=== PATIENT | male | born 1945 | race Hispanic/Latino ===

== ENCOUNTER 2017-01-28 14:54 | Outpatient (CLI) | payer OTHER ==
--- NOTE | 2017-01-28 15:35 | Cat Scan Report ---
CT HEAD WITHOUT CONTRAST: HISTORY: Dizziness. Serial contiguous axial images were obtained through the cranium. Intravenous contrast material was not administered. The ventricles are normal in size and appearance. There is no mass effect or midline shift. No areas of abnormally increased or decreased attenuation are seen. No mass lesion is seen. Chronic 1.4 cm infarct in the posterior, superior left cerebellum is noted. The mastoid air cells and visualized portions of the sinuses are normal. IMPRESSION: No acute intracranial process. Chronic left cerebellar infarct.
== END 2017-01-28 14:55 | disposition home or self-care (01) ==
LOC: VAS 14:54
PROVIDERS: ATTEND Internal Medicine
DX: I63.9 Cerebral infarction, unspecified (principal); I65.23 Occlusion and stenosis of bilateral carotid arteries
CPT/HCPCS: 70450; 93880

== ENCOUNTER 2017-04-10 05:09 | Emergency (ER) | payer OTHER ==
--- NOTE | 2017-04-10 05:55 | XRay Report ---
FINAL REPORT EXAM: XR CHEST ROUTINE 2V HISTORY: Shortness of breath TECHNIQUE: PA and lateral views of the chest were submitted. FINDINGS: The heart size and mediastinum appear normal. The lungs are clear. Pleural fluid is not seen. The bones and soft tissues do not show any acute changes. IMPRESSION: No active chest disease.
[2017-04-10 06:42] LABS: Basophils % (Auto) 0.3 % (0.0-1.8); Eosinophils # (Auto) 0.1 K/mm3 (0.0-0.4); Eosinophils % (Auto) 1.6 % (0.0-4.3); Hematocrit 44.3 % (35.5-45.6); Hemoglobin 14.6 gm/dl (11.8-15.2); Lymphocytes % (Auto) 13.1 % (13.4-35.0); Mean Corpuscular HGB Conc 33 % (32-34); Mean Corpuscular Hemoglobin 29 pg (28-32); Mean Corpuscular Volume 87 fl (84-94); Monocytes % (Auto) 13.1 % (0.0-7.3); Platelet Count 165 K/mm3 (140-440); Red Blood Count 5.12 M/mm3 (3.65-5.03); Red Cell Distribution Width 14.8 % (13.2-15.2)
[2017-04-10 07:00] LABS: Calcium 9.4 mg/dL (8.4-10.2)
[2017-04-10 07:48] LABS: Bacteria,Urine 1+ /HPF (Negative); Bilirubin,Urine NEG (Negative); Blood,Urine NEG (Negative); Color,Urine Yellow (Yellow); Mucus,Urine FEW /HPF; Nitrite,Urine NEG (Negative); Urobilinogen,Urine < 2.0 mg/dL (<2.0)
[2017-04-10 08:45] VITALS: BP 115/77
--- NOTE | 2017-04-10 11:05 | Emergency Department Report ---
ED Shortness of Breath HPI - General Chief Complaint: Dyspnea/Respdistress Stated Complaint: SOB Source: patient, family Mode of arrival: Ambulatory Limitations: No Limitations - History of Present Illness Initial Comments: Mr. martinez is a 72-year-old male with history of coronary artery disease and CVA who presents with shortness of breath. Approximately 2 AM this morning, patient awakened with shortness of breath. He had mild shortness of breath when him detained to the bathroom. He also had shortness of breath on laying flat. Shortness of breath now resolved. He denies chest pain. He denies leg swelling. Denies cough. Today he had scheduled a neurology appointment. Out of work for the last 2 1/2 months for CVA symptoms, dizziness and inability to ambulate. Symptoms are have improved. However, his Coreg dose has been reduced in order to determine if medication contributed to the symptoms. Diuretic has been discontinued. 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 No history of CHF. No history of lung disease. No history of tobacco abuse. His is at the bedside. MD Complaint: shortness of breath -: Gradual Severity: mild Worsens With: lying flat, exertion - Related Data Home Medications Medication Instructions Recorded Confirmed Last Taken Carvedilol Cr [Coreg CR] 1 tab PO DAILY 07/05/13 07/05/13 07/06/13 21:00 Clopidogrel Bisulfate [Clopidogrel] 1 tab PO DAILY 07/05/13 07/05/13 06/30/13 Diltiazem HCl [Diltiazem 24Hr ER] 300 mg PO DAILY 07/05/13 07/05/13 07/06/13 21: 00 Esomeprazole Magnesium [Nexium] 1 tab PO DAILY 07/05/13 07/05/13 07/06/13 21:00 Fenofibrate [Fenofibrate] 160 mg PO DAILY 07/05/13 07/05/13 07/06/13 21:00 Glimepiride [Glimepiride] 4 mg PO BID 07/05/13 07/05/13 07/06/13 21:00 Lisinopril/Hydrochlorothiazide 1 tab PO DAILY 07/05/13 07/05/13 07/06/13 21:00 [Lisinopril-Hctz 20-12.5 mg Tab] Metformin HCl [Metformin] 07/05/13 07/05/13 Unknown Metformin HCl [Metformin] 1,000 mg PO BID 07/05/13 07/05/13 07/06/13 21:00 Rosuvastatin Calcium [Crestor] 1 tab PO DAILY 07/05/13 07/05/13 07/06/13 21:00 Zolpidem [Ambien] 10 mg PO QHS 07/05/13 07/05/13 07/06/13 21:00 Allergies Allergy/AdvReac Type Severity Reaction Status Date / Time No Known Allergies Allergy Unverified 07/05/13 15:22 ED Review of Systems ROS: Stated complaint: SOB Other details as noted in HPI Comment: All other systems reviewed and negative Constitutional: denies: chills, malaise Respiratory: denies: cough Cardiovascular: denies: palpitations ED Past Medical Hx - Past Medical History Previous Medical History?: Yes Hx Hypertension: Yes (took carvidolol last night) Hx Diabetes: Yes (TYPE II) Hx GERD: Yes (GERD) - Surgical History Past Surgical History?: Yes Additional Surgical History: neck sx - Social History Smoking Status: Never Smoker Substance Use Type: Alcohol - Medications Home Medications: Home Medications Medication Instructions Recorded Confirmed Last Taken Type Carvedilol Cr [Coreg CR] 1 tab PO DAILY 07/05/13 07/05/13 07/06/13 21:00 History Clopidogrel Bisulfate [Clopidogrel] 1 tab PO DAILY 07/05/13 07/05/13 06/30/13 History Diltiazem HCl [Diltiazem 24Hr ER] 300 mg PO DAILY 07/05/13 07/05/13 07/06/13 21: 00 History Esomeprazole Magnesium [Nexium] 1 tab PO DAILY 07/05/13 07/05/13 07/06/13 21:00 History Fenofibrate [Fenofibrate] 160 mg PO DAILY 07/05/13 07/05/13 07/06/13 21:00 History Glimepiride [Glimepiride] 4 mg PO BID 07/05/13 07/05/13 07/06/13 21:00 History Lisinopril/Hydrochlorothiazide 1 tab PO DAILY 07/05/13 07/05/13 07/06/13 21:00 History [Lisinopril-Hctz 20-12.5 mg Tab] Metformin HCl [Metformin] 07/05/13 07/05/13 Unknown History Metformin HCl [Metformin] 1,000 mg PO BID 07/05/13 07/05/13 07/06/13 21:00 History Rosuvastatin Calcium [Crestor] 1 tab PO DAILY 07/05/13 07/05/13 07/06/13 21:00 History Zolpidem [Ambien] 10 mg PO QHS 07/05/13 07/05/13 07/06/13 21:00 History ED Physical Exam - General Limitations: No Limitations General appearance: alert, in no apparent distress - Head Head exam: Present: atraumatic, normocephalic - Eye Eye exam: Present: normal appearance - ENT ENT exam: Present: normal orophraynx, mucous membranes moist - Neck Neck exam: Present: normal inspection. Absent: meningismus - Respiratory Respiratory exam: Present: normal lung sounds bilaterally. Absent: respiratory distress, wheezes, rales, rhonchi - Cardiovascular Cardiovascular Exam: Present: regular rate, normal rhythm. Absent: systolic murmur, diastolic murmur, rubs, gallop - GI/Abdominal GI/Abdominal exam: Present: soft, normal bowel sounds. Absent: distended, tenderness, guarding, rebound - Rectal Rectal exam: Present: deferred - Extremities Exam Extremities exam: Present: normal inspection. Absent: pedal edema - Back Exam Back exam: Present: normal inspection - Neurological Exam Neurological exam: Present: alert, oriented X3 - Psychiatric Psychiatric exam: Present: normal affect, normal mood - Skin Skin exam: Present: warm, dry, intact, normal color. Absent: rash ED Course Vital Signs 04/10/17 04/10/17 05:24 08:44 Temperature 97.8 F 98.4 F Pulse Rate 78 81 Respiratory 18 18 Rate Blood Pressure 115/79 Blood Pressure 115/77 [Left] O2 Sat by Pulse 96 96 Oximetry ED Medical Decision Making - Lab Data Result diagrams: 04/10/17 06:06 04/10/17 06:06 Vital Signs - 24 hr 04/10/17 04/10/17 05:24 08:44 Temperature 97.8 F 98.4 F Pulse Rate 78 81 Respiratory 18 18 Rate Blood Pressure 115/79 Blood Pressure 115/77 [Left] O2 Sat by Pulse 96 96 Oximetry Laboratory Results - last 24 hr 04/10/17 04/10/17 04/10/17 06:06 06:06 11:25 WBC 8.0 RBC 5.12 H Hgb 14.6 Hct 44.3 MCV 87 MCH 29 MCHC 33 RDW 14.8 Plt Count 165 Lymph % (Auto) 13.1 L Rock % (Auto) 13.1 H Eos % (Auto) 1.6 Baso % (Auto) 0.3 Lymph # 1.0 L Rock # 1.0 H Eos # 0.1 Baso # 0.0 Seg Neutrophils % 71.9 H Seg Neutrophils # 5.8 D-Dimer 180.07 Sodium 140 Potassium 4.6 Chloride 98.1 Carbon Dioxide 30 Anion Gap 17 BUN 19 Creatinine 1.3 Estimated GFR 54 BUN/Creatinine Ratio 15 Glucose 213 H Calcium 9.4 Troponin T NT-Pro-B Natriuret Pep Urine Color Urine Turbidity Urine pH Ur Specific [place] Urine Protein Urine Glucose (UA) Urine Ketones Urine Blood Urine Nitrite Urine Bilirubin Urine Urobilinogen Ur Leukocyte Esterase Urine WBC (Auto) Urine RBC (Auto) U Epithel Cells (Auto) Urine Bacteria (Auto) Urine Mucus 04/10/17 04/10/17 04/10/17 11:25 11:25 Unknown WBC RBC Hgb Hct MCV MCH MCHC RDW Plt Count Lymph % (Auto) Rock % (Auto) Eos % (Auto) Baso % (Auto) Lymph # Rock # Eos # Baso # Seg Neutrophils % Seg Neutrophils # D-Dimer Sodium Potassium Chloride Carbon Dioxide Anion Gap BUN Creatinine Estimated GFR BUN/Creatinine Ratio Glucose Calcium Troponin T < 0.010 NT-Pro-B Natriuret Pep 274.7 Urine Color Yellow Urine Turbidity Clear Urine pH 6.0 Ur Specific [place] 1.012 Urine Protein 100 mg/dl Urine Glucose (UA) 50 Urine Ketones Neg Urine Blood Neg Urine Nitrite Neg Urine Bilirubin Neg Urine Urobilinogen < 2.0 Ur Leukocyte Esterase Neg Urine WBC (Auto) 1.0 Urine RBC (Auto) 3.0 U Epithel Cells (Auto) < 1.0 Urine Bacteria (Auto) 1+ Urine Mucus Few - EKG Data 04/10/17 11:07 EKG obtained at 535 Normal sinus rhythm left axis deviation normal intervals no ST elevation normal T wave pattern - Medical Decision Making I spoke with Dr. Mercy Florez PCP, According to his records, echo 2013 EF 60% Mr. Martinez presents with shortness of breath with orthopnea and dyspnea on exertion. He appears well this time. Currently symptom-free. Ambulatory without difficulty. No evidence of PE, pneumonia, ACS or CHF. I have spoike with Dr. Florez. He agrees with discharge as appropriate. Patient given reassurance and return precautions. Next appointment with Dr. Florez's in 4 days on April 14. Critical care attestation.: If time is entered above; I have spent that time in minutes in the direct care of this critically ill patient, excluding procedure time. ED Disposition Clinical Impression: Dyspnea Disposition: DC-01 TO HOME OR SELFCARE Is pt being admited?: No Does the pt Need Aspirin: No Condition: Stable Instructions: Dyspnea (ED) Referrals: MERCY FLOREZ MD [Primary Care Provider] - 3-5 Days Time of Disposition: 12:47
== END 2017-04-10 12:52 | disposition home or self-care (01) ==
LOC: ED 05:09
DX: R06.02 Shortness of breath (principal); I10 Essential (primary) hypertension; K21.9 Gastro-esophageal reflux disease without esophagitis
CPT/HCPCS: 36415; 71046; 80048; 81001; 83880; 84484; 85025; 85379; 93005; 93010

== ENCOUNTER 2017-04-29 16:30 | Emergency (ER) | payer OTHER ==
[2017-04-29 16:57] VITALS: BP 147/93
--- NOTE | 2017-04-29 18:37 | Emergency Department Report ---
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 This is not affecting his ability to urinate. The patient was sent in by Dr. Marie with urology to have clearance for this this surgery. Patient states that the started to erode in January and was just underneath the surface however it is now completely open - Related Data Home Medications Medication Instructions Recorded Confirmed Last Taken Carvedilol Cr [Coreg CR] 1 tab PO DAILY 07/05/13 07/05/13 07/06/13 21:00 Clopidogrel Bisulfate [Clopidogrel] 1 tab PO DAILY 07/05/13 07/05/13 06/30/13 Diltiazem HCl [Diltiazem 24Hr ER] 300 mg PO DAILY 07/05/13 07/05/13 07/06/13 21: 00 Esomeprazole Magnesium [Nexium] 1 tab PO DAILY 07/05/13 07/05/13 07/06/13 21:00 Fenofibrate [Fenofibrate] 160 mg PO DAILY 07/05/13 07/05/13 07/06/13 21:00 Glimepiride [Glimepiride] 4 mg PO BID 07/05/13 07/05/13 07/06/13 21:00 Lisinopril/Hydrochlorothiazide 1 tab PO DAILY 07/05/13 07/05/13 07/06/13 21:00 [Lisinopril-Hctz 20-12.5 mg Tab] Metformin HCl [Metformin] 07/05/13 07/05/13 Unknown Metformin HCl [Metformin] 1,000 mg PO BID 07/05/13 07/05/13 07/06/13 21:00 Rosuvastatin Calcium [Crestor] 1 tab PO DAILY 07/05/13 07/05/13 07/06/13 21:00 Zolpidem [Ambien] 10 mg PO QHS 07/05/13 07/05/13 07/06/13 21:00 Previous Rx's Medication Instructions Recorded Last Taken Type Clindamycin [Clindamycin CAP] 300 mg PO Q8H 10 Days cap 04/29/17 Unknown Rx Allergies Allergy/AdvReac Type Severity Reaction Status Date / Time No Known Allergies Allergy Unverified 07/05/13 15:22 ED Review of Systems ROS: Stated complaint: PENILE PAIN Other details as noted in HPI Comment: All other systems reviewed and negative ED Past Medical Hx - Past Medical History Hx Hypertension: Yes (took carvidolol last night) Hx Diabetes: Yes (TYPE II) Hx GERD: Yes (GERD) - Surgical History Additional Surgical History: neck sx - Social History Smoking Status: Never Smoker Substance Use Type: None - Medications Home Medications: Home Medications Medication Instructions Recorded Confirmed Last Taken Type Carvedilol Cr [Coreg CR] 1 tab PO DAILY 07/05/13 07/05/13 07/06/13 21:00 History Clopidogrel Bisulfate [Clopidogrel] 1 tab PO DAILY 07/05/13 07/05/13 06/30/13 History Diltiazem HCl [Diltiazem 24Hr ER] 300 mg PO DAILY 07/05/13 07/05/13 07/06/13 21: 00 History Esomeprazole Magnesium [Nexium] 1 tab PO DAILY 07/05/13 07/05/13 07/06/13 21:00 History Fenofibrate [Fenofibrate] 160 mg PO DAILY 07/05/13 07/05/13 07/06/13 21:00 History Glimepiride [Glimepiride] 4 mg PO BID 07/05/13 07/05/13 07/06/13 21:00 History Lisinopril/Hydrochlorothiazide 1 tab PO DAILY 07/05/13 07/05/13 07/06/13 21:00 History [Lisinopril-Hctz 20-12.5 mg Tab] Metformin HCl [Metformin] 07/05/13 07/05/13 Unknown History Metformin HCl [Metformin] 1,000 mg PO BID 07/05/13 07/05/13 07/06/13 21:00 History Rosuvastatin Calcium [Crestor] 1 tab PO DAILY 07/05/13 07/05/13 07/06/13 21:00 History Zolpidem [Ambien] 10 mg PO QHS 07/05/13 07/05/13 07/06/13 21:00 History Clindamycin [Clindamycin CAP] 300 mg PO Q8H 10 Days cap 04/29/17 Unknown Rx ED Physical Exam - General Limitations: No Limitations General appearance: alert, in no apparent distress - Head Head exam: Present: atraumatic, normocephalic - Eye Eye exam: Present: normal appearance - ENT ENT exam: Present: mucous membranes moist - Neck Neck exam: Present: normal inspection - Respiratory Respiratory exam: Present: normal lung sounds bilaterally. Absent: respiratory distress - Cardiovascular Cardiovascular Exam: Present: regular rate, normal rhythm. Absent: systolic murmur, diastolic murmur, rubs, gallop - GI/Abdominal GI/Abdominal exam: Present: soft, normal bowel sounds - Rectal Rectal exam: Present: deferred - exam: Present: other (just to the left of the ureter urethral meatus there is a plastic foreign body that is eroded through the head of the glans of the penis and is sticking out approximately 1-1/2 cm) - Extremities Exam Extremities exam: Present: normal inspection - Back Exam Back exam: Present: normal inspection - Neurological Exam Neurological exam: Present: alert, oriented X3 - Psychiatric Psychiatric exam: Present: normal affect, normal mood - Skin Skin exam: Present: warm, dry, intact, normal color. Absent: rash ED Course Vital Signs 04/29/17 16:52 Temperature 98.1 F Pulse Rate 100 H Respiratory 20 Rate Blood Pressure 147/93 O2 Sat by Pulse 98 Oximetry ED Medical Decision Making - Lab Data Result diagrams: 04/29/17 18:44 04/29/17 18:44 - Medical Decision Making I did discuss this case with Dr. Marie who states that because the patient is on Plavix and had a recent stroke he needs to be medically cleared patient also will need infectious disease on board as well. Discussed the patient with Dr. Thompson who with internal medicine hospitalist service who states that the patient should be discharged on to get his clearance and the hospital would not be able to keep the patient for the 5 days it may take clear the patient. I had a long conversation with the patient regarding need to get cleared and he does understand and verbalizes back the plan. Patient be discharged home at this time Critical care attestation.: If time is entered above; I have spent that time in minutes in the direct care of this critically ill patient, excluding procedure time. ED Disposition Clinical Impression: Erosion of penile prosthesis Disposition: DC- TO HOME OR SELFCARE Is pt being admited?: No Does the pt Need Aspirin: No Condition: Stable Additional Instructions: Please use the list to Dr. Marie gave you regarding who you need to see for medical clearance Prescriptions: Clindamycin [Clindamycin CAP] 300 mg PO Q8H 10 Days cap Referrals: PRIMARY CARE, [Primary Care Provider] - 3-5 Days
[2017-04-29 19:04] LABS: Basophils % (Auto) 0.4 % (0.0-1.8); Eosinophils # (Auto) 0.1 K/mm3 (0.0-0.4); Eosinophils % (Auto) 1.5 % (0.0-4.3); Hematocrit 43.4 % (35.5-45.6); Hemoglobin 14.4 gm/dl (11.8-15.2); Mean Corpuscular HGB Conc 33 % (32-34); Mean Corpuscular Hemoglobin 28 pg (28-32); Mean Corpuscular Volume 86 fl (84-94); Monocytes # (Auto) 1.3 K/mm3 (0.0-0.8); Monocytes % (Auto) 12.4 % (0.0-7.3); Platelet Count 188 K/mm3 (140-440); Red Blood Count 5.05 M/mm3 (3.65-5.03); Red Cell Distribution Width 13.6 % (13.2-15.2)
[2017-04-29 19:17] LABS: Bacteria,Urine 1+ /HPF (Negative); Bilirubin,Urine NEG (Negative); Blood,Urine NEG (Negative); Color,Urine Yellow (Yellow); Hyaline Casts,Urine 4 /LPF; Mucus,Urine FEW /HPF; Nitrite,Urine NEG (Negative)
[2017-04-29 19:24] LABS: BUN/Creatinine Ratio 23; Blood Urea Nitrogen 21 mg/dL (9-20); Calcium 9.4 mg/dL (8.4-10.2); Hemolysis Index 3
[2017-04-29 19:36] LABS: INR 0.87 (0.87-1.13); Partial Thromboplastin Time 27.7 Sec. (24.2-36.6)
== END 2017-04-29 20:39 | disposition home or self-care (01) ==
LOC: ED 16:30
DX: T83.84XA Pain due to genitourinary prosthetic devices, implants and grafts, initial encounter (principal); I10 Essential (primary) hypertension; E11.9 Type 2 diabetes mellitus without complications; K21.9 Gastro-esophageal reflux disease without esophagitis
CPT/HCPCS: 36415; 80048; 81001; 85025; 85610; 85730; 99283

== ENCOUNTER 2017-05-05 06:24 | Inpatient (IN) | payer OTHER ==
[2017-05-05] MEDS ORDERED: GARAMYCIN/NS 80 MG/100 ML 100 ML IV SCH (07:00)
[2017-05-05] MEDS ORDERED: ANCEF/STERILE WATER 2 GM/20 ML IV NR (07:00)
[2017-05-05] MEDS ORDERED: XYLOCAINE MPF 2% ONE (07:33)
[2017-05-05] MEDS ORDERED: DIPRIVAN 10 MG/ML IV ONE (07:33)
[2017-05-05] MEDS ORDERED: DILAUDID ONE (07:34)
--- NOTE | 2017-05-05 07:46 | Anesthesia Consultation ---
Anesthesia Consult and Med Hx Date of service: 05/05/17 - Airway Anesthetic Teeth Evaluation: Poor, Dentures ROM Head & Neck: Adequate Mental/Hyoid Distance: Adequate Mallampati Class: Class II Intubation Access Assessment: Probably Good - Pulmonary Exam CTA: Yes - Cardiac Exam Cardiac Exam: RRR - Pre-Operative Health Status ASA Pre-Surgery Classification: ASA4 Proposed Anesthetic Plan: General - Pulmonary Hx Smoking: No Hx Sleep Apnea: No (IMELDA PRE SCREEN HIGH RISK) - Cardiovascular System Hx Hypertension: Yes (X 30 YRS) Hx Coronary Artery Disease: Yes (s/p angioplasty. stoopped plavix 1 week ago) Hx Percutaneous Transluminal Coronary Angioplasty (PTCA): Yes Hx Peripheral Vascular Disease: Yes (carotid stenosis s/p left CEA) - Central Nervous System Hx Neuromuscular Disorder: Yes (Peripheral neuropathy) CVA: Yes (? TIA , CVA 01/2017- ON PLAVIX- DEFICT= DIZZINESS) Hx Psychiatric Problems: Yes (anxiety/depression) - Endocrine Hx Non-Insulin Dependent Diabetes: Yes (is on metformin) - Other Systems Hx Alcohol Use: Yes Hx Substance Use: No Hx Cancer: No - Additional Comments Anesthesia Medical History Comments: hearing impairement'. emergent case per Dr. Marie. Risk of periop TIA/stroke with stopping plavix per neurology notes. EF 60%. High risk. patient aware
[2017-05-05] MEDS ORDERED: DILAUDID IV PRN (07:47)
--- NOTE | 2017-05-05 07:59 | Anesthesia Day of Surgery ---
Anesthesia Day of Surgery - Day of Surgery Patient Examined: Yes Patient H&P Reviewed: Yes Patient is NPO: Yes Beta Blockers: Yes (given in preop) Cardiac Clearance: Yes (neuro aand cardiac eval in chart.carlos risk for stopping plavix)
[2017-05-05] MEDS ORDERED: NACL 0.9% 1000 ML 1,000 ML IV SCH (08:00)
[2017-05-05] MEDS ORDERED: PEPCID IV NR (08:00)
[2017-05-05] MEDS ORDERED: GARAMYCIN ONE (08:28)
[2017-05-05] MEDS ORDERED: NEOSPORIN GU IR ONE ×2 (08:28→09:12)
[2017-05-05] MEDS ORDERED: VANCOMYCIN VIAL ONE (08:28)
[2017-05-05] MEDS ORDERED: HYDROGEN PEROXIDE ONE (08:28)
[2017-05-05] MEDS ORDERED: NACL 0.9% 50 ML ONE (08:29)
[2017-05-05] MEDS ORDERED: COREG PO SCH (09:00)
[2017-05-05] MEDS ORDERED: VANCOMYCIN VIAL IRRIGATION ONE (09:12)
[2017-05-05] MEDS ORDERED: GARAMYCIN IV ONE (09:12)
[2017-05-05] MEDS ORDERED: HYDROGEN PEROXIDE IRRIGATION ONE (09:13)
[2017-05-05] MEDS ORDERED: NACL 0.9% IR ONE (09:14)
[2017-05-05] MEDS ORDERED: WATER FOR IRRIG STERILE IR ONE (09:14)
[2017-05-05] MEDS ORDERED: ZOFRAN ONE (09:16)
[2017-05-05] MEDS ORDERED: ePHEDrine SULFATE ONE (09:25)
--- NOTE | 2017-05-05 09:56 | Short Stay Summary ---
Short Stay Documentation Date of service: 05/05/17 - History H&P: obtained from office - Allergies and Medications Current Medications: Allergies No Known Allergies Allergy (Verified 05/01/17 11:07) Home Medications Medication Instructions Recorded Confirmed Last Taken Type Carvedilol Cr [Coreg CR] 12.5 mg PO DAILY 07/05/13 05/05/17 05/05/17 08:15 History Clopidogrel Bisulfate [Clopidogrel] 75 mg PO DAILY 07/05/13 05/01/17 1 Week Ago History ~04/28/17 Esomeprazole Magnesium [Nexium] 40 mg PO DAILY 07/05/13 05/01/17 05/04/17 History Glimepiride [Glimepiride] 4 mg PO DAILY 07/05/13 05/01/17 05/04/17 History Lisinopril/Hydrochlorothiazide 1 tab PO DAILY 07/05/13 05/01/17 05/04/17 History [Lisinopril-Hctz 20-12.5 mg Tab] Metformin HCl [Metformin] 1,000 mg PO DAILY 07/05/13 05/01/17 2 Days Ago History ~05/03/17 Rosuvastatin Calcium [Crestor] 20 mg PO DAILY 07/05/13 05/01/17 05/04/17 History Clindamycin [Clindamycin CAP] 300 mg PO Q8H 10 Days cap 04/29/17 05/01/1705/04 Rx Isosorbide Mononitrate 10 mg PO BID 05/01/17 05/01/17 05/04/17 History Naproxen [Naprosyn] 500 mg PO PRN PRN 05/01/17 05/01/17 1 Week Ago History ~04/28/17 Venlafaxine [Effexor] 75 mg PO TID 05/01/17 05/01/17 05/04/17 History Active Medications Carvedilol (Coreg) 12.5 mg PO ONCE ODELL Stop: 05/05/17 23:59 Last Admin: 05/05/17 08:15 Dose: 12.5 mg Cefazolin Sodium (Ancef/Sterile Water 2 Gm/20 Ml) 2 gm IV PREOP NR Stop: 05/05/17 23:59 Famotidine (Pepcid) 20 mg IV PREOP NR Stop: 05/05/17 12:00 Last Admin: 05/05/17 08:08 Dose: 20 mg Hydromorphone HCl (Dilaudid) 0.5 mg IV Q10MIN PRN PRN Reason: Pain , Severe (7-10) Stop: 05/05/17 13:00 Gentamicin Sulfate/Sodium Chloride (Garamycin/Ns 80 Mg/100 Ml) 100 mls @ 200 mls/hr IV PREOP ODELL Stop: 05/05/17 23:59 Sodium Chloride (Nacl 0.9% 1000 Ml) 1,000 mls @ 100 mls/hr IV DIRECT ODELL Last Admin: 05/05/17 08:05 Dose: 100 mls/hr - Brief post op/procedure progress note Date of procedure: 05/05/17 Pre-op diagnosis: infected ipp (erosion) Post-op diagnosis: same Procedure: removal ipp with devin drain Anesthesia: LUIS Surgeon: WILLIAM ESPINOSA Estimated blood loss: minimal Pathology: list (ipp) Specimen disposition: to lab Condition: stable - Hospital course Hospital course: juan huffman hammonds removed incision looks good - Disposition Condition at discharge: Stable Short Stay Discharge Plan Follow up with: MERCY FLOREZ MD [Primary Care Provider] - 7 Days
[2017-05-05] MEDS ORDERED: NARCAN 0.4 MG/1 ML IV PRN (10:03)
[2017-05-05] MEDS ORDERED: ZOFRAN IV PRN (10:03)
[2017-05-05] MEDS ORDERED: MORPHINE IV PRN ×2 (10:03→23:00)
--- NOTE | 2017-05-05 10:12 | Post Anesthesia Evaluation ---
- Post Anesthesia Evaluation Patient Participated: Yes Airway Patent: Yes Stable Respiratory Function: Yes Nausea/Vomiting: No Temp > 96.8F: Yes Pain Manageable: Yes Adequeate Hydration: Yes Anesthesia Complications: Yes
[2017-05-05] MEDS ORDERED: D50W (25GM) Syringe IV PRN (10:13)
--- NOTE | 2017-05-05 10:38 | Operative Report ---
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 PROCEDURE: Removal of inflatable penile prosthesis with placement of [place] drain. SURGEON: Jose Roberto Marie MD ANESTHESIA: General. ESTIMATED BLOOD LOSS: Minimal. FLUIDS: Crystalloid. COMPLICATIONS: No complications. INDICATIONS: This 72-year-old gentleman known to our service with a history of erectile dysfunction. He underwent insertion of inflatable penile prosthesis (AMS type) on 07/03/2013. He has done well. Represented to the office 03/2017 with penile pain. He has also had a recent cerebrovascular accident, is on Plavix and has been managed by Dr. Mayito Chirinos as well as heart disease, which has been managed by Annita Nathan. Initially, he had an impending erosion. We tried to get clearances, however, over the next several days the device eroded through the distal glans penis. He was seen in the office. We went to the Emergency Room to try to make sure the infection was under control. He was stable. Medical doctor felt that he could be managed as an outpatient. He received clearance from his summer law clerk and his neurologist to proceed with removal, we stopped the blood thinners. DESCRIPTION OF PROCEDURE: The patient was taken to the operative suite, placed in a supine position. After adequate general anesthesia placed in a supine position, prepped and draped in a sterile fashion. Renner catheter was placed on the operative field. The distal tip of the left cylinder was protruding out of the glans penis. Renner catheter was placed with talha colored urine. Vertical scrotal incision was made. Sharp dissection was taken down with the Bovie to the pump compartment shandra pus could be appreciated. Anaerobic and aerobic cultures were obtained and then evacuation of the pus was performed with irrigation. The pump was identified. The device could still be inflated and deflated. The tubing was tracked to both the left and right corporal bodies, corporotomies were made. The cylinders were removed. No shandra pus could be appreciated. The tubing was then tracked to the reservoir, which was still intact. The fluid was drained. The reservoir was removed from the right retropubic space. Anaerobic and aerobic cultures were taken from the reservoir, right cylinder and scrotum. The left cylinder was not cultured. There was no real sign of infection at that point. Modified Shakira irrigation throughout the wound was performed. Adequate hemostasis achieved, the distal tip of the glans was closed with 2-0 Vicryl in interrupted fashion. Agusto drain was placed in the left and right corporal bodies and brought out through the scrotal incision. Copious irrigation again was performed. Adequate hemostasis achieved. [place] layer was closed with 2-0 Vicryl in a running fashion. Skin was closed with 2-0 Vicryl in interrupted fashion. A [place] drain was secured with 2-0 Vicryl as well. Mummy wrap was placed. The patient tolerated the procedure well, was extubated and taken to recovery room. He will be observed overnight as well as placed on IV antibiotics. [facility]# [id number] ADDIS/KEVIN
[2017-05-05] MEDS ORDERED: ANCEF/NS 1 GM/50 ML 1 GM/50 ML BAG IV SCH (11:00)
--- NOTE | 2017-05-05 11:00 | Post Anesthesia Evaluation ---
- Post Anesthesia Evaluation Patient Participated: Yes Airway Patent: Yes Stable Respiratory Function: Yes Nausea/Vomiting: No Temp > 96.8F: Yes Pain Manageable: Yes Adequeate Hydration: Yes Anesthesia Complications: No
[2017-05-05] MEDS: NORCO 5/325 PO PRN (14:00)
[2017-05-05] MEDS: LACTATED RINGERS 1,000 ML IV SCH (14:08)
[2017-05-05] MEDS: ceFAZolin 1 GM in NACL 0.9% 20 ML IV SCH ×2 (17:17→23:29)
[2017-05-05] MEDS: EFFEXOR PO SCH ×2 (17:17→22:13)
[2017-05-05] MEDS: GARAMYCIN/NS 80 MG/100 ML 100 ML IV SCH (18:12)
--- NOTE | 2017-05-05 20:29 | History and Physical Report ---
History of Present Illness Date of admission: 05/05/17 10:05 Chief complaint: I had an infection History of present illness: 72 YO Male with HTN, CVA,CAD, Anxiety, Depression, GERD, HLD, DM, Carotid Stenosis, PVD admitted for Infected penile implant. Consult placed by Dr. Marie for medical management. Pt seen and evaluated. Pt denies fever, chills, CP, Palpitations, NVD, syncope, leg swelling or recent ill contacts. No reported nursing events. Medications and Allergies Allergies Allergy/AdvReac Type Severity Reaction Status Date / Time No Known Allergies Allergy Verified 05/01/17 11:07 Home Medications Medication Instructions Recorded Confirmed Last Taken Type Carvedilol Cr [Coreg CR] 12.5 mg PO DAILY 07/05/13 05/05/17 05/05/17 08:15 History Clopidogrel Bisulfate [Clopidogrel] 75 mg PO DAILY 07/05/13 05/01/17 1 Week Ago History ~04/28/17 Esomeprazole Magnesium [Nexium] 40 mg PO DAILY 07/05/13 05/01/17 05/04/17 History Glimepiride [Glimepiride] 4 mg PO DAILY 07/05/13 05/01/17 05/04/17 History Lisinopril/Hydrochlorothiazide 1 tab PO DAILY 07/05/13 05/01/17 05/04/17 History [Lisinopril-Hctz 20-12.5 mg Tab] Metformin HCl [Metformin] 1,000 mg PO DAILY 07/05/13 05/01/17 2 Days Ago History ~05/03/17 Rosuvastatin Calcium [Crestor] 20 mg PO DAILY 07/05/13 05/01/17 05/04/17 History Clindamycin [Clindamycin CAP] 300 mg PO Q8H 10 Days cap 04/29/17 05/01/1705/04 Rx Isosorbide Mononitrate 10 mg PO BID 05/01/17 05/01/17 05/04/17 History Naproxen [Naprosyn] 500 mg PO PRN PRN 05/01/17 05/01/17 1 Week Ago History ~04/28/17 Venlafaxine [Effexor] 75 mg PO TID 05/01/17 05/01/17 05/04/17 History Active Meds: Active Medications Acetaminophen/Hydrocodone Bitart ([place] 5/325) 2 each PO Q6H PRN PRN Reason: Pain, Moderate (4-6) Last Admin: 05/05/17 14:00 Dose: 2 each Atorvastatin Calcium (Lipitor) 20 mg PO QHS [facility] Carvedilol (Coreg) 12.5 mg PO ONCE [facility] Stop: 05/05/17 23:59 Last Admin: 05/05/17 08:15 Dose: 12.5 mg Cefazolin Sodium (Ancef/Sterile Water 2 Gm/20 Ml) 2 gm IV PREOP NR Stop: 05/05/17 23:59 Dextrose (D50w (25gm) Syringe) 50 ml IV PRN PRN PRN Reason: Hypoglycemia Glimepiride (Amaryl) 4 mg PO QAMDIAB [facility] Hydrochlorothiazide (Hctz) 12.5 mg PO QDAY [facility] Gentamicin Sulfate/Sodium Chloride (Garamycin/Ns 80 Mg/100 Ml) 100 mls @ 200 mls/hr IV PREOP [facility] Stop: 05/05/17 23:59 Sodium Chloride (Nacl 0.9% 1000 Ml) 1,000 mls @ 100 mls/hr IV DIRECT [facility] Last Admin: 05/05/17 08:05 Dose: 100 mls/hr Gentamicin Sulfate/Sodium Chloride (Garamycin/Ns 80 Mg/100 Ml) 100 mls @ 200 mls/hr IV Q8H [facility] PRN Reason: Protocol Stop: 05/06/17 01:29 Last Admin: 05/05/17 18:12 Dose: 200 mls/hr Lactated Ringer's (Lactated Ringers) 1,000 mls @ 100 mls/hr IV DIRECT [facility] Last Admin: 05/05/17 14:08 Dose: 100 mls/hr Cefazolin Sodium 1 gm/ Sodium (Chloride) 20 mls @ 20 mls/10 min IV Q8H [facility] Stop: 05/06/17 00:09 Last Admin: 05/05/17 17:17 Dose: 20 mls/10 min Insulin Human Regular (Novolin R) 0 units SUB-Q ACHS [facility] PRN Reason: Protocol Last Admin: 05/05/17 17:36 Dose: Not Given Isosorbide Dinitrate (Isordil Titradose) 10 mg PO BID [facility] Lisinopril (Zestril) 20 mg PO QDAY [facility] Metformin HCl (Glucophage) 1,000 mg PO QAMDIAB [facility] Miscellaneous Medication (Carvedilol Cr [Coreg Cr]) 12.5 mg PO DAILY [facility] Morphine Sulfate (Morphine) 2 mg IV Q4H PRN PRN Reason: Pain, Moderate (4-6) Naloxone HCl (Narcan 0.4 Mg/1 Ml) 0.1 mg IV Q2MIN PRN PRN Reason: Res Rate </= 8 or 02 SAT < 92% Ondansetron HCl (Zofran) 4 mg IV Q8H PRN PRN Reason: N/V unrelieved by Regevy Pantoprazole Sodium (Protonix) 40 mg PO DAILY [facility] Venlafaxine HCl (Effexor) 75 mg PO TID [facility] Last Admin: 05/05/17 17:17 Dose: 75 mg Exam - Constitutional Vitals: Temp Pulse Resp BP Pulse Ox 98.7 F 89 17 136/83 93 05/05/17 19:53 05/05/17 19:53 05/05/17 19:53 05/05/17 19:53 05/05/17 19:53 Results - Labs CBC & Chem 7: 05/05/17 07:00 Labs: Abnormal lab results 05/05/17 05/05/17 Range/Units 11:55 16:34 POC Glucose 125 H 209 H (70-105)
--- NOTE | 2017-05-05 20:32 | Consultation ---
History of Present Illness - Reason for Consult Consult date: 05/05/17 Requesting physician: WILLIAM MARIE - History of Present Illness 72 YO Male with HTN, CVA,CAD, Anxiety, Depression, GERD, HLD, DM, Carotid Stenosis, PVD admitted for Infected penile implant. Consult placed by Dr. Marie for medical management. Pt seen and evaluated. Pt denies fever, chills, CP, Palpitations, NVD, syncope, leg swelling or recent ill contacts. No reported nursing events. Past History Past Medical History: diabetes, GERD, hypertension, hyperlipidemia, PVD, stroke Past Surgical History: Other (carotid endarterectomy, angioplasty) Social history: , lives with family. denies: smoking, alcohol abuse, prescription drug abuse Family history: hypertension Medications and Allergies Allergies Allergy/AdvReac Type Severity Reaction Status Date / Time No Known Allergies Allergy Verified 05/01/17 11:07 Home Medications Medication Instructions Recorded Confirmed Last Taken Type Carvedilol Cr [Coreg CR] 12.5 mg PO DAILY 07/05/13 05/05/17 05/05/17 08:15 History Clopidogrel Bisulfate [Clopidogrel] 75 mg PO DAILY 07/05/13 05/01/17 1 Week Ago History ~04/28/17 Esomeprazole Magnesium [Nexium] 40 mg PO DAILY 07/05/13 05/01/17 05/04/17 History Glimepiride [Glimepiride] 4 mg PO DAILY 07/05/13 05/01/17 05/04/17 History Lisinopril/Hydrochlorothiazide 1 tab PO DAILY 07/05/13 05/01/17 05/04/17 History [Lisinopril-Hctz 20-12.5 mg Tab] Metformin HCl [Metformin] 1,000 mg PO DAILY 07/05/13 05/01/17 2 Days Ago History ~05/03/17 Rosuvastatin Calcium [Crestor] 20 mg PO DAILY 07/05/13 05/01/17 05/04/17 History Clindamycin [Clindamycin CAP] 300 mg PO Q8H 10 Days cap 04/29/17 05/01/1705/04 Rx Isosorbide Mononitrate 10 mg PO BID 05/01/17 05/01/17 05/04/17 History Naproxen [Naprosyn] 500 mg PO PRN PRN 05/01/17 05/01/17 1 Week Ago History ~04/28/17 Venlafaxine [Effexor] 75 mg PO TID 05/01/17 05/01/17 05/04/17 History Active Meds: Active Medications Acetaminophen/Hydrocodone Bitart ([place] 5/325) 2 each PO Q6H PRN PRN Reason: Pain, Moderate (4-6) Last Admin: 05/05/17 14:00 Dose: 2 each Atorvastatin Calcium (Lipitor) 20 mg PO QHS [facility] Carvedilol (Coreg) 12.5 mg PO ONCE [facility] Stop: 05/05/17 23:59 Last Admin: 05/05/17 08:15 Dose: 12.5 mg Cefazolin Sodium (Ancef/Sterile Water 2 Gm/20 Ml) 2 gm IV PREOP NR Stop: 05/05/17 23:59 Dextrose (D50w (25gm) Syringe) 50 ml IV PRN PRN PRN Reason: Hypoglycemia Glimepiride (Amaryl) 4 mg PO QAMDIAB [facility] Hydrochlorothiazide (Hctz) 12.5 mg PO QDAY [facility] Gentamicin Sulfate/Sodium Chloride (Garamycin/Ns 80 Mg/100 Ml) 100 mls @ 200 mls/hr IV PREOP [facility] Stop: 05/05/17 23:59 Sodium Chloride (Nacl 0.9% 1000 Ml) 1,000 mls @ 100 mls/hr IV DIRECT [facility] Last Admin: 05/05/17 08:05 Dose: 100 mls/hr Gentamicin Sulfate/Sodium Chloride (Garamycin/Ns 80 Mg/100 Ml) 100 mls @ 200 mls/hr IV Q8H [facility] PRN Reason: Protocol Stop: 05/06/17 01:29 Last Admin: 05/05/17 18:12 Dose: 200 mls/hr Lactated Ringer's (Lactated Ringers) 1,000 mls @ 100 mls/hr IV DIRECT [facility] Last Admin: 05/05/17 14:08 Dose: 100 mls/hr Cefazolin Sodium 1 gm/ Sodium (Chloride) 20 mls @ 20 mls/10 min IV Q8H [facility] Stop: 05/06/17 00:09 Last Admin: 05/05/17 17:17 Dose: 20 mls/10 min Insulin Human Regular (Novolin R) 0 units SUB-Q ACHS [facility] PRN Reason: Protocol Last Admin: 05/05/17 17:36 Dose: Not Given Isosorbide Dinitrate (Isordil Titradose) 10 mg PO BID [facility] Lisinopril (Zestril) 20 mg PO QDAY [facility] Metformin HCl (Glucophage) 1,000 mg PO QAMDIAB [facility] Miscellaneous Medication (Carvedilol Cr [Coreg Cr]) 12.5 mg PO DAILY [facility] Morphine Sulfate (Morphine) 2 mg IV Q4H PRN PRN Reason: Pain, Moderate (4-6) Naloxone HCl (Narcan 0.4 Mg/1 Ml) 0.1 mg IV Q2MIN PRN PRN Reason: Res Rate </= 8 or 02 SAT < 92% Ondansetron HCl (Zofran) 4 mg IV Q8H PRN PRN Reason: N/V unrelieved by Reglan Pantoprazole Sodium (Protonix) 40 mg PO DAILY [facility] Venlafaxine HCl (Effexor) 75 mg PO TID [facility] Last Admin: 05/05/17 17:17 Dose: 75 mg Review of Systems Constitutional: no weight loss, no weight gain, no fever, no chills Ears, nose, mouth and throat: no ear pain, no ear discharge, no tinnitis, no decreased hearing, no nasal congestion Cardiovascular: no chest pain, no orthopnea, no palpitations, no rapid/ irregular heart beat, no edema, no syncope Respiratory: no cough, no cough with sputum, no excessive sputum, no hemoptysis , no shortness of breath Gastrointestinal: no nausea, no vomiting, no diarrhea, no constipation Genitourinary Male: genital pain, no hematuria, no flank pain, no discharge, no urinary frequency, no urinary hesitancy Rectal: no pain, no incontinence, no bleeding Musculoskeletal: no neck stiffness, no neck pain, no shooting arm pain Integumentary: no rash, no pruritis, no redness, no sores, no wounds, no boils Neurological: no head injury, no transient paralysis, no paralysis, no weakness , no parathesias, no numbness, no tingling Psychiatric: no anxiety, no memory loss, no change in sleep habits, no sleep disturbances, no insomnia, no hypersomnia Endocrine: no cold intolerance, no heat intolerance, no polyphagia, no excessive thirst, no polydipsia, no polyuria Hematologic/Lymphatic: no easy bruising, no easy bleeding, no lymphadenopathy, no lymphedema Allergic/Immunologic: no urticaria, no allergic rhinitis, no wheezing Exam - Constitutional Vitals: Temp Pulse Resp BP Pulse Ox 98.7 F 89 17 136/83 93 05/05/17 19:53 05/05/17 19:53 05/05/17 19:53 05/05/17 19:53 05/05/17 19:53 General appearance: Present: mild distress - EENT Eyes: Present: PERRL ENT: hearing intact, clear oral mucosa - Neck Neck: Present: supple, normal ROM - Respiratory Respiratory effort: normal Respiratory: bilateral: CTA - Cardiovascular Heart Sounds: Present: S1 & S2. Absent: rub, click - Extremities Extremities: pulses symmetrical, No edema Peripheral Pulses: within normal limits - Abdominal General gastrointestinal: Present: soft, non-tender, non-distended, normal bowel sounds Male genitourinary: Present: normal - Integumentary Integumentary: Present: clear, warm, dry - Musculoskeletal Musculoskeletal: gait normal, strength equal bilaterally - Psychiatric Psychiatric: appropriate mood/affect, intact judgment & insight - Neurologic Neurologic: CNII-XII intact, moves all extremities Results - Labs CBC & Chem 7: 05/05/17 07:00 Labs: Abnormal lab results 05/05/17 05/05/17 Range/Units 11:55 16:34 POC Glucose 125 H 209 H (70-105) Assessment and Plan - Patient Problems (1) GERD (gastroesophageal reflux disease) Current Visit: Yes Status: Acute Qualifiers: Esophagitis presence: without esophagitis Qualified Code(s): K21.9 - Gastro -esophageal reflux disease without esophagitis Plan to address problem: continue PPi therapy, supportive care, diet as tolerated. (2) Coronary atherosclerosis of [place] coronary artery Current Visit: No Status: Chronic Qualifiers: Associated angina: without angina Plan to address problem: resume antiplatelet therapy as soon as possible, low cholesterol diet, statin therapy, risk reduction. (3) Hypertension, benign Current Visit: No Status: Chronic Plan to address problem: monitor bp q shift, IV hydralazine prn, continue medical management. (4) Type II diabetes mellitus Current Visit: No Status: Chronic Plan to address problem: ADA diet, insulin, accu check (5) DVT prophylaxis Current Visit: Yes Status: Acute
[2017-05-05] MEDS ORDERED: ISOSORBIDE MONONITRATE 10 MG PO SCH (22:00)
[2017-05-05] MEDS: ISORDIL TITRADOSE PO SCH (22:14)
[2017-05-06] MEDS: GARAMYCIN/NS 80 MG/100 ML 100 ML IV SCH (00:47)
[2017-05-06] MEDS: LACTATED RINGERS 1,000 ML IV SCH (01:53)
[2017-05-06 03:29] LABS: Basophils % (Auto) 0.5 % (0.0-1.8); Eosinophils # (Auto) 0.1 K/mm3 (0.0-0.4); Hematocrit 33.9 % (35.5-45.6); Hemoglobin 11.2 gm/dl (11.8-15.2); Lymphocytes % (Auto) 11.1 % (13.4-35.0); Mean Corpuscular HGB Conc 33 % (32-34); Mean Corpuscular Hemoglobin 28 pg (28-32); Mean Corpuscular Volume 85 fl (84-94); Monocytes # (Auto) 1.3 K/mm3 (0.0-0.8); Monocytes % (Auto) 14.3 % (0.0-7.3); Platelet Count 155 K/mm3 (140-440); Red Blood Count 4.02 M/mm3 (3.65-5.03); Red Cell Distribution Width 13.1 % (13.2-15.2)
[2017-05-06 03:49] LABS: BUN/Creatinine Ratio 14; Blood Urea Nitrogen 13 mg/dL (9-20); Calcium 8.6 mg/dL (8.4-10.2); Hemolysis Index 2
[2017-05-06] MEDS ORDERED: GLUCOPHAGE PO SCH (08:00)
[2017-05-06] MEDS ORDERED: AMARYL PO SCH (08:00)
[2017-05-06 08:46] VITALS: BP 132/67
[2017-05-06] MEDS: NORCO 5/325 PO PRN (09:21)
[2017-05-06] MEDS: ISORDIL TITRADOSE PO SCH (09:22)
[2017-05-06] MEDS: EFFEXOR PO SCH (09:24)
[2017-05-06] MEDS ORDERED: HCTZ PO SCH (10:00)
[2017-05-06] MEDS ORDERED: NON-FORMULARY (Lisinopril/Hydrochlorothiazide [Lisinopril-Hctz 20-12.5 Mg Tab] 1 TAB) PO SCH (10:00)
[2017-05-06] MEDS ORDERED: ZESTRIL PO SCH (10:00)
[2017-05-06] MEDS ORDERED: NON-FORMULARY (Metformin Hcl [Metformin] 1,000 MG) PO SCH (10:00)
[2017-05-06] MEDS ORDERED: NON-FORMULARY (Rosuvastatin Calcium [Crestor] 20 MG) PO SCH (10:00)
[2017-05-06] MEDS ORDERED: NON-FORMULARY (Esomeprazole Magnesium [Nexium] 40 MG) PO SCH (10:00)
[2017-05-06] MEDS ORDERED: PROTONIX PO SCH (10:00)
[2017-05-06] MEDS ORDERED: CARVEDILOL 12.5 MG PO SCH (10:00)
--- NOTE | 2017-05-06 18:17 | Event Note ---
Date: 05/06/17 Patient was discharged before my rounds I did not have a chance to see the patient
== END 2017-05-06 13:30 | disposition home or self-care (01) | DRG 675 ==
LOC: OR 06:24 → 3B-SURG 10:05
PROVIDERS: ADMIT Urology; ATTEND Urology
PROC: 0VPS0JZ Removal of Synthetic Substitute from Penis, Open Approach (ICD-10-PCS; principal; 2017-05-05)
DX: T83.718A Erosion of other implanted mesh to organ or tissue, initial encounter (principal); I10 Essential (primary) hypertension; I25.10 Atherosclerotic heart disease of native coronary artery without angina pectoris; F32.9 Major depressive disorder, single episode, unspecified; Z79.899 Other long term (current) drug therapy; Z86.73 Personal history of transient ischemic attack (TIA), and cerebral infarction without residual deficits; K21.9 Gastro-esophageal reflux disease without esophagitis; E78.5 Hyperlipidemia, unspecified; I65.29 Occlusion and stenosis of unspecified carotid artery; Z82.49 Family history of ischemic heart disease and other diseases of the circulatory system; E11.51 Type 2 diabetes mellitus with diabetic peripheral angiopathy without gangrene; Y73.2 Prosthetic and other implants, materials and accessory gastroenterology and urology devices associated with adverse incidents; Y92.9 Unspecified place or not applicable
CPT/HCPCS: 36415; 80048; 82962; 84132; 85025; 86403; 87075; 87116; 87186; 88300; 88302; A9270-GY; J0690; J1170; J1580; J1815; J2270; J2405; J2704; J3370; J7030; J7120

== ENCOUNTER 2020-07-07 16:02 | Inpatient (IN) | payer MEDICARE, OTHER ==
--- NOTE | 2020-07-07 16:08 | Emergency Department Report ---
HPI - General Time Seen by Provider: 07/07/20 16:06 - HPI HPI: Charge nurse triage/room 22 The patient is a 75-year-old male present with a chief complaint of right-sided weakness. Patient last known well time was approximately noon. The patient awakened this afternoon with right-sided weakness. Patient initially denies complaints but when probed further he states he came to the emergency department because he could not move his right upper extremity. ED Past Medical Hx - Past Medical History Hx Hypertension: Yes Hx CVA: Yes (No residual deficits) Hx Diabetes: Yes Hx GERD: Yes - Surgical History Hx Coronary Stent: Yes Additional Surgical History: neck sx - Family History Family history: no significant - Social History Smoking Status: Never Smoker - Medications Home Medications: Home Medications Medication Instructions Recorded Confirmed Last Taken Type Carvedilol Cr [Coreg CR] 12.5 mg PO DAILY 07/05/13 05/05/17 05/05/17 08:15 History Clopidogrel Bisulfate [Clopidogrel] 75 mg PO DAILY 07/05/13 05/01/17 1 Week Ago History ~04/28/17 Esomeprazole Magnesium [Nexium] 40 mg PO DAILY 07/05/13 05/01/17 05/04/17 History Glimepiride 4 mg PO DAILY 07/05/13 05/01/17 05/04/17 History Lisinopril/Hydrochlorothiazide 1 tab PO DAILY 07/05/13 05/01/17 05/04/17 History [Lisinopril-Hctz 20-12.5 mg Tab] Metformin HCl [Metformin] 1,000 mg PO DAILY 07/05/13 05/01/17 2 Days Ago History ~05/03/17 Rosuvastatin Calcium [Crestor] 20 mg PO DAILY 07/05/13 05/01/17 05/04/17 History Clindamycin [Clindamycin CAP] 300 mg PO Q8H 10 Days cap 04/29/17 05/01/17 05/04/17 Rx Isosorbide Mononitrate 10 mg PO BID 05/01/17 05/01/17 05/04/17 History Naproxen [Naprosyn] 500 mg PO PRN PRN 05/01/17 05/01/17 1 Week Ago History ~04/28/17 Venlafaxine [Effexor] 75 mg PO TID 05/01/17 05/01/17 05/04/17 History ED Review of Systems ROS: Stated complaint: CODE STROKE Other details as noted in HPI Constitutional: no symptoms reported Eyes: denies: eye pain ENT: denies: throat pain Respiratory: no symptoms reported Cardiovascular: denies: chest pain Endocrine: no symptoms reported Gastrointestinal: denies: abdominal pain Genitourinary: denies: dysuria Musculoskeletal: denies: back pain Neurological: weakness Physical Exam - Physical Exam Physical Exam: GENERAL: The patient is well-developed well-nourished male lying on stretcher not appearing to be in acute distress. [] HEENT: Normocephalic. Atraumatic. Extraocular motions are intact. Patient has moist mucous membranes. NECK: Supple. Trachea midline CHEST/LUNGS: Clear to auscultation. There is no respiratory distress noted. HEART/CARDIOVASCULAR: Regular. There is no tachycardia. There is no gallop rub or murmur. ABDOMEN: Abdomen is soft, nontender. Patient has normal bowel sounds. There is no abdominal distention. SKIN: There is no rash. There is no edema. There is no diaphoresis. NEURO: The patient is awake, alert, and oriented. The patient is cooperative. Dense right hemiparesis. The patient has normal speech. GCS 15, NIHSS=10 MUSCULOSKELETAL: There is no evidence of acute injury. ED Course - Consultations Consultation #1: 07/07/20 16:42 Case discussed with tele-neurology- recommends TPA ED Medical Decision Making - Lab Data Result diagrams: 07/07/20 16:23 07/07/20 16:23 - EKG Data -: EKG Interpreted by Me EKG shows normal: sinus rhythm Rate: normal - EKG Data When compared to previous EKG there are: previous EKG unavailable Interpretation: nonspecific ST-T wave raysa (T wave inversions in leads I and aVL) - Radiology Data Radiology results: report reviewed (CT head, CTA brain, CTA neck), image reviewed (CT head, CTA brain, CTA neck) [facility] [address] [place] [address] Cat Scan Report Signed Patient: АНДРЕЙ MACK MR#: [id number] : 1945 Acct:[id number] Age/Sex: 75 / M ADM Date: 07/07/20 Loc: ED Attending Dr: Ordering Physician: SELENA JACKMAN MD Date of Service: 07/07/20 Procedure(s): CT head/brain wo con Accession Number(s): [id number] cc: SELENA JACKMAN MD CT head/brain wo con INDICATION: Stroke. TECHNIQUE: Routine CT head. All CT scans at this location are performed using CT dose reduction for ALARA by means of automated exposure control. COMPARISON: 01/28/2017. FINDINGS: Intracranial: Morrison-white matter differentiation is maintained. No intracranial hemorrhage. No extra axial collection. No hydrocephalus. Encephalomalacia in the left cerebellar hemisphere. Remote small lacunar infarction seen within the right centrum semiovale. No herniation. Sinuses: Paranasal sinuses and mastoid air cells are essentially clear. Orbits: Globes are intact. Calvarium: No acute fracture. IMPRESSION: 1. No evidence for acute infarction. I informed Dr jackman who is taking care of this patient via telephone at 3:30. Signer Name: Yahir Kay MD Signed: 07/07/2020 4:30 PM Workstation Name: [id number] Transcribed By: CS Dictated By: Yahir Kay MD Electronically Authenticated By: Yahir Kay MD Signed Date/Time: 07/07/20 1630 DD/ 1628 TD/TT: Print Cancel Verbal report from radiologist reports no acute LVO on CTA brain/CTA neck [place] [id number] Cat Scan Report Signed Patient: АНДРЕЙ MACK MR#: [id number] : 1945 Acct:[id number] Age/Sex: 75 / M ADM Date: 07/07/20 Loc: ED Attending Dr: Ordering Physician: SELENA JACKMAN MD Date of Service: 07/07/20 Procedure(s): CT angio neck Accession Number(s): [id number] cc: SELENA JACKMAN MD CT angio head, CT angio neck HISTORY: Stroke COMPARISON: 01/28/[address] head dated same day. TECHNIQUE: CTA of the neck and head is performed after IV contrast. 3- D/MIP reformats were postprocessed. Percentage stenosis is determined by direct quantitative measurements of diseased internal carotid artery diameter compared with normal distal internal carotid artery reference segments or by criteria similar to NASCET where applicable. All CT scans at this location are performed using CT dose reduction for ALARA by means of automated exposure control. FINDINGS: CTA NECK: Aortic arch: Moderate atherosclerosis involving the aortic arch. Cervical vertebral arteries: No occlusion or hemodynamically significant stenosis. Common Carotid arteries: No occlusion or hemodynamically significant stenosis. Internal carotid arteries: Atherosclerosis with mild stenosis seen within the right proximal internal carotid artery. Postoperative changes from left carotid endarterectomy. No significant stenosis or occlusion. CTA HEAD: Multifocal intracranial atherosclerotic disease is present. Intracranial internal carotid arteries: Atherosclerosis the carotid siphons. No occlusion or significant stenosis. Anterior cerebral arteries: The left A1 segment is not visualized. However, the more A2 and more distal internal cerebral arteries are visualized. The one segment is thought to be occluded given that there is a total of contrast extending towards the left ICA which is thought to be retro grade filling on image 97 of series 3. Middle cerebral arteries: Multifocal atherosclerotic narrowing is present. There is severe right M1 segment narrowing. Mild narrowing the left M1 segment. Additionally there is multifocal distal middle cerebral artery narrowing bilaterally. Intracranial vertebral arteries: Occluded left V4 segment vertebral artery as the bulky atherosclerotic consultations were present on CT from 2017. Right vertebral artery is patent. Basilar artery: Mild atherosclerosis the proximal basilar segment. Posterior cerebral arteries: Multifocal atherosclerotic narrowing which is severe in the proximal P1 segment. No aneurysm. Additional findings: None. IMPRESSION: 1. CTA NECK: No occlusion or significant stenosis of the carotid or vertebral arteries. 2. 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 Suspected occlusion of the left A1 segment anterior cerebral artery which is possibly chronic but is age indeterminate. Otherwise, there is multifocal atherosclerotic narrowing seen throughout the intracranial vasculature which is severe involving the left posterior cerebral artery and proximal right middle cerebral artery. I informed Dr jackman who is taking care of this patient via telephone at [facility]. Signer Name: Yahir Kay MD Signed: 07/07/2020 4:59 PM Workstation Name: [id number] Transcribed By: YANA Dictated By: Yahir Kay MD Electronically Authenticated By: Yahir Kay MD Signed Date/Time: 07/07/201658 DD/ 46 TD/TT: Print Cancel [facility] [address] [place] [address] Cat Scan Report Signed Patient: АНДРЕЙ MACK MR#: [id number] : 1945 Acct:[id number] Age/Sex: 75 / M ADM Date: 07/07/20 Loc: ED Attending Dr: Ordering Physician: SELENA JACKMAN MD Date of Service: 07/07/20 Procedure(s): CT angio head Accession Number(s): [id number] cc: SELENA JACKMAN MD CT angio head, CT angio neck HISTORY: Stroke COMPARISON: 01/28/[address] head dated same day. TECHNIQUE: CTA of the neck and head is performed after IV contrast. 3- D/MIP reformats were postprocessed. Percentage stenosis is determined by direct quantitative measurements of diseased internal carotid artery diameter compared with normal distal internal carotid artery reference segments or by criteria similar to NASCET where applicable. All CT scans at this location are performed using CT dose reduction for ALARA by means of automated exposure control. FINDINGS: CTA NECK: Aortic arch: Moderate atherosclerosis involving the aortic arch. Cervical vertebral arteries: No occlusion or hemodynamically significant stenosis. Common Carotid arteries: No occlusion or hemodynamically significant stenosis. Internal carotid arteries: Atherosclerosis with mild stenosis seen within the right proximal internal carotid artery. Postoperative changes from left carotid endarterectomy. No significant stenosis or occlusion. CTA HEAD: Multifocal intracranial atherosclerotic disease is present. Intracranial internal carotid arteries: Atherosclerosis the carotid siphons. No occlusion or significant stenosis. Anterior cerebral arteries: The left A1 segment is not visualized. However, the more A2 and more distal internal cerebral arteries are visualized. The one segment is thought to be occluded given that there is a total of contrast extending towards the left ICA which is thought to be retrograde filling on image 97 of series 3. Middle cerebral arteries: Multifocal atherosclerotic narrowing is present. There is severe right M1 segment aaliyah rowing. Mild narrowing the left M1 segment. Additionally there is multifocal distal middle cerebral artery narrowing bilaterally. Intracranial vertebral arteries: Occluded left V4 segment vertebral artery as the bulky atherosclerotic consultations were present on CT from 2017. Right vertebral artery is patent. Basilar artery: Mild atherosclerosis the proximal basilar segment. Posterior cerebral arteries: Multifocal atherosclerotic narrowing which is severe in the proximal P1 segment. No aneurysm. Additional findings: None. IMPRESSION: 1. CTA NECK: No occlusion or significant stenosis of the carotid or vertebral arteries. 2. 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 Suspected occlusion of the left A1 segment anterior cerebral artery which is possibly chronic but is age indeterminate. Otherwise, there is multifocal atherosclerotic narrowing seen throughout the intracranial vasculature which is severe involving the left posterior cerebral artery and proximal right middle cerebral artery. I informed Dr jackman who is taking care of this patient via telephone at [phone]. Signer Name: Yahir Kay MD Signed: 07/07/2020 4:59 PM Workstation Name: [id number] Transcribed By: YANA Dictated By: Yahir Kay MD Electronically Authenticated By: Yahir Kay MD Signed Date/Time: 07/07/201658 DD/ 46 TD/TT: Print Cancel - Differential Diagnosis CVA Critical care attestation.: If time is entered above; I have spent that time in minutes in the direct care of this critically ill patient, excluding procedure time. ED Disposition Clinical Impression: CVA (cerebral vascular accident), Right sided weakness Disposition: OP ADMIT IP TO THIS HOSP Is pt being admited?: Yes Does the pt Need Aspirin: No Condition: Serious Time of Disposition: 17:26 (Hospitalist paged (Dr. Smyth))
[2020-07-07 16:33] LABS: Hematocrit 37.2 % (35.5-45.6); Mean Corpuscular HGB Conc 32 % (32-34); Mean Corpuscular Volume 82 fl (84-94); Red Blood Count 4.55 M/mm3 (3.65-5.03); Red Cell Distribution Width 15.1 % (13.2-15.2)
[2020-07-07] MEDS ORDERED: ALTEPLASE 100 MG INJ KIT ONE (16:33)
--- NOTE | 2020-07-07 16:35 | Cat Scan Report ---
CT head/brain wo con INDICATION: Stroke. TECHNIQUE: Routine CT head. All CT scans at this location are performed using CT dose reduction for A RIA by means of automated exposure control. COMPARISON: 01/28/2017. FINDINGS: Intracranial: Morrison-white matter differentiation is maintained. No intracranial hemorrhage. No extra a xial collection. No hydrocephalus. Encephalomalacia in the left cerebellar hemisphere. Remote small l acunar infarction seen within the right centrum semiovale. No herniation. Sinuses: Paranasal sinuses and mastoid air cells are essentially clear. Orbits: Globes are intact. Calvarium: No acute fracture. IMPRESSION: 1. No evidence for acute infarction. I informed Dr fenton who is taking care of this patient via telephone at 3:30. Signer Name: Yahir Kay MD Signed: 07/07/2020 4:30 PM Workstation Name: [email or web address]
[2020-07-07] MEDS ORDERED: SODIUM CHLORIDE 0.9% 50 ML IVPB IV ONE (16:37)
[2020-07-07] MEDS ORDERED: ALTEPLASE 100 MG INJ KIT IV ONE ×2 (16:37)
[2020-07-07] MEDS ORDERED: SODIUM CHLORIDE 0.9% 250ML 250 ML IV ONE (16:42)
[2020-07-07 16:44] LABS: INR 1.01 (0.87-1.13)
[2020-07-07 16:46] LABS: BUN/Creatinine Ratio 20; Blood Urea Nitrogen 20 mg/dL (9-20); Calcium 8.8 mg/dL (8.4-10.2); Hemolysis Index 10
--- NOTE | 2020-07-07 16:57 | History and Physical Report ---
Medications and Allergies Allergies Allergy/AdvReac Type Severity Reaction Status Date / Time No Known Allergies Allergy Verified 05/01/17 11:07 Home Medications Medication Instructions Recorded Confirmed Last Taken Type Carvedilol Cr [Coreg CR] 12.5 mg PO DAILY 07/05/13 05/05/17 05/05/17 08:15 His tory Clopidogrel Bisulfate [Clopidogrel] 75 mg PO DAILY 07/05/13 05/01/17 1 Week Ago History ~04/28/17 Esomeprazole Magnesium [Nexium] 40 mg PO DAILY 07/05/13 05/01/17 05/04/17 History Glimepiride 4 mg PO DAILY 07/05/13 05/01/17 05/04/17 History Lisinopril/Hydrochlorothiazide 1 tab PO DAILY 07/05/13 05/01/17 05/04/17 History [Lisinopril-Hctz 20-12.5 mg Tab] Metformin HCl [Metformin] 1,000 mg PO DAILY 07/05/13 05/01/17 2 Days Ago History ~05/03/17 Rosuvastatin Calcium [Crestor] 20 mg PO DAILY 07/05/13 05/01/17 05/04/17 History Clindamycin [Clindamycin CAP] 300 mg PO Q8H 10 Days cap 04/29/17 05/01/17 05/04/17 Rx Isosorbide Mononitrate 10 mg PO BID 05/01/17 05/01/17 05/04/17 History Naproxen [Naprosyn] 500 mg PO PRN PRN 05/01/17 05/01/17 1 Week Ago History ~04/28/17 Venlafaxine [Effexor] 75 mg PO TID 05/01/17 05/01/17 05/04/17 History Active Meds: Active Medications Sodium Chloride (Nacl 0.9% 250ml) 250 mls @ 999 mls/hr IV ONCE ONE Stop: 07/07/20 16:57 Physical Examination - Vital Signs Vital Signs: Vital Signs Pulse Resp Pulse Ox 109 H 13 99 07/07/20 16:26 07/07/20 16:26 07/07/20 16:26 Results - Laboratory Findings CBC and BMP: 07/07/20 16:23 07/07/20 16:23 Abnormal Lab Findings: Abnormal Labs 07/07/20 16:23 MCV 82 L MCH 26 L Assessment and Plan [facility] Consult Note # Demographics Consult Type: Acute Stroke Level 1 (0-4.5 hrs) Patient Location: Emergency Room First Name: Javon Last Name: Michelle Date of : 1945 Age: 75 Gender: Male Time of Initial Page ( Time): 07/07/2020, 16:05 Time of Return Call ( Time): 07/07/2020, 16:06 # HPI Chief Complaint: weakness (focal) Handedness: Left History: 75 yo man with history of stroke, no prior deficits presents with slurred speech and right-sided weakness. Was last seen normal at 12:00 noon by daughter. According to patient symptoms started right before she returned. Last Known Normal: I have collected independent history specific to time last normal or last known well. We have collaborated with the provider and at this time, we have the most current timeline with the information that is available., 2:45-3:00 Possible Thrombolytic candidate: no intracranial hemorrhage history, no recent major surgery, no known active major internal bleeding, no known blood disorders # Scores Time of exam and NIHSS (): 07/07/2020, 16:25 Level of Consciousness 1a: [0] = Alert; keenly responsive LOC Questions 1b: [2] = Answers neither correctly LOC Commands 1c: [0] = Performs both tasks correctly Best Gaze 2: [0] = Normal Visual 3: [0] = No visual loss Facial Palsy 4: [1] = Minor paralysis Motor Arm Left 5a: [0] = No drift Motor Arm Right 5b: [4] = No movement Motor Leg Left 6a: [0] = No drift Motor Leg Right 6b: [3] = No effort against gravity Limb Ataxia 7: [0] = Absent Sensory 8: [0] = Normal Best Language 9: [0] = No aphasia Dysarthria 10: [2] = Severe dysarthria Extinction and Inattention 11: [0] = No abnormality NIHSS Total: 12 # Exam SBP: 180 DBP: 100 # H-FH-SH Past Medical History: Diabetes, hypertension Medications: Effexor, Lisinopril, Metformin # Data Time Head CT personally read by me (): 07/07/2020, 16:[address]: no bleed, per radiologist read CTA Head: no large vessel occlusion, preliminarily reviewed by me, please refer to radiology read for official reading CTA Neck: patent vessels, preliminarily reviewed by me, please refer to rad iology read for official reading # Assessment Impression: Right-sided weakness and slurred speech. Last seen normal by dov at noon when she left to the store, however when patient questioned he states his symptoms started right before she returned at 3:00. Discussion regarding TPA risks and benefits had with patient and son, and ED attending. Decision made to proceed with IV tpa. # Plan Thrombolytic/Intervention: IV thrombolytic, IV alteplase 0.9 mg/kg, max dose 90 mg; 10% of dose given over 1 minute IVP, remaining 90% given as infusion over 1 hour Intraarterial Exclusion: no large vessel occlusion (LVO) Time IV Thrombolytic Recommended (Eastern Time): 07/07/2020, 16:35 Target Blood Pressure: SBP < 180, DBP < 105 Labs: hemoglobin A1c, lipid panel Imaging: (urgency: routine admission): MRI Brain without contrast Diagnostic Test: echo with bubble study Therapy/Evaluation: NPO until swallow evaluation, PT/OT evaluation, speech/swallow consultation DVT Prophylaxis: SCD, contraindication Thrombolytic Administration Recommendations: I reviewed the risks/benefits/alternatives of Thrombolytic with patient. They understand there is potential of life threatening hemorrhage from Thrombolytic. I stated that I believe benefit outweighs risk. They wish to proceed with Thrombolytic, I have collected independent history specific to time last normal or last known well. We have collaborated with the ED provider and at this time, we have the most current timeline with the information that is available., BP goal< 180/105 for 24hrs post Thrombolytic administration, Use Labetolol 10-20mg IV prn or Nicardipine gtt to maintain BP parameters, No antiplatelets or anticoagulants for next 24 hrs unless indicated for emergent IA procedure or other life threatening situation, ICU admission Other: LDL < 70, telemetry monitoring, I have discussed my recommendations with the referring provider Disposition: admit
--- NOTE | 2020-07-07 17:03 | Cat Scan Report ---
CT angio head, CT angio neck HISTORY: Stroke COMPARISON: 01/28/[address] head dated same day. TECHNIQUE: CTA of the neck and head is performed after IV contrast. 3-D/MIP reformats were postproces sed. Percentage stenosis is determined by direct quantitative measurements of diseased internal grant tid artery diameter compared with normal distal internal carotid artery reference segments or by crit eria similar to NASCET where applicable. All CT scans at this location are performed using CT dose re duction for ALARA by means of automated exposure control. FINDINGS: CTA NECK: Aortic arch: Moderate atherosclerosis involving the aortic arch. Cervical vertebral arteries: No occlusion or hemodynamically significant stenosis. Common Carotid arteries: No occlusion or hemodynamically significant stenosis. Internal carotid arteries: Atherosclerosis with mild stenosis seen within the right proximal internal carotid artery. Postoperative changes from left carotid endarterectomy. No significant stenosis or o cclusion. CTA HEAD: Multifocal intracranial atherosclerotic disease is present. Intracranial internal carotid arteries: Atherosclerosis the carotid siphons. No occlusion or signific ant stenosis. Anterior cerebral arteries: The left A1 segment is not visualized. However, the more A2 and more dist al internal cerebral arteries are visualized. The one segment is thought to be occluded given that th ere is a total of contrast extending towards the left ICA which is thought to be retrograde filling o n image 97 of series 3. Middle cerebral arteries: Multifocal atherosclerotic narrowing is present. There is severe right M1 s egment narrowing. Mild narrowing the left M1 segment. Additionally there is multifocal distal middle cerebral artery narrowing bilaterally. Intracranial vertebral arteries: Occluded left V4 segment vertebral artery as the bulky atherosclerot ic consultations were present on CT from 2017. Right vertebral artery is patent. Basilar artery: Mild atherosclerosis the proximal basilar segment. Posterior cerebral arteries: Multifocal atherosclerotic narrowing which is severe in the proximal P1 segment. No aneurysm. Additional findings: None. IMPRESSION: 1. CTA NECK: No occlusion or significant stenosis of the carotid or vertebral arteries. 2. 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 Suspected occlusion of the left A1 segment anterior cerebral artery which is possibly chronic but is age indeterminate. Otherwise, there is multifocal atherosclerotic narrowing seen throughout the intr acranial vasculature which is severe involving the left posterior cerebral artery and proximal right middle cerebral artery. I informed Dr fenton who is taking care of this patient via telephone at [facility]. Signer Name: Yahir Kay MD Signed: 07/07/2020 4:59 PM Workstation Name: [email or web address]
[2020-07-07] MEDS ORDERED: hydrALAZINE 20 MG/1 ML INJ IV PRN (17:28)
[2020-07-07] MEDS ORDERED: PROMETHAZINE 25 MG RECT SUPP PR PRN (17:28)
[2020-07-07] MEDS ORDERED: ACETAMINOPHEN 325 MG TAB PO PRN (17:28)
[2020-07-07] MEDS ORDERED: METOCLOPRAMIDE 10 MG TAB PO PRN (17:28)
[2020-07-07] MEDS ORDERED: MAGNESIUM HYDROXIDE (MOM) ORAL LIQD UDC PO PRN (17:28)
[2020-07-07] MEDS ORDERED: ONDANSETRON 4 MG/2 ML INJ IV PRN (17:28)
--- NOTE | 2020-07-07 17:28 | History and Physical Report ---
History of Present Illness Chief complaint: Im weak on my right side History of present illness: 75 YO Male with HTN, CAD S/P Stent Placement, CVA on DAPT, DM, GERD presents to ED for evaluation. Pt reports" I feel weak on my right side". Patient states that he was in his usual state of health and experienced a sudden onset of right-sided arm and leg weakness at approximately 1300 hrs. EMS was notified and upon arrival the patient was found to have a neurologic deficit. A code stroke was called and the patient was transported to [facility] for further care and evaluation of the aforementioned symptoms. The patient was seen and evaluated in the emergency department. All lab and imaging studies reviewed. Patient f ound to have clinical symptoms consistent with CVA. Patient was treated with TPA administration with improvement in symptoms. Patient admitted to ICU and initiated on CVA protocol. Pulmonology consulted in ED. Patient denies fever, chills, chest pain, palpitation, productive cough, skin rash, recent ill contact, or known exposure to COVID-19. No prior admission for review. No medication listed at time of admission reconciliation. Advanced care planning conducted in ED. Past History Past Medical History: diabetes, GERD, hypertension, stroke Past Surgical History: Other (neck surgery) Social history: . denies: smoking, alcohol abuse Family history: diabetes, hypertension Medications and Allergies Allergies Allergy/AdvReac Type Severity Reaction Status Date / Time No Known Allergies Allergy Verified 05/01/17 11:07 Home Medications Medication Instructions Recorded Confirmed Last Taken Type Carvedilol Cr [Coreg CR] 12.5 mg PO DAILY 07/05/13 05/05/17 05/05/17 08:15 History Clopidogrel Bisulfate [Clopidogrel] 75 mg PO DAILY 07/05/13 05/01/17 1 Week Ago History ~04/28/17 Esomeprazole Magnesium [Nexium] 40 mg PO DAILY 07/05/13 05/01/17 05/04/17 History Glimepiride 4 mg PO DAILY 07/05/13 05/01/17 05/04/17 History Lisinopril/Hydrochlorothiazide 1 tab PO DAILY 07/05/13 05/01/17 05/04/17 History [Lisinopril-Hctz 20-12.5 mg Tab] Metformin HCl [Metformin] 1,000 mg PO DAILY 07/05/13 05/01/17 2 Days Ago History ~05/03/17 Rosuvastatin Calcium [Crestor] 20 mg PO DAILY 07/05/13 05/01/17 05/04/17 History Clindamycin [Clindamycin CAP] 300 mg PO Q8H 10 Days cap 04/29/17 05/01/17 05/04/17 Rx Isosorbide Mononitrate 10 mg PO BID 05/01/17 05/01/17 05/04/17 History Naproxen [Naprosyn] 500 mg PO PRN PRN 05/01/17 05/01/17 1 Week Ago History ~04/28/17 Venlafaxine [Effexor] 75 mg PO TID 05/01/17 05/01/17 05/04/17 History Review of Systems Constitutional: no weight loss, no weight gain, no fever, no chills Ears, nose, mouth and throat: no tinnitis, no nasal congestion Cardiovascular: no chest pain, no palpitations, no rapid/irregular heart beat, no syncope, no lightheadedness, no shortness of breath Respiratory: no cough, no cough with sputum, no hemoptysis, no dyspnea on exertion Gastrointestinal: no nausea, no vomiting, no constipation, no change in bowel habits Genitourinary Male: no hematuria, no flank pain, no discharge, no urinary hesitancy Rectal: no pain, no incontinence, no bleeding Musculoskeletal: no neck stiffness, no shooting arm pain, no arm numbness/tingling, no low back pain, no redness of joints Integumentary: no rash, no pruritis, no redness, no sores, no wounds, no jaundice Neurological: weakness, numbness, ataxia, change in speech, gait dysfunction, motor disturbance, no tingling, no seizures Psychiatric: no anxiety, no memory loss, no change in sleep habits, no sleep disturbances, no insomnia, no hypersomnia, no change in appetite Endocrine: no cold intolerance, no polydipsia, no polyuria, no nocturia, no excessive sweating Hematologic/Lymphatic: no easy bruising, no easy bleeding, no lymphadenopathy, no lymphedema Allergic/Immunologic: no urticaria, no persistent infections, no anaphylaxis, no angioedema Exam - Constitutional Vitals: Temp Pulse Resp BP Pulse Ox 91 H 22 156/78 97 07/07/20 17:00 07/07/20 17:16 04/30/21 17:03 07/07/20 17:16 General appearance: Present: mild distress - EENT Eyes: Present: PERRL ENT: hearing intact, clear oral mucosa - Neck Neck: Present: supple, normal ROM - Respiratory Respiratory effort: normal Respiratory: bilateral: CTA - Cardiovascular Heart Sounds: Present: S1 & S2. Absent: rub, click - Extremities Extremities: pulses symmetrical, No edema Peripheral Pulses: within normal limits - Abdominal General gastrointestinal: Present: soft, non-tender, non-distended, normal bowel sounds Male genitourinary: Present: normal - Integumentary Integumentary: Present: clear, warm, dry - Musculoskeletal Musculoskeletal: right sided weakness - Psychiatric Psychiatric: appropriate mood/affect, intact judgment & insight - Neurologic Neurologic: CNII-XII intact, moves all extremities, no gait normal HEART Score - HEART Score Troponin: Troponin T < 0.010 ng/mL (0.00-0.029) 07/07/20 16:23 Results - Labs CBC & Chem 7: 07/07/20 16:23 07/07/20 16:23 Labs: Abnormal lab results 07/07/20 07/07/20 Range/Units 16:23 16:23 MCV 82 L (84-94) fl MCH 26 L (28-32) pg Sodium 133 L (137-145) mmol/L Glucose 189 H (75-100) mg/dL Assessment and Plan - Patient Problems (1) CVA (cerebral vascular accident) Current Visit: Yes Status: Acute Plan to address problem: CVA protocol: Patient admitted to ICU status post TPA administration. Telemetry neurology consulted in ED. CT scan head, echocardiogram, neuro check, seizure precautions, carotid Doppler, physical therapy consulted, Occupational Therapy consulted, speech therapy consulted, resume antiplatelet therapy within 24 hours. The high probability of a clinically significant, sudden or life threatening deterioration of the [neuro] system(s) required my full and direct attention, intervention and personal management. The aggregate critical care time was [65] minutes. This time is in addition to time spent performing reported procedures but includes the following: [x] Data Review and interpretation [x] Patient assessment and monitoring of vital signs [x] Documentation [x] Medication orders and management (2) Right hemiparesis Current Visit: Yes Status: Acute Plan to address problem: Physical therapy consulted, supportive care. (3) HTN (hypertension) Current Visit: Yes Status: Acute Qualifiers: Hypertension type: essential hypertension Qualified Code(s): I10 - Essential (primary) hypertension Plan to address problem: Monitor blood pressure every shift, continue medical management, from permissive hypertension overnight. (4) GERD (gastroesophageal reflux disease) Current Visit: No Status: Acute Qualifiers: Esophagitis presence: without esophagitis Qualified Code(s): K21.9 - Gastro -esophageal reflux disease without esophagitis Plan to address problem: PPI therapy, supportive care (5) DVT prophylaxis Current Visit: No Status: Acute Plan to address problem: SCD to bilateral lower extremities while in bed, (6) Advance care planning Current Visit: Yes Status: Acute Plan to address problem: Disease education conducted, care plan discussed, diagnosis discussed, prognosis discussed, patient is full code, patient knowledges understanding agree with care plan, +30 minutes.
[2020-07-07] MEDS ORDERED: SODIUM CHLORIDE 0.9% 1000 ML 1,000 ML ONE (19:33)
[2020-07-07 21:32] LABS: Ovalocytes Rare; Total Cells Counted 100
[2020-07-07 21:33] LABS: Platelet Estimate Consistent w Auto
[2020-07-07 21:34] LABS: Platelet Count 142 K/mm3 (140-440)
[2020-07-07] MEDS: VENLAFAXINE 75 MG TAB PO SCH (21:50)
[2020-07-08] MEDS: PANTOPRAZOLE 40 MG TAB PO SCH (07:43)
[2020-07-08] MEDS: VENLAFAXINE 75 MG TAB PO SCH ×3 (07:43→22:50)
[2020-07-08] MEDS ORDERED: ASPIRIN 325 MG TAB PO SCH (10:00)
[2020-07-08] MEDS ORDERED: NON-FORMULARY EACH (Esomeprazole Magnesium [Nexium] 40 MG Capsule.Dr) PO SCH (10:00)
--- NOTE | 2020-07-08 11:44 | Consultation ---
History of Present Illness Consult date: 07/08/20 Requesting physician: CAROLE ROCHA Reason for consult: other (Acute CVA s/p tpA) History of present illness: PULMONARY/CCM CONSULT NOTE (Full dictation # [id number]) Please see dictated notes for full details Past History Past Medical History: diabetes, GERD, hypertension, stroke Past Surgical History: Other (neck surgery) Social history: . denies: smoking, alcohol abuse Family history: diabetes, hypertension Medications and Allergies Allergies Allergy/AdvReac Type Severity Reaction Status Date / Time No Known Allergies Allergy Verified 05/01/17 11:07 Home Medications Medication Instructions Recorded Confirmed Last Taken Type Carvedilol Cr [Coreg CR] 12.5 mg PO DAILY 07/05/13 07/08/20 05/05/17 08:15 History Clopidogrel Bisulfate [Clopidogrel] 75 mg PO DAILY 07/05/13 07/08/20 1 Week Ago History ~04/28/17 Esomeprazole Magnesium [Nexium] 40 mg PO DAILY 07/05/13 07/08/20 05/04/17 History Glimepiride 4 mg PO DAILY 07/05/13 07/08/20 05/04/17 History Lisinopril/Hydrochlorothiazide 1 tab PO DAILY 07/05/13 07/08/20 05/04/17 History [Lisinopril-Hctz 20-12.5 mg Tab] Metformin HCl [Metformin] 1,000 mg PO DAILY 07/05/13 07/08/20 2 Days Ago History ~05/03/17 Rosuvastatin Calcium [Crestor] 20 mg PO DAILY 07/05/13 07/08/20 05/04/17 History Clindamycin [Clindamycin CAP] 300 mg PO Q8H 10 Days cap 04/29/17 07/08/20 05/04/17 Rx Isosorbide Mononitrate 10 mg PO BID 05/01/17 07/08/20 05/04/17 History Naproxen [Naprosyn] 500 mg PO PRN PRN 05/01/17 07/08/20 1 Week Ago History ~04/28/17 Venlafaxine [Effexor] 75 mg PO TID 05/01/17 07/08/20 05/04/17 History Active Meds: Active Medications Acetaminophen (Acetaminophen 325 Mg Tab) 650 mg PO Q4H PRN PRN Reason: Pain, Mild (1-3) Aspirin (Aspirin 325 Mg Tab) 325 mg PO QDAY [facility] Last Admin: 07/08/20 10:24 Dose: Not Given Documented by: Atorvastatin Calcium (Atorvastatin 40 Mg Tab) 40 mg PO QHS [facility] Last Admin: 07/08/20 07:42 Dose: Not Given Documented by: Bisacodyl (Bisacodyl 10 Mg Rect Supp) 10 mg VA QDAY PRN PRN Reason: Constipation Hydralazine HCl (Hydralazine 20 Mg/1 Ml Inj) 10 mg IV TID PRN PRN Reason: Hypertension Magnesium Hydroxide (Magnesium Hydroxide (Mom) Oral Liqd Udc) 30 ml PO Q4H PRN PRN Reason: Constipation Metoclopramide HCl (Metoclopramide 10 Mg Tab) 10 mg PO Q6H PRN PRN Reason: Nausea And Vomiting Ondansetron HCl (Ondansetron 4 Mg/2 Ml Inj) 4 mg IV Q8H PRN PRN Reason: Nausea And Vomiting Pantoprazole Sodium (Pantoprazole 40 Mg Tab) 40 mg PO QDAC [facility] Last Admin: 07/08/20 07:43 Dose: Not Given Documented by: Promethazine HCl (Promethazine 25 Mg Rect Supp) 25 mg VA Q6H PRN PRN Reason: Nausea And Vomiting Sodium Chloride (Sodium Chloride 0.9% 10 Ml Flush Syringe) 10 ml IV PRN PRN PRN Reason: LINE FLUSH Venlafaxine HCl (Venlafaxine 75 Mg Tab) 75 mg PO TID [facility] Last Admin: 07/08/20 07:43 Dose: Not Given Documented by: Physical Examination Vital signs: Vital Signs Pulse Resp Pulse Ox 109 H 13 99 07/07/20 16:26 07/07/20 16:26 07/07/20 16:26 Results - Laboratory Findings CBC and BMP: 07/07/20 16:23 07/07/20 16:23 PT/INR, D-dimer PT 13.2 Sec. (12.2-14.9) 07/07/20 16:23 INR 1.01 (0.87-1.13) 07/07/20 16:23 Abnormal lab findings: Abnormal Labs 07/07/20 07/07/20 07/07/20 16:23 16:23 23:28 MCV 82 L MCH 26 L Monocytes % (Manual) 15.0 H Seg Neutrophils # Man 0.0 L Lymphocytes # (Manual) 0.0 L Sodium 133 L Glucose 189 H POC Glucose 112 H 07/08/20 07/08/20 07/08/20 05:21 08:44 11:36 MCV MCH Monocytes % (Manual) Seg Neutrophils # Man Lymphocytes # (Manual) Sodium Glucose POC Glucose 111 H 121 H 111 H
[2020-07-08 11:57] LABS: HDL Cholesterol 27 mg/dL (40-59); LDL Cholesterol,Direct TNR mg/dL (50-130)
--- NOTE | 2020-07-08 11:57 | Progress Note ---
Assessment and Plan Assessment and plan: Patient Problems (1) CVA (cerebral vascular accident) Current Visit: Yes Status: Acute Plan to address problem: Patient is status post TPA administration on 07/07. MRI without contrast ordered Echocardiogram pending PT/OT Speech therapy No antiplatelet therapy until 24 hours post TPA Resume antiplatelet therapy after 24 hours post TPA The high probability of a clinically significant, sudden or life threatening deterioration of the [neuro] system(s) required my full and direct attention, intervention and personal management. The aggregate critical care time was [65] minutes. This time is in addition to time spent performing reported procedures but includes the following: [x] Data Review and interpretation [x] Patient assessment and monitoring of vital signs [x] Documentation [x] Medication orders and management (2) Right hemiparesis Current Visit: Yes Status: Acute Plan to address problem: Secondary to CVA PT/OT ordered (3) HTN (hypertension) Current Visit: Yes Status: Acute Qualifiers: Hypertension type: essential hypertension Qualified Code(s): I10 - Essential (primary) hypertension Plan to address problem: Allow permissive hypertension for now hold blood pressure medications at this time (4) GERD (gastroesophageal reflux disease) Current Visit: No Status: Acute Qualifiers: Esophagitis presence: without esophagitis Qualified Code(s): K21.9 - Gastro-esophageal reflux disease without esophagitis Plan to address problem: PPI therapy, supportive care (5) DVT prophylaxis Current Visit: No Status: Acute Plan to address problem: SCD to bilateral lower extremities while in bed. Start on heparin this p.m. (6) Advance care planning Current Visit: Yes Status: Acute Plan to address problem: Disease education conducted, care plan discussed, diagnosis discussed, prognosis discussed, patient is full code, patient knowledges understanding agree with care plan, +30 minutes. History Interval history: 75 YO Male with HTN, CAD S/P Stent Placement, CVA on DAPT, DM, GERD presents to ED for evaluation. Pt reports" I feel weak on my right side". Patient states that he was in his usual state of health and experienced a sudden onset of right-sided arm and leg weakness at approximately 1300 hrs. EMS was notified and upon arrival the patient was found to have a neurologic deficit. A code stroke was called and the patient was transported to [facility] for further care and evaluation of the aforementioned symptoms. The patient was seen and evaluated in the emergency department. All lab and imaging studies reviewed. Patient found to have clinical symptoms consistent with CVA. Patient was treated with TPA administration with improvement in symptoms. Patient admitted to ICU and initiated on CVA protocol. Pulmonology consulted in ED. Patient denies fever, chills, chest pain, palpitation, productive cough, skin rash, recent ill contact, or known exposure to COVID-19. No prior admission for review. No medication listed at time of admission reconciliation. Advanced care planning conducted in ED. 07/08. Patient is status post TPA. Has some speech difficulty and mild right-sided weakness. Echocardiogram pending. MRI brain without contrast ordered. Neurology consulted. Continue to hold aspirin products 24 hours after TPA. Hospitalist Physical - Physical exam Narrative exam: VITAL SIGNS: Reviewed. GENERAL: Awake HEAD: No signs of head trauma. EYES: Pupils are equal. Extraocular motions intact. MOUTH: Oropharynx is normal. NECK: No adenopathy, no JVD. CHEST: Chest with diminished breath sounds bilaterally. No wheezes, rales, or rhonchi. CARDIAC: normal S1 and S2, without murmurs, gallops, or rubs. ABDOMEN: Soft, non tender and non distended. No rebound or guarding, and no masses palpated. Bowel Sounds normal. MUSCULOSKELETAL: No edema NEUROLOGIC EXAM: Alert and oriented x3. Dysarthria. Right-sided weakness-right upper extremity 4/5, right lower extremity 4/5 SKIN: No obvious lesions - Constitutional Vitals: Temp Pulse Resp BP Pulse Ox 98.3 F 78 17 163/93 100 07/08/20 08:00 07/08/20 10:00 07/08/20 10:00 07/08/20 10:00 07/08/20 10:00 HEART Score - HEART Score Troponin: Troponin T < 0.010 ng/mL (0.00-0.029) 07/07/20 16:23 Results - Labs CBC & Chem 7: 07/07/20 16:23 07/07/20 16:23 Labs: Laboratory Last Values WBC 6.4 K/mm3 (4.5-11.0) 07/07/20 16:23 RBC 4.55 M/mm3 (3.65-5.03) 07/07/20 16:23 Hgb 12.0 gm/dl (11.8-15.2) 07/07/20 16:23 Hct 37.2 % (35.5-45.6) 07/07/20 16:23 MCV 82 fl (84-94) L 07/07/20 16:23 MCH 26 pg (28-32) L 07/07/20 16:23 MCHC 32 % (32-34) 07/07/20 16:23 RDW 15.1 % (13.2-15.2) 07/07/20 16:23 Plt Count 142 K/mm3 (140-440) 07/07/20 16:23 Add Manual Diff Complete 07/07/20 16:23 Total Counted 100 07/07/20 16:23 Seg Neuts % (Manual) 63.0 % (40.0-70.0) 07/07/20 16:23 Lymphocytes % (Manual) 20.0 % (13.4-35.0) 07/07/20 16:23 Monocytes % (Manual) 15.0 % (0.0-7.3) H 07/07/20 16:23 Eosinophils % (Manual) 2.0 % (0.0-4.3) 07/07/20 16:23 Nucleated RBC % Not Reportable 07/07/20 16:23 Seg Neutrophils # Man 0.0 K/mm3 (1.8-7.7) L 07/07/20 16:23 Band Neutrophils # 0.0 K/mm3 07/07/20 16:23 Lymphocytes # (Manual) 0.0 K/mm3 (1.2-5.4) L 07/07/20 16:23 Abs React Lymphs (Man) 0.0 K/mm3 07/07/20 16:23 Monocytes # (Manual) 0.0 K/mm3 (0.0-0.8) 07/07/20 16:23 Eosinophils # (Manual) 0.0 K/mm3 (0.0-0.4) 07/07/20 16:23 Basophils # (Manual) 0.0 K/mm3 (0.0-0.1) 07/07/20 16:23 Metamyelocytes # 0.0 K/mm3 07/07/20 16:23 Myelocytes # 0.0 K/mm3 07/07/20 16:23 Promyelocytes # 0.0 K/mm3 07/07/20 16:23 Blast Cells # 0.0 K/mm3 07/07/20 16:23 WBC Morphology Not Reportable 07/07/20 16:23 Hypersegmented Neuts Not Reportable 07/07/20 16:23 Hyposegmented Neuts Not Reportable 07/07/20 16:23 Hypogranular Neuts Not Reportable 07/07/20 16:23 Smudge Cells Not Reportable 07/07/20 16:23 Toxic Granulation Not Reportable 07/07/20 16:23 Toxic Vacuolation Not Reportable 07/07/20 16:23 Dohle Bodies Not Reportable 07/07/20 16:23 Pelger-Huet Anomaly Not Reportable 07/07/20 16:23 Berlin Rods Not Reportable 07/07/20 16:23 Platelet Estimate Consistent w auto 07/07/20 16:23 Clumped Platelets Not Reportable 07/07/20 16:23 Plt Clumps, EDTA Not Reportable 07/07/20 16:23 Large Platelets Not Reportable 07/07/20 16:23 Giant Platelets Not Reportable 07/07/20 16:23 Platelet Satelliting Not Reportable 07/07/20 16:23 Plt Morphology Comment Not Reportable 07/07/20 16:23 RBC Morphology Not Reportable 07/07/20 16:23 Dimorphic RBCs Not Reportable 07/07/20 16:23 Polychromasia Not Reportable 07/07/20 16:23 Hypochromasia Not Reportable 07/07/20 16:23 Poikilocytosis Not Reportable 07/07/20 16:23 Anisocytosis Not Reportable 07/07/20 16:23 Microcytosis Not Reportable 07/07/20 16:23 Macrocytosis Not Reportable 07/07/20 16:23 Spherocytes Not Reportable 07/07/20 16:23 Pappenheimer Bodies Not Reportable 07/07/20 16:23 Sickle Cells Not Reportable 07/07/20 16:23 Target Cells Not Reportable 07/07/20 16:23 Tear Drop Cells Not Reportable 07/07/20 16:23 Ovalocytes Rare 07/07/20 16:23 Helmet Cells Not Reportable 07/07/20 16:23 Gallagher-Frazer Bodies Not Reportable 07/07/20 16:23 Guymon Rings Not Reportable 07/07/20 16:23 Saba Cells Not Reportable 07/07/20 16:23 Bite Cells Not Reportable 07/07/20 16:23 Crenated Cell Not Reportable 07/07/20 16:23 Elliptocytes Not Reportable 07/07/20 16:23 Acanthocytes (Spur) Not Reportable 07/07/20 16:23 Rouleaux Not Reportable 07/07/20 16:23 Hemoglobin C Crystals Not Reportable 07/07/20 16:23 Schistocytes Not Reportable 07/07/20 16:23 Malaria parasites Not Reportable 07/07/20 16:23 Jona Bodies Not Reportable 07/07/20 16:23 Hem Pathologist Commnt No 07/07/20 16:23 PT 13.2 Sec. (12.2-14.9) 07/07/20 16:23 INR 1.01 (0.87-1.13) 07/07/20 16:23 APTT 26.0 Sec. (24.2-36.6) 07/07/20 16:23 Thrombin Time 18.2 Sec. (15.1-19.6) 07/07/20 16:23 Sodium 133 mmol/L (137-145) L 07/07/20 16:23 Potassium 4.5 mmol/L (3.6-5.0) 07/07/20 16:23 Chloride 100.0 mmol/L (98-107) 07/07/20 16:23 Carbon Dioxide 22 mmol/L (22-30) 07/07/20 16:23 Anion Gap 16 mmol/L 07/07/20 16:23 BUN 20 mg/dL (9-20) 07/07/20 16:23 Creatinine 1.0 mg/dL (0.8-1.3) 07/07/20 16:23 Estimated GFR > 60 ml/min 07/07/20 16:23 BUN/Creatinine Ratio 20 % 07/07/20 16:23 Glucose 189 mg/dL (75-100) H 07/07/20 16:23 POC Glucose 111 mg/dL (70-105) H 07/08/20 11:36 Calcium 8.8 mg/dL (8.4-10.2) 07/07/20 16:23 Troponin T < 0.010 ng/mL (0.00-0.029) 07/07/20 16:23 Renner/IV: Voiding Method Condom Catheter Active Medications - Current Medications Current Medications: Generic Name Dose Route Start Last Admin Trade Name Freq PRN Reason Stop Dose Admin Acetaminophen 650 mg 07/07/20 17:28 Acetaminophen 325 Mg Tab PO Q4H PRN Pain, Mild (1-3) Atorvastatin Calcium 40 mg 07/07/20 22:00 07/08/20 07:42 Atorvastatin 40 Mg Tab PO Not Given QHS ODELL Bisacodyl 10 mg 07/07/20 17:28 Bisacodyl 10 Mg Rect Supp MT QDAY PRN Constipation Clopidogrel Bisulfate 75 mg 07/09/20 10:00 Clopidogrel 75 Mg Tab PO DAILY [facility] Hydralazine HCl 10 mg 07/07/20 17:28 Hydralazine 20 Mg/1 Ml Inj IV TID PRN Hypertension Magnesium Hydroxide 30 ml 07/07/20 17:28 Magnesium Hydroxide (Mom) Oral Liqd Udc PO Q4H PRN Constipation Metoclopramide HCl 10 mg 07/07/20 17:28 Metoclopramide 10 Mg Tab PO Q6H PRN Nausea And Vomiting Ondansetron HCl 4 mg 07/07/20 17:28 Ondansetron 4 Mg/2 Ml Inj IV Q8H PRN Nausea And Vomiting Pantoprazole Sodium 40 mg 07/08/20 07:30 07/08/20 07:43 Pantoprazole 40 Mg Tab PO Not Given QDAC [facility] Promethazine HCl 25 mg 07/07/20 17:28 Promethazine 25 Mg Rect Supp MT Q6H PRN Nausea And Vomiting Sodium Chloride 10 ml 07/07/20 17:28 Sodium Chloride 0.9% 10 Ml Flush Syringe IV PRN PRN LINE FLUSH Venlafaxine HCl 75 mg 07/07/20 20:00 07/08/20 07:43 Venlafaxine 75 Mg Tab PO Not Given TID [facility]
--- NOTE | 2020-07-08 12:18 | Consultation ---
History of Present Illness Consult date: 07/08/20 Reason for Consult: new onst right side weakness History of present illness: Im weak on my right side History of present illness: 75 YO Male with HTN, CAD S/P Stent Placement, CVA on DAPT, DM, GERD presents to ED for evaluation. Pt reports" I feel weak on my right side". Patient states that he was in his usual state of health and experienced a sudden onset of right-sided arm and leg weakness at approximately 1300 hrs. EMS was notified and upon arrival the patient was found to have a neurologic deficit. A code stroke was called and the patient was transported to [facility] for further care and evaluation of the aforementioned symptoms. The patient was seen and evaluated in the emergency department. All lab and imaging studies reviewed. Patient found to have clinical symptoms consistent with CVA. Patient was treated with TPA administration with improvement in symptoms. Patient admitted to ICU and initiated on CVA protocol. Pulmonology consulted in ED. Patient denies fever, chills, chest pain, palpitation, productive cough, skin rash, recent ill contact, or known exposure to COVID-19. No prior admission for review. No medication listed at time of admission reconciliation. Advanced care planning conducted in ED. According to pt. he had TIA few years ago he is taking plavix In ER CT brain is unremarkable CTA is remarkable for multiple intracranial chronic stentic changes L-A1 and Bilateal M1and occluded V4 he is S/P surgery left ICA [facility] was #12 pt. is felt to be a good candidate for TPA Past History Past Medical History: diabetes, GERD, hypertension, stroke Past Surgical History: Other (neck surgery) Social history: . denies: smoking, alcohol abuse Family history: diabetes, hypertension Medications and Allergies Allergies Allergy/AdvReac Type Severity Reaction Status Date / Time No Known Allergies Allergy Verified 05/01/17 11:07 Home Medications Medication Instructions Recorded Confirmed Last Taken Type Carvedilol Cr [Coreg CR] 12.5 mg PO DAILY 07/05/13 05/05/17 05/05/17 08:15 History Clopidogrel Bisulfate [Clopidogrel] 75 mg PO DAILY 07/05/13 05/01/17 1 Week Ago History ~04/28/17 Esomeprazole Magnesium [Nexium] 40 mg PO DAILY 07/05/13 05/01/17 05/04/17 Hist ory Glimepiride 4 mg PO DAILY 07/05/13 05/01/17 05/04/17 History Lisinopril/Hydrochlorothiazide 1 tab PO DAILY 07/05/13 05/01/17 05/04/17 History [Lisinopril-Hctz 20-12.5 mg Tab] Metformin HCl [Metformin] 1,000 mg PO DAILY 07/05/13 05/01/17 2 Days Ago History ~05/03/17 Rosuvastatin Calcium [Crestor] 20 mg PO DAILY 07/05/13 05/01/17 05/04/17 History Clindamycin [Clindamycin CAP] 300 mg PO Q8H 10 Days cap 04/29/17 05/01/17 05/04/17 Rx Isosorbide Mononitrate 10 mg PO BID 05/01/17 05/01/17 05/04/17 History Naproxen [Naprosyn] 500 mg PO PRN PRN 05/01/17 05/01/17 1 Week Ago History ~04/28/17 Venlafaxine [Effexor] 75 mg PO TID 05/01/17 05/01/17 05/04/17 History Review of Systems Constitutional: no weight loss, no weight gain, no fever, no chills Ears, nose, mouth and throat: no tinnitis, no nasal congestion Cardiovascular: no chest pain, no palpitations, no rapid/irregular heart beat, no syncope, no lightheadedness, no shortness of breath Respiratory: no cough, no cough with sputum, no hemoptysis, no dyspnea on exertion Gastrointestinal: no nausea, no vomiting, no constipation, no change in bowel habits Genitourinary Male: no hematuria, no flank pain, no discharge, no urinary hesitancy Rectal: no pain, no incontinence, no bleeding Musculoskeletal: no neck stiffness, no shooting arm pain, no arm numbness/tingling, no low back pain, no redness of joints Integumentary: no rash, no pruritis, no redness, no sores, no wounds, no jaundice Neurological: weakness, numbness, ataxia, change in speech, gait dysfunction, motor disturbance, no tingling, no seizures Psychiatric: no anxiety, no memory loss, no change in sleep habits, no sleep disturbances, no insomnia, no hypersomnia, no change in appetite Endocrine: no cold intolerance, no polydipsia, no polyuria, no nocturia, no excessive sweating Hematologic/Lymphatic: no easy bruising, no easy bleeding, no lymphadenopathy, no lymphedema Allergic/Immunologic: no urticaria, no persistent infections, no anaphylaxis, no angioedema Past History Past Medical History: diabetes, GERD, hypertension, stroke Past Surgical History: Other (neck surgery) Social history: . denies: smoking, alcohol abuse Family history: diabetes, hypertension Medications and Allergies Allergies Allergy/AdvReac Type Severity Reaction Status Date / Time No Known Allergies Allergy Verified 05/01/17 11:07 Home Medications Medication Instructions Recorded Confirmed Last Taken Type Carvedilol Cr [Coreg CR] 12.5 mg PO DAILY 07/05/13 07/08/20 05/05/17 08:15 History Clopidogrel Bisulfate [Clopidogrel] 75 mg PO DAILY 07/05/13 07/08/20 1 Week Ago History ~04/28/17 Esomeprazole Magnesium [Nexium] 40 mg PO DAILY 07/05/13 07/08/20 05/04/17 History Glimepiride 4 mg PO DAILY 07/05/13 07/08/20 05/04/17 History Lisinopril/Hydrochlorothiazide 1 tab PO DAILY 07/05/13 07/08/20 05/04/17 History [Lisinopril-Hctz 20-12.5 mg Tab] Metformin HCl [Metformin] 1,000 mg PO DAILY 07/05/13 07/08/20 2 Days Ago History ~05/03/17 Rosuvastatin Calcium [Crestor] 20 mg PO DAILY 07/05/13 07/08/20 05/04/17 History Clindamycin [Clindamycin CAP] 300 mg PO Q8H 10 Days cap 04/29/17 07/08/20 05/04/17 Rx Isosorbide Mononitrate 10 mg PO BID 05/01/17 07/08/20 05/04/17 History Naproxen [Naprosyn] 500 mg PO PRN PRN 05/01/17 07/08/20 1 Week Ago History ~04/28/17 Venlafaxine [Effexor] 75 mg PO TID 05/01/17 07/08/20 05/04/17 History Active Meds: Active Medications Acetaminophen (Acetaminophen 325 Mg Tab) 650 mg PO Q4H PRN PRN Reason: Pain, Mild (1-3) Atorvastatin Calcium (Atorvastatin 40 Mg Tab) 80 mg PO QHS [facility] Bisacodyl (Bisacodyl 10 Mg Rect Supp) 10 mg [place] QDAY PRN PRN Reason: Constipation Clopidogrel Bisulfate (Clopidogrel 75 Mg Tab) 75 mg PO DAILY [facility] Heparin Sodium (Porcine) (Heparin 5,000 Unit/1 Ml Vial) 5,000 unit SUB-Q Q8HR [facility] Hydralazine HCl (Hydralazine 20 Mg/1 Ml Inj) 10 mg IV TID PRN PRN Reason: Hypertension Magnesium Hydroxide (Magnesium Hydroxide (Mom) Oral Liqd Udc) 30 ml PO Q4H PRN PRN Reason: Constipation Metoclopramide HCl (Metoclopramide 10 Mg Tab) 10 mg PO Q6H PRN PRN Reason: Nausea And Vomiting Ondansetron HCl (Ondansetron 4 Mg/2 Ml Inj) 4 mg IV Q8H PRN PRN Reason: Nausea And Vomiting Pantoprazole Sodium (Pantoprazole 40 Mg Tab) 40 mg PO QDAC [facility] Last Admin: 07/08/20 07:43 Dose: Not Given Documented by: Promethazine HCl (Promethazine 25 Mg Rect Supp) 25 mg NH Q6H PRN PRN Reason: Nausea And Vomiting Sodium Chloride (Sodium Chloride 0.9% 10 Ml Flush Syringe) 10 ml IV PRN PRN PRN Reason: LINE FLUSH Venlafaxine HCl (Venlafaxine 75 Mg Tab) 75 mg PO TID [facility] Last Admin: 07/08/20 07:43 Dose: Not Given Documented by: Review of Systems All systems: negative Physical Examination - Vital Signs Vital Signs: Vital Signs Pulse Resp Pulse Ox 109 H 13 99 07/07/20 16:26 07/07/20 16:26 07/07/20 16:26 - Constitutional General appearance: comfortable - EENT EENT: Present: PERRL - Respiratory Respiratory: Present: chest non-tender, lungs clear, crackles - Cardiovascular Cardiovascular: Present: regular rate, normal S1, normal S2 Extremities: Present: no peripheral edema bilatateraly - Gastrointestinal Gastrointestinal: Present: normoactive bowel sounds - Neurologic Cranial nerve examination: PERRL, EOMI, V1/V2/V3 grossly intact, intact Speech examination: intact Sensorimotor examination: intact Detailed motor examination: other (slight right upper drift with difficulty finger to nose no sensory deficit ,gait not done) - Level of Consciousness 1a. Level of Consciousness: alert/keenly responsive - LOC Questions 1b. LOC Questions: answers both correctly - LOC Command 1c. LOC Commands: performs tasks correctly - Best Gaze 2. Best Gaze: normal - Visual 3. Visual: no visual loss - Facial Palsy 4. Facial Palsy: normal symmetrical movement - Motor Arm 5a. Motor Arm Left: no drift 5b. Motor Arm Right: drift - Motor Leg 6a. Motor Leg Left: no drift 6b. Motor Leg Right: no drift - Limb Ataxia 7. Limb Ataxia: present 1 limb - Sensory 8. Sensory: normal - Best Language 9. Best Language: no aphasia - Dysarthria 10. Dysarthria: normal - Extinction and Inattention 11. Extinction/Inattention: no abnormality - Scoring Total Score: 2 Stroke Severity: Minor Stroke Results - Laboratory Findings CBC and BMP: 07/07/20 16:23 07/07/20 16:23 Abnormal Lab Findings: Abnormal Labs 07/07/20 07/07/20 07/07/20 16:23 16:23 23:28 MCV 82 L MCH 26 L Monocytes % (Manual) 15.0 H Seg Neutrophils # Man 0.0 L Lymphocytes # (Manual) 0.0 L Sodium 133 L Glucose 189 H POC Glucose 112 H Triglycerides Cholesterol HDL Cholesterol 07/08/20 07/08/20 07/08/20 05:21 08:44 09:54 MCV MCH Monocytes % (Manual) Seg Neutrophils # Man Lymphocytes # (Manual) Sodium Glucose POC Glucose 111 H 121 H Triglycerides 412 H Cholesterol 243 H HDL Cholesterol 27 L 07/08/20 11:36 MCV MCH Monocytes % (Manual) Seg Neutrophils # Man Lymphocytes # (Manual) Sodium Glucose POC Glucose 111 H Triglycerides Cholesterol HDL Cholesterol Assessment and Plan Assessment and Plan # CVA (cerebral vascular accident) -New onset yesterday presented with right side weakness and speech difficulty -NIH#12 -- currently#2 -Ct brain is unremarkable -CTA braina nd neck -- multiple chronic intracraniacl large vessels disease involve both M1 and Left A1 -S/P left ICA EAE -CVA protocol: Patient admitted to ICU status post TPA administration. -Telemetry neurology consulted in ED. - echocardiogram is pending -, neuro check, - seizure precautions, -carotid Doppler, -physical therapy consulted, Occupational Therapy consulted, speech therapy consulted, -resume antiplatelet therapy within 24 hours- after repeat Ct brain R/O hemorrhage-ASA 81 mg Plus Plavix 75 mg X 3 months then Plavix -MRI brain. # Right hemiparesis after TPA Physical therapy consulted, supportive care. # HTN (hypertension) -Allow for permissive HTN<220/120 24 hours -then Monitor blood pressure every shift,then continue BP control <150/80 #HLP -Lipitor 80 mg -LDL pending due to elevated triglyceride >400 # GERD (gastroesophageal reflux disease) -PPI therapy, supportive care (5) DVT prophylaxis -SCD to bilateral lower extremities while in bed, (6) Advance care planning -Disease education conducted, care plan discussed, diagnosis discussed, prognosis discussed, patient is full code, patient knowledges understanding agree with care plan, will follow
--- NOTE | 2020-07-08 18:29 | Cat Scan Report ---
CT HEAD WITHOUT CONTRAST INDICATION / CLINICAL INFORMATION: 24 hours follow up TPA. Cerebrovascular accident. TECHNIQUE: All CT scans at this location are performed using CT dose reduction for ALARA by means of automated e xposure control. COMPARISON: CT 07/07/2020 FINDINGS: HEMORRHAGE: No evidence of intracranial hemorrhage or extra-axial fluid collection. EXTRA-AXIAL SPACES: Cortical sulci and sylvian fissures are enlarged reflecting a degree of parenchym al volume loss which is within normal limits for the patient's age of 75 years. Basilar cisterns have an unremarkable appearance. VENTRICULAR SYSTEM: The third and lateral ventricles are enlarged reflecting presence of age related parenchymal volume loss. CEREBRAL PARENCHYMA: Periventricular and deep white matter lucency is observed. This is probably seco ndary to microvascular ischemic change. There is no indication of recent infarction. A remote small d eep infarction is demonstrated centrum semiovale of the right frontal lobe. There are also small deep infarction right putamen. These findings are stable. MIDLINE SHIFT OR HERNIATION: There is no mass e ffect. CEREBELLUM / BRAINSTEM: Stem has an appearance. There is left cerebellar infarction. MIDLINE STRUCTURES:Pituitary gland has an unremarkable appearance. No abnormalities are seen in the p ineal region. INTRACRANIAL VESSELS: Extensively calcified atherosclerotic plaque is seen along the course internal carotid arteries from the vertical petrous portions up through the supraclinoid regions bilaterally. Extensively calcified atherosclerotic plaque is seen along the course of the basilar artery. ORBITS: There is post bilateral cataract surgery. No additional abnormality. SOFT TISSUES of HEAD: No significant abnormality. CALVARIUM: Evaluation of bone windows reveals no abnormalities. PARANASAL SINUSES / MASTOID AIR CELLS: Paranasal sinuses are free from inflammatory mucosal disease. Mastoid air cells are normally pneumatized. ADDITIONAL FINDINGS: None. IMPRESSION: 1. No evidence of intracranial hemorrhage following TPA administration. 2. No interval change in the CT appearance of the brain since 07/07/2020. Signer Name: Fredy Weeks MD Signed: 07/08/2020 6:24 PM Workstation Name: [id number]
[2020-07-08] MEDS: HEPARIN 5,000 UNIT/1 ML VIAL SUB-Q SCH (22:49)
--- NOTE | 2020-07-09 01:18 | Consultation ---
DATE OF CONSULTATION: 07/08/2020 PULMONARY CRITICAL CARE CONSULT NOTE CONSULTING PHYSICIAN: Dr. Shane Smyth. REASON FOR CONSULTATION: Acute CVA, status post TPA administration thrombolytic therapy. CHIEF COMPLAINT AND HISTORY OF PRESENT ILLNESS: As follows. The patient is a 75-year-old obese male with a past medical history significant amongst other things for a diagnosis of coronary artery disease, prior cerebrovascular accident, who states that he was sitting down at home watching TV when all of a sudden and could not move his right hand. He then noticed he could also move his right leg. He had called EMS. He was brought to the emergency room. A code stroke was done. He was evaluated by the neurologist and was treated with TPA with improvement in his symptoms. Post-TPA, he was admitted on the CVA protocol and admitted to the intensive care unit for 24-hour observation. We are asked to assist with management. When I stopped by to see him, he was resting in bed. He had recovered some movements pretty significant to the right side. He was able to move his right upper extremity and right lower extremity. He denied any chest pains along with the onset of his symptoms. He denies any palpitations. He denies any symptoms whatsoever. When asked if he is a smoker, he describes himself as a never smoker, but admits to a history of hyperlipidemia. The above is as much of the history of presentation as I have. PAST MEDICAL HISTORY: Coronary artery disease, hypertension, prior cerebrovascular accident, history of diabetes, history of gastroesophageal reflux disease and a history of hyperlipidemia. PAST SURGICAL HISTORY: He has had neck surgery. MEDICATIONS: He was on at the time I stopped by to see him, according to the medication administration record included the following: He was on Tylenol 650 mg p.o. q.4 hours p.r.n. mild pain or fevers. Lipitor 80 mg p.o. at bedtime p.r.n., Dulcolax 10 mg per rectum every day, Plavix 75 mg p.o. daily, heparin 5000 units subcutaneously q.8 hours p.r.n., hydralazine 10 mg IV t.i.d. p.r.n. elevated blood pressures, Zofran 4 mg IV q.8 hours p.r.n. nausea and vomiting, Protonix 40 mg p.o. daily and Effexor 75 mg p.o. t.i.d. ALLERGIES: No known drug allergies. DIET: Obese gentleman. Denies acute weight loss or gain in the preceding few weeks to months. SOCIAL HISTORY: Lives in the community. Denies alcohol, tobacco or illicit drug use or abuse. He is . FAMILY HISTORY: There is a family history of diabetes and hypertension. REVIEW OF SYSTEMS: He denies loss of consciousness. He had the new onset right-sided weakness. Denies gross hematochezia or melena. Denies gross hematuria or dysuria. Denies hematemesis, denies hemoptysis, denies palpitations, denies heat or cold intolerance. Denies polydipsia or polyuria. Complete 13 system review of system was obtained. Pertinent positives and/or negatives are as in the body of the history above, otherwise they are noncontributory. PHYSICAL EXAMINATION: VITAL SIGNS: At presentation in the emergency room, initial temperature, he was afebrile, temperature 98.2 degrees Fahrenheit with a pulse of 109, respiratory rate of 13, blood pressure 180/100, O2 sats were 99%, inspired oxygen concentration at that time was not recorded. When I stopped by to see him O2 sats were 98% on room air. GENERAL: He is an elderly looking obese male. Normocephalic, atraumatic. Talking to me in full sentences, but with a little bit of aphasia. HEAD, EYES, EARS, NOSE AND THROAT: Anicteric. No conjunctival erythema. Oropharynx was moist. Mallampati #4 oropharynx. NECK: No jugular venous distention. No thyromegaly. He does have a large neck circumference. Grossly, there were no palpable lymph nodes in the supraclavicular or submandibular lymph node chains. LUNGS: Auscultation of both lung wyatt unremarkable. Lungs are clear bilaterally with good bilateral air movement. HEART: Sounds 1 and 2 are heard, regular rate and rhythm at the time of my evaluation without rubs or murmurs. ABDOMEN: Soft, full, protuberant. Bowel sounds are positive, nontender. No palpable hepatosplenomegaly. EXTREMITIES: Without overt digital clubbing, no cyanosis, no pedal edema. Pedal pulses are 2+ bilaterally. NEUROLOGIC: Pupils are equal, round, about 4 mm, reactive to light. Extraocular muscle movements are intact. His power on the left side was , the power on the right side was about 3-4/5 in the upper and lower extremities. SKIN: Normal turgor in the areas examined without overt cellulitis or rash. Please see the wound care nurses' notes for full description of his skin. PSYCHIATRIC: Mood was normal. Affect was appropriate. He had intact judgment and insight. Again, from a neurological standpoint, he was having some trouble finding words, had a little bit of aphasia. It is unclear if that is new. LABORATORY DATA: For my review are as follows: White count 6400, hemoglobin 12.0, hematocrit 37.2, platelet count 142. No band forms on the manual differential. INR 1.01. Serum sodium 133, potassium 4.5, chloride 100, bicarbonate 22, BUN 20, creatinine 1.0, glucose 189. Troponin within normal limits. LDL cholesterol, too numerous to count. His total cholesterol was 243, his triglycerides 412. No blood cultures. He had a CT scan of the head. I have reviewed the radiologist's interpretation of the CT scan. The CT scan of the head reports no evidence for an acute infarction. CT angio of the head and neck was done. CTA neck, no occlusion or significant stenosis of the carotid or vertebral arteries. 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 ASSESSMENT: 1. Acute cerebrovascular accident, status post tissue plasminogen activator/thrombolytic therapy. 2. Right hemiparesis. 3. History of hypertension. 4. Obesity. 5. Gastroesophageal reflux disease. 6. History of diabetes. 7. Possible obstructive sleep apnea based on history. PLAN: We will observe him in the Intensive Care Unit ___ he has seen by the roller coaster engineer. Again, MRI is pending. Secondary prevention modalities will be deferred to the attending physician, but he has been started on antilipid therapy with Lipitor. Blood pressure control is ongoing. He will be continued on his Plavix and other chronic medications. Oxygen will be offered as necessary to keep sats greater than or equal to above 90%. He remains at present on the investigation for COVID-19 infection. Will remain in contact in airborne precautions until that is ruled out. Weight loss has been counseled. Sleep clinic/pulmonary clinic evaluation has been counseled. He is appropriately on DVT prophylaxis and GI prophylaxis. Glycemic control will be for a target blood glucose of 140-180 mg/dL while he is critically ill. Physical therapy and occupational therapy will be started once he has been cleared from a neurologic standpoint. Flu and pneumonia vaccination will be addressed per protocol. Continued tobacco abstinence has been counseled. Thank you very much for the consult, Dr. Smyth. We will follow along and make further recommendations as the picture progresses/becomes clearer. TID: [id number] RECEIPT: [id number] [facility]
[2020-07-09] MEDS: HEPARIN 5,000 UNIT/1 ML VIAL SUB-Q SCH ×3 (06:16→21:24)
[2020-07-09] MEDS: PANTOPRAZOLE 40 MG TAB PO SCH (10:51)
[2020-07-09] MEDS: VENLAFAXINE 75 MG TAB PO SCH ×3 (10:51→20:25)
[2020-07-09] MEDS: CLOPIDOGREL 75 MG TAB PO SCH (10:51)
--- NOTE | 2020-07-09 10:56 | Progress Note ---
Assessment and Plan Assessment and Plan # CVA (cerebral vascular accident) -New onset yesterday presented with right side weakness and speech difficulty -NIH#12 -- currently#2 -Ct brain is unremarkable -CTA braina nd neck -- multiple chronic intracraniacl large vessels disease involve both M1 and Left A1 -S/P left ICA EAE -CVA protocol: Patient admitted to ICU status post TPA administration. -Telemetry neurology consulted in ED. - echocardiogram is pending -, neuro check, - seizure precautions, -carotid Doppler, pending -physical therapy consulted, Occupational Therapy consulted, speech therapy consulted, -resume antiplatelet therapy within 24 hours- after repeat Ct brain R/O hemorrhage-ASA 81 mg Plus Plavix 75 mg X 3 months then Plavix -MRI brain. pending -A1C is pending # Right hemiparesis after TPA Physical therapy consulted, supportive care. # HTN (hypertension) -Allow for permissive HTN<220/120 24 hours -- Today 170/89 -then Monitor blood pressure every shift,then continue BP control <150/80 #HLP -Lipitor 80 mg -LDL pending due to elevated triglyceride >400 # GERD (gastroesophageal reflux disease) -PPI therapy, supportive care (5) DVT prophylaxis -SCD to bilateral lower extremities while in bed, (6) Advance care planning -Disease education conducted, care plan discussed, diagnosis discussed, prognosis discussed, patient is full code, patient knowledges understanding agree with care plan, will follow as needed Subjective Date of service: 07/09/20 Principal diagnosis: right sise weakness S/P TPA Interval history: status is unchanged he is with residual right side weakness failed swalllow evaluation will be reevaluated am MRI still pending as well as COVI-19 result Echo ? Repeat CT yesterday showed no bleed restarted on plavix 75 mg and Lipitor 80 mg BP 170/89 Objective - Vital Sign Vital Signs - 12hr 07/08/20 07/08/20 07/09/20 23:00 23:32 00:00 Temperature 98.4 F Pulse Rate 82 84 81 Pulse Rate [ 82 From Monitor] Respiratory 23 17 18 Rate Blood Pressure 174/101 174/101 183/93 O2 Sat by Pulse 97 98 99 Oximetry 07/09/20 07/09/20 07/09/20 00:01 01:00 02:00 Temperature Pulse Rate 81 82 86 Pulse Rate [ From Monitor] Respiratory 22 14 22 Rate Blood Pressure 183/93 170/92 175/100 O2 Sat by Pulse 98 99 99 Oximetry 07/09/20 07/09/20 07/09/20 03:00 04:00 05:00 Temperature 98.2 F Pulse Rate 83 89 90 Pulse Rate [ 82 From Monitor] Respiratory 19 17 20 Rate Blood Pressure 170/92 171/99 178/89 O2 Sat by Pulse 100 99 100 Oximetry 07/09/20 07/09/20 07/09/20 06:00 07:00 08:00 Temperature Pulse Rate 106 H 92 H 93 H Pulse Rate [ 82 From Monitor] Respiratory 17 22 14 Rate Blood Pressure 167/85 170/89 O2 Sat by Pulse 86 99 99 Oximetry 07/09/20 07/09/20 09:00 10:00 Temperature Pulse Rate 96 H 98 H Pulse Rate [ From Monitor] Respiratory 17 14 Rate Blood Pressure 178/82 156/74 O2 Sat by Pulse 97 97 Oximetry - General Apperance Constitutional: comfortable - EENT EENT: PERRL, mucous membranes moist - Respiratory Respiratory: chest non-tender, lungs clear, rhonchi - Cardiovascular Cardiovascular: normal S1, normal S2 Extremities: no peripheral edema bilat, no clubbing, cyanosis - Gastrointestinal Gastrointestinal: normoactive bowel sounds - Integumentary Integumentary: normal - Neurologic Cranial nerve examination: PERRL, EOMI, intact Speech examination: intact Detailed motor examination: other - Laboratory Findings CBC and BMP: 07/07/20 16:23 07/07/20 16:23 Abnormal Lab Findings: Abnormal Labs 07/07/20 07/07/20 07/07/20 16:23 16:23 23:28 MCV 82 L MCH 26 L Monocytes % (Manual) 15.0 H Seg Neutrophils # Man 0.0 L Lymphocytes # (Manual) 0.0 L Sodium 133 L Glucose 189 H POC Glucose 112 H Triglycerides Cholesterol HDL Cholesterol 07/08/20 07/08/20 07/08/20 05:21 08:44 09:54 MCV MCH Monocytes % (Manual) Seg Neutrophils # Man Lymphocytes # (Manual) Sodium Glucose POC Glucose 111 H 121 H Triglycerides 412 H Cholesterol 243 H HDL Cholesterol 27 L 07/08/20 07/09/20 11:36 06:45 MCV MCH Monocytes % (Manual) Seg Neutrophils # Man Lymphocytes # (Manual) Sodium Glucose POC Glucose 111 H 139 H Triglycerides Cholesterol HDL Cholesterol
--- NOTE | 2020-07-09 11:59 | Progress Note ---
Assessment and Plan Assessment and plan: Patient Problems (1) CVA (cerebral vascular accident) Current Visit: Yes Status: Acute Plan to address problem: Patient is status post TPA administration on 07/07. MRI without contrast ordered Echocardiogram pending PT/OT pending Speech therapy pending Antiplatelet agents Neurology recommendation appreciated The high probability of a clinically significant, sudden or life threatening deterioration of the [neuro] system(s) required my full and direct attention, intervention and personal management. The aggregate critical care time was [65] minutes. This time is in addition to time spent performing reported procedures but includes the following: [x] Data Review and interpretation [x] Patient assessment and monitoring of vital signs [x] Documentation [x] Medication orders and management (2) Right hemiparesis Current Visit: Yes Status: Acute Plan to address problem: Secondary to CVA PT/OT ordered (3) HTN (hypertension) Current Visit: Yes Status: Acute Qualifiers: Hypertension type: essential hypertension Qualified Code(s): I10 - Essential (primary) hypertension Plan to address problem: Allow permissive hypertension for now hold blood pressure medications at this time (4) GERD (gastroesophageal reflux disease) Current Visit: No Status: Acute Qualifiers: Esophagitis presence: without esophagitis Qualified Code(s): K21.9 - Gastro-esophageal reflux disease without esophagitis Plan to address problem: PPI therapy, supportive care (5) DVT prophylaxis Current Visit: No Status: Acute Plan to address problem: SCD to bilateral lower extremities while in bed. Start on heparin this p.m. (6) Advance care planning Current Visit: Yes Status: Acute Plan to address problem: Disease education conducted, care plan discussed, diagnosis discussed, prognosis discussed, patient is full code, patient knowledges understanding agree with care plan, +30 minutes. History Interval history: 75 YO Male with HTN, CAD S/P Stent Placement, CVA on DAPT, DM, GERD presents to ED for evaluation. Pt reports" I feel weak on my right side". Patient states that he was in his usual state of health and experienced a sudden onset of right-sided arm and leg weakness at approximately 1300 hrs. EMS was notified and upon arrival the patient was found to have a neurologic deficit. A code stroke was called and the patient was transported to [facility] for further care and evaluation of the aforementioned symptoms. The patient was seen and evaluated in the emergency department. All lab and imaging studies reviewed. Patient found to have clinical symptoms consistent with CVA. Patient was treated with TPA administration with improvement in symptoms. Patient admitted to ICU and initiated on CVA protocol. Pulmonology consulted in ED. Patient denies fever, chills, chest pain, palpitation, productive cough, skin rash, recent ill contact, or known exposure to COVID-19. No prior admission for review. No medication listed at time of admission reconciliation. Advanced care planning conducted in ED. 07/08. Patient is status post TPA. Has some speech difficulty and mild right-sided weakness. Echocardiogram pending. MRI brain without contrast ordered. Neurology consulted. Continue to hold aspirin products 24 hours after TPA. 07/09. Right-sided weakness slightly better today. Echocardiogram and MRI of the brain stable pending. Aspirin has been resumed. Neurology evaluation appreciated. Okay to transfer to telemetry. Resume Coreg. Continue to monitor blood pressure closely Hospitalist Physical - Physical exam Narrative exam: VITAL SIGNS: Reviewed. GENERAL: Awake HEAD: No signs of head trauma. EYES: Pupils are equal. Extraocular motions intact. MOUTH: Oropharynx is normal. NECK: No adenopathy, no JVD. CHEST: Chest with diminished breath sounds bilaterally. No wheezes, rales, or rhonchi. CARDIAC: normal S1 and S2, without murmurs, gallops, or rubs. ABDOMEN: Soft, non tender and non distended. No rebound or guarding, and no masses palpated. Bowel Sounds normal. MUSCULOSKELETAL: No edema NEUROLOGIC EXAM: Alert and oriented x3. Dysarthria. Right-sided weakness-right upper extremity 4/5, right lower extremity 4/5 SKIN: No obvious lesions - Constitutional Vitals: Temp Pulse Resp BP Pulse Ox 98.2 F 98 H 14 156/74 97 07/09/20 04:00 07/09/20 10:00 07/09/20 10:00 07/09/20 10:00 07/09/20 10:00 HEART Score - HEART Score Troponin: Troponin T < 0.010 ng/mL (0.00-0.029) 07/07/20 16:23 Results - Labs CBC & Chem 7: 07/07/20 16:23 07/07/20 16:23 Labs: Laboratory Last Values WBC 6.4 K/mm3 (4.5-11.0) 07/07/20 16:23 RBC 4.55 M/mm3 (3.65-5.03) 07/07/20 16:23 Hgb 12.0 gm/dl (11.8-15.2) 07/07/20 16:23 Hct 37.2 % (35.5-45.6) 07/07/20 16:23 MCV 82 fl (84-94) L 07/07/20 16:23 MCH 26 pg (28-32) L 07/07/20 16:23 MCHC 32 % (32-34) 07/07/20 16:23 RDW 15.1 % (13.2-15.2) 07/07/20 16:23 Plt Count 142 K/mm3 (140-440) 07/07/20 16:23 Add Manual Diff Complete 07/07/20 16:23 Total Counted 100 07/07/20 16:23 Seg Neuts % (Manual) 63.0 % (40.0-70.0) 07/07/20 16:23 Lymphocytes % (Manual) 20.0 % (13.4-35.0) 07/07/20 16:23 Monocytes % (Manual) 15.0 % (0.0-7.3) H 07/07/20 16:23 Eosinophils % (Manual) 2.0 % (0.0-4.3) 07/07/20 16:23 Nucleated RBC % Not Reportable 07/07/20 16:23 Seg Neutrophils # Man 0.0 K/mm3 (1.8-7.7) L 07/07/20 16:23 Band Neutrophils # 0.0 K/mm3 07/07/20 16:23 Lymphocytes # (Manual) 0.0 K/mm3 (1.2-5.4) L 07/07/20 16:23 Abs React Lymphs (Man) 0.0 K/mm3 07/07/20 16:23 Monocytes # (Manual) 0.0 K/mm3 (0.0-0.8) 07/07/20 16:23 Eosinophils # (Manual) 0.0 K/mm3 (0.0-0.4) 07/07/20 16:23 Basophils # (Manual) 0.0 K/mm3 (0.0-0.1) 07/07/20 16:23 Metamyelocytes # 0.0 K/mm3 07/07/20 16:23 Myelocytes # 0.0 K/mm3 07/07/20 16:23 Promyelocytes # 0.0 K/mm3 07/07/20 16:23 Blast Cells # 0.0 K/mm3 07/07/20 16:23 WBC Morphology Not Reportable 07/07/20 16:23 Hypersegmented Neuts Not Reportable 07/07/20 16:23 Hyposegmented Neuts Not Reportable 07/07/20 16:23 Hypogranular Neuts Not Reportable 07/07/20 16:23 Smudge Cells Not Reportable 07/07/20 16:23 Toxic Granulation Not Reportable 07/07/20 16:23 Toxic Vacuolation Not Reportable 07/07/20 16:23 Dohle Bodies Not Reportable 07/07/20 16:23 Pelger-Huet Anomaly Not Reportable 07/07/20 16:23 [place] Rods Not Reportable 07/07/20 16:23 Platelet Estimate Consistent w auto 07/07/20 16:23 Clumped Platelets Not Reportable 07/07/20 16:23 Plt Clumps, EDTA Not Reportable 07/07/20 16:23 Large Platelets Not Reportable 07/07/20 16:23 Giant Platelets Not Reportable 07/07/20 16:23 Platelet Satelliting Not Reportable 07/07/20 16:23 Plt Morphology Comment Not Reportable 07/07/20 16:23 RBC Morphology Not Reportable 07/07/20 16:23 Dimorphic RBCs Not Reportable 07/07/20 16:23 Polychromasia Not Reportable 07/07/20 16:23 Hypochromasia Not Reportable 07/07/20 16:23 Poikilocytosis Not Reportable 07/07/20 16:23 Anisocytosis Not Reportable 07/07/20 16:23 Microcytosis Not Reportable 07/07/20 16:23 Macrocytosis Not Reportable 07/07/20 16:23 Spherocytes Not Reportable 07/07/20 16:23 Pappenheimer Bodies Not Reportable 07/07/20 16:23 Sickle Cells Not Reportable 07/07/20 16:23 Target Cells Not Reportable 07/07/20 16:23 Tear Drop Cells Not Reportable 07/07/20 16:23 Ovalocytes Rare 07/07/20 16:23 Helmet Cells Not Reportable 07/07/20 16:23 Gallagher-Kettering Bodies Not Reportable 07/07/20 16:23 [place] Rings Not Reportable 07/07/20 16:23 Saba Cells Not Reportable 07/07/20 16:23 Bite Cells Not Reportable 07/07/20 16:23 Crenated Cell Not Reportable 07/07/20 16:23 Elliptocytes Not Reportable 07/07/20 16:23 Acanthocytes (Spur) Not Reportable 07/07/20 16:23 Rouleaux Not Reportable 07/07/20 16:23 Hemoglobin C Crystals Not Reportable 07/07/20 16:23 Schistocytes Not Reportable 07/07/20 16:23 Malaria parasites Not Reportable 07/07/20 16:23 Jona Bodies Not Reportable 07/07/20 16:23 Hem Pathologist Commnt No 07/07/20 16:23 PT 13.2 Sec. (12.2-14.9) 07/07/20 16:23 INR 1.01 (0.87-1.13) 07/07/20 16:23 APTT 26.0 Sec. (24.2-36.6) 07/07/20 16:23 Thrombin Time 18.2 Sec. (15.1-19.6) 07/07/20 16:23 Sodium 133 mmol/L (137-145) L 07/07/20 16:23 Potassium 4.5 mmol/L (3.6-5.0) 07/07/20 16:23 Chloride 100.0 mmol/L (98-107) 07/07/20 16:23 Carbon Dioxide 22 mmol/L (22-30) 07/07/20 16:23 Anion Gap 16 mmol/L 07/07/20 16:23 BUN 20 mg/dL (9-20) 07/07/20 16:23 Creatinine 1.0 mg/dL (0.8-1.3) 07/07/20 16:23 Estimated GFR > 60 ml/min 07/07/20 16:23 BUN/Creatinine Ratio 20 % 07/07/20 16:23 Glucose 189 mg/dL (75-100) H 07/07/20 16:23 POC Glucose 139 mg/dL (70-105) H 07/09/20 06:45 Calcium 8.8 mg/dL (8.4-10.2) 07/07/20 16:23 Troponin T < 0.010 ng/mL (0.00-0.029) 07/07/20 16:23 Triglycerides 412 mg/dL (2-149) H 07/08/20 09:54 Cholesterol 243 mg/dL (50-199) H 07/08/20 09:54 LDL Cholesterol Direct TNR 07/08/20 09:54 HDL Cholesterol 27 mg/dL (40-59) L 07/08/20 09:54 Cholesterol/HDL Ratio 9.00 % 07/08/20 09:54 Renner/IV: Voiding Method Condom Catheter Active Medications - Current Medications Current Medications: Generic Name Dose Route Start Last Admin Trade Name Freq PRN Reason Stop Dose Admin Acetaminophen 650 mg 07/07/20 17:28 Acetaminophen 325 Mg Tab PO Q4H PRN Pain, Mild (1-3) Aspirin 81 mg 07/09/20 11:00 Aspirin 81 Mg Tab Chew PO QDAY [facility] Atorvastatin Calcium 80 mg 07/08/20 22:00 07/08/20 22:50 Atorvastatin 40 Mg Tab PO Not Given QHS [facility] Bisacodyl 10 mg 07/07/20 17:28 Bisacodyl 10 Mg Rect Supp RI QDAY PRN Constipation Carvedilol 12.5 mg 07/09/20 12:00 Carvedilol 12.5 Mg Tab PO BID [facility] Clopidogrel Bisulfate 75 mg 07/09/20 10:00 07/09/20 10:51 Clopidogrel 75 Mg Tab PO Not Given DAILY [facility] Heparin Sodium (Porcine) 5,000 unit 07/08/20 22:00 07/09/20 06:16 Heparin 5,000 Unit/1 Ml Vial SUB-Q 5,000 unit Q8HR [facility] Administration Hydralazine HCl 10 mg 07/07/20 17:28 Hydralazine 20 Mg/1 Ml Inj IV TID PRN Hypertension Magnesium Hydroxide 30 ml 07/07/20 17:28 Magnesium Hydroxide (Mom) Oral Liqd Udc PO Q4H PRN Constipation Metoclopramide HCl 10 mg 07/07/20 17:28 Metoclopramide 10 Mg Tab PO Q6H PRN Nausea And Vomiting Ondansetron HCl 4 mg 07/07/20 17:28 Ondansetron 4 Mg/2 Ml Inj IV Q8H PRN Nausea And Vomiting Pantoprazole Sodium 40 mg 07/08/20 07:30 07/09/20 10:51 Pantoprazole 40 Mg Tab PO Not Given QDAC ODE[facility] Promethazine HCl 25 mg 07/07/20 17:28 Promethazine 25 Mg Rect Supp RI Q6H PRN Nausea And Vomiting Sodium Chloride 10 ml 07/07/20 17:28 Sodium Chloride 0.9% 10 Ml Flush Syringe IV PRN PRN LINE FLUSH Venlafaxine HCl 75 mg 07/07/20 20:00 07/09/20 10:51 Venlafaxine 75 Mg Tab PO Not Given TID [facility]
[2020-07-09] MEDS: ASPIRIN 81 MG TAB CHEW PO SCH (12:00)
[2020-07-09] MEDS: carvediloL 12.5 MG TAB PO SCH ×2 (12:00→21:23)
--- NOTE | 2020-07-09 18:30 | Progress Note ---
Assessment and Plan Acute cerebrovascular accident s/p thrombolytic therapy. Right hemiparesis. History of hypertension. Obesity. Gastroesophageal reflux disease. History of diabetes. Possible obstructive sleep apnea - follow COVID-19 test result - isolation per facility COVID-19 protocol meantime - supplemental oxygen to keep O2 sats > 90% - Bronchodilators (MARILOU) with pulm hygiene per RT - secondary prevbention per neurology - avoid nephrotoxins, renally dose all medications - mobility protocols to prevent pressure ulcers - PT/OT as tolerated - Wound care per RN/WCT - accuchecks with glycemic control per SSI for target blood glucose < 180 mg/dL - continued tobacco abstinence strongly counseled at the bedside - home oxygen evaluation at discharge - GI & VTE prophylaxis - Flu & pneumovax per protocol - prn analgesia per pain score - Pulmonary out patient follow up for PFTs and optimization of respiratory status - continue other care per attending / other consultants ... transfer to telemetry OK ... re-evaluate in am & prn Subjective Date of service: 07/09/20 Principal diagnosis: Acute CVA; R. hemiparesis; HTN; Obesity; GERD; DM II; Possible IMELDA Interval history: Patient is seen today for: Acute CVA s/p thrombolytic therapy; Right hemiparesis; HTN; Obesity; GERD; DM II; Possible IMELDA Seen and examined at bedside; 24hour events reviewed; nursing and respiratory care staff consulted; no adverse overnight events reported to me; resting peacefully in bed; MRI brain and ECHO pending; improving right side function / strength; denies chest pains or palpitations Objective Vital Signs - 12hr 07/09/20 07/09/20 07/09/20 07:00 08:00 09:00 Pulse Rate 92 H 93 H 96 H Pulse Rate [ 82 From Monitor] Respiratory 22 14 17 Rate Blood Pressure 170/89 178/82 O2 Sat by Pulse 99 99 97 Oximetry 07/09/20 07/09/20 10:00 11:00 Pulse Rate 98 H 98 H Pulse Rate [ From Monitor] Respiratory 14 21 Rate Blood Pressure 156/74 160/82 O2 Sat by Pulse 97 98 Oximetry Constitutional: no acute distress Eyes: non-icteric ENT: oropharynx moist Neck: supple, no lymphadenopathy, other (large neck circumference) Effort: normal Ascultation: Bilateral: clear Percussion: Bilateral: not dull Cardiovascular: regular rate and rhythm Gastrointestinal: normoactive bowel sounds, soft, non-tender, non-distended (protuberant) Integumentary: normal Extremities: no cyanosis, no edema, pink and warm, pulses normal Neurologic: normal mental status, pupils equal and round, other (right hemiparesis) Psychiatric: mood appropriate, affect normal CBC and BMP: 07/10/20 15:27 07/10/20 15:27 ABG, PT/INR, D-dimer: PT/INR, D-dimer PT 13.2 Sec. (12.2-14.9) 07/07/20 16:23 INR 1.01 (0.87-1.13) 07/07/20 16:23 Abnormal lab findings: Abnormal Labs 07/07/20 07/07/20 07/07/20 16:23 16:23 23:28 MCV 82 L MCH 26 L Monocytes % (Manual) 15.0 H Seg Neutrophils # Man 0.0 L Lymphocytes # (Manual) 0.0 L Sodium 133 L Glucose 189 H POC Glucose 112 H Triglycerides Cholesterol HDL Cholesterol 07/08/20 07/08/20 07/08/20 05:21 08:44 09:54 MCV MCH Monocytes % (Manual) Seg Neutrophils # Man Lymphocytes # (Manual) Sodium Glucose POC Glucose 111 H 121 H Triglycerides 412 H Cholesterol 243 H HDL Cholesterol 27 L 07/08/20 07/09/20 11:36 06:45 MCV MCH Monocytes % (Manual) Seg Neutrophils # Man Lymphocytes # (Manual) Sodium Glucose POC Glucose 111 H 139 H Triglycerides Cholesterol HDL Cholesterol Allied health notes reviewed: nursing
[2020-07-10] MEDS: HEPARIN 5,000 UNIT/1 ML VIAL SUB-Q SCH ×3 (05:36→21:57)
[2020-07-10] MEDS: PANTOPRAZOLE 40 MG TAB PO SCH (08:24)
[2020-07-10] MEDS: VENLAFAXINE 75 MG TAB PO SCH ×3 (08:24→20:54)
[2020-07-10] MEDS: ASPIRIN 81 MG TAB CHEW PO SCH (09:23)
[2020-07-10] MEDS: CLOPIDOGREL 75 MG TAB PO SCH (09:23)
[2020-07-10] MEDS: carvediloL 12.5 MG TAB PO SCH ×2 (09:24→21:56)
--- NOTE | 2020-07-10 10:45 | Event Note ---
Date: 07/10/20 The patient was evaluated in the emergency department for symptoms described in the history of present illness. He/she was evaluated in the context of the global COVID-19 pandemic, which necessitated consideration that the patient might be at risk for infection with the virus that causes COVID-19. Institutional protocols and algorithms that pertain to the evaluation of patients at risk for COVID-19 are in a state of rapid change based on information released by regulatory bodies including the CDC and federal and state organizations. These policies and algorithms were followed during the patient's care in the emergency department. Please note that these policies, procedures and recommendations changed on a rapid basis. I responded to a code met called overhead. Myself in charge emergency room nurse, Virgie Batista, encountered the patient in MRI suite, he is accompanied by 2 floor nurses, who have called a code met overhead for sudden onset unresponsiveness. I have not evaluated this patient in the past, and his care nurses from the floor informing that his last known well time is 9:30 in the morning. They inform me that the patient is typically able to move 4 extremities, awake, alert, and able to make his needs known. On my initial assessment, the patient is cool, clammy, diaphoretic, awake, not moving extremities, and sweating. He does not really respond to noxious stimuli. Accu-Chek in the emergency room is 209. The patient is awake and protecting his airway. A code stroke is called overhead. At that point in time, hospital physician, Dr. Cullen Leo, has presented to the emergency room, and he will assume care of the patient. We will follow up on laboratory studies. In addition, his case was discussed with our stroke neurologist, Dr. Brar. This patient is not a TPA candidate as he has recently received TPA. However, CT head, CT angiogram head and neck will be obtained. I will defer to the inazt ient team to further follow-up on these results, as this patient is currently an admitted patient. Currently, the patient is hemodynamically stable, with a blood pressure of 112/76. He is saturating 99% on room air, and protecting his airway. Therefore, at this point time, he does not require definitive airway management or intubation, he does not require placement of central line or vasopressor support.
--- NOTE | 2020-07-10 10:56 | Cat Scan Report ---
CT head/brain wo con INDICATION: Strike. TECHNIQUE: Routine CT head. All CT scans at this location are performed using CT dose reduction for A RIA by means of automated exposure control. COMPARISON: 07/08/2020 FINDINGS: Intracranial: Encephalomalacia in the left cerebellum. Tiny area of hypoattenuation is seen in the le ft sushila is unchanged and could represent an infarction which is age indeterminate (image 9 of series 2) but this was seen on prior exam. Overall, brain parenchyma is not significantly changed. No hemorr vito. Remote right centrum semiovale infarction. No extra axial collection. No hydrocephalus. No ruth iation. Sinuses: Paranasal sinuses and mastoid air cells are essentially clear. Orbits: Globes are intact. Calvarium: No acute fracture. IMPRESSION: 1. No significant change. I informed Dr. Brunson at 9:52 Signer Name: Yahir Kay MD Signed: 07/10/2020 10:52 AM Workstation Name: [id number]
--- NOTE | 2020-07-10 11:19 | Cat Scan Report ---
CT angio neck INDICATION / CLINICAL INFORMATION: 75 years Male; MAIN. TECHNIQUE: Thin cut axial images obtained through the head during IV bolus contrast administration. S agittal, coronal, and 3 plane MIP reconstructions performed by the technologist. NASCET type criteria used evaluate stenoses. All CT scans at this location are performed using CT dose reduction for ALAR A by means of automated exposure control. COMPARISON: None available. FINDINGS: CAROTID ARTERIES: There is atherosclerotic calcification involving proximal internal carotid arteries , most notable posteriorly on the right. However, there is no significant stenosis by NASCET type cri teria. VERTEBRAL ARTERIES: There is notable atherosclerotic calcification at the origin of the left vertebra l artery with marked stenosis at. There is also segmental irregularity and calcification involving th e more distal left vertebral artery with mild narrowing, particularly within the cervical transverse foramen. There appears be mild narrowing of the origin of the right vertebral artery at. Additionally, there i s also segmental narrowing of the right vertebral artery within the cervical transverse foramen resul ting from the multilevel degenerative changes. ARCH: There is notable atherosclerotic plaque involving aortic arch with scattered calcification. How ever, there is no significant stenosis of the origins of the arch vessels. ADDITIONAL FINDINGS: This mild reversal of the cervical lordosis with multilevel advanced or disc raysa nges. IMPRESSION: There is atherosclerotic calcification involving proximal internal carotid arteries without significa nt stenosis by NASCET criteria. There is marked stenosis involving origin of the left vertebral artery. There is otherwise mild segme ntal narrowing involving remaining cervical segments of bilaterally. Signer Name: Neal Jenkins MD Signed: 07/10/2020 11:15 AM Workstation Name: [id number]
--- NOTE | 2020-07-10 11:31 | Cat Scan Report ---
CT angio head INDICATION / CLINICAL INFORMATION: 75 years Male; MAIN. TECHNIQUE: Thin cut axial images obtained through the head during IV bolus contrast administration. S agittal, coronal, and 3 plane MIP reconstructions performed by the technologist. NASCET type criteria used evaluate stenoses. Automated exposure control utilized for radiation reduction purposes. COMPARISON: None available. FINDINGS: INTERNAL CAROTID ARTERIES: There is atherosclerotic calcification involving distal internal carotid a rteries bilaterally. 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 There is corresponding relative small caliber of the left ICA. However, the a therosclerotic calcification also appear to contribute to moderate narrowing of the communicating seg ment at. Mild narrowing is seen on the right. VERTEBROBASILAR SYSTEM: There is notable irregular prominent atherosclerotic calcification involving distal left vertebral artery with pronounced stenosis at. However, there is flow proximal and distal to this region. Furthermore, there is contrast opacification of the proximal left PICA which arises w ithin this calcified segment. There is mild irregularity and segmental narrowing of the basilar arter y. The distal right vertebral artery is dominant. There is mild poststenotic dilatation of the distal most left vertebral artery. CEREBRAL ARTERIES: There is diffuse irregularity of the cerebral arteries with notable segmental narr owing which may reflect atherosclerotic disease and correlation would be needed regarding vasculitis given the distribution. There is moderate narrowing involving the M1 segment of the right MCA with mo derate to marked narrowing of the more distal portion. There are also notable scattered areas of sten osis involving more distal MCA branches bilaterally as well as along the anterior cerebral arteries a t. 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 ANEURYSM: None identified. ADDITIONAL FINDINGS: Remainder of the surrounding soft tissues are grossly normal. IMPRESSION: There is notable irregularity of the cerebral arteries diffusely with focal areas of significant sten osis as detailed above. There is extensive atherosclerotic calcification involving intracranial left vertebral artery with pr onounced stenosis as described. There is atherosclerotic calcification involving distal ICAs with moderate narrowing of the beginning segment on the left. Signer Name: Neal Jenkins MD Signed: 07/10/2020 11:26 AM Workstation Name: [id number]
--- NOTE | 2020-07-10 11:44 | XRay Report ---
CHEST 1 VIEW INDICATION: Short of breath COMPARISON: April 10, 2017 FINDINGS: Support devices: None Heart: Within normal limits and unchanged Lungs/Pleura: No acute pulmonary or pleural findings. IMPRESSION: 1. No acute disease and no interval change. Signer Name: Gino Xiao MD Signed: 07/10/2020 11:40 AM Workstation Name: [id number]
--- NOTE | 2020-07-10 12:24 | Progress Note ---
Assessment and Plan [facility] Consult Note # Demographics Consult Type: Acute Stroke Level 2 (4.5-24 hrs) Patient Location: Inpatient First Name: Javon Read Last Name: Michelle Date of : 1945 Age: 75 Gender: Male Time of Initial Page (): 07/10/2020, 10:36 Time of Return Call (): 07/10/2020, 10:36 # HPI History: 75yo M is admitted, was in the MRI scanner for stroke. He was given tPA on 07/07. was noted to be unresponsive in the MRI scanner. had NIH 12 initially on presentation. 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 was felt to be normal at 0930. # Scores Level of Consciousness 1a: [0] = Alert; keenly responsive LOC Questions 1b: [0] = Answers both questions correctly LOC Commands 1c: [0] = Performs both tasks correctly Best Gaze 2: [0] = Normal Visual 3: [0] = No visual loss Facial Palsy 4: [2] = Partial paralysis Motor Arm Left 5a: [0] = No drift Motor Arm Right 5b: [1] = Drift Motor Leg Left 6a: [0] = No drift Motor Leg Right 6b: [1] = Drift Limb Ataxia 7: [0] = Absent Sensory 8: [0] = Normal Best Language 9: [0] = No aphasia Dysarthria 10: [1] = [id number] dysarthria Extinction and Inattention 11: [0] = No abnormality NIHSS Total: 5 # Data Glucose: [address] personally read by me (): 07/10/2020, 10:[address]: no bleed # Assessment Impression: Altered Mental Status, Ischemic Stroke (Subacute) # Plan Thrombolytic/Intervention: NOT IV Thrombolytic or IA Intervention Thrombolytic Exclusion (< 3 hour window): stroke within 3 months, other (see below) Thrombolytic Exclusion: tPA and stroke within the last few days, improved Thrombolytic/Intraarterial Exclusion: IV thrombolytic and IA intervention considered but not recommended as this patient's symptoms are not clinically consistent with an assumed diagnosis of stroke Imaging: (urgency: STAT in ED): CT Angiogram Head and CT Angiogram Neck AND call back with results if abnormal Imaging: (urgency: routine admission): MRI Brain without contrast Other: I have discussed my recommendations with the referring provider Disposition: continue admission # Logistics Telemedicine: Interactive 2 way audio and visual telecommunication technology was utilized during this visit Subjective Date of service: 07/10/20 Principal diagnosis: Acute CVA; R. hemiparesis; HTN; Obesity; GERD; DM II; Possible IMELDA Objective - Vital Sign Vital Signs - 12hr 07/10/20 07/10/20 07/10/20 05:00 08:04 08:32 Temperature 98.5 F 98.3 F Pulse Rate 91 H 81 Pulse Rate [ 92 H From Monitor] Pulse Rate [ 90 Left Dorsalis Pedis] Pulse Rate [ 89 Left Radial] Pulse Rate [ 90 Right Dorsalis Pedis] Respiratory 20 20 Rate Blood Pressure 141/81 127/67 O2 Sat by Pulse 95 97 Oximetry 07/10/20 07/10/20 07/10/20 08:58 09:24 10:00 Temperature Pulse Rate 83 80 83 Pulse Rate [ From Monitor] Pulse Rate [ Left Dorsalis Pedis] Pulse Rate [ Left Radial] Pulse Rate [ Right Dorsalis Pedis] Respiratory Rate Blood Pressure 141/79 O2 Sat by Pulse Oximetry - Laboratory Findings CBC and BMP: 07/07/20 16:23 07/07/20 16:23 Abnormal Lab Findings: Abnormal Labs 07/07/20 07/07/20 07/07/20 16:23 16:23 23:28 MCV 82 L MCH 26 L Monocytes % (Manual) 15.0 H Seg Neutrophils # Man 0.0 L Lymphocytes # (Manual) 0.0 L Sodium 133 L Glucose 189 H POC Glucose 112 H Triglycerides Cholesterol HDL Cholesterol 07/08/20 07/08/20 07/08/20 05:21 08:44 09:54 MCV MCH Monocytes % (Manual) Seg Neutrophils # Man Lymphocytes # (Manual) Sodium Glucose POC Glucose 111 H 121 H Triglycerides 412 H Cholesterol 243 H HDL Cholesterol 27 L 07/08/20 07/09/20 11:36 06:45 MCV MCH Monocytes % (Manual) Seg Neutrophils # Man Lymphocytes # (Manual) Sodium Glucose POC Glucose 111 H 139 H Triglycerides Cholesterol HDL Cholesterol
--- NOTE | 2020-07-10 13:34 | Progress Note ---
Assessment and Plan Assessment and plan: 75 YO Male with HTN, CAD S/P Stent Placement, CVA on DAPT, DM, GERD presents to ED for evaluation. Pt reports" I feel weak on my right side". Patient states that he was in his usual state of health and experienced a sudden onset of right-sided arm and leg weakness at approximately 1300 hrs. EMS was notified and upon arrival the patient was found to have a neurologic deficit. A code stroke was called and the patient was transported to [facility] for further care and evaluation of the aforementioned symptoms. The patient was seen and evaluated in the emergency department. All lab and imaging studies reviewed. Patient found to have clinical symptoms consistent with CVA. Patient was treated with TPA administration with improvement in symptoms. Patient admitted to ICU and initiated on CVA protocol. Pulmonology consulted in ED. Patient denies fever, chills, chest pain, palpitation, productive cough, skin rash, recent ill contact, or known exposure to COVID-19. No prior admission for review. No medication listed at time of admission reconciliation. Advanced care planning conducted in ED. 07/08. Patient is status post TPA. Has some speech difficulty and mild right-sided weakness. Echocardiogram pending. MRI brain without contrast ordered. Neurology consulted. Continue to hold aspirin products 24 hours after TPA. 07/09. Right-sided weakness slightly better today. Echocardiogram and MRI of the brain stable pending. Aspirin has been resumed. Neurology evaluation appreciated. Okay to transfer to telemetry. Resume Coreg. Continue to monitor blood pressure closely 07/10: Code Met called today and changed to Code Stroke due to change in mental status although transient. Will ask for Cardiology input considering the circumstance, awaiting re-evaluation by stroke team. Repeat CT Head was negative. MRI not completed due to the code MET Patient Problems (1) CVA (cerebral vascular accident) Current Visit: Yes Status: Acute Plan to address problem: Patient is status post TPA administration on 07/07. MRI without contrast ordered Echocardiogram pending PT/OT pending Speech therapy pending Antiplatelet agents Neurology recommendation appreciated (2) Right hemiparesis Current Visit: Yes Status: Acute Plan to address problem: Secondary to CVA PT/OT ordered (3) HTN (hypertension) Current Visit: Yes Status: Acute Qualifiers: Hypertension type: essential hypertension Qualified Code(s): I10 - Essential (primary) hypertension Plan to address problem: Allow permissive hypertension for now hold blood pressure medications at this time (4) GERD (gastroesophageal reflux disease) Current Visit: No Status: Acute Qualifiers: Esophagitis presence: without esophagitis Qualified Code(s): K21.9 - Gastro-esophageal reflux disease without esophagitis Plan to address problem: PPI therapy, supportive care (5) DVT prophylaxis Current Visit: No Status: Acute Plan to address problem: SCD to bilateral lower extremities while in bed. Start on heparin this p.m. (6) Advance care planning Current Visit: Yes Status: Acute Plan to address problem: Disease education conducted, care plan discussed, diagnosis discussed, prognosis discussed, patient is full code, patient knowledges understanding agree with care plan, +30 minutes. The high probability of a clinically significant, sudden or life threatening deterioration of the [neuro] system(s) required my full and direct attention, intervention and personal management. The aggregate critical care time was [65] minutes. This time is in addition to time spent performing reported procedures but includes the following: [x] Data Review and interpretation [x] Patient assessment and monitoring of vital signs [x] Documentation [x] Medication orders and management History Interval history: Patient seen and examined today during a code stroke. He initially was aphasic. He was reported to be unresponsive in the MRI area and a code met was called. Subsequently changed to code stroke. Hospitalist Physical - Physical exam Narrative exam: VITAL SIGNS: Reviewed. GENERAL: Awake HEAD: No signs of head trauma. EYES: Pupils are equal. Extraocular motions intact. MOUTH: Oropharynx is normal. NECK: No adenopathy, no JVD. CHEST: Chest with diminished breath sounds bilaterally. No wheezes, rales, or rhonchi. CARDIAC: normal S1 and S2, without murmurs, gallops, or rubs. ABDOMEN: Soft, non tender and non distended. No rebound or guarding, and no masses palpated. Bowel Sounds normal. MUSCULOSKELETAL: No edema NEUROLOGIC EXAM: Initially was unresponsive but now awake although very lethargic. Initially thought to be aphasic but appears this is the continued dysarthria. Right-sided weakness-right upper extremity 4/5, right lower extremity 4/5 SKIN: No obvious lesions - Constitutional Vitals: Temp Pulse Resp BP Pulse Ox 97.7 F 69 20 107/59 94 07/10/20 11:33 07/10/20 11:33 07/10/20 11:33 07/10/20 11:33 07/10/20 11:33 General appearance: Present: mild distress HEART Score - HEART Score Troponin: Troponin T < 0.010 ng/mL (0.00-0.029) 07/07/20 16:23 Results - Labs CBC & Chem 7: 07/07/20 16:23 07/07/20 16:23 Labs: Laboratory Last Values WBC 6.4 K/mm3 (4.5-11.0) 07/07/20 16:23 RBC 4.55 M/mm3 (3.65-5.03) 07/07/20 16:23 Hgb 12.0 gm/dl (11.8-15.2) 07/07/20 16:23 Hct 37.2 % (35.5-45.6) 07/07/20 16:23 MCV 82 fl (84-94) L 07/07/20 16:23 MCH 26 pg (28-32) L 07/07/20 16:23 MCHC 32 % (32-34) 07/07/20 16:23 RDW 15.1 % (13.2-15.2) 07/07/20 16:23 Plt Count 142 K/mm3 (140-440) 07/07/20 16:23 Add Manual Diff Complete 07/07/20 16:23 Total Counted 100 07/07/20 16:23 Seg Neuts % (Manual) 63.0 % (40.0-70.0) 07/07/20 16:23 Lymphocytes % (Manual) 20.0 % (13.4-35.0) 07/07/20 16:23 Monocytes % (Manual) 15.0 % (0.0-7.3) H 07/07/20 16:23 Eosinophils % (Manual) 2.0 % (0.0-4.3) 07/07/20 16:23 Nucleated RBC % Not Reportable 07/07/20 16:23 Seg Neutrophils # Man 0.0 K/mm3 (1.8-7.7) L 07/07/20 16:23 Band Neutrophils # 0.0 K/mm3 07/07/20 16:23 Lymphocytes # (Manual) 0.0 K/mm3 (1.2-5.4) L 07/07/20 16:23 Abs React Lymphs (Man) 0.0 K/mm3 07/07/20 16:23 Monocytes # (Manual) 0.0 K/mm3 (0.0-0.8) 07/07/20 16:23 Eosinophils # (Manual) 0.0 K/mm3 (0.0-0.4) 07/07/20 16:23 Basophils # (Manual) 0.0 K/mm3 (0.0-0.1) 07/07/20 16:23 Metamyelocytes # 0.0 K/mm3 07/07/20 16:23 Myelocytes # 0.0 K/mm3 07/07/20 16:23 Promyelocytes # 0.0 K/mm3 07/07/20 16:23 Blast Cells # 0.0 K/mm3 07/07/20 16:23 WBC Morphology Not Reportable 07/07/20 16:23 Hypersegmented Neuts Not Reportable 07/07/20 16:23 Hyposegmented Neuts Not Reportable 07/07/20 16:23 Hypogranular Neuts Not Reportable 07/07/20 16:23 Smudge Cells Not Reportable 07/07/20 16:23 Toxic Granulation Not Reportable 07/07/20 16:23 Toxic Vacuolation Not Reportable 07/07/20 16:23 Dohle Bodies Not Reportable 07/07/20 16:23 Pelger-Huet Anomaly Not Reportable 07/07/20 16:23 [place] Rods Not Reportable 07/07/20 16:23 Platelet Estimate Consistent w auto 07/07/20 16:23 Clumped Platelets Not Reportable 07/07/20 16:23 Plt Clumps, EDTA Not Reportable 07/07/20 16:23 Large Platelets Not Reportable 07/07/20 16:23 Giant Platelets Not Reportable 07/07/20 16:23 Platelet Satelliting Not Reportable 07/07/20 16:23 Plt Morphology Comment Not Reportable 07/07/20 16:23 RBC Morphology Not Reportable 07/07/20 16:23 Dimorphic RBCs Not Reportable 07/07/20 16:23 Polychromasia Not Reportable 07/07/20 16:23 Hypochromasia Not Reportable 07/07/20 16:23 Poikilocytosis Not Reportable 07/07/20 16:23 Anisocytosis Not Reportable 07/07/20 16:23 Microcytosis Not Reportable 07/07/20 16:23 Macrocytosis Not Reportable 07/07/20 16:23 Spherocytes Not Reportable 07/07/20 16:23 Pappenheimer Bodies Not Reportable 07/07/20 16:23 Sickle Cells Not Reportable 07/07/20 16:23 Target Cells Not Reportable 07/07/20 16:23 Tear Drop Cells Not Reportable 07/07/20 16:23 Ovalocytes Rare 07/07/20 16:23 Helmet Cells Not Reportable 07/07/20 16:23 [place] Bodies Not Reportable 07/07/20 16:23 [place] Rings Not Reportable 07/07/20 16:23 [place] Cells Not Reportable 07/07/20 16:23 Bite Cells Not Reportable 07/07/20 16:23 Crenated Cell Not Reportable 07/07/20 16:23 Elliptocytes Not Reportable 07/07/20 16:23 Acanthocytes (Spur) Not Reportable 07/07/20 16:23 Rouleaux Not Reportable 07/07/20 16:23 Hemoglobin C Crystals Not Reportable 07/07/20 16:23 Schistocytes Not Reportable 07/07/20 16:23 Malaria parasites Not Reportable 07/07/20 16:23 Jona Bodies Not Reportable 07/07/20 16:23 Hem Pathologist Commnt No 07/07/20 16:23 PT 13.2 Sec. (12.2-14.9) 07/07/20 16:23 INR 1.01 (0.87-1.13) 07/07/20 16:23 APTT 26.0 Sec. (24.2-36.6) 07/07/20 16:23 Thrombin Time 18.2 Sec. (15.1-19.6) 07/07/20 16:23 Sodium 133 mmol/L (137-145) L 07/07/20 16:23 Potassium 4.5 mmol/L (3.6-5.0) 07/07/20 16:23 Chloride 100.0 mmol/L (98-107) 07/07/20 16:23 Carbon Dioxide 22 mmol/L (22-30) 07/07/20 16:23 Anion Gap 16 mmol/L 07/07/20 16:23 BUN 20 mg/dL (9-20) 07/07/20 16:23 Creatinine 1.0 mg/dL (0.8-1.3) 07/07/20 16:23 Estimated GFR > 60 ml/min 07/07/20 16:23 BUN/Creatinine Ratio 20 % 07/07/20 16:23 Glucose 189 mg/dL (75-100) H 07/07/20 16:23 POC Glucose 209 mg/dL (70-105) H 07/10/20 10:32 Calcium 8.8 mg/dL (8.4-10.2) 07/07/20 16:23 Troponin T < 0.010 ng/mL (0.00-0.029) 07/07/20 16:23 Triglycerides 412 mg/dL (2-149) H 07/08/20 09:54 Cholesterol 243 mg/dL (50-199) H 07/08/20 09:54 LDL Cholesterol Direct TNR 07/08/20 09:54 HDL Cholesterol 27 mg/dL (40-59) L 07/08/20 09:54 Cholesterol/HDL Ratio 9.00 % 07/08/20 09:54 Coronavirus (PCR) Negative (Negative) 07/08/20 09:39 Renner/IV: Voiding Method Urinal Active Medications - Current Medications Current Medications: Generic Name Dose Route Start Last Admin Trade Name Freq PRN Reason Stop Dose Admin Acetaminophen 650 mg 07/07/20 17:28 Acetaminophen 325 Mg Tab PO Q4H PRN Pain, Mild (1-3) Aspirin 81 mg 07/09/20 11:00 07/10/20 09:23 Aspirin 81 Mg Tab Chew PO 81 mg QDAY ODELL Administration Atorvastatin Calcium 80 mg 07/08/20 22:00 07/09/20 21:20 Atorvastatin 40 Mg Tab PO 80 mg QHS ODELL Administration Bisacodyl 10 mg 07/07/20 17:28 Bisacodyl 10 Mg Rect Supp IA QDAY PRN Constipation Carvedilol 12.5 mg 07/09/20 12:00 07/10/20 09:24 Carvedilol 12.5 Mg Tab PO 12.5 mg BID ODELL Administration Clopidogrel Bisulfate 75 mg 07/09/20 10:00 07/10/20 09:23 Clopidogrel 75 Mg Tab PO 75 mg DAILY ODELL Administration Heparin Sodium (Porcine) 5,000 unit 07/08/20 22:00 07/10/20 05:36 Heparin 5,000 Unit/1 Ml Vial SUB-Q 5,000 unit Q8HR ODELL Administration Hydralazine HCl 10 mg 07/07/20 17:28 Hydralazine 20 Mg/1 Ml Inj IV TID PRN Hypertension Magnesium Hydroxide 30 ml 07/07/20 17:28 Magnesium Hydroxide (Mom) Oral Liqd Udc PO Q4H PRN Constipation Metoclopramide HCl 10 mg 07/07/20 17:28 Metoclopramide 10 Mg Tab PO Q6H PRN Nausea And Vomiting Ondansetron HCl 4 mg 07/07/20 17:28 Ondansetron 4 Mg/2 Ml Inj IV Q8H PRN Nausea And Vomiting Pantoprazole Sodium 40 mg 07/08/20 07:30 07/10/20 08:24 Pantoprazole 40 Mg Tab PO 40 mg QDAC ODELL Administration Promethazine HCl 25 mg 07/07/20 17:28 Promethazine 25 Mg Rect Supp IA Q6H PRN Nausea And Vomiting Sodium Chloride 10 ml 07/07/20 17:28 Sodium Chloride 0.9% 10 Ml Flush Syringe IV PRN PRN LINE FLUSH Venlafaxine HCl 75 mg 07/07/20 20:00 07/10/20 08:24 Venlafaxine 75 Mg Tab PO 75 mg TID ODELL Administration
--- NOTE | 2020-07-10 13:41 | Progress Note ---
Assessment and Plan 75 YO Male with HTN, CAD S/P Stent Placement, CVA on DAPT, DM, GERD presents to ED for evaluation. Patient states that he was in his usual state of health and experienced a sudden onset of right-sided arm and leg weakness. Patient was sulma jamison with TPA administration with improvement in symptoms. Patient alert and awake. Patient resting on room air. 94% O2 saturation. No complaints of chest pain, shortness of breath. Endorses some coughing. Patient afebrile, no leukocytosis. Chest X-ray done on 07/10/20. Reported no acute disease and no interval change. Patient presently on s/c heparin, protonix, and promethazine. - Patient Problems (1) CVA (cerebral vascular accident) Current Visit: Yes Status: Acute Plan to address problem: Management per Neurology. Recommend aspiration precautions. (2) HTN (hypertension) Current Visit: Yes Status: Acute Qualifiers: Hypertension type: essential hypertension Qualified Code(s): I10 - Essential (primary) hypertension Plan to address problem: Management per primary care. (3) Right sided weakness Current Visit: Yes Status: Acute Plan to address problem: Management per Neurology. (4) GERD (gastroesophageal reflux disease) Current Visit: No Status: Acute Qualifiers: Esophagitis presence: without esophagitis Qualified Code(s): K21.9 - Gastro-esophageal reflux disease without esophagitis Plan to address problem: Continue Protonix. (5) Type II diabetes mellitus Current Visit: No Status: Chronic Plan to address problem: Management per primary care. Subjective Date of service: 07/10/20 Principal diagnosis: Acute CVA; R. hemiparesis; HTN; Obesity; GERD; DM II; Possible IMELDA Interval history: 75 YO Male with HTN, CAD S/P Stent Placement, CVA on DAPT, DM, GERD presents to ED for evaluation. Patient states that he was in his usual state of health and experienced a sudden onset of right-sided arm and leg weakness. Patient was treated with TPA administration with improvement in symptoms. Patient alert and awake. Patient resting on room air. 94% O2 saturation. No complaints of chest pain, shortness of breath. Endorses some coughing. Patient afebrile, no leukocytosis. Chest X-ray done on 07/10/20. Reported no acute disease and no interval change. Patient presently on s/c heparin, protonix, and promethazine. Objective Vital Signs - 12hr 07/10/20 07/10/20 07/10/20 05:00 08:04 08:32 Temperature 98.5 F 98.3 F Pulse Rate 91 H 81 Pulse Rate [ 92 H From Monitor] Pulse Rate [ 90 Left Dorsalis Pedis] Pulse Rate [ 89 Left Radial] Pulse Rate [ 90 Right Dorsalis Pedis] Respiratory 20 20 Rate Blood Pressure 141/81 127/67 O2 Sat by Pulse 95 97 Oximetry 07/10/20 07/10/20 07/10/20 08:58 09:24 10:00 Temperature Pulse Rate 83 80 83 Pulse Rate [ From Monitor] Pulse Rate [ Left Dorsalis Pedis] Pulse Rate [ Left Radial] Pulse Rate [ Right Dorsalis Pedis] Respiratory Rate Blood Pressure 141/79 O2 Sat by Pulse Oximetry 07/10/20 07/10/20 10:34 11:33 Temperature 97.7 F Pulse Rate 68 69 Pulse Rate [ From Monitor] Pulse Rate [ Left Dorsalis Pedis] Pulse Rate [ Left Radial] Pulse Rate [ Right Dorsalis Pedis] Respiratory 23 20 Rate Blood Pressure 107/59 O2 Sat by Pulse 97 94 Oximetry Constitutional: no acute distress, alert Eyes: non-icteric ENT: oropharynx moist Neck: supple, no lymphadenopathy, other (large neck circumference) Effort: normal Ascultation: Bilateral: diminished breath sounds Percussion: Bilateral: not dull Cardiovascular: regular rate and rhythm Gastrointestinal: normoactive bowel sounds, soft, non-tender, non-distended (protuberant) Integumentary: normal Extremities: no cyanosis, no edema, pink and warm, pulses normal Neurologic: normal mental status, pupils equal and round, other (right hemipares is) Psychiatric: mood appropriate, affect normal CBC and BMP: 07/07/20 16:23 07/07/20 16:23 ABG, PT/INR, D-dimer: PT/INR, D-dimer PT 13.2 Sec. (12.2-14.9) 07/07/20 16:23 INR 1.01 (0.87-1.13) 07/07/20 16:23 Abnormal lab findings: Abnormal Labs 07/07/20 07/07/20 07/07/20 16:23 16:23 23:28 MCV 82 L MCH 26 L Monocytes % (Manual) 15.0 H Seg Neutrophils # Man 0.0 L Lymphocytes # (Manual) 0.0 L Sodium 133 L Glucose 189 H POC Glucose 112 H Triglycerides Cholesterol HDL Cholesterol 07/08/20 07/08/20 07/08/20 05:21 08:44 09:54 MCV MCH Monocytes % (Manual) Seg Neutrophils # Man Lymphocytes # (Manual) Sodium Glucose POC Glucose 111 H 121 H Triglycerides 412 H Cholesterol 243 H HDL Cholesterol 27 L 07/08/20 07/09/20 07/10/20 11:36 06:45 10:32 MCV MCH Monocytes % (Manual) Seg Neutrophils # Man Lymphocytes # (Manual) Sodium Glucose POC Glucose 111 H 139 H 209 H Triglycerides Cholesterol HDL Cholesterol Chest x-ray: report reviewed, image reviewed Additional Studies: 07/10/20 CHEST 1 VIEW INDICATION: Short of breath COMPARISON: April 10, 2017 FINDINGS: Support devices: None Heart: Within normal limits and unchanged Lungs/Pleura: No acute pulmonary or pleural findings. IMPRESSION: 1. No acute disease and no interval change. Allied health notes reviewed: nursing
--- NOTE | 2020-07-10 16:15 | Consultation ---
History of Present Illness Consult date: 07/10/20 Requesting physician: GINNY HOGAN Consult reason: syncope History of present illness: Per Hospitalist: 75 YO Male with HTN, CAD S/P Stent Placement, CVA on DAPT, DM, GERD presents to ED for evaluation. Pt reports" I feel weak on my right side". Patient states that he was in his usual state of health and experienced a sudden onset of right-sided arm and leg weakness at approximately 1300 hrs. EMS was notified and upon arrival the patient was found to have a neurologic deficit. A code stroke was called and the patient was transported to [facility] for further care and evaluation of the aforementioned symptoms. The patient was seen and evaluated in the emergency department. All lab and imaging studies reviewed. Patient found to have clinical symptoms consistent with CVA. Patient was treated with TPA administration with improvement in symptoms. Patient admitted to ICU and initiated on CVA protocol. Pulmonology consulted in ED. Patient denies fever, chills, chest pain, palpitation, productive cough, skin rash, recent ill contact, or known exposure to COVID-19. No prior admission for review. No medication listed at time of admission reconciliation. 07/10: Code Met called today and changed to Code Stroke due to change in mental status although transient. Will ask for Cardiology input considering the circumstance, awaiting re-evaluation by stroke team. Repeat CT Head was negative. MRI not completed due to the code MET Cardiology is consulted for clarification of 07/10/2020 code med/code stroke ev ent: CVA/TIA versus syncopal episode. Also for cardiac cardiology perspective of possible CVA causes. Echo with agitated saline study reviewed no evidence of PFO. Telemetry reviewed patient is currently sinus rhythm with no evidence of A. fib on telemetry history. Unable to view telemetry from ICU stay. Will investigate common causes for syncope. CTA head is significant for multiple calcified and significantly stenotic vessels which may be culprit of possible syncope. Past History Past Medical History: diabetes, GERD, hypertension, stroke, other (See HPI) Past Surgical History: Other (neck surgery) Social history: . denies: smoking, alcohol abuse Family history: diabetes, hypertension Medications and Allergies Allergies Allergy/AdvReac Type Severity Reaction Status Date / Time No Known Allergies Allergy Verified 05/01/17 11:07 Home Medications Medication Instructions Recorded Confirmed Last Taken Type Carvedilol Cr [Coreg CR] 12.5 mg PO DAILY 07/05/13 07/08/20 05/05/17 08:15 History Clopidogrel Bisulfate [Clopidogrel] 75 mg PO DAILY 07/05/13 07/08/20 1 Week Ago History ~04/28/17 Esomeprazole Magnesium [Nexium] 40 mg PO DAILY 07/05/13 07/08/20 05/04/17 Hi story Glimepiride 4 mg PO DAILY 07/05/13 07/08/20 05/04/17 History Lisinopril/Hydrochlorothiazide 1 tab PO DAILY 07/05/13 07/08/20 05/04/17 History [Lisinopril-Hctz 20-12.5 mg Tab] Metformin HCl [Metformin] 1,000 mg PO DAILY 07/05/13 07/08/20 2 Days Ago History ~05/03/17 Rosuvastatin Calcium [Crestor] 20 mg PO DAILY 07/05/13 07/08/20 05/04/17 History Clindamycin [Clindamycin CAP] 300 mg PO Q8H 10 Days cap 04/29/17 07/08/20 05/04/17 Rx Isosorbide Mononitrate 10 mg PO BID 05/01/17 07/08/20 05/04/17 History Naproxen [Naprosyn] 500 mg PO PRN PRN 05/01/17 07/08/20 1 Week Ago History ~04/28/17 Venlafaxine [Effexor] 75 mg PO TID 05/01/17 07/08/20 05/04/17 History Active Meds: Active Medications Acetaminophen (Acetaminophen 325 Mg Tab) 650 mg PO Q4H PRN PRN Reason: Pain, Mild (1-3) Aspirin (Aspirin 81 Mg Tab Chew) 81 mg PO QDAY FOR[facility]LY [facility], [facility]1983 Last Admin: 07/10/20 09:23 Dose: 81 mg Documented by: Atorvastatin Calcium (Atorvastatin 40 Mg Tab) 80 mg PO QHS FOR[facility]LY [facility], [facility]1983 Last Admin: 07/09/20 21:20 Dose: 80 mg Documented by: Bisacodyl (Bisacodyl 10 Mg Rect Supp) 10 mg TX QDAY PRN PRN Reason: Constipation Carvedilol (Carvedilol 12.5 Mg Tab) 12.5 mg PO BID FOR[facility]LY [facility], [facility]1983 Last Admin: 07/10/20 09:24 Dose: 12.5 mg Documented by: Clopidogrel Bisulfate (Clopidogrel 75 Mg Tab) 75 mg PO DAILY [facility], [facility]1983 Last Admin: 07/10/20 09:23 Dose: 75 mg Documented by: Heparin Sodium (Porcine) (Heparin 5,000 Unit/1 Ml Vial) 5,000 unit SUB-Q Q8HR [facility], [facility]1983 Last Admin: 07/10/20 15:32 Dose: 5,000 unit Documented by: Hydralazine HCl (Hydralazine 20 Mg/1 Ml Inj) 10 mg IV TID PRN PRN Reason: Hypertension Magnesium Hydroxide (Magnesium Hydroxide (Mom) Oral Liqd Udc) 30 ml PO Q4H PRN PRN Reason: Constipation Metoclopramide HCl (Metoclopramide 10 Mg Tab) 10 mg PO Q6H PRN PRN Reason: Nausea And Vomiting Ondansetron HCl (Ondansetron 4 Mg/2 Ml Inj) 4 mg IV Q8H PRN PRN Reason: Nausea And Vomiting Pantoprazole Sodium (Pantoprazole 40 Mg Tab) 40 mg PO QDAC [facility] Last Admin: 07/10/20 08:24 Dose: 40 mg Documented by: Promethazine HCl (Promethazine 25 Mg Rect Supp) 25 mg TX Q6H PRN PRN Reason: Nausea And Vomiting Sodium Chloride (Sodium Chloride 0.9% 10 Ml Flush Syringe) 10 ml IV PRN PRN PRN Reason: LINE FLUSH Venlafaxine HCl (Venlafaxine 75 Mg Tab) 75 mg PO TID [facility], [facility] Last Admin: 07/10/20 15:42 Dose: 75 mg Documented by: Review of Systems Constitutional: other (History obtained per chart) Physical Examination Vital Signs Pulse Resp Pulse Ox 109 H 13 99 07/07/20 16:26 07/07/20 16:26 07/07/20 16:26 Results 07/07/20 16:23 07/07/20 16:23 - Imaging and Cardiology Echo: report reviewed (Echocardiogram reviewed (07/07/2020): LVEF is 40 to 45%. LV SF is mildly decreased. Mild to moderate concentric LVH. RV SF is normal. No valvular abnormalities. Agitated saline bubble contrast study does not demonstrate PFO.) EKG interpretations - Telemetry EKG Rhythm: Sinus Rhythm - EKG Sinus rhythms and dysrhythmias: sinus rhythm Assessment and Plan Telemetry reviewed: Sinus rhythm 74 with occasional PVCs. No episodes of atrial fibrillation noted. Cardiology is consulted for syncopal episode/TIA/CVA CTA head reviewed (07/10/2020): Notable irregularity of the cerebral arteries diffusely with focal areas of significant stenosis. Extensive atherosclerotic calcification involving intracranial left vertebral artery with pronounced stenosis. Atherosclerotic calcification involving distal ICAs with moderate narrowing of the beginning segment on the left. Echocardiogram reviewed (07/07/2020): LVEF is 40 to 45%. LV SF is mildly decreased. Mild to moderate concentric LVH. RV SF is normal. No valvular ab normalities. Agitated saline bubble contrast study does not demonstrate PFO. Telemetry reviewed, no evidence of atrial fibrillation. 12-lead reviewed no ST segment elevation. Troponin is negative x1. Continue to trend CE's. Labs reviewed: No evidence of anemia or hyperglycemia. TSH is pending. Acute CVA Patient is status post thrombolytic therapy for acute ischemic CVA. Neurology is following. Hypertension Allow permissive hypertension per neurology recommendations DVT prophylaxis Patient is on dual antiplatelet therapy and SCDs. Recommend anticoagulation for DVT prophylaxis and in setting of acute ischemic CVA. Defer to neurology. We will follow This patient was seen in conjunction with Dr Ford who agrees with this assessment and plan of care. Patient Problems (1) CVA (cerebral vascular accident) Current Visit: Yes Status: Acute Plan to address problem: (2) Right hemiparesis Current Visit: Yes Status: Acute Plan to address problem: (3) HTN (hypertension) Current Visit: Yes Status: Acute Qualifiers: Hypertension type: essential hypertension Qualified Code(s): I10 - Essential (primary) hypertension Plan to address problem: Allow permissive hypertension for now hold blood pressure medications at this time (4) GERD (gastroesophageal reflux disease) Current Visit: No Status: Acute Qualifiers: Esophagitis presence: without esophagitis Qualified Code(s): K21.9 - Gastro-esophageal reflux disease without esophagitis Plan to address problem: PPI therapy, supportive care (5) DVT prophylaxis Current Visit: No Status: Acute Plan to address problem: SCD to bilateral lower extremities while in bed. Start on heparin this p.m. (6) Syncope Current Visit: No Status: Acute Plan to address problem:
[2020-07-10 16:21] LABS: Basophils % (Auto) 0.2 % (0.0-1.8); Eosinophils # (Auto) 0.1 K/mm3 (0.0-0.4); Eosinophils % (Auto) 1.2 % (0.0-4.3); Hematocrit 39.3 % (35.5-45.6); Hemoglobin 12.7 gm/dl (11.8-15.2); Lymphocytes # (Auto) 0.9 K/mm3 (1.2-5.4); Lymphocytes % (Auto) 12.3 % (13.4-35.0); Mean Corpuscular HGB Conc 32 % (32-34); Mean Corpuscular Volume 82 fl (84-94); Monocytes # (Auto) 0.8 K/mm3 (0.0-0.8); Monocytes % (Auto) 11.4 % (0.0-7.3); Platelet Count 173 K/mm3 (140-440); Red Blood Count 4.82 M/mm3 (3.65-5.03); Red Cell Distribution Width 15.3 % (13.2-15.2)
[2020-07-10 16:22] LABS: Calcium 8.9 mg/dL (8.4-10.2)
[2020-07-10 16:33] LABS: Creatine Kinase MB 2.9 ng/mL (0.0-4.0)
[2020-07-10 16:34] LABS: Partial Thromboplastin Time 23.2 Sec. (24.2-36.6); Thrombin Time 16.5 Sec. (15.1-19.6)
[2020-07-11] MEDS: HEPARIN 5,000 UNIT/1 ML VIAL SUB-Q SCH ×3 (06:39→21:20)
[2020-07-11] MEDS: PANTOPRAZOLE 40 MG TAB PO SCH (07:36)
--- NOTE | 2020-07-11 09:35 | Magnetic Resonance Report ---
MRI BRAIN WITHOUT CONTRAST INDICATION / CLINICAL INFORMATION: Cerebrovascular accident.. TECHNIQUE: Multiplanar, multisequence MR images of the brain were obtained. COMPARISON: Head CT 07/07/2020 and 07/08/2020 FINDINGS: BRAIN / INTRACRANIAL CONTENTS: A region of restricted diffusion is observed in the anterior left paramedian aspect of the sushila where an acute pontine infarction is identified. There is no associated hemorrhage. Additionally noted is advanced microvascular ischemic change throughout the sushila. Evaluation of the cerebellum is remarkabl e for a remote small wedge-shaped cerebellar infarction the posterior medial aspect of the left cereb ellar hemisphere. Age-related parenchymal volume loss is demonstrated. Dilatation of the cortical sulci and ventricular system is noted in keeping with the patient's stated age of 75 years. Periventricular and deep white matter hyperintensities are noted consistent with age-related microvascular ischemic changes. Dilate d perivascular spaces are present in a bilateral gangliocapsular distribution. There is evidence of r emote small deep infarction in the right subinsular region and left roldan radiata. There is no mass effect. No evidence of intracranial hemorrhage or extra-axial fluid collection is seen. There is no i ndication of remote cortical infarction. Diffusion weighted scans are negative in the supratentorial regions.. There is no indication of acute supratentorial ischemic injury. CRANIOCERVICAL JUNCTION: No abnormalities are identified at the craniocervical junction. VASCULAR FLOW-VOIDS: Normal flow-voids are present within the major intracranial vessels. ORBITS: Status post bilateral cataract surgery. No additional abnormality. SINUSES / MASTOIDS: There is no indication of inflammatory disease in the paranasal sinuses or mastoi d air cells. IMPRESSION: 1. Evidence of acute left ventral and left paramedian pontine infarction. 2. Age-related involutional changes of microvascular ischemia and parenchymal volume loss. 3. Multiple remote small deep infarctions. 4. Remote left cerebellar infarction. Signer Name: Fredy Weeks MD Signed: 07/11/2020 9:31 AM Workstation Name: [id number]
--- NOTE | 2020-07-11 10:19 | Progress Note ---
Assessment and Plan 75 YO Male with HTN, CAD S/P Stent Placement, CVA on DAPT, DM, GERD presents to ED for evaluation. Patient states that he was in his usual state of health and experienced a sudden onset of right-sided arm and leg weakness. Patient was sulma jamison with TPA administration with improvement in symptoms. Patient alert and awake. Patient resting on room air. O2 saturation 97% No complaints of chest pain, shortness of breath or cough. Patient afebrile, no leukocytosis. Chest X-ray done on 07/10/20. Reported no acute disease and no interval change. Patient presently on s/c heparin, protonix, and promethazine. - Patient Problems (1) CVA (cerebral vascular accident) Current Visit: Yes Status: Acute Plan to address problem: Management per Neurology. Recommend aspiration precautions. (2) HTN (hypertension) Current Visit: Yes Status: Acute Qualifiers: Hypertension type: essential hypertension Qualified Code(s): I10 - Essential (primary) hypertension Plan to address problem: Management per primary care. (3) Right sided weakness Current Visit: Yes Status: Acute Plan to address problem: Management per Neurology. (4) GERD (gastroesophageal reflux disease) Current Visit: No Status: Acute Qualifiers: Esophagitis presence: without esophagitis Qualified Code(s): K21.9 - Gastro-esophageal reflux disease without esophagitis Plan to address problem: Continue Protonix. (5) Type II diabetes mellitus Current Visit: No Status: Chronic Plan to address problem: Management per primary care. Subjective Date of service: 07/11/20 Principal diagnosis: Acute CVA; R. hemiparesis; HTN; Obesity; GERD; DM II; Possible IMELDA Interval history: 75 YO Male with HTN, CAD S/P Stent Placement, CVA on DAPT, DM, GERD presents to ED for evaluation. Patient states that he was in his usual state of health and experienced a sudden onset of right-sided arm and leg weakness. Patient was treated with TPA administration with improvement in symptoms. Patient alert and awake. Patient resting on room air. O2 saturation 97% No complaints of chest pain, shortness of breath or cough. Patient afebrile, no leukocytosis. Chest X-ray done on 07/10/20. Reported no acute disease and no interval change. Patient presently on s/c heparin, protonix, and promethazine. Objective Vital Signs - 12hr 07/10/20 07/11/20 07/11/20 23:36 03:22 07:57 Temperature 97.8 F 97.8 F 98.6 F Pulse Rate 74 72 68 Respiratory 14 16 16 Rate Blood Pressure 121/65 112/56 108/52 O2 Sat by Pulse 95 96 93 Oximetry 07/11/20 08:20 Temperature Pulse Rate 68 Respiratory Rate Blood Pressure O2 Sat by Pulse Oximetry Constitutional: no acute distress, alert Eyes: non-icteric ENT: oropharynx moist Neck: supple, no lymphadenopathy, other (large neck circumference) Effort: normal Ascultation: Bilateral: diminished breath sounds Percussion: Bilateral: not dull Cardiovascular: regular rate and rhythm Gastrointestinal: normoactive bowel sounds, soft, non-tender, non-distended (protuberant) Integumentary: normal Extremities: no cyanosis, no edema, pink and warm, pulses normal Neurologic: normal mental status, pupils equal and round, other (right hemiparesis) Psychiatric: mood appropriate, affect normal CBC and BMP: 07/10/20 15:27 07/10/20 15:27 ABG, PT/INR, D-dimer: PT/INR, D-dimer PT 13.1 Sec. (12.2-14.9) 07/10/20 15:27 INR 1.00 (0.87-1.13) 07/10/20 15:27 Abnormal lab findings: Abnormal Labs 07/07/20 07/07/20 07/07/20 16:23 16:23 23:28 MCV 82 L MCH 26 L RDW Lymph % (Auto) Motley % (Auto) Lymph # (Auto) Seg Neutrophils % Monocytes % (Manual) 15.0 H Seg Neutrophils # Man 0.0 L Lymphocytes # (Manual) 0.0 L APTT Sodium 133 L BUN Glucose 189 H POC Glucose 112 H Triglycerides Cholesterol HDL Cholesterol Salicylates Acetaminophen 07/08/20 07/08/20 07/08/20 05:21 08:44 09:54 MCV MCH RDW Lymph % (Auto) Motley % (Auto) Lymph # (Auto) Seg Neutrophils % Monocytes % (Manual) Seg Neutrophils # Man Lymphocytes # (Manual) APTT Sodium BUN Glucose POC Glucose 111 H 121 H Triglycerides 412 H Cholesterol 243 H HDL Cholesterol 27 L Salicylates Acetaminophen 07/08/20 07/09/20 07/10/20 11:36 06:45 10:32 MCV MCH RDW Lymph % (Auto) Motley % (Auto) Lymph # (Auto) Seg Neutrophils % Monocytes % (Manual) Seg Neutrophils # Man Lymphocytes # (Manual) APTT Sodium BUN Glucose POC Glucose 111 H 139 H 209 H Triglycerides Cholesterol HDL Cholesterol Salicylates Acetaminophen 07/10/20 07/10/20 07/10/20 15:27 15:27 15:27 MCV 82 L MCH 26 L RDW 15.3 H Lymph % (Auto) 12.3 L Motley % (Auto) 11.4 H Lymph # (Auto) 0.9 L Seg Neutrophils % 74.9 H Monocytes % (Manual) Seg Neutrophils # Man Lymphocytes # (Manual) APTT 23.2 L Sodium 136 L BUN 23 H Glucose 155 H POC Glucose Triglycerides Cholesterol HDL Cholesterol Salicylates Acetaminophen 07/10/20 07/10/20 07/11/20 15:27 15:27 07:55 MCV MCH RDW Lymph % (Auto) Motley % (Auto) Lymph # (Auto) Seg Neutrophils % Monocytes % (Manual) Seg Neutrophils # Man Lymphocytes # (Manual) APTT Sodium BUN Glucose POC Glucose 151 H Triglycerides Cholesterol HDL Cholesterol Salicylates < 0.3 L Acetaminophen 5.0 L Allied health notes reviewed: nursing
[2020-07-11] MEDS: CLOPIDOGREL 75 MG TAB PO SCH (10:32)
[2020-07-11] MEDS: carvediloL 12.5 MG TAB PO SCH ×2 (10:32→21:21)
[2020-07-11] MEDS: ASPIRIN 81 MG TAB CHEW PO SCH (10:32)
--- NOTE | 2020-07-11 11:09 | Progress Note ---
Assessment and Plan Assessment and plan: (1) CVA (cerebral vascular accident) Current Visit: Yes Status: Acute Plan to address problem: Patient is status post TPA administration on 07/07. MRI without contrast - acute infarct in the paramedian pontine area. Echocardiogram - No PFO, ASD PT recommends rehab> Advised reevaluation Antiplatelet agents Neurology following (2) Right hemiparesis Current Visit: Yes Status: Acute Plan to address problem: Secondary to CVA PT/OT ordered (3) HTN (hypertension) Current Visit: Yes Status: Acute Qualifiers: Hypertension type: essential hypertension Qualified Code(s): I10 - Essential (primary) hypertension Plan to address problem: Allow permissive hypertension for now hold blood pressure medications at this time (4) GERD (gastroesophageal reflux disease) Current Visit: No Status: Acute Qualifiers: Esophagitis presence: without esophagitis Qualified Code(s): K21.9 - Gastro-esophageal reflux disease without esophagitis Plan to address problem: PPI therapy, supportive care (5) DVT prophylaxis Current Visit: No Status: Acute Plan to address problem: SCD to bilateral lower extremities while in bed. Start on heparin this p.m. (6) Advance care planning Current Visit: Yes Status: Acute Plan to address problem: Disease education conducted, care plan discussed, diagnosis discussed, prognosis discussed, patient is full code, patient knowledges understanding agree with care plan, +30 minutes. History Interval history: 75 YO Male with HTN, CAD S/P Stent Placement, CVA on DAPT, DM, GERD presents to ED for evaluation. Pt reports" I feel weak on my right side". Patient states that he was in his usual state of health and experienced a sudden onset of right-sided arm and leg weakness at approximately 1300 hrs. EMS was notified and upon arrival the patient was found to have a neurologic deficit. A code stroke was called and the patient was transported to [facility] for further care and evaluation of the aforementioned symptoms. The patient was seen and evaluated in the emergency department. All lab and imaging studies reviewed. Patient found to have clinical symptoms consistent with CVA. Patient was treated with TPA administration with improvement in symptoms. Patient admitted to ICU and initiated on CVA protocol. Pulmonology consulted in ED. Patient denies fever, chills, chest pain, palpitation, productive cough, skin rash, recent ill contact, or known exposure to COVID-19. No prior admission for review. No medication listed at time of admission reconciliation. Advanced care planning conducted in ED. 07/08. Patient is status post TPA. Has some speech difficulty and mild right-sided weakness. Echocardiogram pending. MRI brain without contrast ordered. Neurology consulted. Continue to hold aspirin products 24 hours after TPA. 07/09. Right-sided weakness slightly better today. Echocardiogram and MRI of the brain stable pending. Aspirin has been resumed. Neurology evaluation appreciated. Okay to transfer to telemetry. Resume Coreg. Continue to monitor blood pressure closely 07/10: Code Met called today and changed to Code Stroke due to change in mental status although transient. Will ask for Cardiology input considering the circumstance, awaiting re-evaluation by stroke team. Repeat CT Head was negative. MRI not completed due to the code MET 07/11. MRI brain showed acute infarcts. Patient symptoms have improved. Patient has been seen by physical therapy who recommends rehab but will need to be reevaluated as his neurologic deficits have improved. He will need to follow-up with neurology after discharge. Hospitalist Physical - Physical exam Narrative exam: VITAL SIGNS: Reviewed. GENERAL: Awake HEAD: No signs of head trauma. EYES: Pupils are equal. Extraocular motions intact. MOUTH: Oropharynx is normal. NECK: No adenopathy, no JVD. CHEST: Chest with diminished breath sounds bilaterally. No wheezes, rales, or rhonchi. CARDIAC: normal S1 and S2, without murmurs, gallops, or rubs. ABDOMEN: Soft, non tender and non distended. No rebound or guarding, and no masses palpated. Bowel Sounds normal. MUSCULOSKELETAL: No edema NEUROLOGIC EXAM: Alert and oriented x3. Dysarthria. Right-sided weakness-right upper extremity 4/5, right lower extremity 4/5 SKIN: No obvious lesions - Constitutional Vitals: Temp Pulse Resp BP Pulse Ox 98.6 F 68 16 108/52 94 07/11/20 07:57 07/11/20 08:20 07/11/20 07:57 07/11/20 07:57 07/11/20 10:02 HEART Score - HEART Score Troponin: Troponin T < 0.010 ng/mL (0.00-0.029) 07/11/20 05:08 Results - Labs CBC & Chem 7: 07/10/20 15:27 07/10/20 15:27 Labs: Laboratory Last Values WBC 6.9 K/mm3 (4.5-11.0) 07/10/20 15: RBC 4.82 M/mm3 (3.65-5.03) 07/10/20 15: Hgb 12.7 gm/dl (11.8-15.2) 07/10/20 15:27 Hct 39.3 % (35.5-45.6) 07/10/20 15: MCV 82 fl (84-94) L 07/10/20 15: MCH 26 pg (28-32) L 07/10/20 15: MCHC 32 % (32-34) 07/10/20 15: RDW 15.3 % (13.2-15.2) H 07/10/20 15: Plt Count 173 K/mm3 (140-440) 07/10/20 15: Lymph % (Auto) 12.3 % (13.4-35.0) L 07/10/20 15: [place] % (Auto) 11.4 % (0.0-7.3) H 07/10/20 15: Eos % (Auto) 1.2 % (0.0-4.3) 07/10/20 15: Baso % (Auto) 0.2 % (0.0-1.8) 07/10/20 15: Lymph # (Auto) 0.9 K/mm3 (1.2-5.4) L 07/10/20 15: [place] # (Auto) 0.8 K/mm3 (0.0-0.8) 07/10/20 15: Eos # (Auto) 0.1 K/mm3 (0.0-0.4) 07/10/20 15: Baso # (Auto) 0.0 K/mm3 (0.0-0.1) 07/10/20 15: Add Manual Diff Complete 07/07/20 16:23 Total Counted 100 07/07/20 16:23 Seg Neutrophils % 74.9 % (40.0-70.0) H 07/10/20 15:27 Seg Neuts % (Manual) 63.0 % (40.0-70.0) 07/07/20 16:23 Lymphocytes % (Manual) 20.0 % (13.4-35.0) 07/07/20 16:23 Monocytes % (Manual) 15.0 % (0.0-7.3) H 07/07/20 16:23 Eosinophils % (Manual) 2.0 % (0.0-4.3) 07/07/20 16:23 Nucleated RBC % Not Reportable 07/07/20 16:23 Seg Neutrophils # 5.2 K/mm3 (1.8-7.7) 07/10/20 15:27 Seg Neutrophils # Man 0.0 K/mm3 (1.8-7.7) L 07/07/20 16:23 Band Neutrophils # 0.0 K/mm3 07/07/20 16:23 Lymphocytes # (Manual) 0.0 K/mm3 (1.2-5.4) L 07/07/20 16:23 Abs React Lymphs (Man) 0.0 K/mm3 07/07/20 16:23 Monocytes # (Manual) 0.0 K/mm3 (0.0-0.8) 07/07/20 16:23 Eosinophils # (Manual) 0.0 K/mm3 (0.0-0.4) 07/07/20 16:23 Basophils # (Manual) 0.0 K/mm3 (0.0-0.1) 07/07/20 16:23 Metamyelocytes # 0.0 K/mm3 07/07/20 16:23 Myelocytes # 0.0 K/mm3 07/07/20 16:23 Promyelocytes # 0.0 K/mm3 07/07/20 16:23 Blast Cells # 0.0 K/mm3 07/07/20 16:23 WBC Morphology Not Reportable 07/07/20 16:23 Hypersegmented Neuts Not Reportable 07/07/20 16:23 Hyposegmented Neuts Not Reportable 07/07/20 16:23 Hypogranular Neuts Not Reportable 07/07/20 16:23 Smudge Cells Not Reportable 07/07/20 16:23 Toxic Granulation Not Reportable 07/07/20 16:23 Toxic Vacuolation Not Reportable 07/07/20 16:23 Dohle Bodies Not Reportable 07/07/20 16:23 Pelger-Huet Anomaly Not Reportable 07/07/20 16:23 [place] Rods Not Reportable 07/07/20 16:23 Platelet Estimate Consistent w auto 07/07/20 16:23 Clumped Platelets Not Reportable 07/07/20 16:23 Plt Clumps, EDTA Not Reportable 07/07/20 16:23 Large Platelets Not Reportable 07/07/20 16:23 Giant Platelets Not Reportable 07/07/20 16:23 Platelet Satelliting Not Reportable 07/07/20 16:23 Plt Morphology Comment Not Reportable 07/07/20 16:23 RBC Morphology Not Reportable 07/07/20 16:23 Dimorphic RBCs Not Reportable 07/07/20 16:23 Polychromasia Not Reportable 07/07/20 16:23 Hypochromasia Not Reportable 07/07/20 16:23 Poikilocytosis Not Reportable 07/07/20 16:23 Anisocytosis Not Reportable 07/07/20 16:23 Microcytosis Not Reportable 07/07/20 16:23 Macrocytosis Not Reportable 07/07/20 16:23 Spherocytes Not Reportable 07/07/20 16:23 Pappenheimer Bodies Not Reportable 07/07/20 16:23 Sickle Cells Not Reportable 07/07/20 16:23 Target Cells Not Reportable 07/07/20 16:23 Tear Drop Cells Not Reportable 07/07/20 16:23 Ovalocytes Rare 07/07/20 16:23 Helmet Cells Not Reportable 07/07/20 16:23 [place]agher-[place] Bodies Not Reportable 07/07/20 16:23 [place] Rings Not Reportable 07/07/20 16:23 Delta Cells Not Reportable 07/07/20 16:23 Bite Cells Not Reportable 07/07/20 16:23 Crenated Cell Not Reportable 07/07/20 16:23 Elliptocytes Not Reportable 07/07/20 16:23 Acanthocytes (Spur) Not Reportable 07/07/20 16:23 Rouleaux Not Reportable 07/07/20 16:23 Hemoglobin C Crystals Not Reportable 07/07/20 16:23 Schistocytes Not Reportable 07/07/20 16:23 Malaria parasites Not Reportable 07/07/20 16:23 Jona Bodies Not Reportable 07/07/20 16:23 Hem Pathologist Commnt No 07/07/20 16:23 PT 13.1 Sec. (12.2-14.9) 07/10/20 15:27 INR 1.00 (0.87-1.13) 07/10/20 15:27 APTT 23.2 Sec. (24.2-36.6) L 07/10/20 15:27 Thrombin Time 16.5 Sec. (15.1-19.6) 07/10/20 15:27 Sodium 136 mmol/L (137-145) L 07/10/20 15:27 Potassium 4.7 mmol/L (3.6-5.0) 07/10/20 15:27 Chloride 99.7 mmol/L (98-107) 07/10/20 15:27 Carbon Dioxide 24 mmol/L (22-30) 07/10/20 15:27 Anion Gap 17 mmol/L 07/10/20 15:27 BUN 23 mg/dL (9-20) H 07/10/20 15:27 Creatinine 1.3 mg/dL (0.8-1.3) 07/10/20 15:27 Estimated GFR 54 ml/min 07/10/20 15:27 BUN/Creatinine Ratio 18 % 07/10/20 15:27 Glucose 155 mg/dL (75-100) H 07/10/20 15:27 POC Glucose 151 mg/dL (70-105) H 07/11/20 07:55 Lactic Acid 1.30 mmol/L (0.7-2.0) 07/10/20 15:27 Calcium 8.9 mg/dL (8.4-10.2) 07/10/20 15:27 Magnesium 1.90 mg/dL (1.7-2.3) 07/10/20 15:27 Total Bilirubin 0.40 mg/dL (0.1-1.2) 07/10/20 15:27 AST 21 units/L (5-40) 07/10/20 15:27 ALT 16 units/L (7-56) 07/10/20 15:27 Alkaline Phosphatase 101 units/L (35-129) 07/10/20 15:27 Total Creatine Kinase 129 units/L (55-170) 07/10/20 15:27 Total Creatine Kinase 141 units/L (55-170) 07/10/20 15:27 CK-MB (CK-2) 2.9 ng/mL (0.0-4.0) 07/10/20 15:27 CK-MB (CK-2) Rel Index 2.2 (0-4) 07/10/20 15:27 Troponin T < 0.010 ng/mL (0.00-0.029) 07/11/20 05:08 Total Protein 6.6 g/dL (6.3-8.2) 07/10/20 15:27 Albumin 4.0 g/dL (3.9-5) 07/10/20 15:27 Albumin/Globulin Ratio 1.5 % 07/10/20 15:27 Triglycerides 412 mg/dL (2-149) H 07/08/20 09:54 Cholesterol 243 mg/dL (50-199) H 07/08/20 09:54 LDL Cholesterol Direct TNR 07/08/20 09:54 HDL Cholesterol 27 mg/dL (40-59) L 07/08/20 09:54 Cholesterol/HDL Ratio 9.00 % 07/08/20 09:54 TSH 1.650 mlU/mL (0.270-4.200) 07/11/20 05:08 Salicylates < 0.3 mg/dL (2.8-20.0) L 07/10/20 15:27 Acetaminophen 5.0 ug/mL (10.0-30.0) L 07/10/20 15:27 Plasma/Serum Alcohol < 0.01 % (0-0.07) 07/10/20 15:27 Coronavirus (PCR) Negative (Negative) 07/08/20 09:39 Renner/IV: Voiding Method Condom Catheter Active Medications - Current Medications Current Medications: Generic Name Dose Route Start Last Admin Trade Name Freq PRN Reason Stop Dose Admin Acetaminophen 650 mg 07/07/20 17:28 Acetaminophen 325 Mg Tab PO Q4H PRN Pain, Mild (1-3) Aspirin 81 mg 07/09/20 11:00 07/10/20 09:23 Aspirin 81 Mg Tab Chew PO 81 mg QDAY ODELL Administration Atorvastatin Calcium 80 mg 07/08/20 22:00 07/10/20 21:57 Atorvastatin 40 Mg Tab PO 80 mg QHS ODELL Administration Bisacodyl 10 mg 07/07/20 17:28 Bisacodyl 10 Mg Rect Supp NC QDAY PRN Constipation Carvedilol 12.5 mg 07/09/20 12:00 07/11/20 10:32 Carvedilol 12.5 Mg Tab PO 12.5 mg BID ODELL Administration Clopidogrel Bisulfate 75 mg 07/09/20 10:00 07/11/20 10:32 Clopidogrel 75 Mg Tab PO 75 mg DAILY ODELL Administration Heparin Sodium (Porcine) 5,000 unit 07/08/20 22:00 07/11/20 06:39 Heparin 5,000 Unit/1 Ml Vial SUB-Q 5,000 unit Q8HR ODELL Administration Hydralazine HCl 10 mg 07/07/20 17:28 Hydralazine 20 Mg/1 Ml Inj IV TID PRN Hypertension Magnesium Hydroxide 30 ml 07/07/20 17:28 Magnesium Hydroxide (Mom) Oral Liqd Udc PO Q4H PRN Constipation Metoclopramide HCl 10 mg 07/07/20 17:28 Metoclopramide 10 Mg Tab PO Q6H PRN Nausea And Vomiting Ondansetron HCl 4 mg 07/07/20 17:28 Ondansetron 4 Mg/2 Ml Inj IV Q8H PRN Nausea And Vomiting Pantoprazole Sodium 40 mg 07/08/20 07:30 07/10/20 08:24 Pantoprazole 40 Mg Tab PO 40 mg QDAC ODELL Administration Promethazine HCl 25 mg 07/07/20 17:28 Promethazine 25 Mg Rect Supp NC Q6H PRN Nausea And Vomiting Sodium Chloride 10 ml 07/07/20 17:28 07/10/20 21:57 Sodium Chloride 0.9% 10 Ml Flush Syringe IV 10 ml PRN PRN Administration LINE FLUSH Venlafaxine HCl 75 mg 07/07/20 20:00 07/10/20 20:54 Venlafaxine 75 Mg Tab PO 75 mg TID ODELL Administration
--- NOTE | 2020-07-11 12:42 | Electrocardiograph Report ---
[facility] Test Date: 2020-07-07 Test Time: 17:21:38 Pat Name: АНДРЕЙ MACK Department: Room: A472 Gender: M [employer]: CHET : 1945 Requested By: SELENA JACKMAN Order Number: [id number] Reading MD: Annita Nathan Measurements Intervals [place] Rate: 94 P: 66 WA: 133 QRS: -60 QRSD: 108 T: 107 QT: 352 QTc: 441 Interpretive Statements Sinus rhythm LAD, consider left anterior fascicular block LVH with secondary repolarization abnormality No previous ECG available for comparison Electronically Signed On 07-11-2020 12:42:12 EDT by Annita Nathan
--- NOTE | 2020-07-11 13:21 | Progress Note ---
Assessment and Plan Telemetry reviewed: Sinus rhythm 74 with occasional PVCs. No episodes of atrial fibrillation noted. Cardiology is consulted for syncopal episode/TIA/CVA CTA head reviewed (07/10/2020): Notable irregularity of the cerebral arteries diffusely with focal areas of significant stenosis. Extensive atherosclerotic calcification involving intracranial left vertebral artery with pronounced stenosis. Atherosclerotic calcification involving distal ICAs with moderate narrowing of the beginning segment on the left. Echocardiogram reviewed (07/07/2020): LVEF is 40 to 45%. LV SF is mildly decreased. Mild to moderate concentric LVH. RV SF is normal. No valvular abnormalities. Agitated saline bubble contrast study does not demonstrate PFO. Telemetry reviewed, no evidence of atrial fibrillation. 12-lead reviewed no ST segment elevation. Troponin is negative x2. Continue to trend CE's. Labs reviewed: No evidence of anemia or hyperglycemia. TSH is normal Acute CVA Patient is s/p thrombolytic therapy for acute ischemic CVA. Neurology is following. MRI brain reviewed (07/10/2020): Evidence of acute left central and left paramedian pontine infarction. Multiple remote small deep infarctions. Remote left cerebellar infarction. Cardiomyopathy Echocardiogram on 07/07/2020 indicates LVEF is 40 to 45%. Patient is currently on appropriate meds: Aspirin 81 mg, high intensity statin, beta- rosa. ANTOINE inhibitor is not indicated at this point. Continue to monitor on telemetry. At this point will proceed with conservative cardiac management until patient is medically stabilized. Cardiac stress testing may be considered for further classification of cardiomyopathy. This may be pursued in the outpatient setting. Hypertension Allow permissive hypertension per neurology recommendations DVT prophylaxis Patient is on dual antiplatelet therapy and SCDs. Recommend anticoagulation for DVT prophylaxis and in setting of acute ischemic CVA. Defer to neurology. At this point patient appears to be in stable cardiac status. Possible syncopal episode/TIA/CVA does not appear to be of cardiac origin in the setting of MRI positive for acute CVA and CTA with significant findings of calcified stenotic arteries. No evidence of A. fib, PFO, . Will follow. This patient was seen in conjunction with Dr Ford who agrees with this assessment and plan of care. Patient Problems (1) CVA (cerebral vascular accident) Current Visit: Yes Status: Acute Plan to address problem: (2) Right hemiparesis Current Visit: Yes Status: Acute Plan to address problem: (3) HTN (hypertension) Current Visit: Yes Status: Acute Qualifiers: Hypertension type: essential hypertension Qualified Code(s): I10 - Essential (primary) hypertension Plan to address problem: Allow permissive hypertension for now hold blood pressure medications at this time (4) GERD (gastroesophageal reflux disease) Current Visit: No Status: Acute Qualifiers: Esophagitis presence: without esophagitis Qualified Code(s): K21.9 - Gastro-esophageal reflux disease without esophagitis Plan to address problem: PPI therapy, supportive care (5) DVT prophylaxis Current Visit: No Status: Acute Plan to address problem: SCD to bilateral lower extremities while in bed. Start on heparin this p.m. (6) Syncope Current Visit: No Status: Acute Plan to address problem: (7) Cardiomyopathy Current Visit: No Status: Acute Plan to address problem: Subjective Date of service: 07/11/20 Principal diagnosis: Acute CVA; R. hemiparesis; HTN; Obesity; GERD; DM II; Possible IMELDA Interval history: Patient resting comfortably in bed. No shortness of breath or chest pain overnight. Of note patient has significant return of strength to right arm and leg. Telemetry reviewed: Sinus rhythm 74. 4 beat V. tach episode noted overnight. No A. fib on monitor. Objective Last Vital Signs Temp 98.6 F 07/11/20 07:57 Pulse 68 07/11/20 08:20 Resp 16 07/11/20 07:57 BP 148/78 07/11/20 11:46 Pulse Ox 94 07/11/20 10:02 - Physical Examination General: No Apparent Distress HEENT: Positive: PERRL, Normocephaly, Mucus Membranes Moist Neck: Positive: neck supple, trachea midline Cardiac: Positive: Reg Rate and Rhythm, S1/S2 Lungs: Positive: clear to auscultation, Normal Breath Sounds Neuro: Positive: Grossly Intact Abdomen: Positive: Soft, Active Bowel Sounds Skin: Negative: Rash, Wound Extremities: Present: upper extr. pulses, lower extr. pulses. Absent: edema - Labs and Meds Cardiac Enzymes 07/10/20 07/10/20 Range/Units 15:27 15:27 AST 21 (5-40) units/L CK-MB (CK-2) 2.9 (0.0-4.0) ng/mL Coagulation 07/10/20 Range/Units 15:27 PT 13.1 (12.2-14.9) Sec. INR 1.00 (0.87-1.13) APTT 23.2 L (24.2-36.6) Sec. CBC 07/10/20 Range/Units 15:27 WBC 6.9 (4.5-11.0) K/mm3 RBC 4.82 (3.65-5.03) M/mm3 Hgb 12.7 (11.8-15.2) gm/dl Hct 39.3 (35.5-45.6) % Plt Count 173 (140-440) K/mm3 Lymph # (Auto) 0.9 L (1.2-5.4) K/mm3 [place] # (Auto) 0.8 (0.0-0.8) K/mm3 Eos # (Auto) 0.1 (0.0-0.4) K/mm3 Baso # (Auto) 0.0 (0.0-0.1) K/mm3 Comprehensive Metabolic Panel 07/10/20 Range/Units 15:27 Sodium 136 L (137-145) mmol/L Potassium 4.7 (3.6-5.0) mmol/L Chloride 99.7 (98-107) mmol/L Carbon Dioxide 24 (22-30) mmol/L BUN 23 H (9-20) mg/dL Creatinine 1.3 (0.8-1.3) mg/dL Glucose 155 H (75-100) mg/dL Calcium 8.9 (8.4-10.2) mg/dL AST 21 (5-40) units/L ALT 16 (7-56) units/L Alkaline Phosphatase 101 (35-129) units/L Total Protein 6.6 (6.3-8.2) g/dL Albumin 4.0 (3.9-5) g/dL - Imaging and Cardiology Echo: report reviewed (Echocardiogram reviewed (07/07/2020): LVEF is 40 to 45%. LV SF is mildly decreased. Mild to moderate concentric LVH. RV SF is normal. No valvular abnormalities. Agitated saline bubble contrast study does not demonstrate PFO.) - Telemetry EKG Rhythm: Sinus Rhythm - EKG Sinus rhythms and dysrhythmias: sinus rhythm - Allied health notes Allied health notes reviewed: nursing
--- NOTE | 2020-07-11 13:46 | Discharge Summary ---
Providers - Providers Date of Admission: 07/07/20 17:29 Date of discharge: 07/11/20 Attending physician: MERRITT SOSA 07/07/20 17:29 Occupational Therapy Evaluate and Treat [CONS] Routine Comment: Reason For Exam: Neuro deficits Physical Therapy Evaluation and Treat [CONS] Routine Comment: Reason For Exam: Neuro deficits 07/07/20 17:30 Speech Therapy Evaluation and Treat [CONS] Routine Reason For Exam: swallow eval 07/08/20 02:14 Consult to Physician [CONS] Routine Comment: Consulting Provider: KALEB BRUNO Physician Instructions: Reason For Exam: admit to ICU 07/08/20 11:36 Consult to Physician [CONS] Routine Comment: Consulting Provider: MANNIE TENA Physician Instructions: Reason For Exam: CVA 07/10/20 13:38 Consult to Physician [CONS] Routine Comment: Consulting Provider: MARIKA ALVAREZ Physician Instructions: Reason For Exam: syncope Primary care physician: MERCY FLOREZ Hospitalization Condition: Serious Hospital course: 75 YO Male with HTN, CAD S/P Stent Placement, CVA on plavix, DM, GERD presents to ED for evaluation. Pt reports" I feel weak on my right side". Patient states that he was in his usual state of health and experienced a sudden onset of right-sided arm and leg weakness at approximately 1300 hrs. EMS was notified and upon arrival the patient was found to have a neurologic deficit. A code stroke was called and the patient was transported to [facility] for further care and evaluation of the aforementioned symptoms. The patient was seen and evaluated in the emergency department. All lab and imaging studies reviewed. Patient found to have clinical symptoms consistent with CVA. Patient was treated with TPA administration with improvement in symptoms. Patient admitted to ICU and initiated on CVA protocol. Pulmonology consulted in ED. Patient denies fever, chills, chest pain, palpitation, productive cough, skin rash, recent ill contact, or known exposure to COVID-19. No prior admission for review. No medication listed at time of admission reconciliation. Advanced care planning conducted in ED. Hospital 07/08. Patient is status post TPA. Has some speech difficulty and mild right-sided weakness. Echocardiogram pending. MRI brain without contrast ordered. Neurology consulted. Continue to hold aspirin products 24 hours after TPA. 5/2. Right-sided weakness slightly better today. Echocardiogram and MRI of the brain stable pending. Aspirin has been resumed. Neurology evaluation appreciated. Okay to transfer to telemetry. Resume Coreg. Continue to monitor blood pressure closely 07/10: Code Met called today and changed to Code Stroke due to change in mental status although transient. Will ask for Cardiology input considering the circumstance, awaiting re-evaluation by stroke team. Repeat CT Head was negative. MRI not completed due to the code MET 07/11. MRI brain showed acute infarcts. Patient symptoms have improved. Patient has been seen by physical therapy who recommends rehab but will need to be reevaluated as his neurologic deficits have improved. He will need to follow-up with neurology after discharge. Disposition: DC-01 TO HOME OR SELFCARE Final Discharge Diagnosis (Prints w/discharge instructions): Acute CVA Time spent for discharge: 40 minutes Core Measure Documentation - Palliative Care Palliative Care/ Comfort Measures: Not Applicable - Core Measures Any of the following diagnoses?: stroke - Stroke Discharge Requirements Statin for LDL = or >70 mg/dl on DC: Yes Anticoag for atrial fib/atrial flutter: Not Applicable Antithrombotic for ischemic stroke: Yes Exam - Physical Exam Narrative exam: VITAL SIGNS: Reviewed. GENERAL: Awake HEAD: No signs of head trauma. EYES: Pupils are equal. Extraocular motions intact. MOUTH: Oropharynx is normal. NECK: No adenopathy, no JVD. CHEST: Chest with diminished breath sounds bilaterally. No wheezes, rales, or rhonchi. CARDIAC: normal S1 and S2, without murmurs, gallops, or rubs. ABDOMEN: Soft, non tender and non distended. No rebound or guarding, and no masses palpated. Bowel Sounds normal. MUSCULOSKELETAL: No edema NEUROLOGIC EXAM: Alert and oriented x3. Dysarthria improved. Right-sided weakness also improved SKIN: No obvious lesions - Constitutional Vitals: Temp Pulse Resp BP Pulse Ox 98.6 F 68 16 148/78 94 07/11/20 07:57 07/11/20 08:20 07/11/20 07:57 07/11/20 11:46 07/11/20 10:02 Plan Diet: low fat, low cholesterol, low salt Additional Instructions: Continue aspirin and Plavix. Follow-up with neurology in the office in 1 week. Continue current medications Follow up with: MERCY FLOREZ MD [Primary Care Provider] - 7 Days MIKEL DE SOUZA MD [Staff Physician] - 7 Days Prescriptions: AtorvaSTATin [Lipitor] 80 mg PO QHS #60 tablet Aspirin [Aspirin BABY CHEW TAB] 81 mg PO QDAY #30 tab.chew carvediloL [Coreg] 12.5 mg PO BID #60 tablet Clopidogrel [Plavix] 75 mg PO DAILY #30 tablet
[2020-07-11] MEDS: VENLAFAXINE 75 MG TAB PO SCH ×2 (14:42→21:22)
--- NOTE | 2020-07-12 08:56 | Progress Note ---
Assessment and Plan Assessment and plan: (1) CVA (cerebral vascular accident) Current Visit: Yes Status: Acute Plan to address problem: Patient is status post TPA administration on 07/07. MRI without contrast - acute infarct in the paramedian pontine area. Echocardiogram - No PFO, ASD PT recommends rehab> Advised reevaluation Antiplatelet agents Neurology following (2) Right hemiparesis Current Visit: Yes Status: Acute Plan to address problem: Secondary to CVA This is improving PT/OT recommends rehab (3) HTN (hypertension) Current Visit: Yes Status: Acute Qualifiers: Hypertension type: essential hypertension Qualified Code(s): I10 - Essential (primary) hypertension Plan to address problem: Continue blood pressure medications (4) GERD (gastroesophageal reflux disease) Current Visit: No Status: Acute Qualifiers: Esophagitis presence: without esophagitis Qualified Code(s): K21.9 - Gastro-esophageal reflux disease without esophagitis Plan to address problem: PPI therapy, supportive care (5) DVT prophylaxis Current Visit: No Status: Acute Plan to address problem: SCD to bilateral lower extremities while in bed. Start on heparin this p.m. (6) Advance care planning Current Visit: Yes Status: Acute Plan to address problem: Disease education conducted, care plan discussed, diagnosis discussed, prognosis discussed, patient is full code, patient knowledges understanding agree with care plan, +30 minutes. History Interval history: 75 YO Male with HTN, CAD S/P Stent Placement, CVA on DAPT, DM, GERD presents to ED for evaluation. Pt reports" I feel weak on my right side". Patient states that he was in his usual state of health and experienced a sudden onset of right-sided arm and leg weakness at approximately 1300 hrs. EMS was notified and upon arrival the patient was found to have a neurologic deficit. A code stroke was called and the patient was transported to [facility] for further care and evaluation of the aforementioned symptoms. The patient was seen and evaluated in the emergency department. All lab and imaging studies reviewed. Patient found to have clinical symptoms consistent with CVA. Patient was treated with TPA administration with improvement in symptoms. Patient admitted to ICU and initiated on CVA protocol. Pulmonology consulted in ED. Patient denies fever, chills, chest pain, palpitation, productive cough, skin rash, recent ill contact, or known exposure to COVID-19. No prior admission for review. No medication listed at time of admission reconciliation. Advanced care planning conducted in ED. 07/08. Patient is status post TPA. Has some speech difficulty and mild right-sided weakness. Echocardiogram pending. MRI brain without contrast ordered. Neurology consulted. Continue to hold aspirin products 24 hours after TPA. 07/09. Right-sided weakness slightly better today. Echocardiogram and MRI of the brain stable pending. Aspirin has been resumed. Neurology evaluation appreciated. Okay to transfer to telemetry. Resume Coreg. Continue to monitor blood pressure closely 07/10: Code Met called today and changed to Code Stroke due to change in mental status although transient. Will ask for Cardiology input considering the circumstance, awaiting re-evaluation by stroke team. Repeat CT Head was negative. MRI not completed due to the code MET 07/11. MRI brain showed acute infarcts. Patient symptoms have improved. Patient has been seen by physical therapy who recommends rehab but will need to be reevaluated as his neurologic deficits have improved. He will need to follow-up with neurology after discharge. 07/12. He notes improvement in right sided weakness. Needs rehab. Pending insurance authorization. Hospitalist Physical - Physical exam Narrative exam: VITAL SIGNS: Reviewed. GENERAL: Awake HEAD: No signs of head trauma. EYES: Pupils are equal. Extraocular motions intact. MOUTH: Oropharynx is normal. NECK: No adenopathy, no JVD. CHEST: Chest with diminished breath sounds bilaterally. No wheezes, rales, or rhonchi. CARDIAC: normal S1 and S2, without murmurs, gallops, or rubs. ABDOMEN: Soft, non tender and non distended. No rebound or guarding, and no masses palpated. Bowel Sounds normal. MUSCULOSKELETAL: No edema NEUROLOGIC EXAM: Alert and oriented x3. Dysarthria. Right-sided weakness-right upper extremity 4/5, right lower extremity 4/5 SKIN: No obvious lesions - Constitutional Vitals: Temp Pulse Resp BP Pulse Ox 97.4 F L 60 18 130/72 96 07/12/20 07:28 07/12/20 07:28 07/12/20 07:28 07/12/20 07:28 07/12/20 07:28 HEART Score - HEART Score Troponin: Troponin T < 0.010 ng/mL (0.00-0.029) 07/11/20 05:08 Results - Labs CBC & Chem 7: 05/03/21 15:27 07/10/20 15:27 Labs: Laboratory Last Values WBC 6.9 K/mm3 (4.5-11.0) 07/10/20 15: RBC 4.82 M/mm3 (3.65-5.03) 07/10/20 15: Hgb 12.7 gm/dl (11.8-15.2) 07/10/20 15: Hct 39.3 % (35.5-45.6) 07/10/20 15: MCV 82 fl (84-94) L 07/10/20 15: MCH 26 pg (28-32) L 07/10/20 15: MCHC 32 % (32-34) 07/10/20 15: RDW 15.3 % (13.2-15.2) H 07/10/20 15: Plt Count 173 K/mm3 (140-440) 07/10/20 15: Lymph % (Auto) 12.3 % (13.4-35.0) L 07/10/20 15: [place] % (Auto) 11.4 % (0.0-7.3) H 07/10/20 15: Eos % (Auto) 1.2 % (0.0-4.3) 07/10/20 15: Baso % (Auto) 0.2 % (0.0-1.8) 07/10/20 15: Lymph # (Auto) 0.9 K/mm3 (1.2-5.4) L 07/10/20 15: [place] # (Auto) 0.8 K/mm3 (0.0-0.8) 07/10/20 15: Eos # (Auto) 0.1 K/mm3 (0.0-0.4) 07/10/20 15: Baso # (Auto) 0.0 K/mm3 (0.0-0.1) 07/10/20 15: Add Manual Diff Complete 07/07/20 16:23 Total Counted 100 07/07/20 16:23 Seg Neutrophils % 74.9 % (40.0-70.0) H 07/10/20 15:27 Seg Neuts % (Manual) 63.0 % (40.0-70.0) 07/07/20 16:23 Lymphocytes % (Manual) 20.0 % (13.4-35.0) 07/07/20 16:23 Monocytes % (Manual) 15.0 % (0.0-7.3) H 07/07/20 16:23 Eosinophils % (Manual) 2.0 % (0.0-4.3) 07/07/20 16:23 Nucleated RBC % Not Reportable 07/07/20 16:23 Seg Neutrophils # 5.2 K/mm3 (1.8-7.7) 07/10/20 15:27 Seg Neutrophils # Man 0.0 K/mm3 (1.8-7.7) L 07/07/20 16:23 Band Neutrophils # 0.0 K/mm3 07/07/20 16:23 Lymphocytes # (Manual) 0.0 K/mm3 (1.2-5.4) L 07/07/20 16:23 Abs React Lymphs (Man) 0.0 K/mm3 07/07/20 16:23 Monocytes # (Manual) 0.0 K/mm3 (0.0-0.8) 07/07/20 16:23 Eosinophils # (Manual) 0.0 K/mm3 (0.0-0.4) 07/07/20 16:23 Basophils # (Manual) 0.0 K/mm3 (0.0-0.1) 07/07/20 16:23 Metamyelocytes # 0.0 K/mm3 07/07/20 16:23 Myelocytes # 0.0 K/mm3 07/07/20 16:23 Promyelocytes # 0.0 K/mm3 07/07/20 16:23 Blast Cells # 0.0 K/mm3 07/07/20 16:23 WBC Morphology Not Reportable 07/07/20 16:23 Hypersegmented Neuts Not Reportable 07/07/20 16:23 Hyposegmented Neuts Not Reportable 07/07/20 16:23 Hypogranular Neuts Not Reportable 07/07/20 16:23 Smudge Cells Not Reportable 07/07/20 16:23 Toxic Granulation Not Reportable 07/07/20 16:23 Toxic Vacuolation Not Reportable 07/07/20 16:23 Dohle Bodies Not Reportable 07/07/20 16:23 Pelger-Huet Anomaly Not Reportable 07/07/20 16:23 [place] Rods Not Reportable 07/07/20 16:23 Platelet Estimate Consistent w auto 07/07/20 16:23 Clumped Platelets Not Reportable 07/07/20 16:23 Plt Clumps, EDTA Not Reportable 07/07/20 16:23 Large Platelets Not Reportable 07/07/20 16:23 Giant Platelets Not Reportable 07/07/20 16:23 Platelet Satelliting Not Reportable 07/07/20 16:23 Plt Morphology Comment Not Reportable 07/07/20 16:23 RBC Morphology Not Reportable 07/07/20 16:23 Dimorphic RBCs Not Reportable 07/07/20 16:23 Polychromasia Not Reportable 07/07/20 16:23 Hypochromasia Not Reportable 07/07/20 16:23 Poikilocytosis Not Reportable 07/07/20 16:23 Anisocytosis Not Reportable 07/07/20 16:23 Microcytosis Not Reportable 07/07/20 16:23 Macrocytosis Not Reportable 07/07/20 16:23 Spherocytes Not Reportable 07/07/20 16:23 Pappenheimer Bodies Not Reportable 07/07/20 16:23 Sickle Cells Not Reportable 07/07/20 16:23 Target Cells Not Reportable 07/07/20 16:23 Tear Drop Cells Not Reportable 07/07/20 16:23 Ovalocytes Rare 07/07/20 16:23 Helmet Cells Not Reportable 07/07/20 16:23 [place] Bodies Not Reportable 07/07/20 16:23 [place] Rings Not Reportable 07/07/20 16:23 [place] Cells Not Reportable 07/07/20 16:23 Bite Cells Not Reportable 07/07/20 16:23 Crenated Cell Not Reportable 07/07/20 16:23 Elliptocytes Not Reportable 07/07/20 16:23 Acanthocytes (Spur) Not Reportable 07/07/20 16:23 Rouleaux Not Reportable 07/07/20 16:23 Hemoglobin C Crystals Not Reportable 07/07/20 16:23 Schistocytes Not Reportable 07/07/20 16:23 Malaria parasites Not Reportable 07/07/20 16:23 Jona Bodies Not Reportable 07/07/20 16:23 Hem Pathologist Commnt No 07/07/20 16:23 PT 13.1 Sec. (12.2-14.9) 07/10/20 15:27 INR 1.00 (0.87-1.13) 07/10/20 15:27 APTT 23.2 Sec. (24.2-36.6) L 07/10/20 15:27 Thrombin Time 16.5 Sec. (15.1-19.6) 07/10/20 15:27 Sodium 136 mmol/L (137-145) L 07/10/20 15:27 Potassium 4.7 mmol/L (3.6-5.0) 07/10/20 15:27 Chloride 99.7 mmol/L (98-107) 07/10/20 15:27 Carbon Dioxide 24 mmol/L (22-30) 07/10/20 15:27 Anion Gap 17 mmol/L 07/10/20 15:27 BUN 23 mg/dL (9-20) H 07/10/20 15:27 Creatinine 1.3 mg/dL (0.8-1.3) 07/10/20 15:27 Estimated GFR 54 ml/min 07/10/20 15:27 BUN/Creatinine Ratio 18 % 07/10/20 15:27 Glucose 155 mg/dL (75-100) H 07/10/20 15:27 POC Glucose 151 mg/dL (70-105) H 07/11/20 07:55 Lactic Acid 1.30 mmol/L (0.7-2.0) 07/10/20 15:27 Calcium 8.9 mg/dL (8.4-10.2) 07/10/20 15:27 Magnesium 1.90 mg/dL (1.7-2.3) 07/10/20 15:27 Total Bilirubin 0.40 mg/dL (0.1-1.2) 07/10/20 15:27 AST 21 units/L (5-40) 07/10/20 15:27 ALT 16 units/L (7-56) 07/10/20 15:27 Alkaline Phosphatase 101 units/L (35-129) 07/10/20 15:27 Total Creatine Kinase 129 units/L (55-170) 07/10/20 15:27 Total Creatine Kinase 141 units/L (55-170) 07/10/20 15:27 CK-MB (CK-2) 2.9 ng/mL (0.0-4.0) 07/10/20 15:27 CK-MB (CK-2) Rel Index 2.2 (0-4) 07/10/20 15:27 Troponin T < 0.010 ng/mL (0.00-0.029) 07/11/20 05:08 Total Protein 6.6 g/dL (6.3-8.2) 07/10/20 15:27 Albumin 4.0 g/dL (3.9-5) 07/10/20 15:27 Albumin/Globulin Ratio 1.5 % 07/10/20 15:27 Triglycerides 412 mg/dL (2-149) H 07/08/20 09:54 Cholesterol 243 mg/dL (50-199) H 07/08/20 09:54 LDL Cholesterol Direct TNR 07/08/20 09:54 HDL Cholesterol 27 mg/dL (40-59) L 07/08/20 09:54 Cholesterol/HDL Ratio 9.00 % 07/08/20 09:54 TSH 1.650 mlU/mL (0.270-4.200) 07/11/20 05:08 Salicylates < 0.3 mg/dL (2.8-20.0) L 07/10/20 15:27 Acetaminophen 5.0 ug/mL (10.0-30.0) L 07/10/20 15:27 Plasma/Serum Alcohol < 0.01 % (0-0.07) 07/10/20 15:27 Coronavirus (PCR) Negative (Negative) 07/08/20 09:39 Renner/IV: Voiding Method Condom Catheter Active Medications - Current Medications Current Medications: Generic Name Dose Route Start Last Admin Trade Name Freq PRN Reason Stop Dose Admin Acetaminophen 650 mg 07/07/20 17:28 Acetaminophen 325 Mg Tab PO Q4H PRN Pain, Mild (1-3) Aspirin 81 mg 07/09/20 11:00 07/11/20 10:32 Aspirin 81 Mg Tab Chew PO 81 mg QDAY ODELL Administration Atorvastatin Calcium 80 mg 07/08/20 22:00 07/11/20 21:21 Atorvastatin 40 Mg Tab PO 80 mg QHS ODELL Administration Bisacodyl 10 mg 07/07/20 17:28 Bisacodyl 10 Mg Rect Supp SC QDAY PRN Constipation Carvedilol 12.5 mg 07/09/20 12:00 07/11/20 21:21 Carvedilol 12.5 Mg Tab PO 12.5 mg BID ODELL Administration Clopidogrel Bisulfate 75 mg 07/09/20 10:00 07/11/20 10:32 Clopidogrel 75 Mg Tab PO 75 mg DAILY ODELL Administration Heparin Sodium (Porcine) 5,000 unit 07/08/20 22:00 07/11/20 21:20 Heparin 5,000 Unit/1 Ml Vial SUB-Q 5,000 unit Q8HR ODELL Administration Hydralazine HCl 10 mg 07/07/20 17:28 Hydralazine 20 Mg/1 Ml Inj IV TID PRN Hypertension Magnesium Hydroxide 30 ml 07/07/20 17:28 Magnesium Hydroxide (Mom) Oral Liqd Udc PO Q4H PRN Constipation Metoclopramide HCl 10 mg 07/07/20 17:28 Metoclopramide 10 Mg Tab PO Q6H PRN Nausea And Vomiting Ondansetron HCl 4 mg 07/07/20 17:28 Ondansetron 4 Mg/2 Ml Inj IV Q8H PRN Nausea And Vomiting Pantoprazole Sodium 40 mg 07/08/20 07:30 07/11/20 07:36 Pantoprazole 40 Mg Tab PO Not Given QDAC [facility] Promethazine HCl 25 mg 07/07/20 17:28 Promethazine 25 Mg Rect Supp SC Q6H PRN Nausea And Vomiting Sodium Chloride 10 ml 07/07/20 17:28 07/10/20 21:57 Sodium Chloride 0.9% 10 Ml Flush Syringe IV 10 ml PRN PRN Administration LINE FLUSH Venlafaxine HCl 75 mg 07/07/20 20:00 07/11/20 21:22 Venlafaxine 75 Mg Tab PO 75 mg TID ODELL Administration
--- NOTE | 2020-07-12 09:39 | Progress Note ---
Assessment and Plan Telemetry reviewed: Rhythm 75. No events. Cardiology is consulted for syncopal episode/TIA/CVA CTA head reviewed (07/10/2020): Notable irregularity of the cerebral arteries diffusely with focal areas of significant stenosis. Extensive atherosclerotic calcification involving intracranial left vertebral artery with pronounced stenosis. Atherosclerotic calcification involving distal ICAs with moderate narrowing of the beginning segment on the left. Echocardiogram reviewed (07/07/2020): LVEF is 40 to 45%. LV SF is mildly decreased. Mild to moderate concentric LVH. RV SF is normal. No valvular abnormalities. Agitated saline bubble contrast study does not demonstrate PFO. Telemetry reviewed, no evidence of atrial fibrillation. 12-lead reviewed no ST segment elevation. Troponin is negative x3. Labs reviewed: No evidence of anemia or hyperglycemia. TSH is normal Acute CVA Patient is s/p thrombolytic therapy for acute ischemic CVA. Neurology is following. MRI brain reviewed (07/10/2020): Evidence of acute left central and left paramedian pontine infarction. Multiple remote small deep infarctions. Remote left cerebellar infarction. Cardiomyopathy Echocardiogram on 07/07/2020 indicates LVEF is 40 to 45%. Patient is currently on appropriate meds: Aspirin 81 mg, high intensity statin, beta- rosa. ANTOINE inhibitor is not indicated at this point. Continue to monitor on telemetry. We will plan on conservative cardiac management in setting of multiple comorbidities. Hypertension Allow permissive hypertension per neurology recommendations DVT prophylaxis Patient is on dual antiplatelet therapy and SCDs. Recommend anticoagulation for DVT prophylaxis and in setting of acute ischemic CVA. Defer to neurology. At this point patient appears to be in stable cardiac status. Possible syncopal episode/TIA/CVA does not appear to be of cardiac origin in the setting of MRI positive for acute CVA and CTA with significant findings of calcified stenotic arteries. No evidence of A. fib, PFO, . Nothing further to add from cardiac standpoint. Will follow on as-needed basis. Patient should follow-up with Dr Ford in our office within 1 to 2 weeks of discharge. #[phone] This patient was seen in conjunction with Dr Ford who agrees with this assessment and plan of care. Patient Problems (1) CVA (cerebral vascular accident) Current Visit: Yes Status: Acute Plan to address problem: (2) Right hemiparesis Current Visit: Yes Status: Acute Plan to address problem: (3) HTN (hypertension) Current Visit: Yes Status: Acute Qualifiers: Hypertension type: essential hypertension Qualified Code(s): I10 - Essential (primary) hypertension Plan to address problem: (4) GERD (gastroesophageal reflux disease) Current Visit: No Status: Acute Qualifiers: Esophagitis presence: without esophagitis Qualified Code(s): K21.9 - Gastro-esophageal reflux disease without esophagitis Plan to address problem: (5) DVT prophylaxis Current Visit: No Status: Acute Plan to address problem: (6) Syncope Current Visit: No Status: Acute Plan to address problem: (7) Cardiomyopathy Current Visit: No Status: Acute Plan to address problem: Subjective Date of service: 07/12/20 Principal diagnosis: Acute CVA; R. hemiparesis; HTN; Obesity; GERD; DM II; Possible IMELDA Interval history: Patient resting comfortably in bed. No shortness of breath or chest pain overnight. Telemetry reviewed: Rhythm 75. No events. Objective Last Vital Signs Temp 97.4 F L 07/12/20 07:28 Pulse 60 07/12/20 07:28 Resp 18 07/12/20 07:28 BP 130/72 07/12/20 07:28 Pulse Ox 96 07/12/20 07:28 - Physical Examination General: No Apparent Distress HEENT: Positive: PERRL, Normocephaly, Mucus Membranes Moist Neck: Positive: neck supple, trachea midline Cardiac: Positive: Reg Rate and Rhythm, S1/S2 Lungs: Positive: clear to auscultation, Normal Breath Sounds Neuro: Positive: Grossly Intact Abdomen: Positive: Soft, Active Bowel Sounds Skin: Negative: Rash, Wound Extremities: Present: upper extr. pulses, lower extr. pulses. Absent: edema - Imaging and Cardiology EKG: report reviewed, image reviewed Echo: report reviewed (Echocardiogram reviewed (07/07/2020): LVEF is 40 to 45%. LV SF is mildly decreased. Mild to moderate concentric LVH. RV SF is normal. No valvular abnormalities. Agitated saline bubble contrast study does not demonstrate PFO.) - Telemetry EKG Rhythm: Sinus Rhythm - EKG Sinus rhythms and dysrhythmias: sinus rhythm - Allied health notes Allied health notes reviewed: nursing
[2020-07-12] MEDS: VENLAFAXINE 75 MG TAB PO SCH ×3 (10:14→22:26)
[2020-07-12] MEDS: carvediloL 12.5 MG TAB PO SCH ×2 (10:14→22:26)
[2020-07-12] MEDS: PANTOPRAZOLE 40 MG TAB PO SCH (10:14)
[2020-07-12] MEDS: CLOPIDOGREL 75 MG TAB PO SCH (10:14)
[2020-07-12] MEDS: HEPARIN 5,000 UNIT/1 ML VIAL SUB-Q SCH ×2 (16:35→22:26)
[2020-07-12] MEDS: ASPIRIN 81 MG TAB CHEW PO SCH (16:36)
--- NOTE | 2020-07-12 16:40 | Progress Note ---
Assessment and Plan 75 YO Male with HTN, CAD S/P Stent Placement, CVA on DAPT, DM, GERD presents to ED for evaluation. Patient states that he was in his usual state of health and experienced a sudden onset of right-sided arm and leg weakness. Patient was sulma jamison with TPA administration with improvement in symptoms. Patient alert and awake. Patient resting on room air. O2 saturation 92% No complaints of chest pain, shortness of breath or cough. Patient afebrile, no leukocytosis. Chest X-ray done on 07/10/20. Reported no acute disease and no interval change. Patient presently on s/c heparin, protonix, and promethazine. - Patient Problems (1) CVA (cerebral vascular accident) Current Visit: Yes Status: Acute Plan to address problem: Management per Neurology. Recommend aspiration precautions. (2) HTN (hypertension) Current Visit: Yes Status: Acute Qualifiers: Hypertension type: essential hypertension Qualified Code(s): I10 - Essential (primary) hypertension Plan to address problem: Management per primary care. (3) Right sided weakness Current Visit: Yes Status: Acute Plan to address problem: Management per Neurology. (4) GERD (gastroesophageal reflux disease) Current Visit: No Status: Acute Qualifiers: Esophagitis presence: without esophagitis Qualified Code(s): K21.9 - Gastro-esophageal reflux disease without esophagitis Plan to address problem: Continue Protonix. (5) Type II diabetes mellitus Current Visit: No Status: Chronic Plan to address problem: Management per primary care. Subjective Date of service: 07/12/20 Principal diagnosis: Acute CVA; R. hemiparesis; HTN; Obesity; GERD; DM II; Possible IMELDA Interval history: 75 YO Male with HTN, CAD S/P Stent Placement, CVA on DAPT, DM, GERD presents to ED for evaluation. Patient states that he was in his usual state of health and experienced a sudden onset of right-sided arm and leg weakness. Patient was treated with TPA administration with improvement in symptoms. Patient alert and awake. Patient resting on room air. O2 saturation 92% No complaints of chest pain, shortness of breath or cough. Patient afebrile, no leukocytosis. Chest X-ray done on 07/10/20. Reported no acute disease and no interval change. Patient presently on s/c heparin, protonix, and promethazine. Objective Vital Signs - 12hr 07/12/20 07/12/20 07/12/20 07:28 11:03 14:27 Temperature 97.4 F L 98.0 F Pulse Rate 60 77 80 Respiratory 18 18 Rate Blood Pressure 130/72 121/77 O2 Sat by Pulse 96 92 Oximetry Constitutional: no acute distress, alert Eyes: non-icteric ENT: oropharynx moist Neck: supple, no lymphadenopathy, other (large neck circumference) Effort: normal Ascultation: Bilateral: diminished breath sounds Percussion: Bilateral: not dull Cardiovascular: regular rate and rhythm Gastrointestinal: normoactive bowel sounds, soft, non-tender, non-distended (protuberant) Integumentary: normal Extremities: no cyanosis, no edema, pink and warm, pulses normal Neurologic: normal mental status, pupils equal and round, other (right hemiparesis) Psychiatric: mood appropriate, affect normal CBC and BMP: 07/10/20 15:27 07/10/20 15:27 ABG, PT/INR, D-dimer: PT/INR, D-dimer PT 13.1 Sec. (12.2-14.9) 07/10/20 15:27 INR 1.00 (0.87-1.13) 07/10/20 15:27 Abnormal lab findings: Abnormal Labs 07/07/20 07/07/20 07/07/20 16:23 16:23 23:28 MCV 82 L MCH 26 L RDW Lymph % (Auto) [place] % (Auto) Lymph # (Auto) Seg Neutrophils % Monocytes % (Manual) 15.0 H Seg Neutrophils # Man 0.0 L Lymphocytes # (Manual) 0.0 L APTT Sodium 133 L BUN Glucose 189 H POC Glucose 112 H Triglycerides Cholesterol HDL Cholesterol Salicylates Acetaminophen 07/08/20 07/08/20 07/08/20 05:21 08:44 09:54 MCV MCH RDW Lymph % (Auto) [place] % (Auto) Lymph # (Auto) Seg Neutrophils % Monocytes % (Manual) Seg Neutrophils # Man Lymphocytes # (Manual) APTT Sodium BUN Glucose POC Glucose 111 H 121 H Triglycerides 412 H Cholesterol 243 H HDL Cholesterol 27 L Salicylates Acetaminophen 07/08/20 07/09/20 07/10/20 11:36 06:45 10:32 MCV MCH RDW Lymph % (Auto) [place] % (Auto) Lymph # (Auto) Seg Neutrophils % Monocytes % (Manual) Seg Neutrophils # Man Lymphocytes # (Manual) APTT Sodium BUN Glucose POC Glucose 111 H 139 H 209 H Triglycerides Cholesterol HDL Cholesterol Salicylates Acetaminophen 07/10/20 07/10/20 07/10/20 15:27 15:27 15:27 MCV 82 L MCH 26 L RDW 15.3 H Lymph % (Auto) 12.3 L [place] % (Auto) 11.4 H Lymph # (Auto) 0.9 L Seg Neutrophils % 74.9 H Monocytes % (Manual) Seg Neutrophils # Man Lymphocytes # (Manual) APTT 23.2 L Sodium 136 L BUN 23 H Glucose 155 H POC Glucose Triglycerides Cholesterol HDL Cholesterol Salicylates Acetaminophen 07/10/20 07/10/20 07/11/20 15:27 15:27 07:55 MCV MCH RDW Lymph % (Auto) [place] % (Auto) Lymph # (Auto) Seg Neutrophils % Monocytes % (Manual) Seg Neutrophils # Man Lymphocytes # (Manual) APTT Sodium BUN Glucose POC Glucose 151 H Triglycerides Cholesterol HDL Cholesterol Salicylates < 0.3 L Acetaminophen 5.0 L Allied health notes reviewed: nursing
[2020-07-13] MEDS: HEPARIN 5,000 UNIT/1 ML VIAL SUB-Q SCH ×4 (06:41→21:01)
--- NOTE | 2020-07-13 09:29 | Progress Note ---
Assessment and Plan Assessment and plan: (1) CVA (cerebral vascular accident) Current Visit: Yes Status: Acute Plan to address problem: Patient is status post TPA administration on 07/07. MRI without contrast - acute infarct in the paramedian pontine area. Echocardiogram - No PFO, ASD PT recommends rehab> Advised reevaluation Antiplatelet agents Neurology following. Neurology follow-up as outpatient (2) Right hemiparesis Current Visit: Yes Status: Acute Plan to address problem: Secondary to CVA This is improving PT/OT recommends rehab (3) HTN (hypertension) Current Visit: Yes Status: Acute Qualifiers: Hypertension type: essential hypertension Qualified Code(s): I10 - Essential (primary) hypertension Plan to address problem: Continue blood pressure medications (4) GERD (gastroesophageal reflux disease) Current Visit: No Status: Acute Qualifiers: Esophagitis presence: without esophagitis Qualified Code(s): K21.9 - Gastro-esophageal reflux disease without esophagitis Plan to address problem: PPI therapy, supportive care (5) DVT prophylaxis Current Visit: No Status: Acute Plan to address problem: SCD to bilateral lower extremities while in bed. Heparin subcu (6) Advance care planning Current Visit: Yes Status: Acute Plan to address problem: Patient needs placement. Waiting for insurance authorization. Possible discharge on Friday if approved History Interval history: 75 YO Male with HTN, CAD S/P Stent Placement, CVA on DAPT, DM, GERD presents to ED for evaluation. Pt reports" I feel weak on my right side". Patient states that he was in his usual state of health and experienced a sudden onset of right-sided arm and leg weakness at approximately 1300 hrs. EMS was notified and upon arrival the patient was found to have a neurologic deficit. A code stroke was called and the patient was transported to [facility] for further care and evaluation of the aforementioned symptoms. The patient was seen and evaluated in the emergency department. All lab and imaging studies reviewed. Patient found to have clinical symptoms consistent with CVA. Patient was treated with TPA administration with improvement in symptoms. Patient admitted to ICU and initiated on CVA protocol. Pulmonology consulted in ED. Patient denies fever, chills, chest pain, palpitation, productive cough, skin rash, recent ill contact, or known exposure to COVID-19. No prior admission for review. No medication listed at time of admission reconciliation. Advanced care planning conducted in ED. 07/08. Patient is status post TPA. Has some speech difficulty and mild right-sided weakness. Echocardiogram pending. MRI brain without contrast ordered. Neurology consulted. Continue to hold aspirin products 24 hours after TPA. 07/09. Right-sided weakness slightly better today. Echocardiogram and MRI of the brain stable pending. Aspirin has been resumed. Neurology evaluation appreciated. Okay to transfer to telemetry. Resume Coreg. Continue to monitor blood pressure closely 07/10: Code Met called today and changed to Code Stroke due to change in mental status although transient. Will ask for Cardiology input considering the circumstance, awaiting re-evaluation by stroke team. Repeat CT Head was negative. MRI not completed due to the code MET 07/11. MRI brain showed acute infarcts. Patient symptoms have improved. Patient has been seen by physical therapy who recommends rehab but will need to be reevaluated as his neurologic deficits have improved. He will need to follow-up with neurology after discharge. 07/12. He notes improvement in right sided weakness. Needs rehab. Pending insurance authorization. 07/13. Has no complaints today. Needs placement but waiting for insurance authorization. COVID-19 test negative. Hospitalist Physical - Physical exam Narrative exam: VITAL SIGNS: Reviewed. GENERAL: Awake HEAD: No signs of head trauma. EYES: Pupils are equal. Extraocular motions intact. MOUTH: Oropharynx is normal. NECK: No adenopathy, no JVD. CHEST: Chest with diminished breath sounds bilaterally. No wheezes, rales, or rhonchi. CARDIAC: normal S1 and S2, without murmurs, gallops, or rubs. ABDOMEN: Soft, non tender and non distended. No rebound or guarding, and no masses palpated. Bowel Sounds normal. MUSCULOSKELETAL: No edema NEUROLOGIC EXAM: Alert and oriented x3. Improved dysarthria. Right-sided weakness-right upper extremity 4/5, right lower extremity 4/5 SKIN: No obvious lesions - Constitutional Vitals: Temp Pulse Resp BP Pulse Ox 98.2 F 65 20 116/55 92 07/13/20 07:49 07/13/20 07:49 07/13/20 07:49 07/13/20 07:49 07/13/20 07:49 HEART Score - HEART Score Troponin: Troponin T < 0.010 ng/mL (0.00-0.029) 07/11/20 05:08 Results - Labs CBC & Chem 7: 07/10/20 15:27 07/10/20 15:27 Labs: Laboratory Last Values WBC 6.9 K/mm3 (4.5-11.0) 07/10/20 15: RBC 4.82 M/mm3 (3.65-5.03) 07/10/20 15: Hgb 12.7 gm/dl (11.8-15.2) 07/10/20 15: Hct 39.3 % (35.5-45.6) 07/10/20 15: MCV 82 fl (84-94) L 07/10/20 15: MCH 26 pg (28-32) L 07/10/20 15: MCHC 32 % (32-34) 07/10/20 15: RDW 15.3 % (13.2-15.2) H 07/10/20 15: Plt Count 173 K/mm3 (140-440) 07/10/20 15:27 Lymph % (Auto) 12.3 % (13.4-35.0) L 07/10/20 15: [place] % (Auto) 11.4 % (0.0-7.3) H 07/10/20 15: Eos % (Auto) 1.2 % (0.0-4.3) 07/10/20 15: Baso % (Auto) 0.2 % (0.0-1.8) 07/10/20 15: Lymph # (Auto) 0.9 K/mm3 (1.2-5.4) L 07/10/20 15: [place] # (Auto) 0.8 K/mm3 (0.0-0.8) 07/10/20 15: Eos # (Auto) 0.1 K/mm3 (0.0-0.4) 07/10/20 15: Baso # (Auto) 0.0 K/mm3 (0.0-0.1) 07/10/20 15: Add Manual Diff Complete 07/07/20 16:23 Total Counted 100 07/07/20 16:23 Seg Neutrophils % 74.9 % (40.0-70.0) H 07/10/20 15: Seg Neuts % (Manual) 63.0 % (40.0-70.0) 07/07/20 16:23 Lymphocytes % (Manual) 20.0 % (13.4-35.0) 07/07/20 16:23 Monocytes % (Manual) 15.0 % (0.0-7.3) H 07/07/20 16:23 Eosinophils % (Manual) 2.0 % (0.0-4.3) 07/07/20 16:23 Nucleated RBC % Not Reportable 07/07/20 16:23 Seg Neutrophils # 5.2 K/mm3 (1.8-7.7) 07/10/20 15:27 Seg Neutrophils # Man 0.0 K/mm3 (1.8-7.7) L 07/07/20 16:23 Band Neutrophils # 0.0 K/mm3 07/07/20 16:23 Lymphocytes # (Manual) 0.0 K/mm3 (1.2-5.4) L 07/07/20 16:23 Abs React Lymphs (Man) 0.0 K/mm3 07/07/20 16:23 Monocytes # (Manual) 0.0 K/mm3 (0.0-0.8) 07/07/20 16:23 Eosinophils # (Manual) 0.0 K/mm3 (0.0-0.4) 07/07/20 16:23 Basophils # (Manual) 0.0 K/mm3 (0.0-0.1) 07/07/20 16:23 Metamyelocytes # 0.0 K/mm3 07/07/20 16:23 Myelocytes # 0.0 K/mm3 07/07/20 16:23 Promyelocytes # 0.0 K/mm3 07/07/20 16:23 Blast Cells # 0.0 K/mm3 07/07/20 16:23 WBC Morphology Not Reportable 07/07/20 16:23 Hypersegmented Neuts Not Reportable 07/07/20 16:23 Hyposegmented Neuts Not Reportable 07/07/20 16:23 Hypogranular Neuts Not Reportable 07/07/20 16:23 Smudge Cells Not Reportable 07/07/20 16:23 Toxic Granulation Not Reportable 07/07/20 16:23 Toxic Vacuolation Not Reportable 07/07/20 16:23 Dohle Bodies Not Reportable 07/07/20 16:23 Pelger-Huet Anomaly Not Reportable 07/07/20 16:23 [place] Rods Not Reportable 07/07/20 16:23 Platelet Estimate Consistent w auto 07/07/20 16:23 Clumped Platelets Not Reportable 07/07/20 16:23 Plt Clumps, EDTA Not Reportable 07/07/20 16:23 Large Platelets Not Reportable 07/07/20 16:23 Giant Platelets Not Reportable 07/07/20 16:23 Platelet Satelliting Not Reportable 07/07/20 16:23 Plt Morphology Comment Not Reportable 07/07/20 16:23 RBC Morphology Not Reportable 07/07/20 16:23 Dimorphic RBCs Not Reportable 07/07/20 16:23 Polychromasia Not Reportable 07/07/20 16:23 Hypochromasia Not Reportable 07/07/20 16:23 Poikilocytosis Not Reportable 07/07/20 16:23 Anisocytosis Not Reportable 07/07/20 16:23 Microcytosis Not Reportable 07/07/20 16:23 Macrocytosis Not Reportable 07/07/20 16:23 Spherocytes Not Reportable 07/07/20 16:23 Pappenheimer Bodies Not Reportable 07/07/20 16:23 Sickle Cells Not Reportable 07/07/20 16:23 Target Cells Not Reportable 07/07/20 16:23 Tear Drop Cells Not Reportable 07/07/20 16:23 Ovalocytes Rare 07/07/20 16:23 Helmet Cells Not Reportable 07/07/20 16:23 [place] Bodies Not Reportable 07/07/20 16:23 [place] Rings Not Reportable 07/07/20 16:23 Saba Cells Not Reportable 07/07/20 16:23 Bite Cells Not Reportable 07/07/20 16:23 Crenated Cell Not Reportable 07/07/20 16:23 Elliptocytes Not Reportable 07/07/20 16:23 Acanthocytes (Spur) Not Reportable 07/07/20 16:23 Rouleaux Not Reportable 07/07/20 16:23 Hemoglobin C Crystals Not Reportable 07/07/20 16:23 Schistocytes Not Reportable 07/07/20 16:23 Malaria parasites Not Reportable 07/07/20 16:23 Jona Bodies Not Reportable 07/07/20 16:23 Hem Pathologist Commnt No 07/07/20 16:23 PT 13.1 Sec. (12.2-14.9) 07/10/20 15:27 INR 1.00 (0.87-1.13) 07/10/20 15:27 APTT 23.2 Sec. (24.2-36.6) L 07/10/20 15:27 Thrombin Time 16.5 Sec. (15.1-19.6) 07/10/20 15:27 Sodium 136 mmol/L (137-145) L 07/10/20 15:27 Potassium 4.7 mmol/L (3.6-5.0) 07/10/20 15:27 Chloride 99.7 mmol/L (98-107) 07/10/20 15:27 Carbon Dioxide 24 mmol/L (22-30) 07/10/20 15:27 Anion Gap 17 mmol/L 07/10/20 15:27 BUN 23 mg/dL (9-20) H 07/10/20 15:27 Creatinine 1.3 mg/dL (0.8-1.3) 07/10/20 15:27 Estimated GFR 54 ml/min 07/10/20 15:27 BUN/Creatinine Ratio 18 % 07/10/20 15:27 Glucose 155 mg/dL (75-100) H 07/10/20 15:27 POC Glucose 151 mg/dL (70-105) H 07/11/20 07:55 Lactic Acid 1.30 mmol/L (0.7-2.0) 07/10/20 15:27 Calcium 8.9 mg/dL (8.4-10.2) 07/10/20 15:27 Magnesium 1.90 mg/dL (1.7-2.3) 07/10/20 15:27 Total Bilirubin 0.40 mg/dL (0.1-1.2) 07/10/20 15:27 AST 21 units/L (5-40) 07/10/20 15:27 ALT 16 units/L (7-56) 07/10/20 15:27 Alkaline Phosphatase 101 units/L (35-129) 07/10/20 15:27 Total Creatine Kinase 129 units/L (55-170) 07/10/20 15:27 Total Creatine Kinase 141 units/L (55-170) 07/10/20 15:27 CK-MB (CK-2) 2.9 ng/mL (0.0-4.0) 07/10/20 15:27 CK-MB (CK-2) Rel Index 2.2 (0-4) 07/10/20 15:27 Troponin T < 0.010 ng/mL (0.00-0.029) 07/11/20 05:08 Total Protein 6.6 g/dL (6.3-8.2) 07/10/20 15:27 Albumin 4.0 g/dL (3.9-5) 07/10/20 15:27 Albumin/Globulin Ratio 1.5 % 07/10/20 15:27 Triglycerides 412 mg/dL (2-149) H 07/08/20 09:54 Cholesterol 243 mg/dL (50-199) H 07/08/20 09:54 LDL Cholesterol Direct TNR 07/08/20 09:54 HDL Cholesterol 27 mg/dL (40-59) L 07/08/20 09:54 Cholesterol/HDL Ratio 9.00 % 07/08/20 09:54 TSH 1.650 mlU/mL (0.270-4.200) 07/11/20 05:08 Salicylates < 0.3 mg/dL (2.8-20.0) L 07/10/20 15:27 Acetaminophen 5.0 ug/mL (10.0-30.0) L 07/10/20 15:27 Plasma/Serum Alcohol < 0.01 % (0-0.07) 07/10/20 15:27 Coronavirus (PCR) Negative (Negative) 07/08/20 09:39 Renner/IV: Voiding Method Condom Catheter Active Medications - Current Medications Current Medications: Generic Name Dose Route Start Last Admin Trade Name Freq PRN Reason Stop Dose Admin Acetaminophen 650 mg 07/07/20 17:28 Acetaminophen 325 Mg Tab PO Q4H PRN Pain, Mild (1-3) Aspirin 81 mg 07/09/20 11:00 07/12/20 16:36 Aspirin 81 Mg Tab Chew PO Not Given QDAY ODELL Atorvastatin Calcium 80 mg 07/08/20 22:00 07/12/20 22:26 Atorvastatin 40 Mg Tab PO 80 mg QHS ODELL Administration Bisacodyl 10 mg 07/07/20 17:28 Bisacodyl 10 Mg Rect Supp UT QDAY PRN Constipation Carvedilol 12.5 mg 07/09/20 12:00 07/12/20 22:26 Carvedilol 12.5 Mg Tab PO 12.5 mg BID ODELL Administration Clopidogrel Bisulfate 75 mg 07/09/20 10:00 07/12/20 10:14 Clopidogrel 75 Mg Tab PO 75 mg DAILY ODELL Administration Heparin Sodium (Porcine) 5,000 unit 07/08/20 22:00 07/13/20 06:43 Heparin 5,000 Unit/1 Ml Vial SUB-Q 5,000 unit Q8HR ODELL Administration Hydralazine HCl 10 mg 07/07/20 17:28 Hydralazine 20 Mg/1 Ml Inj IV TID PRN Hypertension Magnesium Hydroxide 30 ml 07/07/20 17:28 Magnesium Hydroxide (Mom) Oral Liqd Udc PO Q4H PRN Constipation Metoclopramide HCl 10 mg 07/07/20 17:28 Metoclopramide 10 Mg Tab PO Q6H PRN Nausea And Vomiting Ondansetron HCl 4 mg 07/07/20 17:28 Ondansetron 4 Mg/2 Ml Inj IV Q8H PRN Nausea And Vomiting Pantoprazole Sodium 40 mg 07/08/20 07:30 07/12/20 10:14 Pantoprazole 40 Mg Tab PO 40 mg QDAC ODELL Administration Promethazine HCl 25 mg 07/07/20 17:28 Promethazine 25 Mg Rect Supp UT Q6H PRN Nausea And Vomiting Sodium Chloride 10 ml 07/07/20 17:28 07/10/20 21:57 Sodium Chloride 0.9% 10 Ml Flush Syringe IV 10 ml PRN PRN Administration LINE FLUSH Venlafaxine HCl 75 mg 07/07/20 20:00 07/12/20 22:26 Venlafaxine 75 Mg Tab PO 75 mg TID ODELL Administration
[2020-07-13] MEDS: PANTOPRAZOLE 40 MG TAB PO SCH (10:24)
[2020-07-13] MEDS: CLOPIDOGREL 75 MG TAB PO SCH (10:24)
[2020-07-13] MEDS: VENLAFAXINE 75 MG TAB PO SCH ×3 (10:25→20:01)
[2020-07-13] MEDS: ASPIRIN 81 MG TAB CHEW PO SCH (10:25)
[2020-07-13] MEDS: carvediloL 12.5 MG TAB PO SCH ×2 (10:25→21:00)
--- NOTE | 2020-07-13 12:19 | Progress Note ---
Assessment and Plan Telemetry reviewed: Rhythm 75. No events. * Acute CVA * Patient is s/p thrombolytic therapy for acute ischemic CVA. Neurology is following. * MRI brain reviewed (07/10/2020): Evidence of acute left central and left paramedian pontine infarction. Multiple remote small deep infarctions. Remote left cerebellar infarction * Patient shows significant improvement of neurologic symptoms. * Patient is currently on DAPT ASA 81, Plavix 75 mg * Cardiomyopathy * Echocardiogram on 07/07/2020 indicates LVEF is 40 to 45%. Patient is currently on appropriate meds: Aspirin 81 mg, high intensity statin, beta- rosa. ANTOINE inhibitor is not indicated at this point. Continue to monitor on telemetry. * We will proceed with ischemic work-up: Lexiscan MPI stress test is scheduled in the a.m. (07/14/2020) n.p.o. after midnight * Hypertension * Continue current antihypertensive regimen. Coreg 12.5 twice daily. * DVT prophylaxis * Heparin SQ Patient is awaiting long-term care placement per primary team with an anticipated discharge of Friday (07/17/2020). Will proceed with ischemic work-up in the meantime. Lexiscan MPI in a.m. Patient should follow-up with Dr Ford in our office within 1 to 2 weeks of discharge. #[phone] This patient was seen in conjunction with Dr Ford who agrees with this assessment and plan of care. Patient Problems (1) CVA (cerebral vascular accident) Current Visit: Yes Status: Acute Plan to address problem: (2) Right hemiparesis Current Visit: Yes Status: Acute Plan to address problem: (3) HTN (hypertension) Current Visit: Yes Status: Acute Qualifiers: Hypertension type: essential hypertension Qualified Code(s): I10 - Essential (primary) hypertension Plan to address problem: (4) GERD (gastroesophageal reflux disease) Current Visit: No Status: Acute Qualifiers: Esophagitis presence: without esophagitis Qualified Code(s): K21.9 - Gastro-esophageal reflux disease without esophagitis Plan to address problem: (5) DVT prophylaxis Current Visit: No Status: Acute Plan to address problem: (6) Syncope Current Visit: No Status: Acute Plan to address problem: (7) Cardiomyopathy Current Visit: No Status: Acute Plan to address problem: Subjective Date of service: 07/13/20 Principal diagnosis: Acute CVA; R. hemiparesis; HTN; Obesity; GERD; DM II; Possible IMELDA Interval history: Patient resting comfortably in bed. No shortness of breath or chest pain overnight. Telemetry reviewed: Sinus rhythm 67. No events Objective Last Vital Signs Temp 97.9 F 07/13/20 11:37 Pulse 69 07/13/20 11:37 Resp 18 07/13/20 11:37 BP 134/71 07/13/20 11:37 Pulse Ox 96 07/13/20 11:37 - Physical Examination General: No Apparent Distress HEENT: Positive: PERRL, Normocephaly, Mucus Membranes Moist Neck: Positive: neck supple, trachea midline Cardiac: Positive: Reg Rate and Rhythm Lungs: Positive: clear to auscultation, Normal Breath Sounds Neuro: Positive: Grossly Intact Abdomen: Positive: Soft, Active Bowel Sounds Skin: Negative: Rash, Wound Extremities: Present: upper extr. pulses, lower extr. pulses. Absent: edema - Imaging and Cardiology EKG: report reviewed, image reviewed Nuclear stress test: pending Echo: report reviewed (Echocardiogram reviewed (07/07/2020): LVEF is 40 to 45%. LV SF is mildly decreased. Mild to moderate concentric LVH. RV SF is normal. No valvular abnormalities. Agitated saline bubble contrast study does not demonstrate PFO.) - Telemetry EKG Rhythm: Sinus Rhythm - EKG Sinus rhythms and dysrhythmias: sinus rhythm - Allied health notes Allied health notes reviewed: nursing
--- NOTE | 2020-07-13 13:58 | Progress Note ---
Assessment and Plan Acute cerebrovascular accident s/p thrombolytic therapy. Right hemiparesis. History of hypertension. Obesity. Gastroesophageal reflux disease. History of diabetes. Possible obstructive sleep apnea - COVID-19 test result negative - needs outpatient sleep clinic evaluation - continue care as below otherwise; - supplemental oxygen to keep O2 sats > 90% - Bronchodilators (MARILOU) with pulm hygiene per RT - secondary prevbention per neurology - avoid nephrotoxins, renally dose all medications - mobility protocols to prevent pressure ulcers - PT/OT as tolerated - Wound care per RN/WCT - accuchecks with glycemic control per SSI for target blood glucose < 180 mg/dL - continued tobacco abstinence strongly counseled at the bedside - home oxygen evaluation at discharge - GI & VTE prophylaxis - Flu & pneumovax per protocol - prn analgesia per pain score - Pulmonary out patient follow up for PFTs and optimization of respiratory status - continue other care per attending / other consultants ... re-evaluate in am & prn Subjective Date of service: 07/13/20 Principal diagnosis: Acute CVA; R. hemiparesis; HTN; Obesity; GERD; DM II; Possible IMELDA Interval history: Patient is seen today for: Acute CVA s/p thrombolytic therapy; Right hemiparesis; HTN; Obesity; GERD; DM II; Possible IMELDA Seen and examined at bedside; 24hour events reviewed; nursing and respiratory care staff consulted; no adverse overnight events reported to me; resting peacefully in bed; asleep at my arrival; denies chest pains or palpitations; right hemiparesis essentially resolved Objective Vital Signs - 12hr 07/13/20 07/13/20 07/13/20 04:42 07:49 09:48 Temperature 97.9 F 98.2 F Pulse Rate 71 65 64 Respiratory 17 20 Rate Blood Pressure 114/67 116/55 O2 Sat by Pulse 96 92 Oximetry 07/13/20 11:37 Temperature 97.9 F Pulse Rate 69 Respiratory 18 Rate Blood Pressure 134/71 O2 Sat by Pulse 96 Oximetry Constitutional: no acute distress Eyes: non-icteric ENT: oropharynx moist Neck: supple, no lymphadenopathy, other (large neck circumference) Effort: normal Ascultation: Bilateral: clear, diminished breath sounds Percussion: Bilateral: not dull Cardiovascular: regular rate and rhythm Gastrointestinal: normoactive bowel sounds, soft, non-tender, non-distended (protuberant) Integumentary: normal Extremities: no cyanosis, no edema, pink and warm, pulses normal Neurologic: normal mental status, pupils equal and round, other (right hemiparesis) Psychiatric: mood appropriate, affect normal CBC and BMP: 07/10/20 15:27 07/10/20 15:27 ABG, PT/INR, D-dimer: PT/INR, D-dimer PT 13.1 Sec. (12.2-14.9) 07/10/20 15:27 INR 1.00 (0.87-1.13) 07/10/20 15:27 Abnormal lab findings: Abnormal Labs 07/07/20 07/07/20 07/07/20 16:23 16:23 23:28 MCV 82 L MCH 26 L RDW Lymph % (Auto) [place] % (Auto) Lymph # (Auto) Seg Neutrophils % Monocytes % (Manual) 15.0 H Seg Neutrophils # Man 0.0 L Lymphocytes # (Manual) 0.0 L APTT Sodium 133 L BUN Glucose 189 H POC Glucose 112 H Triglycerides Cholesterol HDL Cholesterol Salicylates Acetaminophen 07/08/20 07/08/20 07/08/20 05:21 08:44 09:54 MCV MCH RDW Lymph % (Auto) [place] % (Auto) Lymph # (Auto) Seg Neutrophils % Monocytes % (Manual) Seg Neutrophils # Man Lymphocytes # (Manual) APTT Sodium BUN Glucose POC Glucose 111 H 121 H Triglycerides 412 H Cholesterol 243 H HDL Cholesterol 27 L Salicylates Acetaminophen 07/08/20 07/09/20 07/10/20 11:36 06:45 10:32 MCV MCH RDW Lymph % (Auto) [place] % (Auto) Lymph # (Auto) Seg Neutrophils % Monocytes % (Manual) Seg Neutrophils # Man Lymphocytes # (Manual) APTT Sodium BUN Glucose POC Glucose 111 H 139 H 209 H Triglycerides Cholesterol HDL Cholesterol Salicylates Acetaminophen 07/10/20 07/10/20 07/10/20 15:27 15:27 15:27 MCV 82 L MCH 26 L RDW 15.3 H Lymph % (Auto) 12.3 L [place] % (Auto) 11.4 H Lymph # (Auto) 0.9 L Seg Neutrophils % 74.9 H Monocytes % (Manual) Seg Neutrophils # Man Lymphocytes # (Manual) APTT 23.2 L Sodium 136 L BUN 23 H Glucose 155 H POC Glucose Triglycerides Cholesterol HDL Cholesterol Salicylates Acetaminophen 07/10/20 07/10/20 07/11/20 15:27 15:27 07:55 MCV MCH RDW Lymph % (Auto) [place] % (Auto) Lymph # (Auto) Seg Neutrophils % Monocytes % (Manual) Seg Neutrophils # Man Lymphocytes # (Manual) APTT Sodium BUN Glucose POC Glucose 151 H Triglycerides Cholesterol HDL Cholesterol Salicylates < 0.3 L Acetaminophen 5.0 L Allied health notes reviewed: nursing
[2020-07-14] MEDS: HEPARIN 5,000 UNIT/1 ML VIAL SUB-Q SCH ×3 (06:04→21:36)
[2020-07-14] MEDS ORDERED: REGADENOSON 0.4 MG/5 ML INJ IV ONE (07:28)
[2020-07-14] MEDS: PANTOPRAZOLE 40 MG TAB PO SCH (10:23)
[2020-07-14] MEDS: ASPIRIN 81 MG TAB CHEW PO SCH (10:23)
[2020-07-14] MEDS: VENLAFAXINE 75 MG TAB PO SCH ×3 (10:23→21:36)
[2020-07-14] MEDS: CLOPIDOGREL 75 MG TAB PO SCH (10:24)
--- NOTE | 2020-07-14 10:27 | Progress Note ---
Assessment and Plan Acute cerebrovascular accident s/p thrombolytic therapy. Right hemiparesis. History of hypertension. Obesity. Gastroesophageal reflux disease. History of diabetes. Possible obstructive sleep apnea - COVID-19 test result negative - needs outpatient sleep clinic evaluation - continue care as below otherwise; - supplemental oxygen to keep O2 sats > 90% - Bronchodilators (MARILOU) with pulm hygiene per RT - secondary prevbention per neurology - avoid nephrotoxins, renally dose all medications - mobility protocols to prevent pressure ulcers - PT/OT as tolerated - Wound care per RN/WCT - accuchecks with glycemic control per SSI for target blood glucose < 180 mg/dL - continued tobacco abstinence strongly counseled at the bedside - home oxygen evaluation at discharge - GI & VTE prophylaxis - Flu & pneumovax per protocol - prn analgesia per pain score - Pulmonary out patient follow up for PFTs and optimization of respiratory status - continue other care per attending / other consultants ... re-evaluate in am & prn Subjective Date of service: 07/14/20 Principal diagnosis: Acute CVA; R. hemiparesis; HTN; Obesity; GERD; DM II; Possible IMELDA Interval history: Patient is seen today for: Acute CVA s/p thrombolytic therapy; Right hemiparesis; HTN; Obesity; GERD; DM II; Possible IMELDA Seen and examined at bedside; 24hour events reviewed; nursing and respiratory c are staff consulted; no adverse overnight events reported to me; resting peacefully in bed; Objective Vital Signs - 12hr 07/13/20 07/14/20 07/14/20 23:09 04:00 07:56 Temperature 97.9 F 97.5 F L 98.3 F Pulse Rate 67 68 63 Respiratory 14 16 18 Rate Blood Pressure 133/72 153/72 Blood Pressure 90/49 [Left] O2 Sat by Pulse 95 92 98 Oximetry Constitutional: no acute distress Eyes: non-icteric ENT: oropharynx moist Neck: supple, no lymphadenopathy, other (large neck circumference) Effort: normal Ascultation: Bilateral: clear, diminished breath sounds Percussion: Bilateral: not dull Cardiovascular: regular rate and rhythm Gastrointestinal: normoactive bowel sounds, soft, non-tender, non-distended (protuberant) Integumentary: normal Extremities: no cyanosis, no edema, pink and warm, pulses normal Neurologic: normal mental status, pupils equal and round, other (right hemiparesis) Psychiatric: mood appropriate, affect normal CBC and BMP: 07/10/20 15:27 07/10/20 15:27 ABG, PT/INR, D-dimer: PT/INR, D-dimer PT 13.1 Sec. (12.2-14.9) 07/10/20 15:27 INR 1.00 (0.87-1.13) 07/10/20 15:27 Abnormal lab findings: Abnormal Labs 07/07/20 07/07/20 07/07/20 16:23 16:23 23:28 MCV 82 L MCH 26 L RDW Lymph % (Auto) [place] % (Auto) Lymph # (Auto) Seg Neutrophils % Monocytes % (Manual) 15.0 H Seg Neutrophils # Man 0.0 L Lymphocytes # (Manual) 0.0 L APTT Sodium 133 L BUN Glucose 189 H POC Glucose 112 H Triglycerides Cholesterol HDL Cholesterol Salicylates Acetaminophen 07/08/20 07/08/20 07/08/20 05:21 08:44 09:54 MCV MCH RDW Lymph % (Auto) [place] % (Auto) Lymph # (Auto) Seg Neutrophils % Monocytes % (Manual) Seg Neutrophils # Man Lymphocytes # (Manual) APTT Sodium BUN Glucose POC Glucose 111 H 121 H Triglycerides 412 H Cholesterol 243 H HDL Cholesterol 27 L Salicylates Acetaminophen 07/08/20 07/09/20 07/10/20 11:36 06:45 10:32 MCV MCH RDW Lymph % (Auto) [place] % (Auto) Lymph # (Auto) Seg Neutrophils % Monocytes % (Manual) Seg Neutrophils # Man Lymphocytes # (Manual) APTT Sodium BUN Glucose POC Glucose 111 H 139 H 209 H Triglycerides Cholesterol HDL Cholesterol Salicylates Acetaminophen 07/10/20 07/10/20 07/10/20 15:27 15:27 15:27 MCV 82 L MCH 26 L RDW 15.3 H Lymph % (Auto) 12.3 L [place] % (Auto) 11.4 H Lymph # (Auto) 0.9 L Seg Neutrophils % 74.9 H Monocytes % (Manual) Seg Neutrophils # Man Lymphocytes # (Manual) APTT 23.2 L Sodium 136 L BUN 23 H Glucose 155 H POC Glucose Triglycerides Cholesterol HDL Cholesterol Salicylates Acetaminophen 07/10/20 07/10/20 07/11/20 15:27 15:27 07:55 MCV MCH RDW Lymph % (Auto) [place] % (Auto) Lymph # (Auto) Seg Neutrophils % Monocytes % (Manual) Seg Neutrophils # Man Lymphocytes # (Manual) APTT Sodium BUN Glucose POC Glucose 151 H Triglycerides Cholesterol HDL Cholesterol Salicylates < 0.3 L Acetaminophen 5.0 L Allied health notes reviewed: nursing
[2020-07-14] MEDS: carvediloL 12.5 MG TAB PO SCH ×2 (10:29→21:36)
[2020-07-14] MEDS ORDERED: SODIUM CHLORIDE 0.9% 500 ML 500 ML IV SCH (11:00)
--- NOTE | 2020-07-14 13:11 | Progress Note ---
Assessment and Plan Telemetry reviewed: Sinus rhythm 90 no events * Acute CVA * Patient is s/p thrombolytic therapy for acute ischemic CVA. Neurology is following. * MRI brain reviewed (07/10/2020): Evidence of acute left central and left paramedian pontine infarction. Multiple remote small deep infarctions. Remote left cerebellar infarction * Patient shows significant improvement of neurologic symptoms. * Patient is currently on DAPT ASA 81, Plavix 75 mg * Cardiomyopathy * Echocardiogram on 07/07/2020 indicates LVEF is 40 to 45%. Patient is currently on appropriate meds: Aspirin 81 mg, high intensity statin, beta- rosa. ANTOINE inhibitor is not indicated at this point. Continue to monitor on telemetry. * Lexiscan MPI stress test performed this morning is positive for reversible ischemia. We will plan for heart cath on Friday (07/17/2020). Procedure including potential risks and benefits discussed with the patient who is agreeable to proceed at this time. N.p.o. after midnight Friday night. * Hypertension * Continue current antihypertensive regimen. Coreg 12.5 twice daily. * DVT prophylaxis * Heparin SQ Abnormal Lexiscan stress test this a.m. We will plan for left heart cath on Friday. Patient should follow-up with Dr Ford in our office within 1 to 2 weeks of discharge. #[id number] This patient was seen in conjunction with Dr Ford who agrees with this assessment and plan of care. Patient Problems (1) CVA (cerebral vascular accident) Current Visit: Yes Status: Acute Plan to address problem: (2) Right hemiparesis Current Visit: Yes Status: Acute Plan to address problem: (3) HTN (hypertension) Current Visit: Yes Status: Acute Qualifiers: Hypertension type: essential hypertension Qualified Code(s): I10 - Essential (primary) hypertension Plan to address problem: (4) GERD (gastroesophageal reflux disease) Current Visit: No Status: Acute Qualifiers: Esophagitis presence: without esophagitis Qualified Code(s): K21.9 - Gastro-esophageal reflux disease without esophagitis Plan to address problem: (5) DVT prophylaxis Current Visit: No Status: Acute Plan to address problem: (6) Syncope Current Visit: No Status: Acute Plan to address problem: (7) Cardiomyopathy Current Visit: No Status: Acute Plan to address problem: (8) abnormal MPI stress test Current Visit: No Status: Acute Plan to address problem: Subjective Date of service: 07/14/20 Principal diagnosis: Acute CVA; R. hemiparesis; HTN; Obesity; GERD; DM II; Possible IMELDA Interval history: Patient resting comfortably in bed. No shortness of breath or chest pain overni ght. Telemetry reviewed: Sinus rhythm 90. No events Objective Last Vital Signs Temp 97.9 F 07/14/20 12:13 Pulse 68 07/14/20 12:13 Resp 16 07/14/20 12:13 BP 149/83 07/14/20 12:13 Pulse Ox 100 07/14/20 12:13 - Physical Examination General: No Apparent Distress HEENT: Positive: PERRL, Normocephaly, Mucus Membranes Moist Neck: Positive: neck supple, trachea midline Cardiac: Positive: Reg Rate and Rhythm, S1/S2 Lungs: Positive: clear to auscultation, Normal Breath Sounds Neuro: Positive: Grossly Intact Abdomen: Positive: Soft, Active Bowel Sounds Skin: Negative: Rash, Wound Extremities: Present: upper extr. pulses, lower extr. pulses. Absent: edema - Imaging and Cardiology EKG: report reviewed, image reviewed Echo: report reviewed (Echocardiogram reviewed (07/07/2020): LVEF is 40 to 45%. LV SF is mildly decreased. Mild to moderate concentric LVH. RV SF is normal. No valvular abnormalities. Agitated saline bubble contrast study does not demonstrate PFO.) - Telemetry EKG Rhythm: Sinus Rhythm - EKG Sinus rhythms and dysrhythmias: sinus rhythm - Allied health notes Allied health notes reviewed: nursing
--- NOTE | 2020-07-14 13:35 | Progress Note ---
Subjective Date of service: 07/14/20 Principal diagnosis: Acute CVA; R. hemiparesis; HTN; Obesity; GERD; DM II; Possible IMELDA Interval history: Assessment and plan: Acute stroke Patient is status post TPA administration on 07/07. MRI without contrast - acute infarct in the left paramedian pontine area. Echocardiogram - No PFO, ASD PT recommends rehab> Advised reevaluation Antiplatelet agents Neurology follow-up as outpatient With subacute rehab placement Cardiomyopathy EF 40%-45% Lexiscan stress test positive with reversible ischemia Scheduled for [facility] on Friday Cardiology note reviewed Continue beta-rosa Hypertension Fair Dyslipidemia High triglycerides/low HDL/elevated total cholesterol Continue high intensity atorvastatin Type 2 diabetes Accu-Cheks reviewed Start on glimepiride 1 mg daily(patient is on 4 mg at home) Check A1c GERD without esophagitis PPI therapy, supportive care DVT prophylaxis SCD to bilateral lower extremities while in bed. Heparin subcu (6) Advance care planning Current Visit: Yes Status: Acute Plan to address problem: Patient needs placement. Waiting for insurance authorization. History Interval history: 75 YO Male with HTN, CAD S/P Stent Placement, CVA on DAPT, DM, GERD presents to ED for evaluation. Pt reports" I feel weak on my right side". Patient states that he was in his usual state of health and experienced a sudden onset of right-sided arm and leg weakness at approximately 1300 hrs. EMS was notified and upon arrival the patient was found to have a neurologic deficit. A code stroke was called and the patient was transported to [facility] for further care and evaluation of the aforementioned symptoms. The patient was seen and evaluated in the emergency department. All lab and imaging studies reviewed. Patient found to have clinical symptoms consistent with CVA. Patient was treated with TPA administration with improvement in symptoms. Patient admitted to ICU and initiated on CVA protocol. Pulmonology consulted in ED. Patient denies fever, chills, chest pain, palpitation, productive cough, skin rash, recent ill contact, or known exposure to COVID-19. No prior admission for review. No medication listed at time of admission reconciliation. Advanced care planning conducted in ED. 07/08. Patient is status post TPA. Has some speech difficulty and mild right-sided weakness. Echocardiogram pending. MRI brain without contrast ordered. Neurology consulted. Continue to hold aspirin products 24 hours after TPA. 07/09. Right-sided weakness slightly better today. Echocardiogram and MRI of the brain stable pending. Aspirin has been resumed. Neurology evaluation appreciated. Okay to transfer to telemetry. Resume Coreg. Continue to monitor blood pressure closely 07/10: Code Met called today and changed to Code Stroke due to change in mental status although transient. Will ask for Cardiology input considering the circumstance, awaiting re-evaluation by stroke team. Repeat CT Head was negative. MRI not completed due to the code MET 07/11. MRI brain showed acute infarcts. Patient symptoms have improved. Patient has been seen by physical therapy who recommends rehab but will need to be reevaluated as his neurologic deficits have improved. He will need to follow-up with neurology after discharge. 07/12. He notes improvement in right sided weakness. Needs rehab. Pending insurance authorization. 07/13. Has no complaints today. Needs placement but waiting for insurance authorization. COVID-19 test negative. 07/14 patient is alert and oriented and offers no specific complaints. He denies any chest pain or shortness of breath Lab results reviewed. Cardiology note reviewed. Scheduled for [facility] on Friday/for subacute rehab placement Objective - Constitutional Vitals: Vital Signs - 12hr 07/14/20 07/14/20 07/14/20 04:00 07:56 08:48 Temperature 97.5 F L 98.3 F Pulse Rate 68 63 Respiratory 16 18 Rate Blood Pressure 153/72 138/82 Blood Pressure 90/49 [Left] O2 Sat by Pulse 92 98 Oximetry 07/14/20 07/14/20 07/14/20 08:55 08:59 09:00 Temperature Pulse Rate Respiratory Rate Blood Pressure 152/78 124/64 132/71 Blood Pressure [Left] O2 Sat by Pulse Oximetry 07/14/20 07/14/20 07/14/20 09:01 09:03 09:05 Temperature Pulse Rate Respiratory Rate Blood Pressure 130/75 140/80 141/76 Blood Pressure [Left] O2 Sat by Pulse Oximetry 07/14/20 07/14/20 07/14/20 09:07 10:29 10:32 Temperature Pulse Rate 74 74 Respiratory Rate Blood Pressure 146/77 148/83 Blood Pressure 148/83 [Left] O2 Sat by Pulse 98 Oximetry 07/14/20 12:13 Temperature 97.9 F Pulse Rate 68 Respiratory 16 Rate Blood Pressure 149/83 Blood Pressure [Left] O2 Sat by Pulse 100 Oximetry General appearance: Present: no acute distress, well-nourished - EENT Eyes: PERRL, EOM intact ENT: hearing intact, clear oral mucosa - Neck Neck: supple, normal ROM, no masses or JVD - Respiratory Respiratory effort: normal Respiratory: bilateral: CTA - Cardiovascular Rhythm: regular Heart Sounds: Present: S1 & S2 Extremities: No edema - Gastrointestinal General gastrointestinal: Present: soft, non-tender Rectal Exam: deferred - Genitourinary Male genitourinary: deferred - Integumentary Integumentary: clear - Musculoskeletal Musculoskeletal: strength equal bilaterally - Neurologic Neurologic: moves all extremities - Labs CBC & Chem 7: 07/10/20 15:27 07/10/20 15:27 Labs: Abnormal lab results 07/14/20 07/14/20 Range/Units 07:57 12:10 POC Glucose 161 H 183 H (70-105) mg/dL HEART Score - HEART Score Troponin: Troponin T < 0.010 ng/mL (0.00-0.029) 07/11/20 05:08
[2020-07-14] MEDS: GLIMEPIRIDE 2 MG TAB PO SCH (14:19)
[2020-07-14] MEDS ORDERED: INSULIN GLARGINE 100 UNITS/ML SUB-Q SCH (22:00)
[2020-07-15 06:03] LABS: INR 1.02 (0.87-1.13)
[2020-07-15 06:06] LABS: BUN/Creatinine Ratio 19; Blood Urea Nitrogen 21 mg/dL (9-20); Calcium 8.6 mg/dL (8.4-10.2); Hemolysis Index 5
[2020-07-15] MEDS: HEPARIN 5,000 UNIT/1 ML VIAL SUB-Q SCH ×3 (06:16→22:42)
[2020-07-15] MEDS: VENLAFAXINE 75 MG TAB PO SCH ×3 (09:55→22:42)
[2020-07-15] MEDS: CLOPIDOGREL 75 MG TAB PO SCH (09:55)
[2020-07-15] MEDS: GLIMEPIRIDE 2 MG TAB PO SCH (09:55)
[2020-07-15] MEDS: PANTOPRAZOLE 40 MG TAB PO SCH (09:55)
[2020-07-15] MEDS: carvediloL 12.5 MG TAB PO SCH (09:55)
[2020-07-15] MEDS ORDERED: ASPIRIN EC 325 MG TAB PO SCH (10:00)
[2020-07-15] MEDS ORDERED: carvediloL 12.5 MG TAB PO SCH ×2 (10:22→11:00)
--- NOTE | 2020-07-15 10:26 | Progress Note ---
Subjective Date of service: 07/15/20 Principal diagnosis: Acute CVA; R. hemiparesis; HTN; Obesity; GERD; DM II; Possible IMELDA Interval history: Assessment and plan: Acute stroke Patient is status post TPA administration on 07/07. MRI without contrast - acute infarct in the left paramedian pontine area. Echocardiogram - No PFO, ASD PT recommends rehab> Advised reevaluation Antiplatelet agents Neurology follow-up as outpatient With subacute rehab placement Cardiomyopathy EF 40%-45% Lexiscan stress test positive with reversible ischemia Scheduled for [facility] on Friday Cardiology note reviewed Continue beta-rosa Hypertension Poorly controlled Increase carvedilol to 25 mg twice daily Add losartan 50 mg daily Dyslipidemia High triglycerides/low HDL/elevated total cholesterol Continue high intensity atorvastatin Type 2 diabetes Accu-Cheks reviewed Increase glimepiride 2 mg daily(patient is on 4 mg at home) A1c 6.6 Continue insulin sliding scale coverage GERD without esophagitis PPI therapy, supportive care DVT prophylaxis SCD to bilateral lower extremities while in bed. Heparin subcu (6) Advance care planning Current Visit: Yes Status: Acute Plan to address problem: Patient needs placement. Waiting for insurance authorization. History Interval history: 75 YO Male with HTN, CAD S/P Stent Placement, CVA on DAPT, DM, GERD presents to ED for evaluation. Pt reports" I feel weak on my right side". Patient states that he was in his usual state of health and experienced a sudden onset of right-sided arm and leg weakness at approximately 1300 hrs. EMS was notified and upon arrival the patient was found to have a neurologic deficit. A code stroke was called and the patient was transported to [facility] for further care and evaluation of the aforementioned symptoms. The patient was seen and evaluated in the emergency department. All lab and imaging studies reviewed. Patient found to have clinical symptoms consistent with CVA. Patient was treated with TPA administration with improvement in symptoms. Patient admitted to ICU and initiated on CVA protocol. Pulmonology consulted in ED. Patient denies fever, chills, chest pain, palpitation, productive cough, skin rash, recent ill contact, or known exposure to COVID-19. No prior admission for review. No medication listed at time of admission reconciliation. Advanced care planning conducted in ED. 07/08. Patient is status post TPA. Has some speech difficulty and mild right-sided weakness. Echocardiogram pending. MRI brain without contrast ordered. Neurology consulted. Continue to hold aspirin products 24 hours after TPA. 07/09. Right-sided weakness slightly better today. Echocardiogram and MRI of the brain stable pending. Aspirin has been resumed. Neurology evaluation appreciated. Okay to transfer to telemetry. Resume Coreg. Continue to monitor blood pressure closely 07/10: Code Met called today and changed to Code Stroke due to change in mental status although transient. Will ask for Cardiology input considering the circumstance, awaiting re-evaluation by stroke team. Repeat CT Head was negative. MRI not completed due to the code MET 07/11. MRI brain showed acute infarcts. Patient symptoms have improved. Patient has been seen by physical therapy who recommends rehab but will need to be reevaluated as his neurologic deficits have improved. He will need to follow-up with neurology after discharge. 07/12. He notes improvement in right sided weakness. Needs rehab. Pending insurance authorization. 07/13. Has no complaints today. Needs placement but waiting for insurance authorization. COVID-19 test negative. 07/14 patient is alert and oriented and offers no specific complaints. He denies any chest pain or shortness of breath Lab results reviewed. Cardiology note reviewed. Scheduled for [facility] on Friday/for subacute rehab placement 07/15 patient is alert and oriented and offers no specific complaints. He denies any chest pain or shortness of breath. Vital signs reviewed. Blood pressure is poorly controlled. For subacute rehab placement Objective - Constitutional Vitals: Vital Signs - 12hr 07/15/20 07/15/20 07/15/20 00:01 05:04 08:10 Temperature 97.8 F 98.0 F Pulse Rate 70 67 64 Respiratory 18 18 Rate Blood Pressure 145/80 169/87 O2 Sat by Pulse 96 94 Oximetry 07/15/20 08:22 Temperature 97.3 F L Pulse Rate 69 Respiratory 18 Rate Blood Pressure 178/75 O2 Sat by Pulse 95 Oximetry General appearance: Present: no acute distress, well-nourished - EENT Eyes: PERRL, EOM intact ENT: hearing intact - Neck Neck: supple, normal ROM - Respiratory Respiratory effort: normal Respiratory: bilateral: CTA - Cardiovascular Rhythm: regular Heart Sounds: Present: S1 & S2 Extremities: No edema - Gastrointestinal General gastrointestinal: Present: soft, non-tender Rectal Exam: deferred - Genitourinary Male genitourinary: deferred - Integumentary Integumentary: clear - Musculoskeletal Musculoskeletal: generalized weakness - Neurologic Neurologic: moves all extremities - Psychiatric Psychiatric: appropriate mood/affect - Labs CBC & Chem 7: 07/10/20 15:27 07/15/20 04:51 Labs: Abnormal lab results 07/14/20 07/14/20 07/14/20 Range/Units 07:57 12:10 15:00 BUN (9-20) mg/dL Glucose (75-100) mg/dL POC Glucose 161 H 183 H (70-105) mg/dL Hemoglobin A1c 6.6 H (4-6) % 07/14/20 07/14/20 07/15/20 Range/Units 16:35 21:38 04:51 BUN 21 H (9-20) mg/dL Glucose 190 H (75-100) mg/dL POC Glucose 195 H 173 H (70-105) mg/dL Hemoglobin A1c (4-6) % HEART Score - HEART Score Troponin: Troponin T < 0.010 ng/mL (0.00-0.029) 07/11/20 05:08
[2020-07-15] MEDS ORDERED: LOSARTAN 50 MG TAB PO SCH (11:00)
[2020-07-15] MEDS ORDERED: GLIMEPIRIDE 2 MG TAB PO SCH (11:00)
--- NOTE | 2020-07-15 16:20 | Progress Note ---
Assessment and Plan Acute cerebrovascular accident s/p thrombolytic therapy. Right hemiparesis. History of hypertension. Obesity. Gastroesophageal reflux disease. History of diabetes. Possible obstructive sleep apnea - supplemental oxygen as needed to keep O2 sats > 90% - Bronchodilators (MARILOU) with pulm hygiene per RT -Aspiration precatuions, CLINICAL SERVICES MANAGER therapy -Needs better blood pressure control - secondary stroke prophylaxis per neurology - avoid nephrotoxins, renally dose all medications - mobility per facility protocol to prevent pressure ulcers - PT/OT as tolerated, increase activity - Wound care per RN/WCT - accuchecks with glycemic control per SSI for target blood glucose < 180 mg/dL - VTE prophylaxis- heparin - Flu and pneumovax per protocol prior to discharge - prn analgesia per pain score - continue other care per attending / other consultants Subjective Date of service: 07/15/20 Principal diagnosis: Acute CVA; R. hemiparesis; HTN; Obesity; GERD; DM II; Possible IMELDA Interval history: Patient is seen today for: Acute CVA s/p thrombolytic therapy; Right hemiparesis; HTN; Obesity; GERD; DM II; Possible IMELDA Seen and examined at bedside; 24hour events reviewed; nursing and respiratory care staff consulted; no adverse overnight events reported to me; resting peacefully in bed; no new issues, no chest pain, no shortness of breath. Plans for possible left heart cath on Friday Objective Vital Signs - 12hr 07/15/20 07/15/20 07/15/20 05:04 08:10 08:22 Temperature 98.0 F 97.3 F L Pulse Rate 67 64 69 Respiratory 18 18 Rate Blood Pressure 169/87 178/75 O2 Sat by Pulse 94 95 Oximetry Constitutional: no acute distress Eyes: non-icteric ENT: oropharynx moist Neck: supple, no lymphadenopathy, other (large neck circumference) Effort: normal Ascultation: Bilateral: clear, diminished breath sounds Percussion: Bilateral: not dull Cardiovascular: regular rate and rhythm, other (S1,S2) Gastrointestinal: normoactive bowel sounds, soft, non-tender, non-distended (protuberant) Integumentary: normal Extremities: no cyanosis, no edema, pink and warm, pulses normal Neurologic: normal mental status, pupils equal and round, other (right hemiparesis) Psychiatric: mood appropriate, affect normal CBC and BMP: 07/17/20 04:44 07/17/20 04:44 ABG, PT/INR, D-dimer: PT/INR, D-dimer PT 13.2 Sec. (12.2-14.9) 07/15/20 04:51 INR 1.02 (0.87-1.13) 07/15/20 04:51 Abnormal lab findings: Abnormal Labs 07/07/20 07/07/20 07/07/20 16:23 16:23 23:28 MCV 82 L MCH 26 L RDW Lymph % (Auto) Powell % (Auto) Lymph # (Auto) Seg Neutrophils % Monocytes % (Manual) 15.0 H Seg Neutrophils # Man 0.0 L Lymphocytes # (Manual) 0.0 L APTT Sodium 133 L BUN Glucose 189 H POC Glucose 112 H Hemoglobin A1c Triglycerides Cholesterol HDL Cholesterol Salicylates Acetaminophen 07/08/20 07/08/20 07/08/20 05:21 08:44 09:54 MCV MCH RDW Lymph % (Auto) Powell % (Auto) Lymph # (Auto) Seg Neutrophils % Monocytes % (Manual) Seg Neutrophils # Man Lymphocytes # (Manual) APTT Sodium BUN Glucose POC Glucose 111 H 121 H Hemoglobin A1c Triglycerides 412 H Cholesterol 243 H HDL Cholesterol 27 L Salicylates Acetaminophen 07/08/20 07/09/20 07/10/20 11:36 06:45 10:32 MCV MCH RDW Lymph % (Auto) Powell % (Auto) Lymph # (Auto) Seg Neutrophils % Monocytes % (Manual) Seg Neutrophils # Man Lymphocytes # (Manual) APTT Sodium BUN Glucose POC Glucose 111 H 139 H 209 H Hemoglobin A1c Triglycerides Cholesterol HDL Cholesterol Salicylates Acetaminophen 07/10/20 07/10/20 07/10/20 15:27 15:27 15:27 MCV 82 L MCH 26 L RDW 15.3 H Lymph % (Auto) 12.3 L Powell % (Auto) 11.4 H Lymph # (Auto) 0.9 L Seg Neutrophils % 74.9 H Monocytes % (Manual) Seg Neutrophils # Man Lymphocytes # (Manual) APTT 23.2 L Sodium 136 L BUN 23 H Glucose 155 H POC Glucose Hemoglobin A1c Triglycerides Cholesterol HDL Cholesterol Salicylates Acetaminophen 07/10/20 07/10/20 07/11/20 15:27 15:27 07:55 MCV MCH RDW Lymph % (Auto) Powell % (Auto) Lymph # (Auto) Seg Neutrophils % Monocytes % (Manual) Seg Neutrophils # Man Lymphocytes # (Manual) APTT Sodium BUN Glucose POC Glucose 151 H Hemoglobin A1c Triglycerides Cholesterol HDL Cholesterol Salicylates < 0.3 L Acetaminophen 5.0 L 07/14/20 07/14/20 07/14/20 07:57 12:10 15:00 MCV MCH RDW Lymph % (Auto) Powell % (Auto) Lymph # (Auto) Seg Neutrophils % Monocytes % (Manual) Seg Neutrophils # Man Lymphocytes # (Manual) APTT Sodium BUN Glucose POC Glucose 161 H 183 H Hemoglobin A1c 6.6 H Triglycerides Cholesterol HDL Cholesterol Salicylates Acetaminophen 07/14/20 07/14/20 07/15/20 16:35 21:38 04:51 MCV MCH RDW Lymph % (Auto) Powell % (Auto) Lymph # (Auto) Seg Neutrophils % Monocytes % (Manual) Seg Neutrophils # Man Lymphocytes # (Manual) APTT Sodium BUN 21 H Glucose 190 H POC Glucose 195 H 173 H Hemoglobin A1c Triglycerides Cholesterol HDL Cholesterol Salicylates Acetaminophen Allied health notes reviewed: nursing
[2020-07-15] MEDS ORDERED: LISINOPRIL 5 MG TAB PO SCH (17:00)
[2020-07-15] MEDS: carvediloL 25 MG TAB PO SCH (22:41)
--- NOTE | 2020-07-15 23:14 | Progress Note ---
Assessment and Plan Plan for [facility] Friday. NPO after midnight Friday. Continue bASA, Plavix, & statin. Continue BB. Will increase as tolerated. Agree with addition of ARB. Pt seen in conjunction with Dr. Coleman, who agrees with the assessment and plan of care. - Patient Problems (1) CVA (cerebral vascular accident) Current Visit: Yes Status: Acute (2) Cardiomyopathy Current Visit: Yes Status: Acute (3) Paroxysmal atrial tachycardia Current Visit: Yes Status: Acute (4) Orthostatic hypotension Current Visit: Yes Status: Chronic (5) HTN (hypertension) Current Visit: Yes Status: Chronic Qualifiers: Hypertension type: essential hypertension Qualified Code(s): I10 - Essential (primary) hypertension (6) HLD (hyperlipidemia) Current Visit: Yes Status: Chronic Qualifiers: Hyperlipidemia type: mixed hyperlipidemia Qualified Code(s): E78.2 - Mixed hyperlipidemia (7) Type II diabetes mellitus Current Visit: Yes Status: Chronic (8) GERD (gastroesophageal reflux disease) Current Visit: Yes Status: Chronic Qualifiers: Esophagitis presence: without esophagitis Qualified Code(s): K21.9 - Gastro-esophageal reflux disease without esophagitis Subjective Date of service: 07/15/20 Principal diagnosis: CVA, EF 40-45% Interval history: Resting comfortably in bed. Denies any cardiac complaints. Tele reviewed - SR 70s w/PACs, frequent runs of PAT noted. Objective Last Vital Signs Temp 98.0 F 07/15/20 20:34 Pulse 72 07/15/20 20:34 Resp 20 07/15/20 21:32 BP 148/76 07/15/20 20:34 Pulse Ox 95 07/15/20 20:34 - Physical Examination General: No Apparent Distress HEENT: Positive: EOMI, Normocephaly, Mucus Membranes Moist Neck: Positive: neck supple, trachea midline. Negative: JVD/HJR Cardiac: Positive: Reg Rate and Rhythm, S1/S2 Lungs: Positive: Decreased Breath Sounds Neuro: Positive: Grossly Intact Abdomen: Positive: Soft. Negative: Tender Skin: Negative: Rash Musculoskeletal: No Fluid Collection Extremities: Present: upper extr. pulses, lower extr. pulses, edema (trace BLE) - Labs and Meds Coagulation 07/15/20 Range/Units 04:51 PT 13.2 (12.2-14.9) Sec. INR 1.02 (0.87-1.13) Comprehensive Metabolic Panel 07/15/20 Range/Units 04:51 Sodium 139 (137-145) mmol/L Potassium 4.3 (3.6-5.0) mmol/L Chloride 103.4 (98-107) mmol/L Carbon Dioxide 25 (22-30) mmol/L BUN 21 H (9-20) mg/dL Creatinine 1.1 (0.8-1.3) mg/dL Glucose 190 H (75-100) mg/dL Calcium 8.6 (8.4-10.2) mg/dL - Imaging and Cardiology EKG: report reviewed, image reviewed Nuclear stress test: report reviewed (07/14/2020 - large area of akinesis in the mid and basal lateral wall (most likely scar, with mild reversibility of anterolateral region), EF 31%) Echo: report reviewed (07/07/2020 - EF 40-45%, mild-mod concentric LVH, neg Bubble study) - Telemetry EKG Rhythm: PAT - EKG Sinus rhythms and dysrhythmias: sinus rhythm
[2020-07-15] MEDS ORDERED: SODIUM CHLORIDE 0.9% 500 ML 500 ML IV SCH (23:45)
[2020-07-16] MEDS: INSULIN LISPRO 100 UNIT/ML SUB-Q SCH ×2 (00:51→21:37)
[2020-07-16] MEDS: HEPARIN 5,000 UNIT/1 ML VIAL SUB-Q SCH ×3 (06:35→21:39)
[2020-07-16] MEDS: PANTOPRAZOLE 40 MG TAB PO SCH (06:35)
[2020-07-16] MEDS: GLIMEPIRIDE 2 MG TAB PO SCH (08:31)
[2020-07-16] MEDS: VENLAFAXINE 75 MG TAB PO SCH ×3 (08:31→21:38)
[2020-07-16] MEDS: LOSARTAN 50 MG TAB PO SCH (10:07)
[2020-07-16] MEDS: ASPIRIN 81 MG TAB CHEW PO SCH (10:09)
[2020-07-16] MEDS: carvediloL 25 MG TAB PO SCH ×2 (10:09→21:38)
[2020-07-16] MEDS: CLOPIDOGREL 75 MG TAB PO SCH (10:09)
--- NOTE | 2020-07-16 11:00 | Progress Note ---
Subjective Date of service: 07/16/20 Principal diagnosis: CVA, EF 40-45% Interval history: Assessment and plan: Acute stroke Patient is status post TPA administration on 07/07. MRI without contrast - acute infarct in the left paramedian pontine area. Echocardiogram - No PFO, ASD PT recommends rehab> Advised reevaluation Antiplatelet agents Neurology follow-up as outpatient With subacute rehab placement Cardiomyopathy EF 40%-45% Lexiscan stress test positive with reversible ischemia Scheduled for [facility] on Friday Cardiology note reviewed Continue beta-rosa Hypertension Poorly controlled Increase carvedilol to 25 mg twice daily increase losartan 100 mg daily Dyslipidemia High triglycerides/low HDL/elevated total cholesterol Continue high intensity atorvastatin Type 2 diabetes Accu-Cheks reviewed Increase glimepiride 2 mg daily(patient is on 4 mg at home) A1c 6.6 Continue insulin sliding scale coverage GERD without esophagitis PPI therapy, supportive care DVT prophylaxis SCD to bilateral lower extremities while in bed. Heparin subcu (6) Advance care planning Current Visit: Yes Status: Acute Plan to address problem: Patient needs placement. Waiting for insurance authorization. History Interval history: 75 YO Male with HTN, CAD S/P Stent Placement, CVA on DAPT, DM, GERD presents to ED for evaluation. Pt reports" I feel weak on my right side". Patient states that he was in his usual state of health and experienced a sudden onset of right-sided arm and leg weakness at approximately 1300 hrs. EMS was notified and upon arrival the patient was found to have a neurologic deficit. A code stroke was called and the patient was transported to [facility] for further care and evaluation of the aforementioned symptoms. The patient was seen and evaluated in the emergency department. All lab and imaging studies reviewed. Patient found to have clinical symptoms consistent with CVA. Patient was treated with TPA administration with improvement in symptoms. Patient admitted to ICU and initiated on CVA protocol. Pulmonology consulted in ED. Patient denies fever, chills, chest pain, palpitation, productive cough, skin rash, recent ill contact, or known exposure to COVID-19. No prior admission for review. No medication listed at time of admission reconciliation. Advanced care planning conducted in ED. 07/08. Patient is status post TPA. Has some speech difficulty and mild right-sided weakness. Echocardiogram pending. MRI brain without contrast ordered. Neurology consulted. Continue to hold aspirin products 24 hours after TPA. 07/09. Right-sided weakness slightly better today. Echocardiogram and MRI of the brain stable pending. Aspirin has been resumed. Neurology evaluation appreciated. Okay to transfer to telemetry. Resume Coreg. Continue to monitor blood pressure closely 07/10: Code Met called today and changed to Code Stroke due to change in mental status although transient. Will ask for Cardiology input considering the cir cumstance, awaiting re-evaluation by stroke team. Repeat CT Head was negative. MRI not completed due to the code MET 07/11. MRI brain showed acute infarcts. Patient symptoms have improved. Patient has been seen by physical therapy who recommends rehab but will need to be reevaluated as his neurologic deficits have improved. He will need to follow-up with neurology after discharge. 07/12. He notes improvement in right sided weakness. Needs rehab. Pending insurance authorization. 07/13. Has no complaints today. Needs placement but waiting for insurance authorization. COVID-19 test negative. 07/14 patient is alert and oriented and offers no specific complaints. He denies any chest pain or shortness of breath Lab results reviewed. Cardiology note reviewed. Scheduled for [facility] on y/for subacute rehab placement 07/15 patient is alert and oriented and offers no specific complaints. He denies any chest pain or shortness of breath. Vital signs reviewed. Blood pressure is poorly controlled. For subacute rehab placement 07/16 patient is alert and oriented, no apparent distress and offers no specific complaints, no acute events overnight. Scheduled for [facility] in a.m. followed by subacute rehab placement Objective - Constitutional Vitals: Vital Signs - 12hr 07/15/20 07/16/20 07/16/20 23:41 10:00 10:07 Temperature 98.2 F Pulse Rate 68 63 66 Respiratory 18 Rate Blood Pressure 162/73 141/73 O2 Sat by Pulse 94 Oximetry 07/16/20 10:09 Temperature Pulse Rate 66 Respiratory Rate Blood Pressure 141/73 O2 Sat by Pulse Oximetry General appearance: Present: no acute distress, well-nourished - EENT Eyes: PERRL, EOM intact ENT: hearing intact - Neck Neck: supple, normal ROM, no masses or JVD - Respiratory Respiratory effort: normal Respiratory: bilateral: CTA, negative: rales, rhonchi - Cardiovascular Rhythm: regular Heart Sounds: Present: S1 & S2 Extremities: No edema - Gastrointestinal General gastrointestinal: Present: soft, non-tender Rectal Exam: deferred - Genitourinary Male genitourinary: deferred - Integumentary Integumentary: clear - Neurologic Neurologic: no focal deficits, moves all extremities - Psychiatric Psychiatric: appropriate mood/affect - Labs CBC & Chem 7: 07/10/20 15:27 07/15/20 04:51 Labs: Abnormal lab results 07/16/20 Range/Units 00:44 POC Glucose 229 H (70-105) mg/dL HEART Score - HEART Score Troponin: Troponin T < 0.010 ng/mL (0.00-0.029) 07/11/20 05:08
--- NOTE | 2020-07-16 12:42 | Progress Note ---
Assessment and Plan Plan for [facility] in AM. NPO after midnight. Continue bASA, Plavix, statin, & BB. Agree with addition of ARB. Pt seen in conjunction with Dr. Coleman, who agrees with the assessment and plan of care. - Patient Problems (1) CVA (cerebral vascular accident) Current Visit: Yes Status: Acute (2) Cardiomyopathy Current Visit: Yes Status: Acute (3) Abnormal nuclear stress test Current Visit: Yes Status: Acute (4) Paroxysmal atrial tachycardia Current Visit: Yes Status: Acute (5) Orthostatic hypotension Current Visit: Yes Status: Chronic (6) HTN (hypertension) Current Visit: Yes Status: Chronic Qualifiers: Hypertension type: essential hypertension Qualified Code(s): I10 - Essential (primary) hypertension (7) HLD (hyperlipidemia) Current Visit: Yes Status: Chronic Qualifiers: Hyperlipidemia type: mixed hyperlipidemia Qualified Code(s): E78.2 - Mixed hyperlipidemia (8) Type II diabetes mellitus Current Visit: Yes Status: Chronic (9) GERD (gastroesophageal reflux disease) Current Visit: Yes Status: Chronic Qualifiers: Esophagitis presence: without esophagitis Qualified Code(s): K21.9 - Gastro-esophageal reflux disease without esophagitis Subjective Date of service: 07/16/20 Principal diagnosis: CVA, EF 40-45% Interval history: Resting comfortably in bed. Denies chest pain or any additional cardiac complaints. Tele reviewed - SR 60-70s w/PACs, previous intermittent runs of PAT noted. Objective Last Vital Signs Temp 97.5 F L 07/16/20 08:09 Pulse 67 07/16/20 11:48 Resp 17 07/16/20 08:10 BP 130/74 07/16/20 11:48 Pulse Ox 95 07/16/20 11:48 - Physical Examination General: No Apparent Distress HEENT: Positive: EOMI, Normocephaly, Mucus Membranes Moist Neck: Positive: neck supple, trachea midline. Negative: JVD/HJR Cardiac: Positive: Reg Rate and Rhythm, S1/S2 Lungs: Positive: clear to auscultation Neuro: Positive: Grossly Intact Abdomen: Positive: Soft. Negative: Tender Skin: Negative: Rash Musculoskeletal: No Fluid Collection Extremities: Present: upper extr. pulses, lower extr. pulses, edema (trace BLE) - Imaging and Cardiology EKG: report reviewed, image reviewed Echo: report reviewed (07/07/2020 - EF 40-45%, mild-mod concentric LVH, neg Bubble study) - Telemetry EKG Rhythm: Sinus Rhythm - EKG Sinus rhythms and dysrhythmias: sinus rhythm - Allied health notes Allied health notes reviewed: nursing
[2020-07-17 06:30] LABS: Basophils % (Auto) 0.4 % (0.0-1.8); Eosinophils # (Auto) 0.3 K/mm3 (0.0-0.4); Eosinophils % (Auto) 4.7 % (0.0-4.3); Hematocrit 35.4 % (35.5-45.6); Hemoglobin 11.4 gm/dl (11.8-15.2); Lymphocytes # (Auto) 1.1 K/mm3 (1.2-5.4); Lymphocytes % (Auto) 18.5 % (13.4-35.0); Mean Corpuscular HGB Conc 32 % (32-34); Mean Corpuscular Volume 81 fl (84-94); Monocytes # (Auto) 0.9 K/mm3 (0.0-0.8); Monocytes % (Auto) 15.3 % (0.0-7.3); Platelet Count 191 K/mm3 (140-440); Red Blood Count 4.38 M/mm3 (3.65-5.03); Red Cell Distribution Width 15.8 % (13.2-15.2)
[2020-07-17 06:38] LABS: INR 0.98 (0.87-1.13)
[2020-07-17 06:40] LABS: BUN/Creatinine Ratio 21; Blood Urea Nitrogen 23 mg/dL (9-20); Calcium 8.7 mg/dL (8.4-10.2); Hemolysis Index 4
[2020-07-17] MEDS: PANTOPRAZOLE 40 MG TAB PO SCH (09:15)
[2020-07-17] MEDS: GLIMEPIRIDE 2 MG TAB PO SCH (09:15)
[2020-07-17] MEDS: VENLAFAXINE 75 MG TAB PO SCH ×3 (09:16→21:45)
[2020-07-17] MEDS: CLOPIDOGREL 75 MG TAB PO SCH (09:18)
[2020-07-17] MEDS: ASPIRIN 81 MG TAB CHEW PO SCH (09:18)
[2020-07-17] MEDS ORDERED: SODIUM CHLORIDE 0.9% 500 ML 500 ML ONE (09:30)
[2020-07-17] MEDS ORDERED: HEPARIN/NS 5000 UNIT/500ML 1,000 ML IR ONE (09:51)
[2020-07-17] MEDS ORDERED: HEPARIN 10,000 UNITS/10 ML VIAL ONE (09:51)
[2020-07-17] MEDS ORDERED: MIDAZOLAM 2 MG/2 ML INJ ONE (09:52)
[2020-07-17] MEDS ORDERED: VERAPAMIL 5 MG/2 ML INJ ONE (09:52)
[2020-07-17] MEDS ORDERED: fentaNYL 100 MCG/2 ML INJ ONE (09:52)
[2020-07-17] MEDS ORDERED: LIDOCAINE (1%) 10 MG/1 ML VIAL 20 ML MDV ONE (09:52)
[2020-07-17] MEDS ORDERED: NITROGLYCERIN SYRINGE 3 ML ONE (09:52)
--- NOTE | 2020-07-17 11:00 | Progress Note ---
Assessment and Plan Assessment and plan: Acute stroke Patient is status post TPA administration on 07/07. MRI without contrast - acute infarct in the left paramedian pontine area. Echocardiogram - No PFO, ASD PT recommends rehab Antiplatelet agents Neurology follow-up as outpatient Cardiomyopathy EF 40%-45% Lexiscan stress test positive with reversible ischemia Scheduled for [facility] on 07/17 Cardiology note reviewed Continue beta-rosa Hypertension Poorly controlled Increase carvedilol to 25 mg twice daily Increase losartan 100 mg daily Dyslipidemia High triglycerides/low HDL/elevated total cholesterol Continue high intensity atorvastatin Type 2 diabetes Accu-Cheks reviewed Increase glimepiride 2 mg daily(patient is on 4 mg at home) A1c 6.6 Continue insulin sliding scale coverage GERD without esophagitis PPI therapy, supportive care History Interval history: 75 YO Male with HTN, CAD S/P Stent Placement, CVA on DAPT, DM, GERD presents to ED for evaluation. Pt reports" I feel weak on my right side". Patient states that he was in his usual state of health and experienced a sudden onset of right-sided arm and leg weakness at approximately 1300 hrs. EMS was notified and upon arrival the patient was found to have a neurologic deficit. A code stroke was called and the patient was transported to [facility] for further care and evaluation of the aforementioned symptoms. The patient was seen and evaluated in the emergency department. All lab and imaging studies reviewed. Patient found to have clinical symptoms consistent with CVA. Patient was treated with TPA administration with improvement in symptoms. Patient admitted to ICU and initiated on CVA protocol. Pulmonology consulted in ED. Patient denies fever, chills, chest pain, palpitation, productive cough, skin rash, recent ill contact, or known exposure to COVID-19. No prior admission for review. No medication listed at time of admission reconciliation. Advanced care planning conducted in ED. 07/08. Patient is status post TPA. Has some speech difficulty and mild right-sided weakness. Echocardiogram pending. MRI brain without contrast ordered. Neurology consulted. Continue to hold aspirin products 24 hours after TPA. 07/09. Right-sided weakness slightly better today. Echocardiogram and MRI of the brain stable pending. Aspirin has been resumed. Neurology evaluation appreciated. Okay to transfer to telemetry. Resume Coreg. Continue to monitor blood pressure closely 07/10: Code Met called today and changed to Code Stroke due to change in mental status although transient. Will ask for Cardiology input considering the circumstance, awaiting re-evaluation by stroke team. Repeat CT Head was negative. MRI not completed due to the code MET 07/11. MRI brain showed acute infarcts. Patient symptoms have improved. Patient has been seen by physical therapy who recommends rehab but will need to be reevaluated as his neurologic deficits have improved. He will need to follow-up with neurology after discharge. 07/12. He notes improvement in right sided weakness. Needs rehab. Pending insurance authorization. 07/13. Has no complaints today. Needs placement but waiting for insurance authorization. COVID-19 test negative. 07/14 patient is alert and oriented and offers no specific complaints. He denies any chest pain or shortness of breath Lab results reviewed. Cardiology note reviewed. Scheduled for [facility] on Friday/for subacute rehab placement 07/15 patient is alert and oriented and offers no specific complaints. He denies any chest pain or shortness of breath. Vital signs reviewed. Blood pressure is poorly controlled. For subacute rehab placement 07/16 patient is alert and oriented, no apparent distress and offers no specific complaints, no acute events overnight. Scheduled for C in a.m. followed by subacute rehab placement 07/17. Plan for left heart cath this AM. He denies any chest pain. Patient has been accepted to subacute rehab. Plan to discharge to rehab if medically stable after cath Hospitalist Physical - Physical exam Narrative exam: VITAL SIGNS: Reviewed. GENERAL: Awake HEAD: No signs of head trauma. EYES: Pupils are equal. Extraocular motions intact. MOUTH: Oropharynx is normal. NECK: No adenopathy, no JVD. CHEST: Chest with diminished breath sounds bilaterally. No wheezes, rales, or rhonchi. CARDIAC: normal S1 and S2, without murmurs, gallops, or rubs. ABDOMEN: Soft, non tender and non distended. No rebound or guarding, and no masses palpated. Bowel Sounds normal. MUSCULOSKELETAL: No edema NEUROLOGIC EXAM: Alert and oriented x3. SKIN: No obvious lesions - Constitutional Vitals: Temp Pulse Resp BP Pulse Ox 98.1 F 64 14 120/53 96 07/17/20 03:34 07/17/20 03:34 07/17/20 03:34 07/17/20 03:34 07/17/20 03:34 HEART Score - HEART Score Troponin: Troponin T < 0.010 ng/mL (0.00-0.029) 07/11/20 05:08 Results - Labs CBC & Chem 7: 07/17/20 04:44 07/17/20 04:44 Labs: Laboratory Last Values WBC 6.0 K/mm3 (4.5-11.0) 07/17/20 04:44 RBC 4.38 M/mm3 (3.65-5.03) 07/17/20 04:44 Hgb 11.4 gm/dl (11.8-15.2) L 07/17/20 04:44 Hct 35.4 % (35.5-45.6) L 07/17/20 04:44 MCV 81 fl (84-94) L 07/17/20 04:44 MCH 26 pg (28-32) L 07/17/20 04:44 MCHC 32 % (32-34) 07/17/20 04:44 RDW 15.8 % (13.2-15.2) H 07/17/20 04:44 Plt Count 191 K/mm3 (140-440) 07/17/20 04:44 Lymph % (Auto) 18.5 % (13.4-35.0) 07/17/20 04:44 [place] % (Auto) 15.3 % (0.0-7.3) H 07/17/20 04:44 Eos % (Auto) 4.7 % (0.0-4.3) H 07/17/20 04:44 Baso % (Auto) 0.4 % (0.0-1.8) 07/17/20 04:44 Lymph # (Auto) 1.1 K/mm3 (1.2-5.4) L 07/17/20 04:44 [place] # (Auto) 0.9 K/mm3 (0.0-0.8) H 07/17/20 04:44 Eos # (Auto) 0.3 K/mm3 (0.0-0.4) 07/17/20 04:44 Baso # (Auto) 0.0 K/mm3 (0.0-0.1) 07/17/20 04:44 Add Manual Diff Complete 07/07/20 16:23 Total Counted 100 07/07/20 16:23 Seg Neutrophils % 61.1 % (40.0-70.0) 07/17/20 04:44 Seg Neuts % (Manual) 63.0 % (40.0-70.0) 07/07/20 16:23 Lymphocytes % (Manual) 20.0 % (13.4-35.0) 07/07/20 16:23 Monocytes % (Manual) 15.0 % (0.0-7.3) H 07/07/20 16:23 Eosinophils % (Manual) 2.0 % (0.0-4.3) 07/07/20 16:23 Nucleated RBC % Not Reportable 07/07/20 16:23 Seg Neutrophils # 3.7 K/mm3 (1.8-7.7) 07/17/20 04:44 Seg Neutrophils # Man 0.0 K/mm3 (1.8-7.7) L 07/07/20 16:23 Band Neutrophils # 0.0 K/mm3 07/07/20 16:23 Lymphocytes # (Manual) 0.0 K/mm3 (1.2-5.4) L 07/07/20 16:23 Abs React Lymphs (Man) 0.0 K/mm3 07/07/20 16:23 Monocytes # (Manual) 0.0 K/mm3 (0.0-0.8) 07/07/20 16:23 Eosinophils # (Manual) 0.0 K/mm3 (0.0-0.4) 07/07/20 16:23 Basophils # (Manual) 0.0 K/mm3 (0.0-0.1) 07/07/20 16:23 Metamyelocytes # 0.0 K/mm3 07/07/20 16:23 Myelocytes # 0.0 K/mm3 07/07/20 16:23 Promyelocytes # 0.0 K/mm3 07/07/20 16:23 Blast Cells # 0.0 K/mm3 07/07/20 16:23 WBC Morphology Not Reportable 07/07/20 16:23 Hypersegmented Neuts Not Reportable 07/07/20 16:23 Hyposegmented Neuts Not Reportable 07/07/20 16:23 Hypogranular Neuts Not Reportable 07/07/20 16:23 Smudge Cells Not Reportable 07/07/20 16:23 Toxic Granulation Not Reportable 07/07/20 16:23 Toxic Vacuolation Not Reportable 07/07/20 16:23 Dohle Bodies Not Reportable 07/07/20 16:23 Pelger-Huet Anomaly Not Reportable 07/07/20 16:23 [place] Rods Not Reportable 07/07/20 16:23 Platelet Estimate Consistent w auto 07/07/20 16:23 Clumped Platelets Not Reportable 07/07/20 16:23 Plt Clumps, EDTA Not Reportable 07/07/20 16:23 Large Platelets Not Reportable 07/07/20 16:23 Giant Platelets Not Reportable 07/07/20 16:23 Platelet Satelliting Not Reportable 07/07/20 16:23 Plt Morphology Comment Not Reportable 07/07/20 16:23 RBC Morphology Not Reportable 07/07/20 16:23 Dimorphic RBCs Not Reportable 07/07/20 16:23 Polychromasia Not Reportable 07/07/20 16:23 Hypochromasia Not Reportable 07/07/20 16:23 Poikilocytosis Not Reportable 07/07/20 16:23 Anisocytosis Not Reportable 07/07/20 16:23 Microcytosis Not Reportable 07/07/20 16:23 Macrocytosis Not Reportable 07/07/20 16:23 Spherocytes Not Reportable 07/07/20 16:23 Pappenheimer Bodies Not Reportable 07/07/20 16:23 Sickle Cells Not Reportable 07/07/20 16:23 Target Cells Not Reportable 07/07/20 16:23 Tear Drop Cells Not Reportable 07/07/20 16:23 Ovalocytes Rare 07/07/20 16:23 Helmet Cells Not Reportable 07/07/20 16:23 Gallagher-[place]view Bodies Not Reportable 07/07/20 16:23 [place] Rings Not Reportable 07/07/20 16:23 Saba Cells Not Reportable 07/07/20 16:23 Bite Cells Not Reportable 07/07/20 16:23 Crenated Cell Not Reportable 07/07/20 16:23 Elliptocytes Not Reportable 07/07/20 16:23 Acanthocytes (Spur) Not Reportable 07/07/20 16:23 Rouleaux Not Reportable 07/07/20 16:23 Hemoglobin C Crystals Not Reportable 07/07/20 16:23 Schistocytes Not Reportable 07/07/20 16:23 Malaria parasites Not Reportable 07/07/20 16:23 Jona Bodies Not Reportable 07/07/20 16:23 Hem Pathologist Commnt No 07/07/20 16:23 PT 12.8 Sec. (12.2-14.9) 07/17/20 04:44 INR 0.98 (0.87-1.13) 07/17/20 04:44 APTT 23.2 Sec. (24.2-36.6) L 07/10/20 15:27 Thrombin Time 16.5 Sec. (15.1-19.6) 07/10/20 15:27 Sodium 137 mmol/L (137-145) 07/17/20 04:44 Potassium 3.9 mmol/L (3.6-5.0) 07/17/20 04:44 Chloride 101.9 mmol/L (98-107) 07/17/20 04:44 Carbon Dioxide 25 mmol/L (22-30) 07/17/20 04:44 Anion Gap 14 mmol/L 07/17/20 04:44 BUN 23 mg/dL (9-20) H 07/17/20 04:44 Creatinine 1.1 mg/dL (0.8-1.3) 07/17/20 04:44 Estimated GFR > 60 ml/min 07/17/20 04:44 BUN/Creatinine Ratio 21 % 07/17/20 04:44 Glucose 177 mg/dL (75-100) H 07/17/20 04:44 POC Glucose 167 mg/dL (70-105) H 07/17/20 04:21 Hemoglobin A1c 6.6 % (4-6) H 07/14/20 15:00 Lactic Acid 1.30 mmol/L (0.7-2.0) 07/10/20 15:27 Calcium 8.7 mg/dL (8.4-10.2) 07/17/20 04:44 Magnesium 1.90 mg/dL (1.7-2.3) 07/10/20 15:27 Total Bilirubin 0.40 mg/dL (0.1-1.2) 07/10/20 15:27 AST 21 units/L (5-40) 07/10/20 15:27 ALT 16 units/L (7-56) 07/10/20 15:27 Alkaline Phosphatase 101 units/L (35-129) 07/10/20 15:27 Total Creatine Kinase 129 units/L (55-170) 07/10/20 15:27 Total Creatine Kinase 141 units/L (55-170) 07/10/20 15:27 CK-MB (CK-2) 2.9 ng/mL (0.0-4.0) 07/10/20 15:27 CK-MB (CK-2) Rel Index 2.2 (0-4) 07/10/20 15:27 Troponin T < 0.010 ng/mL (0.00-0.029) 07/11/20 05:08 Total Protein 6.6 g/dL (6.3-8.2) 07/10/20 15:27 Albumin 4.0 g/dL (3.9-5) 07/10/20 15:27 Albumin/Globulin Ratio 1.5 % 07/10/20 15:27 Triglycerides 412 mg/dL (2-149) H 07/08/20 09:54 Cholesterol 243 mg/dL (50-199) H 07/08/20 09:54 LDL Cholesterol Direct TNR 07/08/20 09:54 HDL Cholesterol 27 mg/dL (40-59) L 07/08/20 09:54 Cholesterol/HDL Ratio 9.00 % 07/08/20 09:54 TSH 1.650 mlU/mL (0.270-4.200) 07/11/20 05:08 Salicylates < 0.3 mg/dL (2.8-20.0) L 07/10/20 15:27 Acetaminophen 5.0 ug/mL (10.0-30.0) L 07/10/20 15:27 Plasma/Serum Alcohol < 0.01 % (0-0.07) 07/10/20 15:27 Coronavirus (PCR) Negative (Negative) 07/08/20 09:39 Renner/IV: Voiding Method Urinal Active Medications - Current Medications Current Medications: Generic Name Dose Route Start Last Admin Trade Name Freq PRN Reason Stop Dose Admin Acetaminophen 650 mg 07/07/20 17:28 Acetaminophen 325 Mg Tab PO Q4H PRN Pain, Mild (1-3) Aspirin 81 mg 07/16/20 10:00 07/17/20 09:18 Aspirin 81 Mg Tab Chew PO 81 mg QDAY [facility] Administration Atorvastatin Calcium 80 mg 07/08/20 22:00 07/16/20 21:37 Atorvastatin 40 Mg Tab PO 80 mg QHS [facility] Administration Bisacodyl 10 mg 07/07/20 17:28 Bisacodyl 10 Mg Rect Supp CO QDAY PRN Constipation Carvedilol 25 mg 07/15/20 22:00 07/16/20 21:38 Carvedilol 25 Mg Tab PO 25 mg Q12HR ODE[facility] Administration Clopidogrel Bisulfate 75 mg 07/09/20 10:00 07/17/20 09:18 Clopidogrel 75 Mg Tab PO 75 mg DAILY [facility] Administration Glimepiride 2 mg 07/16/20 08:00 07/17/20 09:15 Glimepiride 2 Mg Tab PO Not Given QDDIAB [facility] Heparin Sodium (Porcine) 5,000 unit 07/08/20 22:00 07/16/20 21:39 Heparin 5,000 Unit/1 Ml Vial SUB-Q 5,000 unit Q8HR [facility] Administration Hydralazine HCl 10 mg 07/07/20 17:28 Hydralazine 20 Mg/1 Ml Inj IV TID PRN Hypertension Insulin Human Lispro 0 unit 07/15/20 22:00 07/16/20 21:37 Insulin Lispro 100 Unit/Ml SUB-Q 3 unit QHS [facility] Administration Protocol Losartan Potassium 100 mg 07/16/20 10:00 07/16/20 10:07 Losartan 50 Mg Tab PO 100 mg QDAY [facility] Administration Magnesium Hydroxide 30 ml 07/07/20 17:28 Magnesium Hydroxide (Mom) Oral Liqd Udc PO Q4H PRN Constipation Metoclopramide HCl 10 mg 07/07/20 17:28 Metoclopramide 10 Mg Tab PO Q6H PRN Nausea And Vomiting Ondansetron HCl 4 mg 07/07/20 17:28 Ondansetron 4 Mg/2 Ml Inj IV Q8H PRN Nausea And Vomiting Pantoprazole Sodium 40 mg 07/08/20 07:30 07/17/20 09:15 Pantoprazole 40 Mg Tab PO Not Given QDAC [facility] Promethazine HCl 25 mg 07/07/20 17:28 Promethazine 25 Mg Rect Supp CO Q6H PRN Nausea And Vomiting Sodium Chloride 10 ml 07/07/20 17:28 07/10/20 21:57 Sodium Chloride 0.9% 10 Ml Flush Syringe IV 10 ml PRN PRN Administration LINE FLUSH Venlafaxine HCl 75 mg 07/07/20 20:00 07/17/20 09:16 Venlafaxine 75 Mg Tab PO Not Given TID ODELL Nutrition/Malnutrition Assess - Dietary Evaluation Nutrition/Malnutrition Findings: Nutrition Notes Start: 07/14/20 09:32 Freq: Status: Active Protocol: Document 07/14/20 09:32 AT (Rec: 07/14/20 09:36 AT [id number]) Co-Sign 07/14/20 09:32 CW Nutrition Notes Need for Assessment generated from: LOS Initial or Follow up Brief Note Current Diagnosis Diabetes,Hypertension,Stroke Other Pertinent Diagnosis GERD, R Hemiparesis Current Diet Cardiac Diet Subjective/Other Information Screen for LOS. 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 Since resuming meals in the hospital Friday, the pt reports consuming "100-110%!" Pt denies GI symptoms nor changes in appetite. Pt declined further diet education past assessment discussion. Pt is not at nutritional risk at this time. Nutrition Intervention Change Diet Order: Add consistent CHO modifications Anticipated Discharge Needs: Cardiac/Consistent CHO Revisit per MD consult or patient Sign Off request:
--- NOTE | 2020-07-17 11:14 | Electrocardiograph Report ---
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
--- NOTE | 2020-07-17 11:33 | Cardiac Catherization Report ---
DATE OF PROCEDURE: 07/17/2020 CARDIAC CATHETERIZATION REFERRING PHYSICIAN: Hospitalist service. INDICATIONS FOR PROCEDURE: The patient is a pleasant 75-year-old gentleman with multiple risk factors, presents with CVA with nearly resolved residual symptoms. Echo reveals cardiomyopathy, ejection fraction of 40%. Nuclear stress test is abnormal with ischemia, referred for left heart catheterization. Risks, benefits and alternatives discussed were at length prior to obtaining informed consent. PROCEDURE IN DETAIL: The patient was brought to the laborer plumbing in a postabsorptive state, prepped and draped in sterile fashion. Anldo's test right hand is normal. A 2 mL of 2% lidocaine used to anesthetize the right wrist. A standard 6 [place] hydrophilic sheath was used to cannulate the right radial artery via modified Seldinger technique. All exchanges performed in order to exchange a J-tip guidewire. A JL3.5 catheter was used to engage the left main. No dampening or ventricularization. Cineangiography performed in multiple projections. A JR4 catheter used to cross the aortic valve under fluoroscopic guidance. Left ventriculography was performed in 30-degree RICHARDSON, 30-degree CROATIAN projections via hand injections. Catheter was flushed. Manual pullback performed with continuous pressure monitoring. Catheter used to engage the right coronary. No dampening or ventricularization. Cineangiography performed in multiple projections. Next, catheter removed from the karen wire, sheath removed, manual pressure used to achieve hemostasis. There were no immediate complications identified. I directly supervised the administration of moderate sedation with fentanyl and Versed from 10:14 a.m. to 10:45 a.m. DATA: Aortic pressure is 160/80, LV pressure is 160, LVEDP of 20 mmHg. Left ventriculography reveals normal systolic performance, ejection fraction of 50-55%. No evidence of aortic stenosis. Coronary anatomy is a right dominant system, right coronary appears to be flush occluded at the ostium. Extensive left to right collaterals are identified. Left main without significant disease, bifurcates into left anterior descending and left circumflex. Left circumflex with 99% ostial occlusion and an 80% mid segment occlusion. LAD is a moderate-sized vessel coursing the anterior groove, wraps around the apex, 90% proximal stenosis, 80% mid stenosis. Again, extensive left to right collaterals are identified. CONCLUSIONS: 1. Severe and diffuse triple vessel disease with 99% subtotal occlusion of ostial left circumflex, 90% proximal left anterior descending and 100% occlusion of proximal right coronary with extensive left to right collaterals in this right dominant system. 2. Preserved left ventricular function, estimated at 50-55%. 3. High Normal LVEDP. 4. No evidence of aortic stenosis. At this point, the patient is clinically stable. No chest pain. The patient needs to complete revascularization. He is asymptomatic from a cardiac perspective at this time. At this point, we will confer with neurology as far as timing of coronary artery bypass surgery given recent CVA, although his residual deficits have nearly resolved. Once this determination is made, we will contact cardiac surgery at [place]. Again, he is clinically hemodynamically and electrically stable at this point. We will discuss with family. TID: [id number] RECEIPT: [id number] PRABHJOT/DAYNA
[2020-07-17] MEDS: LOSARTAN 50 MG TAB PO SCH (12:20)
[2020-07-17] MEDS: carvediloL 25 MG TAB PO SCH ×2 (12:21→22:49)
--- NOTE | 2020-07-17 12:32 | Progress Note ---
Assessment and Plan Assessment and Plan # CVA (cerebral vascular accident) -New onset presented with right side weakness and speech difficulty -NIH#12 -- currently#2 -Ct brain is unremarkable -CTA braina nd neck -- multiple chronic intracraniacl large vessels disease involve both M1 and Left A1 -S/P left ICA EAE -MRI is remarkable for left pontine subacute infarct and left cerebellar chronic infarct, -CVA protocol: Patient admitted to ICU status post TPA administration. -Telemetry neurology consulted in ED. - echocardiogram with EF#40-45% -, neuro check, - seizure precautions, -physical therapy consulted, Occupational Therapy consulted, speech therapy consulted, -resume antiplatelet therapy within 24 hours- after repeat Ct brain R/O hemorrhage-ASA 81 mg Plus Plavix 75 mg X 3 months then Plavix -A1C is 6.6 -LDL TNR --- trigly#412 # Right hemiparesis after TPA Physical therapy consulted, supportive care. #CVD -S/P heart catheterization today is remarkable for multiple vessels disease -Considered for Heart CABG -with pt. hx of CVA and significant intra cranial vascular disease like MrCamron Martinez will consider waiting at least 3 months for cardiac surgery due to disrubted brain autoregulation -For elective surgery wait is recommended to be up to 9 Months # HTN (hypertension) -Allow for permissive HTN<220/120 24 hours -- Today 143/60 -then Monitor blood pressure every shift,then continue BP control <150/80 #HLP -Lipitor 80 mg -LDL pending due to elevated triglyceride >400 # GERD (gastroesophageal reflux disease) -PPI therapy, supportive care # DVT prophylaxis -SCD to bilateral lower extremities while in bed, # Advance care planning -Disease education conducted, care plan discussed, diagnosis discussed, prognosis discussed, patient is full code, patient knowledges understanding agree with care plan, will follow as needed Subjective Date of service: 07/17/20 Principal diagnosis: CVA, EF 40-45% had heart catheterization today Objective - Vital Sign Vital Signs - 12hr 07/17/20 07/17/20 07/17/20 03:34 08:17 11:49 Temperature 98.1 F 97.5 F L 97.3 F L Pulse Rate 64 68 60 Respiratory 14 18 18 Rate Blood Pressure 120/53 173/88 143/66 O2 Sat by Pulse 96 95 100 Oximetry 07/17/20 07/17/20 12:20 12:21 Temperature Pulse Rate 60 60 Respiratory Rate Blood Pressure 143/60 143/60 O2 Sat by Pulse Oximetry - General Apperance Constitutional: comfortable - EENT EENT: PERRL - Respiratory Respiratory: chest non-tender, lungs clear - Cardiovascular Cardiovascular: regular rate, normal S1, normal S2 Extremities: no peripheral edema bilat - Gastrointestinal Gastrointestinal: normoactive bowel sounds - Integumentary Integumentary: normal - Neurologic Cranial nerve examination: anosmic, PERRL, EOMI, intact Speech examination: intact Detailed motor examination: other (4/5 bilateral with sight right pronator drift ,according to pt. he is slightly unsteady with walking other new no weakness ) Detailed sensory examination: intact Reflex and gait examination: intact - Laboratory Findings CBC and BMP: 07/17/20 04:44 07/17/20 04:44 Abnormal Lab Findings: Abnormal Labs 07/07/20 07/07/20 07/07/20 16:23 16:23 23:28 Hgb Hct MCV 82 L MCH 26 L RDW Lymph % (Auto) [place] % (Auto) Eos % (Auto) Lymph # (Auto) [place] # (Auto) Seg Neutrophils % Monocytes % (Manual) 15.0 H Seg Neutrophils # Man 0.0 L Lymphocytes # (Manual) 0.0 L APTT Sodium 133 L BUN Glucose 189 H POC Glucose 112 H Hemoglobin A1c Triglycerides Cholesterol HDL Cholesterol Salicylates Acetaminophen 07/08/20 07/08/20 07/08/20 05:21 08:44 09:54 Hgb Hct MCV MCH RDW Lymph % (Auto) [place] % (Auto) Eos % (Auto) Lymph # (Auto) [place] # (Auto) Seg Neutrophils % Monocytes % (Manual) Seg Neutrophils # Man Lymphocytes # (Manual) APTT Sodium BUN Glucose POC Glucose 111 H 121 H Hemoglobin A1c Triglycerides 412 H Cholesterol 243 H HDL Cholesterol 27 L Salicylates Acetaminophen 07/08/20 07/09/20 07/10/20 11:36 06:45 10:32 Hgb Hct MCV MCH RDW Lymph % (Auto) [place] % (Auto) Eos % (Auto) Lymph # (Auto) [place] # (Auto) Seg Neutrophils % Monocytes % (Manual) Seg Neutrophils # Man Lymphocytes # (Manual) APTT Sodium BUN Glucose POC Glucose 111 H 139 H 209 H Hemoglobin A1c Triglycerides Cholesterol HDL Cholesterol Salicylates Acetaminophen 07/10/20 07/10/20 07/10/20 15:27 15:27 15:27 Hgb Hct MCV 82 L MCH 26 L RDW 15.3 H Lymph % (Auto) 12.3 L [place] % (Auto) 11.4 H Eos % (Auto) Lymph # (Auto) 0.9 L [place] # (Auto) Seg Neutrophils % 74.9 H Monocytes % (Manual) Seg Neutrophils # Man Lymphocytes # (Manual) APTT 23.2 L Sodium 136 L BUN 23 H Glucose 155 H POC Glucose Hemoglobin A1c Triglycerides Cholesterol HDL Cholesterol Salicylates Acetaminophen 07/10/20 07/10/20 07/11/20 15:27 15:27 07:55 Hgb Hct MCV MCH RDW Lymph % (Auto) [place] % (Auto) Eos % (Auto) Lymph # (Auto) [place] # (Auto) Seg Neutrophils % Monocytes % (Manual) Seg Neutrophils # Man Lymphocytes # (Manual) APTT Sodium BUN Glucose POC Glucose 151 H Hemoglobin A1c Triglycerides Cholesterol HDL Cholesterol Salicylates < 0.3 L Acetaminophen 5.0 L 07/14/20 07/14/20 07/14/20 07:57 12:10 15:00 Hgb Hct MCV MCH RDW Lymph % (Auto) [place] % (Auto) Eos % (Auto) Lymph # (Auto) [place] # (Auto) Seg Neutrophils % Monocytes % (Manual) Seg Neutrophils # Man Lymphocytes # (Manual) APTT Sodium BUN Glucose POC Glucose 161 H 183 H Hemoglobin A1c 6.6 H Triglycerides Cholesterol HDL Cholesterol Salicylates Acetaminophen 07/14/20 07/14/20 07/15/20 16:35 21:38 04:51 Hgb Hct MCV MCH RDW Lymph % (Auto) [place] % (Auto) Eos % (Auto) Lymph # (Auto) [place] # (Auto) Seg Neutrophils % Monocytes % (Manual) Seg Neutrophils # Man Lymphocytes # (Manual) APTT Sodium BUN 21 H Glucose 190 H POC Glucose 195 H 173 H Hemoglobin A1c Triglycerides Cholesterol HDL Cholesterol Salicylates Acetaminophen 07/16/20 07/16/20 07/17/20 00:44 21:27 00:07 Hgb Hct MCV MCH RDW Lymph % (Auto) [place] % (Auto) Eos % (Auto) Lymph # (Auto) [place] # (Auto) Seg Neutrophils % Monocytes % (Manual) Seg Neutrophils # Man Lymphocytes # (Manual) APTT Sodium BUN Glucose POC Glucose 229 H 258 H 240 H Hemoglobin A1c Triglycerides Cholesterol HDL Cholesterol Salicylates Acetaminophen 07/17/20 07/17/20 07/17/20 04:21 04:44 04:44 Hgb 11.4 L Hct 35.4 L MCV 81 L MCH 26 L RDW 15.8 H Lymph % (Auto) [place] % (Auto) 15.3 H Eos % (Auto) 4.7 H Lymph # (Auto) 1.1 L [place] # (Auto) 0.9 H Seg Neutrophils % Monocytes % (Manual) Seg Neutrophils # Man Lymphocytes # (Manual) APTT Sodium BUN 23 H Glucose 177 H POC Glucose 167 H Hemoglobin A1c Triglycerides Cholesterol HDL Cholesterol Salicylates Acetaminophen 07/17/20 08:19 Hgb Hct MCV MCH RDW Lymph % (Auto) [place] % (Auto) Eos % (Auto) Lymph # (Auto) [place] # (Auto) Seg Neutrophils % Monocytes % (Manual) Seg Neutrophils # Man Lymphocytes # (Manual) APTT Sodium BUN Glucose POC Glucose 176 H Hemoglobin A1c Triglycerides Cholesterol HDL Cholesterol Salicylates Acetaminophen
[2020-07-17] MEDS: HEPARIN 5,000 UNIT/1 ML VIAL SUB-Q SCH ×2 (13:50→22:48)
--- NOTE | 2020-07-17 14:10 | Progress Note ---
Assessment and Plan 75 YO Male with HTN, CAD S/P Stent Placement, CVA on DAPT, DM, GERD presents to ED for evaluation. Patient states that he was in his usual state of health and experienced a sudden onset of right-sided arm and leg weakness. Patient was sulma jamison with TPA administration with improvement in symptoms. Patient alert and awake. Patient resting on room air. O2 saturation 98%. No complaints of chest pain, shortness of breath or cough. Patient afebrile, no leukocytosis. Patient had cardiac catheterization today 07/17/20. Chest X-ray done on 07/10/20. Reported no acute disease and no interval change. Patient presently on s/c heparin. plavix, protonix, and promethazine. Patient's daughter is at bedside. I explained the patient's respiratory status. - Patient Problems (1) CVA (cerebral vascular accident) Current Visit: Yes Status: Acute Plan to address problem: Management per Neurology. Recommend aspiration precautions. (2) HTN (hypertension) Current Visit: Yes Status: Chronic Qualifiers: Hypertension type: essential hypertension Qualified Code(s): I10 - Essential (primary) hypertension Plan to address problem: Management per primary care. (3) Right sided weakness Current Visit: Yes Status: Acute Plan to address problem: Management per Neurology. (4) GERD (gastroesophageal reflux disease) Current Visit: Yes Status: Chronic Qualifiers: Esophagitis presence: without esophagitis Qualified Code(s): K21.9 - Gastro-esophageal reflux disease without esophagitis Plan to address problem: Continue Protonix. (5) Type II diabetes mellitus Current Visit: Yes Status: Chronic Plan to address problem: Management per primary care. (6) Coronary atherosclerosis of [place] coronary artery Current Visit: No Status: Chronic Qualifiers: Associated angina: without angina Plan to address problem: Management as per cardiology. Subjective Date of service: 07/17/20 Principal diagnosis: CVA, EF 40-45% had heart catheterization today Interval history: 75 YO Male with HTN, CAD S/P Stent Placement, CVA on DAPT, DM, GERD presents to ED for evaluation. Patient states that he was in his usual state of health and experienced a sudden onset of right-sided arm and leg weakness. Patient was treated with TPA administration with improvement in symptoms. Patient alert and awake. Patient resting on room air. O2 saturation 98%. No complaints of chest pain, shortness of breath or cough. Patient afebrile, no leukocytosis. Patient had cardiac catheterization today 07/17/20. Chest X-ray done on 07/10/20. Reported no acute disease and no interval change. Patient presently on s/c heparin. plavix, protonix, and promethazine. Objective Vital Signs - 12hr 07/17/20 07/17/20 07/17/20 03:34 08:17 11:49 Temperature 98.1 F 97.5 F L 97.3 F L Pulse Rate 64 68 60 Pulse Rate [ From Monitor] Respiratory 14 18 18 Rate Blood Pressure 120/53 173/88 143/66 O2 Sat by Pulse 96 95 100 Oximetry 07/17/20 07/17/20 07/17/20 12:20 12:21 12:30 Temperature Pulse Rate 60 60 Pulse Rate [ 78 From Monitor] Respiratory Rate Blood Pressure 143/60 143/60 O2 Sat by Pulse 98 Oximetry Constitutional: no acute distress Eyes: non-icteric ENT: oropharynx moist Neck: supple, no lymphadenopathy, other (large neck circumference) Effort: normal Ascultation: Bilateral: diminished breath sounds Percussion: Bilateral: not dull Cardiovascular: regular rate and rhythm Gastrointestinal: normoactive bowel sounds Integumentary: normal Extremities: no cyanosis, no edema, pink and warm, pulses normal Neurologic: normal mental status, pupils equal and round, other (right hemiparesis) Psychiatric: mood appropriate, affect normal CBC and BMP: 07/17/20 04:44 07/17/20 04:44 ABG, PT/INR, D-dimer: PT/INR, D-dimer PT 12.8 Sec. (12.2-14.9) 07/17/20 04:44 INR 0.98 (0.87-1.13) 07/17/20 04:44 Abnormal lab findings: Abnormal Labs 07/07/20 07/07/20 07/07/20 16:23 16:23 23:28 Hgb Hct MCV 82 L MCH 26 L RDW Lymph % (Auto) [place] % (Auto) Eos % (Auto) Lymph # (Auto) [place] # (Auto) Seg Neutrophils % Monocytes % (Manual) 15.0 H Seg Neutrophils # Man 0.0 L Lymphocytes # (Manual) 0.0 L APTT Sodium 133 L BUN Glucose 189 H POC Glucose 112 H Hemoglobin A1c Triglycerides Cholesterol HDL Cholesterol Salicylates Acetaminophen 07/08/20 07/08/20 07/08/20 05:21 08:44 09:54 Hgb Hct MCV MCH RDW Lymph % (Auto) [place] % (Auto) Eos % (Auto) Lymph # (Auto) [place] # (Auto) Seg Neutrophils % Monocytes % (Manual) Seg Neutrophils # Man Lymphocytes # (Manual) APTT Sodium BUN Glucose POC Glucose 111 H 121 H Hemoglobin A1c Triglycerides 412 H Cholesterol 243 H HDL Cholesterol 27 L Salicylates Acetaminophen 07/08/20 07/09/20 07/10/20 11:36 06:45 10:32 Hgb Hct MCV MCH RDW Lymph % (Auto) [place] % (Auto) Eos % (Auto) Lymph # (Auto) [place] # (Auto) Seg Neutrophils % Monocytes % (Manual) Seg Neutrophils # Man Lymphocytes # (Manual) APTT Sodium BUN Glucose POC Glucose 111 H 139 H 209 H Hemoglobin A1c Triglycerides Cholesterol HDL Cholesterol Salicylates Acetaminophen 07/10/20 07/10/20 07/10/20 15:27 15:27 15:27 Hgb Hct MCV 82 L MCH 26 L RDW 15.3 H Lymph % (Auto) 12.3 L [place] % (Auto) 11.4 H Eos % (Auto) Lymph # (Auto) 0.9 L [place] # (Auto) Seg Neutrophils % 74.9 H Monocytes % (Manual) Seg Neutrophils # Man Lymphocytes # (Manual) APTT 23.2 L Sodium 136 L BUN 23 H Glucose 155 H POC Glucose Hemoglobin A1c Triglycerides Cholesterol HDL Cholesterol Salicylates Acetaminophen 07/10/20 07/10/20 07/11/20 15:27 15:27 07:55 Hgb Hct MCV MCH RDW Lymph % (Auto) [place] % (Auto) Eos % (Auto) Lymph # (Auto) [place] # (Auto) Seg Neutrophils % Monocytes % (Manual) Seg Neutrophils # Man Lymphocytes # (Manual) APTT Sodium BUN Glucose POC Glucose 151 H Hemoglobin A1c Triglycerides Cholesterol HDL Cholesterol Salicylates < 0.3 L Acetaminophen 5.0 L 07/14/20 07/14/20 07/14/20 07:57 12:10 15:00 Hgb Hct MCV MCH RDW Lymph % (Auto) [place] % (Auto) Eos % (Auto) Lymph # (Auto) [place] # (Auto) Seg Neutrophils % Monocytes % (Manual) Seg Neutrophils # Man Lymphocytes # (Manual) APTT Sodium BUN Glucose POC Glucose 161 H 183 H Hemoglobin A1c 6.6 H Triglycerides Cholesterol HDL Cholesterol Salicylates Acetaminophen 07/14/20 07/14/20 07/15/20 16:35 21:38 04:51 Hgb Hct MCV MCH RDW Lymph % (Auto) [place] % (Auto) Eos % (Auto) Lymph # (Auto) [place] # (Auto) Seg Neutrophils % Monocytes % (Manual) Seg Neutrophils # Man Lymphocytes # (Manual) APTT Sodium BUN 21 H Glucose 190 H POC Glucose 195 H 173 H Hemoglobin A1c Triglycerides Cholesterol HDL Cholesterol Salicylates Acetaminophen 07/16/20 07/16/20 07/17/20 00:44 21:27 00:07 Hgb Hct MCV MCH RDW Lymph % (Auto) [place] % (Auto) Eos % (Auto) Lymph # (Auto) [place] # (Auto) Seg Neutrophils % Monocytes % (Manual) Seg Neutrophils # Man Lymphocytes # (Manual) APTT Sodium BUN Glucose POC Glucose 229 H 258 H 240 H Hemoglobin A1c Triglycerides Cholesterol HDL Cholesterol Salicylates Acetaminophen 07/17/20 07/17/20 07/17/20 04:21 04:44 04:44 Hgb 11.4 L Hct 35.4 L MCV 81 L MCH 26 L RDW 15.8 H Lymph % (Auto) [place] % (Auto) 15.3 H Eos % (Auto) 4.7 H Lymph # (Auto) 1.1 L [place] # (Auto) 0.9 H Seg Neutrophils % Monocytes % (Manual) Seg Neutrophils # Man Lymphocytes # (Manual) APTT Sodium BUN 23 H Glucose 177 H POC Glucose 167 H Hemoglobin A1c Triglycerides Cholesterol HDL Cholesterol Salicylates Acetaminophen 07/17/20 08:19 Hgb Hct MCV MCH RDW Lymph % (Auto) [place] % (Auto) Eos % (Auto) Lymph # (Auto) [place] # (Auto) Seg Neutrophils % Monocytes % (Manual) Seg Neutrophils # Man Lymphocytes # (Manual) APTT Sodium BUN Glucose POC Glucose 176 H Hemoglobin A1c Triglycerides Cholesterol HDL Cholesterol Salicylates Acetaminophen Allied health notes reviewed: nursing
--- NOTE | 2020-07-17 17:16 | Progress Note ---
Assessment and Plan Telemetry reviewed: Sinus rhythm 72. No events. * Acute CVA * Patient is s/p thrombolytic therapy for acute ischemic CVA. Neurology is following. * MRI brain reviewed (07/10/2020): Evidence of acute left central and left paramedian pontine infarction. Multiple remote small deep infarctions. Remote left cerebellar infarction * Patient shows significant improvement of neurologic symptoms. * Patient is currently on DAPT ASA 81, Plavix 75 mg * Cardiomyopathy * Echocardiogram on 07/07/2020 indicates LVEF is 40 to 45%. Patient is currently on appropriate meds: Aspirin 81 mg, high intensity statin, beta- rosa. ANTOINE inhibitor is not indicated at this point. Continue to monitor on telemetry. * Coronary artery disease * Cardiac catheterization reviewed (07/17/2020): Severe and diffuse triple- vessel disease with 99% subtotal occlusion of ostial left circumflex, 90% proximal left anterior descending and 100% occlusion of proximal right coronary with extensive [id number] collaterals in this right dominant system. Preserved left ventricular function estimated 50 to 55%. High normal LVEDP. No evidence of aortic stenosis. * Neurology consulted per surgery clearance. Neurology recommends major cardiac surgery be performed at least 3 months out from date of acute CVA (07/07/2020) and at least 9-month interval for elective surgeries. * Met with patient and daughter to discuss cardiac developments and neurology recommendations. * Hypertension * Continue current antihypertensive regimen. Coreg 12.5 twice daily, losartan 100 mg daily, hydralazine 10 mg 3 times daily. * DVT prophylaxis * Heparin SQ Patient will be referred to cardiothoracic surgery in setting of new diagnosis of triple-vessel disease. Neurology recs appreciated. Will follow. Further recs to follow in a.m. Patient should follow-up with Dr Ford in our office within 1 to 2 weeks of discharge. #[id number] This patient was seen in conjunction with Dr Ori Ellison who agrees with this assessment and plan of care. Patient Problems (1) CVA (cerebral vascular accident) Current Visit: Yes Status: Acute Plan to address problem: (2) Right hemiparesis Current Visit: Yes Status: Acute Plan to address problem: (3) HTN (hypertension) Current Visit: Yes Status: Acute Qualifiers: Hypertension type: essential hypertension Qualified Code(s): I10 - Essential (primary) hypertension Plan to address problem: (4) GERD (gastroesophageal reflux disease) Current Visit: No Status: Acute Qualifiers: Esophagitis presence: without esophagitis Qualified Code(s): K21.9 - Gastro-esophageal reflux disease without esophagitis Plan to address problem: (5) DVT prophylaxis Current Visit: No Status: Acute Plan to address problem: (6) Syncope Current Visit: No Status: Acute Plan to address problem: (7) Cardiomyopathy Current Visit: No Status: Acute Plan to address problem: (8) abnormal MPI stress test Current Visit: No Status: Acute Plan to address problem: Subjective Date of service: 07/17/20 Principal diagnosis: CVA, Triple Vessel Disease Interval history: Patient resting comfortably in bed. No shortness of breath or chest pain overnight. Telemetry reviewed: Sinus rhythm 72. No events. Objective Last Vital Signs Temp 97.3 F L 07/17/20 11:49 Pulse 78 07/17/20 12:30 Resp 18 07/17/20 11:49 BP 143/60 07/17/20 12:21 Pulse Ox 98 07/17/20 12:30 - Physical Examination General: No Apparent Distress HEENT: Positive: EOMI, Normocephaly, Mucus Membranes Moist Neck: Positive: neck supple, trachea midline. Negative: JVD/HJR Cardiac: Positive: Reg Rate and Rhythm, S1/S2 Lungs: Positive: clear to auscultation, Normal Breath Sounds Neuro: Positive: Grossly Intact Abdomen: Positive: Soft. Negative: Tender Skin: Negative: Rash Musculoskeletal: No Fluid Collection Extremities: Present: upper extr. pulses, lower extr. pulses, edema (trace BLE) - Labs and Meds Coagulation 07/17/20 Range/Units 04:44 PT 12.8 (12.2-14.9) Sec. INR 0.98 (0.87-1.13) CBC 07/17/20 Range/Units 04:44 WBC 6.0 (4.5-11.0) K/mm3 RBC 4.38 (3.65-5.03) M/mm3 Hgb 11.4 L (11.8-15.2) gm/dl Hct 35.4 L (35.5-45.6) % Plt Count 191 (140-440) K/mm3 Lymph # (Auto) 1.1 L (1.2-5.4) K/mm3 [place] # (Auto) 0.9 H (0.0-0.8) K/mm3 Eos # (Auto) 0.3 (0.0-0.4) K/mm3 Baso # (Auto) 0.0 (0.0-0.1) K/mm3 Comprehensive Metabolic Panel 07/17/20 Range/Units 04:44 Sodium 137 (137-145) mmol/L Potassium 3.9 (3.6-5.0) mmol/L Chloride 101.9 (98-107) mmol/L Carbon Dioxide 25 (22-30) mmol/L BUN 23 H (9-20) mg/dL Creatinine 1.1 (0.8-1.3) mg/dL Glucose 177 H (75-100) mg/dL Calcium 8.7 (8.4-10.2) mg/dL - Imaging and Cardiology EKG: report reviewed, image reviewed Echo: report reviewed (07/07/2020 - EF 40-45%, mild-mod concentric LVH, neg Bubble study) - Telemetry EKG Rhythm: Sinus Rhythm - EKG Sinus rhythms and dysrhythmias: sinus rhythm - Allied health notes Allied health notes reviewed: nursing
[2020-07-17] MEDS: INSULIN LISPRO 100 UNIT/ML SUB-Q SCH (22:53)
[2020-07-18] MEDS: HEPARIN 5,000 UNIT/1 ML VIAL SUB-Q SCH ×3 (05:29→21:35)
--- NOTE | 2020-07-18 06:54 | Event Note ---
Date: 07/18/20 Patient was previously cleared by insurance for IRU, however, he then underwent a LHC which revealed severe 3 vessel disease. Will need to ensure patient can tolerate 3 hours of intense therapy per day and that it is safe for him to do so per cardiology recs. Will attempt to speak with cardiology this AM.
[2020-07-18] MEDS: LOSARTAN 50 MG TAB PO SCH (10:45)
[2020-07-18] MEDS: CLOPIDOGREL 75 MG TAB PO SCH (10:45)
[2020-07-18] MEDS: carvediloL 25 MG TAB PO SCH ×2 (10:45→21:19)
[2020-07-18] MEDS: ASPIRIN 81 MG TAB CHEW PO SCH (10:45)
[2020-07-18] MEDS: VENLAFAXINE 75 MG TAB PO SCH ×3 (10:49→20:15)
[2020-07-18] MEDS: PANTOPRAZOLE 40 MG TAB PO SCH (10:49)
[2020-07-18] MEDS: GLIMEPIRIDE 2 MG TAB PO SCH (10:49)
--- NOTE | 2020-07-18 11:00 | Progress Note ---
Assessment and Plan 75 YO Male with HTN, CAD S/P Stent Placement, CVA on DAPT, DM, GERD presents to ED for evaluation. Patient states that he was in his usual state of health and experienced a sudden onset of right-sided arm and leg weakness. Patient was sulma jamison with TPA administration with improvement in symptoms. Patient sleeping at this time. Patient is on room air. O2 saturation 94%. No acute respiratory distress. Patient afebrile, no leukocytosis. Patient had cardiac catheterization 07/17/20. Chest X-ray done on 07/10/20. Reported no acute disease and no interval change. Patient presently on s/c heparin. plavix, protonix, and promethazine. - Patient Problems (1) CVA (cerebral vascular accident) Current Visit: Yes Status: Acute Plan to address problem: Management per Neurology. Recommend aspiration precautions. (2) HTN (hypertension) Current Visit: Yes Status: Chronic Qualifiers: Hypertension type: essential hypertension Qualified Code(s): I10 - Essential (primary) hypertension Plan to address problem: Management per primary care. (3) Right sided weakness Current Visit: Yes Status: Acute Plan to address problem: Management per Neurology. (4) GERD (gastroesophageal reflux disease) Current Visit: Yes Status: Chronic Qualifiers: Esophagitis presence: without esophagitis Qualified Code(s): K21.9 - Gastro-esophageal reflux disease without esophagitis Plan to address problem: Continue Protonix. (5) Type II diabetes mellitus Current Visit: Yes Status: Chronic Plan to address problem: Management per primary care. (6) Coronary atherosclerosis of [place] coronary artery Current Visit: No Status: Chronic Qualifiers: Associated angina: without angina Plan to address problem: Management as per cardiology. Subjective Date of service: 07/18/20 Principal diagnosis: CVA, Triple Vessel Disease Interval history: 75 YO Male with HTN, CAD S/P Stent Placement, CVA on DAPT, DM, GERD presents to ED for evaluation. Patient states that he was in his usual state of health and experienced a sudden onset of right-sided arm and leg weakness. Patient was treated with TPA administration with improvement in symptoms. Patient sleeping at this time. Patient is on room air. O2 saturation 94%. No acute respiratory distress. Patient afebrile, no leukocytosis. Patient had cardiac catheterization 07/17/20. Chest X-ray done on 07/10/20. Reported no acute disease and no interval change. Patient presently on s/c heparin. plavix, protonix, and promethazine. Objective Vital Signs - 12hr 07/17/20 07/18/20 07/18/20 23:20 03:23 10:45 Temperature 97.6 F 97.8 F Pulse Rate 74 71 71 Respiratory 14 16 Rate Blood Pressure 152/71 101/58 101/58 O2 Sat by Pulse 91 96 Oximetry Constitutional: no acute distress, asleep Eyes: non-icteric ENT: oropharynx moist Neck: supple, no lymphadenopathy, other (large neck circumference) Effort: normal Ascultation: Bilateral: diminished breath sounds Percussion: Bilateral: not dull Cardiovascular: regular rate and rhythm Gastrointestinal: normoactive bowel sounds Integumentary: normal Extremities: no cyanosis, no edema, pink and warm, pulses normal Neurologic: normal mental status, pupils equal and round, other (right hemiparesis) Psychiatric: mood appropriate, affect normal CBC and BMP: 07/17/20 04:44 07/17/20 04:44 ABG, PT/INR, D-dimer: PT/INR, D-dimer PT 12.8 Sec. (12.2-14.9) 07/17/20 04:44 INR 0.98 (0.87-1.13) 07/17/20 04:44 Abnormal lab findings: Abnormal Labs 07/07/20 07/07/20 07/07/20 16:23 16:23 23:28 Hgb Hct MCV 82 L MCH 26 L RDW Lymph % (Auto) [place] % (Auto) Eos % (Auto) Lymph # (Auto) [place] # (Auto) Seg Neutrophils % Monocytes % (Manual) 15.0 H Seg Neutrophils # Man 0.0 L Lymphocytes # (Manual) 0.0 L APTT Sodium 133 L BUN Glucose 189 H POC Glucose 112 H Hemoglobin A1c Triglycerides Cholesterol HDL Cholesterol Salicylates Acetaminophen 07/08/20 07/08/20 07/08/20 05: 08:44 09:54 Hgb Hct MCV MCH RDW Lymph % (Auto) [place] % (Auto) Eos % (Auto) Lymph # (Auto) [place] # (Auto) Seg Neutrophils % Monocytes % (Manual) Seg Neutrophils # Man Lymphocytes # (Manual) APTT Sodium BUN Glucose POC Glucose 111 H 121 H Hemoglobin A1c Triglycerides 412 H Cholesterol 243 H HDL Cholesterol 27 L Salicylates Acetaminophen 07/08/20 07/09/20 07/10/20 11:36 06:45 10:32 Hgb Hct MCV MCH RDW Lymph % (Auto) [place] % (Auto) Eos % (Auto) Lymph # (Auto) [place] # (Auto) Seg Neutrophils % Monocytes % (Manual) Seg Neutrophils # Man Lymphocytes # (Manual) APTT Sodium BUN Glucose POC Glucose 111 H 139 H 209 H Hemoglobin A1c Triglycerides Cholesterol HDL Cholesterol Salicylates Acetaminophen 07/10/20 07/10/20 07/10/20 15:27 15:27 15:27 Hgb Hct MCV 82 L MCH 26 L RDW 15.3 H Lymph % (Auto) 12.3 L [place] % (Auto) 11.4 H Eos % (Auto) Lymph # (Auto) 0.9 L [place] # (Auto) Seg Neutrophils % 74.9 H Monocytes % (Manual) Seg Neutrophils # Man Lymphocytes # (Manual) APTT 23.2 L Sodium 136 L BUN 23 H Glucose 155 H POC Glucose Hemoglobin A1c Triglycerides Cholesterol HDL Cholesterol Salicylates Acetaminophen 07/10/20 07/10/20 07/11/20 15:27 15:27 07:55 Hgb Hct MCV MCH RDW Lymph % (Auto) [place] % (Auto) Eos % (Auto) Lymph # (Auto) [place] # (Auto) Seg Neutrophils % Monocytes % (Manual) Seg Neutrophils # Man Lymphocytes # (Manual) APTT Sodium BUN Glucose POC Glucose 151 H Hemoglobin A1c Triglycerides Cholesterol HDL Cholesterol Salicylates < 0.3 L Acetaminophen 5.0 L 07/14/20 07/14/20 07/14/20 07:57 12:10 15:00 Hgb Hct MCV MCH RDW Lymph % (Auto) [place] % (Auto) Eos % (Auto) Lymph # (Auto) [place] # (Auto) Seg Neutrophils % Monocytes % (Manual) Seg Neutrophils # Man Lymphocytes # (Manual) APTT Sodium BUN Glucose POC Glucose 161 H 183 H Hemoglobin A1c 6.6 H Triglycerides Cholesterol HDL Cholesterol Salicylates Acetaminophen 07/14/20 07/14/20 07/15/20 16:35 21:38 04:51 Hgb Hct MCV MCH RDW Lymph % (Auto) [place] % (Auto) Eos % (Auto) Lymph # (Auto) [place] # (Auto) Seg Neutrophils % Monocytes % (Manual) Seg Neutrophils # Man Lymphocytes # (Manual) APTT Sodium BUN 21 H Glucose 190 H POC Glucose 195 H 173 H Hemoglobin A1c Triglycerides Cholesterol HDL Cholesterol Salicylates Acetaminophen 07/16/20 07/16/20 07/17/20 00:44 21:27 00:07 Hgb Hct MCV MCH RDW Lymph % (Auto) [place] % (Auto) Eos % (Auto) Lymph # (Auto) [place] # (Auto) Seg Neutrophils % Monocytes % (Manual) Seg Neutrophils # Man Lymphocytes # (Manual) APTT Sodium BUN Glucose POC Glucose 229 H 258 H 240 H Hemoglobin A1c Triglycerides Cholesterol HDL Cholesterol Salicylates Acetaminophen 07/17/20 07/17/20 07/17/20 04:21 04:44 04:44 Hgb 11.4 L Hct 35.4 L MCV 81 L MCH 26 L RDW 15.8 H Lymph % (Auto) [place] % (Auto) 15.3 H Eos % (Auto) 4.7 H Lymph # (Auto) 1.1 L [place] # (Auto) 0.9 H Seg Neutrophils % Monocytes % (Manual) Seg Neutrophils # Man Lymphocytes # (Manual) APTT Sodium BUN 23 H Glucose 177 H POC Glucose 167 H Hemoglobin A1c Triglycerides Cholesterol HDL Cholesterol Salicylates Acetaminophen 07/17/20 07/17/20 07/18/20 08:19 21:36 08:31 Hgb Hct MCV MCH RDW Lymph % (Auto) [place] % (Auto) Eos % (Auto) Lymph # (Auto) [place] # (Auto) Seg Neutrophils % Monocytes % (Manual) Seg Neutrophils # Man Lymphocytes # (Manual) APTT Sodium BUN Glucose POC Glucose 176 H 264 H 229 H Hemoglobin A1c Triglycerides Cholesterol HDL Cholesterol Salicylates Acetaminophen Allied health notes reviewed: nursing
--- NOTE | 2020-07-18 11:35 | Progress Note ---
Assessment and Plan Telemetry reviewed: Sinus rhythm 72. No events. * Acute CVA * Patient is s/p thrombolytic therapy for acute ischemic CVA. Neurology is following. * MRI brain reviewed (07/10/2020): Evidence of acute left central and left paramedian pontine infarction. Multiple remote small deep infarctions. Remote left cerebellar infarction * Patient shows significant improvement of neurologic symptoms. * Patient is currently on DAPT ASA 81, Plavix 75 mg * Cardiomyopathy * Echocardiogram on 07/07/2020 indicates LVEF is 40 to 45%. Patient is currently on appropriate meds: Aspirin 81 mg, high intensity statin, beta- rosa. ANTOINE inhibitor is not indicated at this point. Continue to monitor on telemetry. * Coronary artery disease * Cardiac catheterization reviewed (07/17/2020): Severe and diffuse triple- vessel disease with 99% subtotal occlusion of ostial left circumflex, 90% proximal left anterior descending and 100% occlusion of proximal right coronary with extensive [id number] collaterals in this right dominant system. Preserved left ventricular function estimated 50 to 55%. High normal LVEDP. No evidence of aortic stenosis. * Neurology consulted per surgery clearance. Neurology recommends major cardiac surgery be performed at least 3 months out from date of acute CVA (07/07/2020) and at least 9-month interval for elective surgeries. * Met with patient and daughter to discuss cardiac developments and neurology recommendations. * Currently in stable cardiac status. The patient has extensive obstructive coronary artery disease, patient is well compensated with adequate collaterals noted on LHC. Patient will not be placed on any activity restrictions at this time and may advance as tolerated. * Hypertension * Continue current antihypertensive regimen. Coreg 12.5 twice daily, losartan 100 mg daily, hydralazine 10 mg 3 times daily. * DVT prophylaxis * Heparin SQ Patient will be referred to cardiothoracic surgery in setting of new diagnosis of triple-vessel disease. Neurology recs appreciated. Patient in contemplation to be moved to rehab for post CVA treatment. This was discussed with Dr. Wild in charge of rehab. They will trial patient on physical activity levels before making placement decision. Patient may discharge from cards standpoint. Patient should follow-up with Dr Ford in our [place] office on 07/31/2020 at 2:15 PM. #[phone] This patient was seen in conjunction with Dr Ori Ellison who agrees with this assessment and plan of care. Patient Problems (1) CVA (cerebral vascular accident) Current Visit: Yes Status: Acute Plan to address problem: (2) Right hemiparesis Current Visit: Yes Status: Acute Plan to address problem: (3) HTN (hypertension) Current Visit: Yes Status: Acute Qualifiers: Hypertension type: essential hypertension Qualified Code(s): I10 - Essential (primary) hypertension Plan to address problem: (4) GERD (gastroesophageal reflux disease) Current Visit: No Status: Acute Qualifiers: Esophagitis presence: without esophagitis Qualified Code(s): K21.9 - Gastro-esophageal reflux disease without esophagitis Plan to address problem: (5) DVT prophylaxis Current Visit: No Status: Acute Plan to address problem: (6) Syncope Current Visit: No Status: Acute Plan to address problem: (7) Cardiomyopathy Current Visit: No Status: Acute Plan to address problem: (8) abnormal MPI stress test Current Visit: No Status: Acute Plan to address problem: Subjective Date of service: 07/18/20 Principal diagnosis: CVA, Triple Vessel Disease Interval history: Patient resting comfortably in bed. No shortness of breath or chest pain overnight. Telemetry reviewed: Sinus rhythm 69. Episode of 9 beat V. tach noted overnight. Objective Last Vital Signs Temp 97.8 F 07/18/20 03:23 Pulse 71 07/18/20 10:45 Resp 16 07/18/20 03:23 BP 101/58 07/18/20 10:45 Pulse Ox 96 07/18/20 03:23 - Physical Examination General: No Apparent Distress HEENT: Positive: EOMI, Normocephaly, Mucus Membranes Moist Neck: Positive: neck supple, trachea midline. Negative: JVD/HJR Cardiac: Positive: Reg Rate and Rhythm, S1/S2 Lungs: Positive: clear to auscultation, Normal Breath Sounds Neuro: Positive: Grossly Intact Abdomen: Positive: Soft. Negative: Tender Skin: Negative: Rash Musculoskeletal: No Fluid Collection Extremities: Present: upper extr. pulses, lower extr. pulses. Absent: edema (trace BLE) - Imaging and Cardiology EKG: report reviewed, image reviewed Nuclear stress test: report reviewed Echo: report reviewed (07/07/2020 - EF 40-45%, mild-mod concentric LVH, neg Bubble study) Cardiac cath: report reviewed - EKG Sinus rhythms and dysrhythmias: sinus rhythm - Allied health notes Allied health notes reviewed: nursing
--- NOTE | 2020-07-18 14:04 | Progress Note ---
Assessment and Plan --Acute stroke Patient is status post TPA administration on 07/07. MRI without contrast - acute infarct in the left paramedian pontine area. Echocardiogram - No PFO, ASD PT recommends rehab Antiplatelet agents Neurology follow-up as outpatient --Cardiomyopathy EF 40%-45% Lexiscan stress test positive with reversible ischemia S/P LHC on 07/17 Cardiology note reviewed Continue beta-rosa --Coronary artery disease status post cardiac cath on 07/17 Cardiac catheterization revealed three-vessel coronary artery disease Patient need referral for cardiothoracic surgeon for definitive treatment By neurology neurosurgery can be scheduled within 3 months Plan for conservative management for now and patient will be referred to cardiothoracic surgeon as outpatient --Hypertension Poorly controlled Increase carvedilol to 25 mg twice daily Increase losartan 100 mg daily --Dyslipidemia High triglycerides/low HDL/elevated total cholesterol Continue high intensity atorvastatin --Type 2 diabetes07/18 Accu-Cheks reviewed Increase glimepiride 2 mg daily(patient is on 4 mg at home) A1c 6.6 Continue insulin sliding scale coverage --NSVT, continue beta-rosa, cardiology following --GERD without esophagitis PPI therapy, supportive care --DVT prophylaxis Brief history: 75 YO Male with HTN, CAD S/P Stent Placement, CVA on DAPT, DM, GERD presents to ED for evaluation. Pt reports" I feel weak on my right side". Patient states that he was in his usual state of health and experienced a sudden onset of righ t-sided arm and leg weakness at approximately 1300 hrs. EMS was notified and upon arrival the patient was found to have a neurologic deficit. A code stroke was called and the patient was transported to [facility] for further care and evaluation of the aforementioned symptoms. The patient was seen and evaluated in the emergency department. All lab and imaging studies reviewed. Patient found to have clinical symptoms consistent with CVA. Patient was treated with TPA administration with improvement in symptoms. Patient admitted to ICU and initiated on CVA protocol. Pulmonology consulted in ED. Patient denies fever, chills, chest pain, palpitation, productive cough, skin rash, recent ill contac t, or known exposure to COVID-19. No prior admission for review. No medication listed at time of admission reconciliation. Advanced care planning conducted in ED. Daily clinical course: 07/08. Patient is status post TPA. Has some speech difficulty and mild right-sided weakness. Echocardiogram pending. MRI brain without contrast ordered. Neurology consulted. Continue to hold aspirin products 24 hours after TPA. 07/09. Right-sided weakness slightly better today. Echocardiogram and MRI of the brain stable pending. Aspirin has been resumed. Neurology evaluation apprec iated. Okay to transfer to telemetry. Resume Coreg. Continue to monitor blood pressure closely 07/10: Code Met called today and changed to Code Stroke due to change in mental status although transient. Will ask for Cardiology input considering the circumstance, awaiting re-evaluation by stroke team. Repeat CT Head was negative. MRI not completed due to the code MET 07/11. MRI brain showed acute infarcts. Patient symptoms have improved. Patient has been seen by physical therapy who recommends rehab but will need to be reevaluated as his neurologic deficits have improved. He will need to follow-up with neurology after discharge. 07/12. He notes improvement in right sided weakness. Needs rehab. Pending insurance authorization. 07/13. Has no complaints today. Needs placement but waiting for insurance authorization. COVID-19 test negative. 07/14 patient is alert and oriented and offers no specific complaints. He denies any chest pain or shortness of breath Lab results reviewed. Cardiology note reviewed. Scheduled for [facility] on Friday/for subacute rehab placement 07/15 patient is alert and oriented and offers no specific complaints. He denies any chest pain or shortness of breath. Vital signs reviewed. Blood pressure is poorly controlled. For subacute rehab placement 07/16 patient is alert and oriented, no apparent distress and offers no specific complaints, no acute events overnight. Scheduled for [facility] in a.m. followed by subacute rehab placement 07/17. Plan for left heart cath this AM. He denies any chest pain. Patient has been accepted to subacute rehab. Plan to discharge to rehab if medically stable after cath 07/18: Cardiac catheterization revealed three-vessel coronary artery disease Patient need referral for cardiothoracic surgeon for definitive treatment By neurology neurosurgery can be scheduled within 3 months Plan for conservative management for now and patient will be referred to cardiothoracic surgeon as outpatient Referral sent out for assisted placement as with underlying coronary artery disease patient is not a good candidate for rehab Patient also noted to have few beats of V. tach, continue beta-rosa for now, follow cardiology recommendation. Subjective Date of service: 07/18/20 Principal diagnosis: CVA, Triple Vessel Disease Interval history: Patient seen and examined. Medical records and medication list reviewed. No acute event overnight noted by the RN. Patient denies any chest pain or difficulty breathing. Patient is tolerating diet. Discussed plan of care at bedside with patient. Had 8 beats of Vtac on telemetry Objective - Exam Narrative Exam: GENERAL: well-developed and well-nourished elderly white male lying on bed appeared to be in no discomfort. HEENT: Normocephalic. Atraumatic. No conjunctival congestion or icterus. Patient has moist mucous membranes. NECK: Supple. Trachea midline. CHEST/LUNGS: Clear to auscultated bilaterally, breathing nonlabored. No wheezes crackles or rhonchi. HEART/CARDIOVASCULAR: Regular in rate and rhythm. S1 and S2 positive. ABDOMEN: Abdomen is soft, nontender. Patient has normal bowel sounds. SKIN: There is no rash. Warm and dry. NEURO: No focal motor deficit. Follows command. MUSCULOSKELETAL: No joint effusion or tenderness. EXTRIMITY: No edema, no cyanosis or clubbing. PSYCH: Cooperative. - Constitutional Vitals: Vital Signs - 12hr 07/18/20 07/18/20 03:23 10:45 Temperature 97.8 F Pulse Rate 71 71 Respiratory 16 Rate Blood Pressure 101/58 101/58 O2 Sat by Pulse 96 Oximetry - Labs CBC & Chem 7: 07/17/20 04:44 07/17/20 04:44 Labs: Abnormal lab results 07/17/20 07/18/20 07/18/20 Range/Units 21:36 08:31 11:15 POC Glucose 264 H 229 H 336 H (70-105) mg/dL HEART Score - HEART Score Troponin: Troponin T < 0.010 ng/mL (0.00-0.029) 07/11/20 05:08
[2020-07-18] MEDS: INSULIN LISPRO 100 UNIT/ML SUB-Q SCH (21:20)
[2020-07-19] MEDS: HEPARIN 5,000 UNIT/1 ML VIAL SUB-Q SCH ×3 (05:59→13:12)
[2020-07-19] MEDS: PANTOPRAZOLE 40 MG TAB PO SCH (08:29)
[2020-07-19] MEDS: VENLAFAXINE 75 MG TAB PO SCH ×2 (08:29→13:12)
[2020-07-19] MEDS: GLIMEPIRIDE 2 MG TAB PO SCH (08:29)
--- NOTE | 2020-07-19 09:08 | Progress Note ---
Assessment and Plan 75 YO Male with HTN, CAD S/P Stent Placement, CVA on DAPT, DM, GERD presents to ED for evaluation. Patient states that he was in his usual state of health and experienced a sudden onset of right-sided arm and leg weakness. Patient was sulma jamison with TPA administration with improvement in symptoms. Patient awake. Patient resting on room air. O2 saturation 99%. No acute respiratory distress. Patient afebrile, no leukocytosis. Patient had cardiac catheterization 07/17/20. Chest X-ray done on 07/10/20. Reported no acute disease and no interval change. Patient presently on s/c heparin. plavix, protonix, and promethazine. - Patient Problems (1) CVA (cerebral vascular accident) Current Visit: Yes Status: Acute Plan to address problem: Management per Neurology. Recommend aspiration precautions. (2) HTN (hypertension) Current Visit: Yes Status: Chronic Qualifiers: Hypertension type: essential hypertension Qualified Code(s): I10 - Essential (primary) hypertension Plan to address problem: Management per primary care. (3) Right sided weakness Current Visit: Yes Status: Acute Plan to address problem: Management per Neurology. (4) GERD (gastroesophageal reflux disease) Current Visit: Yes Status: Chronic Qualifiers: Esophagitis presence: without esophagitis Qualified Code(s): K21.9 - Gastro-esophageal reflux disease without esophagitis Plan to address problem: Continue Protonix. (5) Type II diabetes mellitus Current Visit: Yes Status: Chronic Plan to address problem: Management per primary care. (6) Coronary atherosclerosis of [place] coronary artery Current Visit: No Status: Chronic Qualifiers: Associated angina: without angina Plan to address problem: Management as per cardiology. Subjective Date of service: 07/19/20 Principal diagnosis: CVA, Triple Vessel Disease Interval history: 75 YO Male with HTN, CAD S/P Stent Placement, CVA on DAPT, DM, GERD presents to ED for evaluation. Patient states that he was in his usual state of health and experienced a sudden onset of right-sided arm and leg weakness. Patient was treated with TPA administration with improvement in symptoms. Patient awake. Patient resting on room air. O2 saturation 99%. No acute respiratory distress. Patient afebrile, no leukocytosis. Patient had cardiac catheterization 07/17/20. Chest X-ray done on 07/10/20. Reported no acute disease and no interval change. Patient presently on s/c heparin. plavix, protonix, and promethazine. Objective Vital Signs - 12hr 07/18/20 07/18/20 07/19/20 21:19 23:17 03:44 Temperature 98.4 F 97.6 F Pulse Rate 78 74 64 Respiratory 12 14 Rate Blood Pressure 165/85 176/89 110/67 O2 Sat by Pulse 95 97 Oximetry Constitutional: no acute distress, asleep Eyes: non-icteric ENT: oropharynx moist Neck: supple, no lymphadenopathy, other (large neck circumference) Effort: normal Ascultation: Bilateral: diminished breath sounds Percussion: Bilateral: not dull Cardiovascular: regular rate and rhythm Gastrointestinal: normoactive bowel sounds Integumentary: normal Extremities: no cyanosis, no edema, pink and warm, pulses normal Neurologic: normal mental status, pupils equal and round, other (right hemiparesis) Psychiatric: mood appropriate, affect normal CBC and BMP: 07/17/20 04:44 07/17/20 04:44 ABG, PT/INR, D-dimer: PT/INR, D-dimer PT 12.8 Sec. (12.2-14.9) 07/17/20 04:44 INR 0.98 (0.87-1.13) 07/17/20 04:44 Abnormal lab findings: Abnormal Labs 07/07/20 07/07/20 07/07/20 16:23 16:23 23:28 Hgb Hct MCV 82 L MCH 26 L RDW Lymph % (Auto) [place] % (Auto) Eos % (Auto) Lymph # (Auto) [place] # (Auto) Seg Neutrophils % Monocytes % (Manual) 15.0 H Seg Neutrophils # Man 0.0 L Lymphocytes # (Manual) 0.0 L APTT Sodium 133 L BUN Glucose 189 H POC Glucose 112 H Hemoglobin A1c Triglycerides Cholesterol HDL Cholesterol Salicylates Acetaminophen 07/08/20 07/08/20 07/08/20 05:21 08:44 09:54 Hgb Hct MCV MCH RDW Lymph % (Auto) [place] % (Auto) Eos % (Auto) Lymph # (Auto) [place] # (Auto) Seg Neutrophils % Monocytes % (Manual) Seg Neutrophils # Man Lymphocytes # (Manual) APTT Sodium BUN Glucose POC Glucose 111 H 121 H Hemoglobin A1c Triglycerides 412 H Cholesterol 243 H HDL Cholesterol 27 L Salicylates Acetaminophen 07/08/20 07/09/20 07/10/20 11:36 06:45 10:32 Hgb Hct MCV MCH RDW Lymph % (Auto) [place] % (Auto) Eos % (Auto) Lymph # (Auto) [place] # (Auto) Seg Neutrophils % Monocytes % (Manual) Seg Neutrophils # Man Lymphocytes # (Manual) APTT Sodium BUN Glucose POC Glucose 111 H 139 H 209 H Hemoglobin A1c Triglycerides Cholesterol HDL Cholesterol Salicylates Acetaminophen 07/10/20 07/10/20 07/10/20 15:27 15:27 15:27 Hgb Hct MCV 82 L MCH 26 L RDW 15.3 H Lymph % (Auto) 12.3 L [place] % (Auto) 11.4 H Eos % (Auto) Lymph # (Auto) 0.9 L [place] # (Auto) Seg Neutrophils % 74.9 H Monocytes % (Manual) Seg Neutrophils # Man Lymphocytes # (Manual) APTT 23.2 L Sodium 136 L BUN 23 H Glucose 155 H POC Glucose Hemoglobin A1c Triglycerides Cholesterol HDL Cholesterol Salicylates Acetaminophen 07/10/20 07/10/20 07/11/20 15:27 15:27 07:55 Hgb Hct MCV MCH RDW Lymph % (Auto) [place] % (Auto) Eos % (Auto) Lymph # (Auto) [place] # (Auto) Seg Neutrophils % Monocytes % (Manual) Seg Neutrophils # Man Lymphocytes # (Manual) APTT Sodium BUN Glucose POC Glucose 151 H Hemoglobin A1c Triglycerides Cholesterol HDL Cholesterol Salicylates < 0.3 L Acetaminophen 5.0 L 07/14/20 07/14/20 07/14/20 07:57 12:10 15:00 Hgb Hct MCV MCH RDW Lymph % (Auto) [place] % (Auto) Eos % (Auto) Lymph # (Auto) [place] # (Auto) Seg Neutrophils % Monocytes % (Manual) Seg Neutrophils # Man Lymphocytes # (Manual) APTT Sodium BUN Glucose POC Glucose 161 H 183 H Hemoglobin A1c 6.6 H Triglycerides Cholesterol HDL Cholesterol Salicylates Acetaminophen 07/14/20 07/14/20 07/15/20 16:35 21:38 04:51 Hgb Hct MCV MCH RDW Lymph % (Auto) [place] % (Auto) Eos % (Auto) Lymph # (Auto) [place] # (Auto) Seg Neutrophils % Monocytes % (Manual) Seg Neutrophils # Man Lymphocytes # (Manual) APTT Sodium BUN 21 H Glucose 190 H POC Glucose 195 H 173 H Hemoglobin A1c Triglycerides Cholesterol HDL Cholesterol Salicylates Acetaminophen 07/16/20 07/16/20 07/17/20 00:44 21:27 00:07 Hgb Hct MCV MCH RDW Lymph % (Auto) [place] % (Auto) Eos % (Auto) Lymph # (Auto) [place] # (Auto) Seg Neutrophils % Monocytes % (Manual) Seg Neutrophils # Man Lymphocytes # (Manual) APTT Sodium BUN Glucose POC Glucose 229 H 258 H 240 H Hemoglobin A1c Triglycerides Cholesterol HDL Cholesterol Salicylates Acetaminophen 07/17/20 07/17/20 07/17/20 04:21 04:44 04:44 Hgb 11.4 L Hct 35.4 L MCV 81 L MCH 26 L RDW 15.8 H Lymph % (Auto) [place] % (Auto) 15.3 H Eos % (Auto) 4.7 H Lymph # (Auto) 1.1 L [place] # (Auto) 0.9 H Seg Neutrophils % Monocytes % (Manual) Seg Neutrophils # Man Lymphocytes # (Manual) APTT Sodium BUN 23 H Glucose 177 H POC Glucose 167 H Hemoglobin A1c Triglycerides Cholesterol HDL Cholesterol Salicylates Acetaminophen 07/17/20 07/17/20 07/18/20 08:19 21:36 08:31 Hgb Hct MCV MCH RDW Lymph % (Auto) [place] % (Auto) Eos % (Auto) Lymph # (Auto) [place] # (Auto) Seg Neutrophils % Monocytes % (Manual) Seg Neutrophils # Man Lymphocytes # (Manual) APTT Sodium BUN Glucose POC Glucose 176 H 264 H 229 H Hemoglobin A1c Triglycerides Cholesterol HDL Cholesterol Salicylates Acetaminophen 07/18/20 07/18/20 07/18/20 11:15 15:50 20:50 Hgb Hct MCV MCH RDW Lymph % (Auto) [place] % (Auto) Eos % (Auto) Lymph # (Auto) [place] # (Auto) Seg Neutrophils % Monocytes % (Manual) Seg Neutrophils # Man Lymphocytes # (Manual) APTT Sodium BUN Glucose POC Glucose 336 H 136 H 233 H Hemoglobin A1c Triglycerides Cholesterol HDL Cholesterol Salicylates Acetaminophen 07/19/20 08:21 Hgb Hct MCV MCH RDW Lymph % (Auto) [place] % (Auto) Eos % (Auto) Lymph # (Auto) [place] # (Auto) Seg Neutrophils % Monocytes % (Manual) Seg Neutrophils # Man Lymphocytes # (Manual) APTT Sodium BUN Glucose POC Glucose 182 H Hemoglobin A1c Triglycerides Cholesterol HDL Cholesterol Salicylates Acetaminophen Allied health notes reviewed: nursing
--- NOTE | 2020-07-19 09:12 | Progress Note ---
Assessment and Plan Telemetry reviewed: Sinus rhythm 76. Episode of 9 beat V. tach noted overnight. * Acute CVA * Patient is s/p thrombolytic therapy for acute ischemic CVA. Neurology is following. * MRI brain reviewed (07/10/2020): Evidence of acute left central and left paramedian pontine infarction. Multiple remote small deep infarctions. Re mote left cerebellar infarction * Patient shows significant improvement of neurologic symptoms. * Patient is currently on DAPT ASA 81, Plavix 75 mg * Cardiomyopathy * Echocardiogram on 07/07/2020 indicates LVEF is 40 to 45%. Patient is currently on appropriate meds: Aspirin 81 mg, high intensity statin, beta- rosa. ANTOINE inhibitor is not indicated at this point. Continue to monitor on telemetry. * Coronary artery disease * Cardiac catheterization reviewed (07/17/2020): Severe and diffuse triple- vessel disease with 99% subtotal occlusion of ostial left circumflex, 90% proximal left anterior descending and 100% occlusion of proximal right coronary with extensive gnah-bm-[id number] collaterals in this right dominant system. Preserved left ventricular function estimated 50 to 55%. High normal LVEDP. No evidence of aortic stenosis. * Neurology consulted per surgery clearance. Neurology recommends major cardiac surgery be performed at least 3 months out from date of acute CVA (07/07/2020) and at least 9-month interval for elective surgeries. * Hypertension * Continue current antihypertensive regimen. Coreg 12.5 twice daily, losartan 100 mg daily, hydralazine 10 mg 3 times daily. * DVT prophylaxis * Heparin SQ Patient currently stable cardiac status. Obstructive coronary artery disease is well compensated with collaterals. patient may discharge from cards standpoint. Patient should follow-up with Dr. Neal Marino, cardiothoracic surgery with [facility] appointment scheduling pending #[phone] Patient should follow-up with Dr Ford in our [place] office on 07/31/2020 at 2:15 PM. #[phone] This patient was seen in conjunction with Dr Ori Ellison who agrees with this assessment and plan of care. Patient Problems (1) CVA (cerebral vascular accident) Current Visit: Yes Status: Acute Plan to address problem: (2) Right hemiparesis Current Visit: Yes Status: Acute Plan to address problem: (3) HTN (hypertension) Current Visit: Yes Status: Acute Qualifiers: Hypertension type: essential hypertension Qualified Code(s): I10 - Essential (primary) hypertension Plan to address problem: (4) GERD (gastroesophageal reflux disease) Current Visit: No Status: Acute Qualifiers: Esophagitis presence: without esophagitis Qualified Code(s): K21.9 - Gastro-esophageal reflux disease without esophagitis Plan to address problem: (5) DVT prophylaxis Current Visit: No Status: Acute Plan to address problem: (6) Syncope Current Visit: No Status: Acute Plan to address problem: (7) Cardiomyopathy Current Visit: No Status: Acute Plan to address problem: (8) abnormal MPI stress test Current Visit: No Status: Acute Plan to address problem: Subjective Date of service: 07/19/20 Principal diagnosis: CVA, Triple Vessel Disease Interval history: Patient resting comfortably in bed. No shortness of breath or chest pain overnight. Telemetry reviewed: Sinus rhythm 76. Episode of 9 beat V. tach noted overnight. Objective Last Vital Signs Temp 97.6 F 07/19/20 03:44 Pulse 64 07/19/20 03:44 Resp 14 07/19/20 03:44 BP 110/67 07/19/20 03:44 Pulse Ox 97 07/19/20 03:44 - Physical Examination General: No Apparent Distress HEENT: Positive: EOMI, Normocephaly, Mucus Membranes Moist Neck: Positive: neck supple, trachea midline. Negative: JVD/HJR Cardiac: Positive: Reg Rate and Rhythm, S1/S2 Lungs: Positive: Normal Exam, Normal Breath Sounds Neuro: Positive: Grossly Intact Abdomen: Positive: Soft. Negative: Tender Skin: Negative: Rash Musculoskeletal: No Fluid Collection Extremities: Present: upper extr. pulses, lower extr. pulses. Absent: edema (trace BLE) - Imaging and Cardiology EKG: report reviewed, image reviewed Echo: report reviewed (07/07/2020 - EF 40-45%, mild-mod concentric LVH, neg Bubble study) Cardiac cath: report reviewed - Telemetry EKG Rhythm: Sinus Rhythm - EKG Sinus rhythms and dysrhythmias: sinus rhythm - Allied health notes Allied health notes reviewed: nursing
[2020-07-19] MEDS: LOSARTAN 50 MG TAB PO SCH (10:30)
[2020-07-19] MEDS: ASPIRIN 81 MG TAB CHEW PO SCH (10:30)
[2020-07-19] MEDS: CLOPIDOGREL 75 MG TAB PO SCH (10:30)
[2020-07-19] MEDS: carvediloL 25 MG TAB PO SCH (10:30)
[2020-07-19 12:38] VITALS: BP 129/67
--- NOTE | 2020-07-19 14:17 | Discharge Summary ---
Providers - Providers Date of Admission: 07/07/20 17:29 Date of discharge: 07/19/20 Attending physician: STAN COREA 07/07/20 17:29 Occupational Therapy Evaluate and Treat [CONS] Routine Comment: Reason For Exam: Neuro deficits Physical Therapy Evaluation and Treat [CONS] Routine Comment: Reason For Exam: Neuro deficits 07/07/20 17:30 Speech Therapy Evaluation and Treat [CONS] Routine Reason For Exam: swallow eval 07/08/20 02:14 Consult to Physician [CONS] Routine Comment: Consulting Provider: KALEB BRUNO Physician Instructions: Reason For Exam: admit to ICU 07/08/20 11:36 Consult to Physician [CONS] Routine Comment: Consulting Provider: MANNIE TENA Physician Instructions: Reason For Exam: CVA 07/10/20 13:38 Consult to Physician [CONS] Routine Comment: Consulting Provider: MARIKA ALVAREZ Physician Instructions: Reason For Exam: syncope Primary care physician: MERCY FLOREZ Hospitalization Condition: Fair Pertinent studies: CTA head is significant for multiple calcified and significantly stenotic vessels. MRI without contrast - acute infarct in the left paramedian pontine area. Echocardiogram -EF 40 to 45%, no PFO, ASD Lexiscan stress test positive with reversible ischemia S/P LHC on 07/17 revealed three-vessel coronary artery disease Hospital course: 75 YO Male with HTN, CAD S/P Stent Placement, CVA on DAPT, DM, GERD presents to ED on 07/07/20 for evaluation of a sudden onset of right-sided arm and leg weakness at approximately 1300 hrs. EMS was notified and upon arrival the patient was found to have a neurologic deficit. A code stroke was called and the patient was transported to [facility] for further care and evaluation of the afor ementioned symptoms. The patient was seen and evaluated in the emergency department. All lab and imaging studies reviewed. Patient found to have clinical symptoms consistent with CVA. Patient was treated with TPA administration with improvement in symptoms. Patient admitted to ICU and initiated on CVA protocol. Pulmonology consulted in ED. Patient denies fever, chills, chest pain, palpitation, productive cough, skin rash, recent ill contact, or known exposure to COVID-19. No prior admission for review. No medication listed at time of admission reconciliation. Advanced care planning c onducted in ED. Daily clinical course: 07/08. Patient is status post TPA. Has some speech difficulty and mild right-sided weakness. Echocardiogram pending. MRI brain without contrast ordered. Neurology consulted. Continue to hold aspirin products 24 hours after TPA. 07/09. Right-sided weakness slightly better today. Echocardiogram and MRI of the brain pending. Aspirin has been resumed. Neurology evaluation appreciated. Okay to transfer to telemetry. Resume Coreg. Continue to monitor blood pressure closely 07/10: Code Met called today for syncope and changed to Code Stroke due to change in mental status although transient. Will ask for Cardiology input considering the circumstance, awaiting re-evaluation by stroke team. Repeat CT Head was negative. MRI not completed due to the code MET. 2D echo revealed EF 40 to 45%. 07/11. MRI brain showed acute infarcts. Patient symptoms have improved. Patient has been seen by physical therapy who recommends rehab but will need to be reevaluated as his neurologic deficits have improved. He will need to follow-up with neurology after discharge. 07/12. He notes improvement in right sided weakness. Needs rehab. Pending insurance authorization. 07/13. Has no complaints today. Needs placement but waiting for insurance authorization. COVID-19 test negative. Cardiology plan for stress test tomorrow as 2D echo showed low EF with a recent episode of syncope in house. 07/14 patient is alert and oriented and offers no specific complaints. He denies any chest pain or shortness of breath. Stress test performed today showed abnormal results. Lab results reviewed. Cardiology note reviewed. Scheduled for [facility] on Friday, waiting for subacute rehab placement 07/15 patient is alert and oriented and offers no specific complaints. He denies any chest pain or shortness of breath. Vital signs reviewed. Blood pressure is poorly controlled. For subacute rehab placement 07/16 patient is alert and oriented, no apparent distress and offers no specific complaints, no acute events overnight. Scheduled for C in a.m. followed by subacute rehab placement 07/17. Plan for left heart cath this AM. He denies any chest pain. Patient has been accepted to subacute rehab. Plan to discharge to rehab if medically stable after cath. 07/18: Cardiac catheterization yesterday revealed three-vessel coronary artery disease Patient need referral for cardiothoracic surgeon for definitive treatment Per neurology any surgery cannot be scheduled within 3 months Plan for conservative management for now and patient will be referred to cardiothoracic surgeon as outpatient Referral sent out for skilled nursing placement as with underlying coronary artery disease patient may not a good candidate for rehab Patient also noted to have few beats of V. tach, continue beta-rosa for now, follow cardiology recommendation. 07/19: Family refused for subacute rehab placement or SNF. Patient will be discharged home with outpatient follow-up with home health. Discharge plan and management was thoroughly discussed with the patient and he verbalized understanding. Disposition: DC-01 TO HOME OR SELFCARE Final Discharge Diagnosis (Prints w/discharge instructions): Acute CVA in the left paramedian pontine area. Cardiomyopathy with EF 40 to 45%. Coronary artery disease status post cardiac cath on 07/17. Synpocpe on 07/10 likely vasovagal. Hypertension. Hyperlipidemia. Diabetes mellitus type 2 A1c 6.6. NSVT, resolved. GERD without esophagitis Time spent for discharge: 34 minutes Core Measure Documentation - Palliative Care Palliative Care/ Comfort Measures: Not Applicable - Core Measures Any of the following diagnoses?: stroke - Stroke Discharge Requirements Statin for LDL = or >70 mg/dl on DC: Yes Anticoag for atrial fib/atrial flutter: Not Applicable Antithrombotic for ischemic stroke: Yes Exam - Physical Exam Narrative exam: GENERAL: well-developed and well-nourished elderly white male lying on bed appeared to be in no discomfort. HEENT: Normocephalic. Atraumatic. No conjunctival congestion or icterus. Patient has moist mucous membranes. NECK: Supple. Trachea midline. CHEST/LUNGS: Clear to auscultated bilaterally, breathing nonlabored. No wheezes crackles or rhonchi. HEART/CARDIOVASCULAR: Regular in rate and rhythm. S1 and S2 positive. ABDOMEN: Abdomen is soft, nontender. Patient has normal bowel sounds. SKIN: There is no rash. Warm and dry. NEURO: No focal motor deficit. Follows command. MUSCULOSKELETAL: No joint effusion or tenderness. EXTRIMITY: No edema, no cyanosis or clubbing. PSYCH: Cooperative. - Constitutional Vitals: Temp Pulse Resp BP Pulse Ox 97.0 F L 63 18 129/67 99 07/19/20 11:15 07/19/20 12:58 07/19/20 12:13 07/19/20 11:15 05/12/21 11:15 Plan Activity: advance as tolerated Weight Bearing Status: Non-Weight Bearing Diet: low fat, low salt, diabetic Additional Instructions: Patient should follow-up with Dr. Neal Marino, cardiothoracic surgery with [facility] appointment scheduling pending #[phone]. Patient should follow-up with Dr Alvarez in [place] office on 07/31/2020 at 2:15 PM. #[phone] Follow up with: MERCY FLOREZ MD [Primary Care Provider] - 7 Days MIKEL DE SOUZA MD [Staff Physician] - 7 Days Prescriptions: AtorvaSTATin [Lipitor] 80 mg PO QHS #60 tablet Glimepiride [Amaryl] 2 mg PO QDDIAB #60 tablet Aspirin [Aspirin BABY CHEW TAB] 81 mg PO QDAY #30 tab.chew carvediloL [Coreg] 25 mg PO Q12HR #60 tablet Losartan [Cozaar] 100 mg PO QDAY #30 tablet Clopidogrel [Plavix] 75 mg PO DAILY #30 tablet Pantoprazole [Protonix TAB] 40 mg PO QDAC #60 tablet
--- NOTE | 2020-07-20 11:33 | Electrocardiograph Report ---
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
== END 2020-07-19 16:56 | disposition home health service (06) | DRG 62 ==
LOC: ED 16:02 → CC1 17:29 → 4A 07-09 12:54
PROVIDERS: ADMIT Internal Medicine; ATTEND Internal Medicine
PROC: 3E03317 Introduction of Other Thrombolytic into Peripheral Vein, Percutaneous Approach (ICD-10-PCS; principal; 2020-07-07)
PROC: 4A023N7 Measurement of Cardiac Sampling and Pressure, Left Heart, Percutaneous Approach (ICD-10-PCS; 2020-07-17)
PROC: B2151ZZ Fluoroscopy of Left Heart using Low Osmolar Contrast (ICD-10-PCS; 2020-07-17)
PROC: B2111ZZ Fluoroscopy of Multiple Coronary Arteries using Low Osmolar Contrast (ICD-10-PCS; 2020-07-17)
DX: I63.9 Cerebral infarction, unspecified (principal); G81.91 Hemiplegia, unspecified affecting right dominant side; I42.9 Cardiomyopathy, unspecified; I47.2 Ventricular tachycardia; Z20.822 Contact with and (suspected) exposure to COVID-19; I10 Essential (primary) hypertension; E11.9 Type 2 diabetes mellitus without complications; K21.9 Gastro-esophageal reflux disease without esophagitis; R29.712 NIHSS score 12; R47.81 Slurred speech; I25.10 Atherosclerotic heart disease of native coronary artery without angina pectoris; Z95.5 Presence of coronary angioplasty implant and graft; Z82.49 Family history of ischemic heart disease and other diseases of the circulatory system; Z83.3 Family history of diabetes mellitus; E66.9 Obesity, unspecified; Z68.26 Body mass index [BMI] 26.0-26.9, adult; I95.1 Orthostatic hypotension; E78.2 Mixed hyperlipidemia
CPT/HCPCS: 36415; 70450; 70496; 70498; 70551; 71045; 78452; 80048; 80053; 80061; 80320; 82140; 82550; 82553; 82962; 83036; 83735; 84443; 84484; 85007; 85025; 85610; 85670; 85730; 93005; 93017; 93306; 93458; 96374; G0378; A9270-GY; A9502; C1769; C1894; G0480; J1644; J1815; J2250; J2785; J2997; J3010; J7030; J7040; J7050; Q9967; U0003

== ENCOUNTER 2020-10-08 05:47 | Inpatient (IN) | payer MEDICARE ==
--- NOTE | 2020-10-08 09:21 | Event Note ---
ED Screening Note Date of service: 10/08/20 Time: 09:08 ED Screening Note: 75-year-old male presents to the emergency room stating that this morning while he was washing his feet he had slid down off his bed. Patient denies hitting or injuring himself. Patient reports his daughter checked his blood sugar and it was 63. He reports that his daughter called EMS because he slid off the bed. And felt he had some slurring of his words and drooping of his mouth. Patient reports he is currently on oral anticoagulant medications. Patient has a past medical history of hypertension diabetes GERD stroke with no residual deficits. Patient denies any chest pain no shortness of breath. Patient states that he had open heart surgery recently and he was discharged from [facility] last week. This initial assessment/diagnostic orders/clinical plan/treatment(s) is/are subject to change based on patients health status, clinical progression and re- assessment by fellow clinical providers in the ED. Further treatment and workup at subsequent clinical providers discretion. Patient/guardian urged not to elope from the ED as their condition may be serious if not clinically assessed and managed. CBC CMP blood sugar EKG troponins have been ordered. Discussed with patient's abnormal labs. He is requesting a repeat EKG and to be seen immediately. @[id number]
[2020-10-08 09:25] LABS: Basophils # (Auto) 0.1 K/mm3 (0.0-0.1); Basophils % (Auto) 0.8 % (0.0-1.8); Eosinophils # (Auto) 0.4 K/mm3 (0.0-0.4); Eosinophils % (Auto) 4.9 % (0.0-4.3); Hematocrit 37.7 % (35.5-45.6); Hemoglobin 12.3 gm/dl (11.8-15.2); Lymphocytes # (Auto) 1.2 K/mm3 (1.2-5.4); Lymphocytes % (Auto) 14.9 % (13.4-35.0); Mean Corpuscular HGB Conc 33 % (32-34); Mean Corpuscular Volume 84 fl (84-94); Monocytes # (Auto) 0.9 K/mm3 (0.0-0.8); Monocytes % (Auto) 10.9 % (0.0-7.3); Platelet Count 285 K/mm3 (140-440); Red Blood Count 4.49 M/mm3 (3.65-5.03); Red Cell Distribution Width 17.7 % (13.2-15.2)
[2020-10-08 09:44] LABS: Albumin 3.7 g/dL (3.9-5); Calcium 9.9 mg/dL (8.4-10.2)
[2020-10-08 10:45] LABS: Chol/HDL Ratio 2.77 %
[2020-10-08] MEDS ORDERED: DEXTROSE 50% IN WATER (25GM) 50 ML SYRINGE IV PRN (11:20)
[2020-10-08] MEDS ORDERED: DEXTROSE 50% IN WATER (25GM) 50 ML SYRINGE IV ONE (11:20)
[2020-10-08] MEDS ORDERED: SODIUM POLYSTYRENE 15 GM/60 ML ORAL LIQD PO ONE (13:01)
--- NOTE | 2020-10-08 13:05 | Emergency Department Report ---
HPI - General Chief Complaint: Hypoglycemia Time Seen by Provider: 10/08/20 12:31 - HPI HPI: Room 25 The patient is a 75-year-old male present with a chief complaint of hypoglycemia. The patient states this morning he had accidentally stepped in a liquid. The patient states he sat on his bed to dry his feet all but then lost traction and slid off the bed landing on his buttocks. Patient denies loss of consciousness or head injury. The patient's daughter states she came into the room at 05: 00 to find the patient conscious lying on the ground waiting for her to help him out. She states the patient appeared to have slurred speech and his mouth was drooping on the right. She states the symptoms lasted for approximately 30 min after she found him and then resolved. Patient denies chest pain or shortness of breath. Patient denies history of fever. EMS was called and the patient was found to be hypoglycemic at 63. In the ED the patient denies complaints. Of note the patient had a CABG last week at [facility] Past Medical Hx - Past Medical History Previous Medical History?: Yes Hx Hypertension: Yes Hx CVA: Yes (No residual deficits) Hx Diabetes: Yes Hx GERD: Yes - Surgical History Past Surgical History?: No Hx Coronary Stent: Yes (On DAPT) Additional Surgical History: neck sx - Family History Family history: no significant - Social History Smoking Status: Never Smoker Substance Use Type: None - Medications Home Medications: Home Medications Medication Instructions Recorded Confirmed Last Taken Type Esomeprazole Magnesium [NexIUM] 40 mg PO DAILY 07/05/13 07/08/20 05/04/17 History Metformin HCl [Metformin] 1,000 mg PO DAILY 07/05/13 07/08/20 2 Days Ago History ~05/03/17 Isosorbide Mononitrate 10 mg PO BID 05/01/17 07/08/20 05/04/17 History Venlafaxine [Effexor] 75 mg PO TID 05/01/17 07/08/20 05/04/17 History Aspirin [Aspirin BABY CHEW TAB] 81 mg PO QDAY #30 tab.chew 07/11/20 Unknown Rx AtorvaSTATin [Lipitor] 80 mg PO QHS #60 tablet 07/11/20 Unknown Rx Clopidogrel [Plavix] 75 mg PO DAILY #30 tablet 07/11/20 Unknown Rx Glimepiride [Amaryl] 2 mg PO QDDIAB #60 tablet 07/19/20 Unknown Rx Losartan [Cozaar] 100 mg PO QDAY #30 tablet 07/19/20 Unknown Rx Pantoprazole [Protonix TAB] 40 mg PO QDAC #60 tablet 07/19/20 Unknown Rx carvediloL [Coreg] 25 mg PO Q12HR #60 tablet 07/19/20 Unknown Rx ED Review of Systems ROS: Stated complaint: SYNCOPE Other details as noted in HPI Constitutional: no symptoms reported Eyes: denies: eye pain ENT: denies: throat pain Respiratory: denies: shortness of breath Cardiovascular: denies: chest pain Endocrine: no symptoms reported Gastrointestinal: nausea, vomiting Genitourinary: denies: dysuria Musculoskeletal: denies: back pain Neurological: denies: headache Physical Exam - Physical Exam Vital Signs: Vital Signs 10/08/20 08:15 Temperature 98.1 F Pulse Rate 91 H Respiratory 20 Rate Blood Pressure 117/65 O2 Sat by Pulse 97 Oximetry Physical Exam: GENERAL: The patient is well-developed well-nourished []. [] HEENT: Normocephalic. Atraumatic. Extraocular motions are intact. Patient has moist mucous membranes. NECK: Supple. Trachea midline CHEST/LUNGS: Clear to auscultation. There is no respiratory distress noted. Well-healing midline sternotomy scar HEART/CARDIOVASCULAR: Regular. There is no tachycardia. There is no gallop rub or murmur. ABDOMEN: Abdomen is soft, nontender. Patient has normal bowel sounds. There is no abdominal distention. SKIN: There is no rash. There is no diaphoresis. NEURO: The patient is awake, alert, and oriented. The patient is cooperative. The patient has no focal neurologic deficits. The patient has normal speech. GCS 15. Cranial nerves II through XII grossly intact. Moves all extremities well MUSCULOSKELETAL: There is no evidence of acute injury. ED Course Vital Signs 10/08/20 08:15 Temperature 98.1 F Pulse Rate 91 H Respiratory 20 Rate Blood Pressure 117/65 O2 Sat by Pulse 97 Oximetry ED Medical Decision Making - Lab Data Result diagrams: 10/08/20 08:37 10/08/20 08:37 Laboratory Tests 10/08/20 10/08/20 10/08/20 08:20 08:37 08:37 WBC 8.4 RBC 4.49 Hgb 12.3 Hct 37.7 MCV 84 MCH 27 L MCHC 33 RDW 17.7 H Plt Count 285 Lymph % (Auto) 14.9 Holt % (Auto) 10.9 H Eos % (Auto) 4.9 H Baso % (Auto) 0.8 Lymph # (Auto) 1.2 Holt # (Auto) 0.9 H Eos # (Auto) 0.4 Baso # (Auto) 0.1 Seg Neutrophils % 68.5 Seg Neutrophils # 5.7 PT INR APTT Sodium 137 Potassium 5.8 H Chloride 100.8 Carbon Dioxide 25 Anion Gap 17 BUN 30 H Creatinine 1.5 H Estimated GFR 45 BUN/Creatinine Ratio 20 Glucose 56 L POC Glucose 44 L Calcium 9.9 Total Bilirubin 0.30 AST 28 ALT 24 Alkaline Phosphatase 134 H Troponin T Total Protein 7.6 Albumin 3.7 L Albumin/Globulin Ratio 0.9 Triglycerides Cholesterol LDL Cholesterol Direct HDL Cholesterol Cholesterol/HDL Ratio Lipase 126 H 10/08/20 10/08/20 10/08/20 09:25 11:21 12:42 WBC RBC Hgb Hct MCV MCH MCHC RDW Plt Count Lymph % (Auto) Holt % (Auto) Eos % (Auto) Baso % (Auto) Lymph # (Auto) Holt # (Auto) Eos # (Auto) Baso # (Auto) Seg Neutrophils % Seg Neutrophils # PT INR APTT Sodium Potassium Chloride Carbon Dioxide Anion Gap BUN Creatinine Estimated GFR BUN/Creatinine Ratio Glucose POC Glucose 90 Calcium Total Bilirubin AST ALT Alkaline Phosphatase Troponin T 0.129 H* 0.119 H* Total Protein Albumin Albumin/Globulin Ratio Triglycerides 149 Cholesterol 136 LDL Cholesterol Direct 79 HDL Cholesterol 49 Cholesterol/HDL Ratio 2.77 Lipase 10/08/20 13:07 WBC RBC Hgb Hct MCV MCH MCHC RDW Plt Count Lymph % (Auto) Holt % (Auto) Eos % (Auto) Baso % (Auto) Lymph # (Auto) Holt # (Auto) Eos # (Auto) Baso # (Auto) Seg Neutrophils % Seg Neutrophils # PT 15.1 H INR 1.14 H APTT 29.7 Sodium Potassium Chloride Carbon Dioxide Anion Gap BUN Creatinine Estimated GFR BUN/Creatinine Ratio Glucose POC Glucose Calcium Total Bilirubin AST ALT Alkaline Phosphatase Troponin T Total Protein Albumin Albumin/Globulin Ratio Triglycerides Cholesterol LDL Cholesterol Direct HDL Cholesterol Cholesterol/HDL Ratio Lipase - EKG Data -: EKG Interpreted by [place] EKG shows normal: sinus rhythm Rate: normal - EKG Data When compared to previous EKG there are: previous EKG unavailable Interpretation: nonspecific ST-T wave raysa (T wave inversion lead aVL. Slightly peaked T waves) - Radiology Data Radiology results: report reviewed (CT head), image reviewed (CT head) [facility] [address] [place] [address] Cat Scan Report Signed Patient: АНДРЕЙ MACK MR#: [id number] : 1945 Acct:[id number] Age/Sex: 75 / M ADM Date: 10/08/20 Loc: ED Attending Dr: Ordering Physician: SELENA JACKMAN MD Date of Service: 10/08/20 Procedure(s): CT head/brain wo con Accession Number(s): [id number] cc: SELENA JACKMAN MD CT HEAD WITHOUT CONTRAST INDICATION / CLINICAL INFORMATION: Episode of right facial droop and slurred speech. TECHNIQUE: All CT scans at this location are performed using CT dose reduction for ALARA by means of automated exposure control. COMPARISON: Head CT 08/06/2020 FINDINGS: HEMORRHAGE: No evidence of intracranial hemorrhage or extra-axial fluid collection. EXTRA-AXIAL SPACES: Cortical sulci and sylvian fissures are enlarged reflecting a degree of parenchymal volume loss which is within normal limits for the patient's age of 75 years. Basilar cisterns have an unremarkable appearance. VENTRICULAR SYSTEM: The third and lateral ventricles are enlarged reflecting presence of age related parenchymal volume loss. CEREBRAL PARENCHYMA: Periventricular and deep white matter lucency is observed. This is probably secondary to microvascular ischemic change. There is no indication of recent infarction. Remote small deep infarction is seen in the white matter of the centrum semiovale of the right frontal lobe unchanged. MIDLINE SHIFT OR HERNIATION: There is no mass effect. CEREBELLUM / BRAINSTEM: A low-attenuation region in the left side of the sushila corresponds to pontine infarction first demonstrated on MRI brain 07/11/2020. Brainstem has an otherwise unremarkable appearance. Is evidence of remote infarction along the posterior medial aspect of the left cerebellar hemisphere unchanged. MIDLINE STRUCTURES:Pituitary gland has an unremarkable appearance. No abnormalities are seen in the pineal region. INTRACRANIAL VESSELS:Calcified atherosclerotic plaque is present along the course of the cavernous segments of both internal carotid arteries. Similar findings are seen at the distal vertebral arteries. ORBITS: Status post bilateral cataract surgery. No additional abnormality. SOFT TISSUES of HEAD: No significant abnormality. CALVARIUM: Evaluation of bone windows reveals no abnormalities. PARANASAL SINUSES / MASTOID AIR CELLS: Paranasal sinuses are free from inflammatory mucosal disease. Mastoid air cells are normally pneumatized. IMPRESSION: 1. No acute intracranial abnormality. 2. Evidence of left-sided pontine infarction. This was first demonstrated on 07/11/2020. 3. Remote left cerebellar infarction and remote small deep infarction white matter right frontal lobe. These findings are unchanged. Signer Name: Fredy Weeks MD Signed: 10/08/2020 2:37 PM Workstation Name: [id number] Transcribed By: Dictated By: Fredy Weeks MD Electronically Authenticated By: Fredy Weeks MD Signed Date/Time: 10/08/201436 DD/ 31 TD/TT: Print Cancel - Differential Diagnosis TIA, hypoglycemia Critical care attestation.: If time is entered above; I have spent that time in minutes in the direct care of this critically ill patient, excluding procedure time. ED Disposition Clinical Impression: Transient neurological symptoms, Hyperkalemia, Renal insufficiency, Hypoglycemia secondary to sulfonylurea Disposition: -09 OP ADMIT IP TO THIS HOSP Is pt being admited?: Yes Does the pt Need Aspirin: No Condition: Stable Referrals: PRIMARY CAREMD [Primary Care Provider] - 3-5 Days Time of Disposition: 14:48 (Hospitalist paged (Dr. Vo))
[2020-10-08 13:49] LABS: INR 1.14 (0.87-1.13)
[2020-10-08 13:50] LABS: Partial Thromboplastin Time 29.7 Sec. (24.2-36.6)
--- NOTE | 2020-10-08 14:42 | Cat Scan Report ---
CT HEAD WITHOUT CONTRAST INDICATION / CLINICAL INFORMATION: Episode of right facial droop and slurred speech. TECHNIQUE: All CT scans at this location are performed using CT dose reduction for ALARA by means of automated e xposure control. COMPARISON: Head CT 08/06/2020 FINDINGS: HEMORRHAGE: No evidence of intracranial hemorrhage or extra-axial fluid collection. EXTRA-AXIAL SPACES: Cortical sulci and sylvian fissures are enlarged reflecting a degree of parenchym al volume loss which is within normal limits for the patient's age of 75 years. Basilar cisterns have an unremarkable appearance. VENTRICULAR SYSTEM: The third and lateral ventricles are enlarged reflecting presence of age related parenchymal volume loss. CEREBRAL PARENCHYMA: Periventricular and deep white matter lucency is observed. This is probably seco ndary to microvascular ischemic change. There is no indication of recent infarction. Remote small sharif p infarction is seen in the white matter of the centrum semiovale of the right frontal lobe unchanged . MIDLINE SHIFT OR HERNIATION: There is no mass effect. CEREBELLUM / BRAINSTEM: A low-attenuation region in the left side of the sushila corresponds to pontine infarction first demonstrated on MRI brain 07/11/2020. Brainstem has an otherwise unremarkable appearan ce. Is evidence of remote infarction along the posterior medial aspect of the left cerebellar hemisph ere unchanged. MIDLINE STRUCTURES:Pituitary gland has an unremarkable appearance. No abnormalities are seen in the p ineal region. INTRACRANIAL VESSELS:Calcified atherosclerotic plaque is present along the course of the cavernous se gments of both internal carotid arteries. Similar findings are seen at the distal vertebral arteries. ORBITS: Status post bilateral cataract surgery. No additional abnormality. SOFT TISSUES of HEAD: No significant abnormality. CALVARIUM: Evaluation of bone windows reveals no abnormalities. PARANASAL SINUSES / MASTOID AIR CELLS: Paranasal sinuses are free from inflammatory mucosal disease. Mastoid air cells are normally pneumatized. IMPRESSION: 1. No acute intracranial abnormality. 2. Evidence of left-sided pontine infarction. This was first demonstrated on 07/11/2020. 3. Remote left cerebellar infarction and remote small deep infarction white matter right frontal lobe . These findings are unchanged. Signer Name: Fredy Weeks MD Signed: 10/08/2020 2:37 PM Workstation Name: [id number]
--- NOTE | 2020-10-08 22:41 | History and Physical Report ---
History of Present Illness Date of examination: 10/08/20 Date of admission: 10/08/2020 Chief complaint: Altered sensorium and slurred speech early a.m. at 5:00am History of present illness: 75-year-old male apparently slipped from his bed and was lying on the floor. Di d not lose consciousness. Daughter found him on the floor around 5 AM and helped him get into the bed. At that point daughter noticed right facial droop and slurring of her speech which lasted for about 30 minutes and resolved. No shortness of breath. EMS was called. Patient blood glucose level was 63. Patient had CABG last week at [facility]. - Past Medical History Previous Medical History?: Yes --Hypertension: Yes --CVA: Yes (No residual deficits) --Diabetes: Yes --GERD: Yes - Surgical History Past Surgical History?: CABG --Coronary Stent: Yes (On DAPT) --neck sx - Family History Family history: no significant - Social History Smoking Status: Never Smoker Substance Use Type: None - Medications Home Medications: Home Medications Medication Instructions Recorded Confirmed Last Taken Type Esomeprazole Magnesium [NexIUM] 40 mg PO DAILY 07/05/13 07/08/20 05/04/17 Histor y Metformin HCl [Metformin] 1,000 mg PO DAILY 07/05/13 07/08/20 2 Days Ago History ~05/03/17 Isosorbide Mononitrate 10 mg PO BID 05/01/17 07/08/20 05/04/17 History Venlafaxine [Effexor] 75 mg PO TID 05/01/17 07/08/20 05/04/17 History Aspirin [Aspirin BABY CHEW TAB] 81 mg PO QDAY #30 tab.chew 07/11/20 Unknown Rx AtorvaSTATin [Lipitor] 80 mg PO QHS #60 tablet 07/11/20 Unknown Rx Clopidogrel [Plavix] 75 mg PO DAILY #30 tablet 07/11/20 Unknown Rx Glimepiride [Amaryl] 2 mg PO QDDIAB #60 tablet 07/19/20 Unknown Rx Losartan [Cozaar] 100 mg PO QDAY #30 tablet 07/19/20 Unknown Rx Pantoprazole [Protonix TAB] 40 mg PO QDAC #60 tablet 07/19/20 Unknown Rx carvediloL [Coreg] 25 mg PO Q12HR #60 tablet 07/19/20 Unknown Rx Review of Systems ROS: Stated complaint: SYNCOPE Other details as noted in HPI Constitutional: no symptoms reported Eyes: denies: eye pain ENT: denies: throat pain Respiratory: denies: shortness of breath Cardiovascular: denies: chest pain Endocrine: no symptoms reported Gastrointestinal: nausea, vomiting Genitourinary: denies: dysuria Musculoskeletal: denies: back pain Neurological: denies: headache Medications and Allergies Allergies Allergy/AdvReac Type Severity Reaction Status Date / Time No Known Allergies Allergy Verified 05/01/17 11:07 Home Medications Medication Instructions Recorded Confirmed Last Taken Type Esomeprazole Magnesium [NexIUM] 40 mg PO DAILY 07/05/13 07/08/20 05/04/17 History Metformin HCl [Metformin] 1,000 mg PO DAILY 07/05/13 07/08/20 2 Days Ago History ~05/03/17 Isosorbide Mononitrate 10 mg PO BID 05/01/17 07/08/20 05/04/17 History Venlafaxine [Effexor] 75 mg PO TID 05/01/17 07/08/20 05/04/17 History Aspirin [Aspirin BABY CHEW TAB] 81 mg PO QDAY #30 tab.chew 07/11/20 Unknown Rx AtorvaSTATin [Lipitor] 80 mg PO QHS #60 tablet 07/11/20 Unknown Rx Clopidogrel [Plavix] 75 mg PO DAILY #30 tablet 07/11/20 Unknown Rx Glimepiride [Amaryl] 2 mg PO QDDIAB #60 tablet 07/19/20 Unknown Rx Losartan [Cozaar] 100 mg PO QDAY #30 tablet 07/19/20 Unknown Rx Pantoprazole [Protonix TAB] 40 mg PO QDAC #60 tablet 07/19/20 Unknown Rx carvediloL [Coreg] 25 mg PO Q12HR #60 tablet 07/19/20 Unknown Rx Active Meds: Active Medications Dextrose (Dextrose 50% In Water (25gm) 50 Ml Syringe) 50 ml IV Q30MIN PRN; Protocol PRN Reason: Hypoglycemia Exam - Constitutional Vitals: Temp Pulse Resp BP Pulse Ox 98.1 F 110 H 21 118/61 95 10/08/20 08:15 10/08/20 19:30 10/08/20 19:30 10/08/20 19:30 10/08/20 17:30 General appearance: Present: no acute distress, well-nourished - EENT Eyes: Present: PERRL ENT: hearing intact, clear oral mucosa - Neck Neck: Present: supple, normal ROM - Respiratory Respiratory effort: normal Respiratory: bilateral: CTA - Cardiovascular Heart rate: 78 Rhythm: regular Heart Sounds: Present: S1 & S2. Absent: rub, click - Extremities Extremities: pulses symmetrical, No edema Peripheral Pulses: within normal limits - Abdominal General gastrointestinal: Present: soft, non-tender, non-distended, normal bowel sounds Male genitourinary: Present: normal - Integumentary Integumentary: Present: clear, warm, dry - Musculoskeletal Musculoskeletal: gait normal, strength equal bilaterally - Psychiatric Psychiatric: appropriate mood/affect, intact judgment & insight, other (Altered sensorium) - Neurologic Neurologic: CNII-XII intact, moves all extremities - Allied Health Allied health notes reviewed: nursing, case management HEART Score - HEART Score History: Slightly suspicious Age: > 65 Risk factors: > 3 risk factors or hx of atherosclerotic disease Troponin: Troponin T 0.119 ng/mL (0.00-0.029) H* 10/08/20 11:21 Troponin: < normal limit - Critical Actions Critical Actions: 0-3 pts:0.9-1.7%risk of adverse cardiac event.Candidate for discharge Results - Labs CBC & Chem 7: 10/09/20 04:32 10/09/20 04:32 Labs: Laboratory Last Values WBC 8.4 K/mm3 (4.5-11.0) 10/08/20 08:37 RBC 4.49 M/mm3 (3.65-5.03) 10/08/20 08:37 Hgb 12.3 gm/dl (11.8-15.2) 10/08/20 08:37 Hct 37.7 % (35.5-45.6) 10/08/20 08:37 MCV 84 fl (84-94) 10/08/20 08:37 MCH 27 pg (28-32) L 10/08/20 08:37 MCHC 33 % (32-34) 10/08/20 08:37 RDW 17.7 % (13.2-15.2) H 10/08/20 08:37 Plt Count 285 K/mm3 (140-440) 10/08/20 08:37 Lymph % (Auto) 14.9 % (13.4-35.0) 10/08/20 08:37 [place] % (Auto) 10.9 % (0.0-7.3) H 10/08/20 08:37 Eos % (Auto) 4.9 % (0.0-4.3) H 10/08/20 08:37 Baso % (Auto) 0.8 % (0.0-1.8) 10/08/20 08:37 Lymph # (Auto) 1.2 K/mm3 (1.2-5.4) 10/08/20 08:37 [place]oun # (Auto) 0.9 K/mm3 (0.0-0.8) H 10/08/20 08:37 Eos # (Auto) 0.4 K/mm3 (0.0-0.4) 10/08/20 08:37 Baso # (Auto) 0.1 K/mm3 (0.0-0.1) 10/08/20 08:37 Seg Neutrophils % 68.5 % (40.0-70.0) 10/08/20 08:37 Seg Neutrophils # 5.7 K/mm3 (1.8-7.7) 10/08/20 08:37 PT 15.1 Sec. (12.2-14.9) H 10/08/20 13:07 INR 1.14 (0.87-1.13) H 10/08/20 13:07 APTT 29.7 Sec. (24.2-36.6) 10/08/20 13:07 Sodium 137 mmol/L (137-145) 10/08/20 08:37 Potassium 5.8 mmol/L (3.6-5.0) H 10/08/20 08:37 Chloride 100.8 mmol/L (98-107) 10/08/20 08:37 Carbon Dioxide 25 mmol/L (22-30) 10/08/20 08:37 Anion Gap 17 mmol/L 10/08/20 08:37 BUN 30 mg/dL (9-20) H 10/08/20 08:37 Creatinine 1.5 mg/dL (0.8-1.3) H 10/08/20 08:37 Estimated GFR 45 ml/min 10/08/20 08:37 BUN/Creatinine Ratio 20 % 10/08/20 08:37 Glucose 56 mg/dL (75-100) L 10/08/20 08:37 POC Glucose 90 mg/dL (70-105) 10/08/20 12:42 Calcium 9.9 mg/dL (8.4-10.2) 10/08/20 08:37 Total Bilirubin 0.30 mg/dL (0.1-1.2) 10/08/20 08:37 AST 28 units/L (5-40) 10/08/20 08:37 ALT 24 units/L (7-56) 10/08/20 08:37 Alkaline Phosphatase 134 units/L (35-129) H 10/08/20 08:37 Troponin T 0.119 ng/mL (0.00-0.029) H* 10/08/20 11:21 Total Protein 7.6 g/dL (6.3-8.2) 10/08/20 08:37 Albumin 3.7 g/dL (3.9-5) L 10/08/20 08:37 Albumin/Globulin Ratio 0.9 % 10/08/20 08:37 Triglycerides 149 mg/dL (2-149) 10/08/20 09:25 Cholesterol 136 mg/dL (50-199) 10/08/20 09:25 LDL Cholesterol Direct 79 mg/dL (50-130) 10/08/20 09:25 HDL Cholesterol 49 mg/dL (40-59) 10/08/20 09:25 Cholesterol/HDL Ratio 2.77 % 10/08/20 09:25 Lipase 126 units/L (13-60) H 10/08/20 08:37 Short CBC 10/08/20 10/09/20 Range/Units 08:37 04:32 WBC 8.4 6.6 (4.5-11.0) K/mm3 Hgb 12.3 12.4 (11.8-15.2) gm/dl Hct 37.7 37.8 (35.5-45.6) % Plt Count 285 257 (140-440) K/mm3 BMP 10/08/20 10/09/20 08:37 04:32 Sodium 137 140 Potassium 5.8 H 4.7 Chloride 100.8 100.6 Carbon Dioxide 25 27 BUN 30 H 28 H Creatinine 1.5 H 1.5 H Glucose 56 L 101 H Calcium 9.9 9.0 Cardiac Enzymes 10/08/20 10/08/20 Range/Units 09:25 11:21 Troponin T 0.129 H* 0.119 H* (0.00-0.029) ng/mL Liver Function 10/08/20 10/09/20 Range/Units 08:37 04:32 Total Bilirubin 0.30 0.30 (0.1-1.2) mg/dL AST 28 19 (5-40) units/L ALT 24 25 (7-56) units/L Alkaline Phosphatase 134 H 147 H (35-129) units/L Albumin 3.7 L 3.6 L (3.9-5) g/dL - Imaging and Cardiology CT Scan - head: report reviewed Imaging and Cardiology: head CT No acute intracranial abnormalities Evidence of left-sided pontine infarction This was demonstrated on 07/11/2020 Remote left cerebellar infarction and remote small deep infarctions white matter right frontal lobe. These findings are unchanged. Assessment and Plan Advance Directives: Yes (Full code) VTE prophylaxis?: Chemical Plan of care discussed with patient/family: Yes - Patient Problems (1) TIA (transient ischemic attack) Current Visit: Yes Status: Acute Plan to address problem: TIA work-up MRI brain and echocardiogram and carotid duplex scan requested Neurology consult requested (2) RIO (acute kidney injury) Current Visit: Yes Status: Acute Plan to address problem: Secondary to vasomotor nephropathy Gentle IV hydration for 12 hours (3) Hyperkalemia Current Visit: Yes Status: Acute Plan to address problem: Treated with Kayexalate and calcium gluconate Repeat potassium level in a.m. (4) Coronary artery disease Current Visit: Yes Status: Chronic Qualifiers: Coronary Disease-Associated Artery/Lesion type: bypass graft [place] vs. transplanted heart: [place] heart Plan to address problem: Continue Plavix and isosorbide mononitrate (5) T2DM (type 2 diabetes mellitus) Current Visit: Yes Status: Chronic Qualifiers: Diabetes mellitus retirement insulin use: without long term care phlebotomist use Plan to address problem: Patient on glimepiride and Metformin Holding because of hypoglycemia and RIO Check hemoglobin A1c Coverage for now (6) Hypertension Current Visit: Yes Status: Chronic Qualifiers: Hypertension type: primary hypertension Qualified Code(s): I10 - Essential (primary) hypertension Plan to address problem: Continue antihypertensives (7) Hyperlipidemia Current Visit: Yes Status: Chronic Qualifiers: Hyperlipidemia type: unspecified Qualified Code(s): E78.5 - Hyperlipidemia, unspecified Plan to address problem: Continue statins (8) DVT prophylaxis Current Visit: Yes Status: Acute Plan to address problem: On heparin and GI prophylaxis
[2020-10-08] MEDS ORDERED: ONDANSETRON 4 MG/2 ML INJ IV PRN ×2 (22:43→23:13)
[2020-10-08] MEDS ORDERED: oxyCODONE /ACETAMINOPHEN 5-325MG TAB PO PRN (22:43)
[2020-10-08] MEDS ORDERED: ACETAMINOPHEN 325 MG TAB PO PRN ×2 (22:43→23:13)
[2020-10-08] MEDS ORDERED: HYDROmorphone 1 MG/1 ML INJ IV PRN (22:43)
[2020-10-08] MEDS ORDERED: METOCLOPRAMIDE 10 MG/2 ML INJ IV PRN (22:43)
[2020-10-08] MEDS: carvediloL 25 MG TAB PO SCH (23:12)
[2020-10-09 05:08] LABS: Basophils # (Auto) 0.1 K/mm3 (0.0-0.1); Basophils % (Auto) 1.1 % (0.0-1.8); Eosinophils # (Auto) 0.5 K/mm3 (0.0-0.4); Eosinophils % (Auto) 7.7 % (0.0-4.3); Hematocrit 37.8 % (35.5-45.6); Hemoglobin 12.4 gm/dl (11.8-15.2); Lymphocytes # (Auto) 1.4 K/mm3 (1.2-5.4); Lymphocytes % (Auto) 20.4 % (13.4-35.0); Mean Corpuscular HGB Conc 33 % (32-34); Mean Corpuscular Volume 86 fl (84-94); Monocytes # (Auto) 0.8 K/mm3 (0.0-0.8); Monocytes % (Auto) 12.4 % (0.0-7.3); Platelet Count 257 K/mm3 (140-440); Red Blood Count 4.41 M/mm3 (3.65-5.03); Red Cell Distribution Width 17.7 % (13.2-15.2)
[2020-10-09 05:18] LABS: Albumin 3.6 g/dL (3.9-5)
[2020-10-09 06:45] LABS: Bacteria,Urine 1+ /HPF (Negative); Bilirubin,Urine NEG (Negative); Blood,Urine NEG (Negative); Color,Urine Yellow (Yellow); Hyaline Casts,Urine 1 /LPF; Mucus,Urine FEW /HPF; Protein,Urine <15 mg/dL mg/dL (Negative); Urobilinogen,Urine < 2.0 mg/dL (<2.0)
--- NOTE | 2020-10-09 08:09 | Consultation ---
History of Present Illness Consult date: 10/09/20 Reason for Consult: facial droop and fall History of present illness: Altered sensorium and slurred speech early a.m. at 5:00am History of present illness: 75-year-old male apparently slipped from his bed and was lying on the floor. Did not lose consciousness. Daughter found him on the floor around 5 AM and helped him get into the bed. At that point daughter noticed right facial droop and slurring of her speech which lasted for about 30 minutes and resolved. No shortness of breath. EMS was called. Patient blood glucose level was 63. Patient had CAD s/p CABGx4 with left atrial appendage clip at [facility] with a CVA post op day 4 CT brain is unremarkable he is off Plavix according to him since last week ? not take ASA , CAD s/p CABGx4 with left atrial appendage clip at [facility] with a CVA post op day 4 CT brain is unremarkable MRA brain is remarkable for atherosclerotic changes more noted left vertebral a. US carotid showed 50-69% stenosis left side ICA . - Past Medical History Previous Medical History?: Yes --Hypertension: Yes --CVA: Yes (No residual deficits) --Diabetes: Yes --GERD: Yes - Surgical History Past Surgical History?: CABG --Coronary Stent: Yes (On DAPT) --neck sx --CAD s/p CABGx4 with left atrial appendage clip at [facility] with a CVA post op day 4 - Family History Family history: no significant - Social History Smoking Status: Never Smoker Substance Use Type: None - Medications Home Medications: Home Medications Medication Instructions Recorded Confirmed Last Taken Type Esomeprazole Magnesium [NexIUM] 40 mg PO DAILY 07/05/13 07/08/20 05/04/17 History Metformin HCl [Metformin] 1,000 mg PO DAILY 07/05/13 07/08/20 2 Days Ago History ~05/03/17 Isosorbide Mononitrate 10 mg PO BID 05/01/17 07/08/20 05/04/17 History Venlafaxine [Effexor] 75 mg PO TID 05/01/17 07/08/20 05/04/17 History Aspirin [Aspirin BABY CHEW TAB] 81 mg PO QDAY #30 tab.chew 07/11/20 Unknown Rx AtorvaSTATin [Lipitor] 80 mg PO QHS #60 tablet 07/11/20 Unknown Rx Clopidogrel [Plavix] 75 mg PO DAILY #30 tablet 07/11/20 Unknown Rx Glimepiride [Amaryl] 2 mg PO QDDIAB #60 tablet 07/19/20 Unknown Rx Losartan [Cozaar] 100 mg PO QDAY #30 tablet 07/19/20 Unknown Rx Pantoprazole [Protonix TAB] 40 mg PO QDAC #60 tablet 07/19/20 Unknown Rx carvediloL [Coreg] 25 mg PO Q12HR #60 tablet 07/19/20 Unknown Rx Review of Systems ROS: Stated complaint: SYNCOPE Other details as noted in HPI Constitutional: no symptoms reported Eyes: denies: eye pain ENT: denies: throat pain Respiratory: denies: shortness of breath Cardiovascular: denies: chest pain Endocrine: no symptoms reported Gastrointestinal: nausea, vomiting Genitourinary: denies: dysuria Musculoskeletal: denies: back pain Neurological: denies: headache Medications and Allergies Allergies Allergy/AdvReac Type Severity Reaction Status Date / Time No Known Allergies Allergy Verified 05/01/17 11:07 Home Medications Medication Instructions Recorded Confirmed Last Taken Type Esomeprazole Magnesium [NexIUM] 40 mg PO DAILY 07/05/13 07/08/20 05/04/17 History Metformin HCl [Metformin] 1,000 mg PO DAILY 07/05/13 07/08/20 2 Days Ago History ~05/03/17 Isosorbide Mononitrate 10 mg PO BID 05/01/17 07/08/20 05/04/17 History Venlafaxine [Effexor] 75 mg PO TID 05/01/17 07/08/20 05/04/17 History Aspirin [Aspirin BABY CHEW TAB] 81 mg PO QDAY #30 tab.chew 07/11/20 Unknown Rx AtorvaSTATin [Lipitor] 80 mg PO QHS #60 tablet 07/11/20 Unknown Rx Clopidogrel [Plavix] 75 mg PO DAILY #30 tablet 07/11/20 Unknown Rx Glimepiride [Amaryl] 2 mg PO QDDIAB #60 tablet 07/19/20 Unknown Rx Losartan [Cozaar] 100 mg PO QDAY #30 tablet 07/19/20 Unknown Rx Pantoprazole [Protonix TAB] 40 mg PO QDAC #60 tablet 07/19/20 Unknown Rx carvediloL [Coreg] 25 mg PO Q12HR #60 tablet 07/19/20 Unknown Rx Active Meds: Active Medications Dextrose (Dextrose 50% In Water (25gm) 50 Ml Syringe) 50 ml IV Q30MIN PRN; Protocol PRN Reason: Hypoglycemia Past History Past Medical History: diabetes, hypertension, hyperlipidemia, stroke Past Surgical History: CABG Medications and Allergies Allergies Allergy/AdvReac Type Severity Reaction Status Date / Time No Known Allergies Allergy Verified 05/01/17 11:07 Home Medications Medication Instructions Recorded Confirmed Last Taken Type Esomeprazole Magnesium [NexIUM] 40 mg PO DAILY 07/05/13 07/08/20 05/04/17 History Metformin HCl [Metformin] 1,000 mg PO DAILY 07/05/13 07/08/20 2 Days Ago History ~05/03/17 Isosorbide Mononitrate 10 mg PO BID 05/01/17 07/08/20 05/04/17 History Venlafaxine [Effexor] 75 mg PO TID 05/01/17 07/08/20 05/04/17 History Aspirin [Aspirin BABY CHEW TAB] 81 mg PO QDAY #30 tab.chew 07/11/20 Unknown Rx AtorvaSTATin [Lipitor] 80 mg PO QHS #60 tablet 07/11/20 Unknown Rx Clopidogrel [Plavix] 75 mg PO DAILY #30 tablet 07/11/20 Unknown Rx Glimepiride [Amaryl] 2 mg PO QDDIAB #60 tablet 07/19/20 Unknown Rx Losartan [Cozaar] 100 mg PO QDAY #30 tablet 07/19/20 Unknown Rx Pantoprazole [Protonix TAB] 40 mg PO QDAC #60 tablet 07/19/20 Unknown Rx carvediloL [Coreg] 25 mg PO Q12HR #60 tablet 07/19/20 Unknown Rx Active Meds: Active Medications Acetaminophen (Acetaminophen 325 Mg Tab) 650 mg PO Q4H PRN PRN Reason: Pain MILD(1-3)/Fever >100.5/MAURER Aspirin (Aspirin 325 Mg Tab) 325 mg PO QDAY ODE[facility] Atorvastatin Calcium (Atorvastatin 40 Mg Tab) 80 mg PO QHS ODE[facility] Carvedilol (Carvedilol 25 Mg Tab) 25 mg PO Q12HR ODELL Last Admin: 10/08/20 23:12 Dose: 25 mg Documented by: Dextrose (Dextrose 50% In Water (25gm) 50 Ml Syringe) 50 ml IV Q30MIN PRN; Pr otocol PRN Reason: Hypoglycemia Hydromorphone HCl (Hydromorphone 1 Mg/1 Ml Inj) 0.5 mg IV Q3H PRN PRN Reason: Pain , Severe (7-10) Sodium Chloride (Nacl 0.9% 1000 Ml) 1,000 mls @ 75 mls/hr IV DIRECT ODELL Insulin Human Lispro (Insulin Lispro 100 Unit/Ml) 0 unit SUB-Q ACHS ODELL; Protocol Isosorbide Mononitrate (Isosorbide Mononitrate 20 Mg Tab) 10 mg PO BID@1000,1700 ODELL Losartan Potassium (Losartan 50 Mg Tab) 100 mg PO QDAY [facility] Metoclopramide HCl (Metoclopramide 10 Mg/2 Ml Inj) 10 mg IV Q6H PRN PRN Reason: Nausea And Vomiting Ondansetron HCl (Ondansetron 4 Mg/2 Ml Inj) 4 mg IV Q8H PRN PRN Reason: Nausea And Vomiting Oxycodone/Acetaminophen (Oxycodone /Acetaminophen 5-325mg Tab) 1 tab PO Q6H PRN PRN Reason: Pain, Moderate (4-6) Pantoprazole Sodium (Pantoprazole 40 Mg Tab) 40 mg PO QDAC [facility] Sodium Chloride (Sodium Chloride 0.9% 10 Ml Flush Syringe) 10 ml IV BID [facility] Last Admin: 10/08/20 23:12 Dose: 10 ml Documented by: Sodium Chloride (Sodium Chloride 0.9% 10 Ml Flush Syringe) 10 ml IV PRN PRN PRN Reason: LINE FLUSH Venlafaxine HCl (Venlafaxine 75 Mg Tab) 75 mg PO TID [facility] Physical Examination - Vital Signs Vital Signs: Vital Signs Temp Pulse Resp BP Pulse Ox 98.1 F 91 H 20 117/65 97 10/08/20 08:15 10/08/20 08:15 10/08/20 08:15 10/08/20 08:15 10/08/20 08:15 - Constitutional General appearance: comfortable - EENT EENT: Present: PERRL, mucous membranes moist - Respiratory Respiratory: Present: chest non-tender, lungs clear, rhonchi - Cardiovascular Cardiovascular: Present: normal S1, normal S2 Extremities: Present: no peripheral edema bilatateraly - Gastrointestinal Gastrointestinal: Present: normoactive bowel sounds - Integumentary Integumentary: Present: normal - Neurologic Cranial nerve examination: PERRL, EOMI, other (slight right facial droop) Speech examination: intact Sensorimotor examination: other (slight right pronator drift ) - Musculoskeletal Musculoskeletal: Present: other (tremor action type bilteral no rigidity) - Level of Consciousness 1a. Level of Consciousness: alert/keenly responsive - LOC Questions 1b. LOC Questions: answers both correctly - LOC Command 1c. LOC Commands: performs tasks correctly - Best Gaze 2. Best Gaze: normal - Visual 3. Visual: no visual loss - Facial Palsy 4. Facial Palsy: minor paralysis - Motor Arm 5a. Motor Arm Left: no drift 5b. Motor Arm Right: drift - Motor Leg 6a. Motor Leg Left: no drift 6b. Motor Leg Right: no drift - Limb Ataxia 7. Limb Ataxia: absent - Sensory 8. Sensory: normal - Best Language 9. Best Language: no aphasia - Dysarthria 10. Dysarthria: normal - Extinction and Inattention 11. Extinction/Inattention: no abnormality - Scoring Total Score: 2 Stroke Severity: Minor Stroke Results - Laboratory Findings CBC and BMP: 10/10/20 04:37 10/10/20 04:37 Abnormal Lab Findings: Abnormal Labs 10/08/20 10/08/20 10/08/20 08:20 08:37 08:37 MCH 27 L RDW 17.7 H [place] % (Auto) 10.9 H Eos % (Auto) 4.9 H [place] # (Auto) 0.9 H Eos # (Auto) PT INR Potassium 5.8 H BUN 30 H Creatinine 1.5 H Glucose 56 L POC Glucose 44 L Hemoglobin A1c Alkaline Phosphatase 134 H Troponin T Albumin 3.7 L Lipase 126 H 10/08/20 10/08/20 10/08/20 09:25 11:21 13:07 MCH RDW [place] % (Auto) Eos % (Auto) [place] # (Auto) Eos # (Auto) PT 15.1 H INR 1.14 H Potassium BUN Creatinine Glucose POC Glucose Hemoglobin A1c Alkaline Phosphatase Troponin T 0.129 H* 0.119 H* Albumin Lipase 10/09/20 10/09/20 10/09/20 04:32 04:32 04:32 MCH RDW 17.7 H [place] % (Auto) 12.4 H Eos % (Auto) 7.7 H [place] # (Auto) Eos # (Auto) 0.5 H PT INR Potassium BUN 28 H Creatinine 1.5 H Glucose 101 H POC Glucose Hemoglobin A1c 6.7 H Alkaline Phosphatase 147 H Troponin T Albumin 3.6 L Lipase Assessment and Plan Assessment and Plan Advance Directives: Yes (Full code) VTE prophylaxis?: Chemical Plan of care discussed with patient/family: Yes - Patient Problems #CVA MRI brain showed left precentral gyrus acute CVA -Echocardiogram is pending - carotid duplex scan showed left ICA-50-69% stenosis -ASA 325 mg daily -Lipitor 80 mg -LDL#79 -Echo is pending -PT/ST evaluate -Cardiac monitoring -Vascular surgery to see # Left carotid stenosis -see US carotid report->50-69% stenosis left ICA , Right ICA <50% -Suggest maintain ASA and Plavix -Vascualr surgery to see # RIO (acute kidney injury) -Secondary to vasomotor nephropathy -Gentle IV hydration for 12 hours # Essential tremor bilteral # Hyperkalemia -Treated with Kayexalate and calcium gluconate -Repeat potassium level in a.m. # Coronary artery disease -Continue Plavix he was not taking at home !!! - and isosorbide mononitrate -elevated cardiac enzymes -CAD s/p CABGx4 with left atrial appendage clip at [facility] with a CVA post op day 4 # T2DM (type 2 diabetes mellitus) CT brain is unremarkable -Patient on glimepiride and Metformin -A1C#6.7 # Hypertension -Continue antihypertensives # Hyperlipidemia -Continue statins -LDL#79 # DVT prophylaxis On heparin and GI prophylaxis
[2020-10-09] MEDS ORDERED: ISOSORBIDE MONONITRATE 10 MG PO SCH (10:00)
[2020-10-09] MEDS ORDERED: ASPIRIN 81 MG TAB CHEW PO SCH (10:00)
[2020-10-09] MEDS ORDERED: HEPARIN 5,000 UNIT/1 ML VIAL SUB-Q SCH (10:00)
--- NOTE | 2020-10-09 10:00 | Vascular Lab Report ---
"DUPLEX DOPPLER ULTRASOUND CAROTID, BILATERAL INDICATION / CLINICAL INFORMATION: stroke. COMPARISON: None available. FINDINGS: RIGHT CAROTID: - PLAQUE ESTIMATE (%): < 50% - CCA velocity: 73 cm/sec. - ICA peak systolic velocity: 115 cm/sec. - ICA/CCA PSV Ratio: 1.6 Right Vertebral Artery: Antegrade flow. LEFT CAROTID: - PLAQUE ESTIMATE: > 50% - CCA velocity: 42 cm/sec. - ICA peak systolic velocity: 93 cm/sec. - ICA/CCA PSV Ratio: 2.1 Left Vertebral Artery: Antegrade flow. IMPRESSION: 1. Right Internal Carotid Artery: Less than 50% diameter stenosis. 2. Left Internal Carotid Artery: 50-69% diameter stenosis. Velocity criteria are extrapolated from diameter data as defined by the Society of Radiologists in [facility] Consensus Conference, Radiology 2003; 229;340-346. Degree of || ICA PSV || Plaque || ICA/CCA Stenosis (%) || (cm/sec) || estimate (%) || PSV Ratio Normal ............. || ...<125........... || ...None......... || ...<2.0 <50................... || ...<125........... || ......<50......... || ...<2.0 50-69................ || ..125-230...... || ......>50......... || 2.0-4.0 >70 but <100... || >230.............. || .......>50........ || ...>4.0 Near occlusion || High/low/none || ...visible....... || variable Total occlusion || ....None........... || ..no lumen... || ....N/A Signer Name: Car Savage MD Signed: 10/09/2020 9:55 AM Workstation Name: [id number]"
--- NOTE | 2020-10-09 10:39 | Electrocardiograph Report ---
[facility] Test Date: 2020-10-08 Test Time: 09:24:01 Pat Name: АНДРЕЙ MACK Department: Room: A465 1 Gender: M Director Dental Services: NUNU : 1945 Requested By: HUMPHREY JAMES Order Number: [id number] Reading MD: Pantera Ellison Measurements Intervals [place] Rate: 90 P: 25 TN: 163 QRS: 267 QRSD: 106 T: 109 QT: 377 QTc: 463 Interpretive Statements Sinus rhythm Probable left atrial enlargement Inferior infarct, old Nonspecific T abnormalities, lateral leads Compared to ECG 07/17/2020 11:09:23 Myocardial infarct finding now present T-wave abnormality now present Sinus bradycardia no longer present Intraventricular conduction delay no longer present Left ventricular hypertrophy no longer present Early repolarization no longer present Electronically Signed On 10-09-2020 10:38:54 EDT by Pantera Ellison
--- NOTE | 2020-10-09 12:42 | Progress Note ---
Assessment and Plan Assessment and plan: 75-year-old male apparently slipped from his bed and was lying on the floor. Did not lose consciousness. Daughter found him on the floor around 5 AM and helped him get into the bed. At that point daughter noticed right facial droop and slurring of her speech which lasted for about 30 minutes and resolved. No shortness of breath. EMS was called. Patient blood glucose level was 63. Patient had CABG last week at [facility]. (1) TIA (transient ischemic attack) Current Visit: Yes Status: Acute Plan to address problem: TIA work-up MRI brain and echocardiogram and carotid duplex scan requested Neurology consult requested (2) RIO (acute kidney injury) Current Visit: Yes Status: Acute Plan to address problem: Secondary to vasomotor nephropathy Gentle IV hydration for 12 hours (3) Hyperkalemia Current Visit: Yes Status: Acute Plan to address problem: Treated with Kayexalate and calcium gluconate Repeat potassium level in a.m. (4) Coronary artery disease Current Visit: Yes Status: Chronic Qualifiers: Coronary Disease-Associated Artery/Lesion type: bypass graft [place] vs. 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 Plan to address problem: Patient on glimepiride and Metformin Holding because of hypoglycemia and RIO Check hemoglobin A1c Coverage for now (6) Hypertension Current Visit: Yes Status: Chronic Qualifiers: Hypertension type: primary hypertension Qualified Code(s): I10 - Essential (primary) hypertension Plan to address problem: Continue antihypertensives (7) Hyperlipidemia Current Visit: Yes Status: Chronic Qualifiers: Hyperlipidemia type: unspecified Qualified Code(s): E78.5 - Hyperlipidemia, unspecified Plan to address problem: Continue statins (8) DVT prophylaxis Current Visit: Yes Status: Acute Plan to address problem: On heparin and GI prophylaxis 10/09/20 Patient presented with altered mental status, slurred speech. Currently awake,alert,not confused. MRI done report pending patient has elevated Troponin, but had CABG last week at [place]. Will consult cardiology RIO with Creatinine 1.5. Repeat in am. IVF at 75 ml/hr History Interval history: Patient presented with altered mental status , slurred speech Hospitalist Physical - Physical exam Narrative exam: Gen: Not in acute distress, lying in bed HEENT: Normocephalic, atraumatic Neck : supple, no JVD Heart:S1 and S2 reg, no murmurs, rubs or gallop Lungs: clear to auscultation bilaterally, no wheeze Abd: Soft , non tender, non distended, normal bowel sounds Ext: No edema, no clubbing, no cyanosis Neuro: Awake, alert, oriented X 3, moves all ext - Constitutional Vitals: Temp Pulse Resp BP Pulse Ox 98.1 F 98 H 15 156/84 95 10/08/20 08:15 10/09/20 04:30 10/09/20 04:30 10/09/20 04:30 10/09/20 02:30 General appearance: Present: no acute distress, well-nourished HEART Score - HEART Score Age: > 65 Risk factors: > 3 risk factors or hx of atherosclerotic disease Troponin: Troponin T 0.100 ng/mL (0.00-0.029) H 10/09/20 09:34 Troponin: < normal limit - Critical Actions Critical Actions: 0-3 pts:0.9-1.7%risk of adverse cardiac event.Candidate for discharge Results - Labs CBC & Chem 7: 10/09/20 04:32 10/09/20 04:32 Labs: Laboratory Last Values WBC 6.6 K/mm3 (4.5-11.0) 10/09/20 04:32 RBC 4.41 M/mm3 (3.65-5.03) 10/09/20 04:32 Hgb 12.4 gm/dl (11.8-15.2) 10/09/20 04:32 Hct 37.8 % (35.5-45.6) 10/09/20 04:32 MCV 86 fl (84-94) 10/09/20 04:32 MCH 28 pg (28-32) 10/09/20 04:32 MCHC 33 % (32-34) 10/09/20 04:32 RDW 17.7 % (13.2-15.2) H 10/09/20 04:32 Plt Count 257 K/mm3 (140-440) 10/09/20 04:32 Lymph % (Auto) 20.4 % (13.4-35.0) 10/09/20 04:32 [place] % (Auto) 12.4 % (0.0-7.3) H 10/09/20 04:32 Eos % (Auto) 7.7 % (0.0-4.3) H 10/09/20 04:32 Baso % (Auto) 1.1 % (0.0-1.8) 10/09/20 04:32 Lymph # (Auto) 1.4 K/mm3 (1.2-5.4) 10/09/20 04:32 [place] # (Auto) 0.8 K/mm3 (0.0-0.8) 10/09/20 04:32 Eos # (Auto) 0.5 K/mm3 (0.0-0.4) H 10/09/20 04:32 Baso # (Auto) 0.1 K/mm3 (0.0-0.1) 10/09/20 04:32 Seg Neutrophils % 58.4 % (40.0-70.0) 10/09/20 04:32 Seg Neutrophils # 3.9 K/mm3 (1.8-7.7) 10/09/20 04:32 PT 15.1 Sec. (12.2-14.9) H 10/08/20 13:07 INR 1.14 (0.87-1.13) H 10/08/20 13:07 APTT 29.7 Sec. (24.2-36.6) 10/08/20 13:07 Sodium 140 mmol/L (137-145) 10/09/20 04:32 Potassium 4.7 mmol/L (3.6-5.0) 10/09/20 04:32 Chloride 100.6 mmol/L (98-107) 10/09/20 04:32 Carbon Dioxide 27 mmol/L (22-30) 10/09/20 04:32 Anion Gap 17 mmol/L 10/09/20 04:32 BUN 28 mg/dL (9-20) H 10/09/20 04:32 Creatinine 1.5 mg/dL (0.8-1.3) H 10/09/20 04:32 Estimated GFR 45 ml/min 10/09/20 04:32 BUN/Creatinine Ratio 19 % 10/09/20 04:32 Glucose 101 mg/dL (75-100) H 10/09/20 04:32 POC Glucose 90 mg/dL (70-105) 10/08/20 12:42 Hemoglobin A1c 6.7 % (4-6) H 10/09/20 04:32 Calcium 9.0 mg/dL (8.4-10.2) 10/09/20 04:32 Total Bilirubin 0.30 mg/dL (0.1-1.2) 10/09/20 04:32 AST 19 units/L (5-40) 10/09/20 04:32 ALT 25 units/L (7-56) 10/09/20 04:32 Alkaline Phosphatase 147 units/L (35-129) H 10/09/20 04:32 Troponin T 0.100 ng/mL (0.00-0.029) H 10/09/20 09:34 Total Protein 7.4 g/dL (6.3-8.2) 10/09/20 04:32 Albumin 3.6 g/dL (3.9-5) L 10/09/20 04:32 Albumin/Globulin Ratio 0.9 % 10/09/20 04:32 Triglycerides 149 mg/dL (2-149) 10/08/20 09:25 Cholesterol 136 mg/dL (50-199) 10/08/20 09:25 LDL Cholesterol Direct 79 mg/dL (50-130) 10/08/20 09:25 HDL Cholesterol 49 mg/dL (40-59) 10/08/20 09:25 Cholesterol/HDL Ratio 2.77 % 10/08/20 09:25 Lipase 126 units/L (13-60) H 10/08/20 08:37 Urine Color Yellow (Yellow) 10/09/20 05:27 Urine Turbidity Clear (Clear) 10/09/20 05:27 Urine pH 6.0 (5.0-7.0) 10/09/20 05:27 Ur Specific [place] 1.015 (1.003-1.030) 10/09/20 05:27 Urine Protein <15 mg/dl mg/dL (Negative) 10/09/20 05:27 Urine Glucose (UA) Neg mg/dL (Negative) 10/09/20 05:27 Urine Ketones Neg mg/dL (Negative) 10/09/20 05:27 Urine Blood Neg (Negative) 10/09/20 05:27 Urine Nitrite Neg (Negative) 10/09/20 05:27 Urine Bilirubin Neg (Negative) 10/09/20 05:27 Urine Urobilinogen < 2.0 mg/dL (<2.0) 10/09/20 05:27 Ur Leukocyte Esterase Neg (Negative) 10/09/20 05:27 Urine WBC (Auto) 1.0 /HPF (0.0-6.0) 10/09/20 05:27 Urine RBC (Auto) 1.0 /HPF (0.0-6.0) 10/09/20 05:27 U Epithel Cells (Auto) < 1.0 /HPF (0-13.0) 10/09/20 05:27 Urine Bacteria (Auto) 1+ /HPF (Negative) 10/09/20 05:27 Hyaline Casts 1 /LPF 10/09/20 05:27 Urine Mucus Few /HPF 10/09/20 05:27 Active Medications - Current Medications Current Medications: Generic Name Dose Route Start Last Admin Trade Name Freq PRN Reason Stop Dose Admin Acetaminophen 650 mg 10/08/20 22:43 Acetaminophen 325 Mg Tab PO Q4H PRN Pain MILD(1-3)/Fever >100.5/MAURER Aspirin 325 mg 10/09/20 10:00 Aspirin 325 Mg Tab PO QDAY [facility] Atorvastatin Calcium 80 mg 10/09/20 22:00 Atorvastatin 40 Mg Tab PO QHS [facility] Carvedilol 25 mg 10/08/20 23:00 10/08/20 23:12 Carvedilol 25 Mg Tab PO 25 mg Q12HR ODELL Administration Dextrose 50 ml 10/08/20 11:20 Dextrose 50% In Water (25gm) 50 Ml Syringe IV Q30MIN PRN Hypoglycemia Protocol Heparin Sodium (Porcine) 5,000 unit 10/09/20 10:00 Heparin 5,000 Unit/1 Ml Vial SUB-Q Q12HR [facility] Hydromorphone HCl 0.5 mg 10/08/20 22:43 Hydromorphone 1 Mg/1 Ml Inj IV Q3H PRN Pain , Severe (7-10) Sodium Chloride 1,000 mls @ 75 mls/hr 10/08/20 22:45 Nacl 0.9% 1000 Ml IV DIRECT ODELL Insulin Human Lispro 0 unit 10/09/20 07:30 Insulin Lispro 100 Unit/Ml SUB-Q ACHS [facility] Protocol Isosorbide Mononitrate 10 mg 10/09/20 10:00 10/09/20 12:18 Isosorbide Mononitrate 20 Mg Tab PO 10 mg BID@1000,1700 ODELL Administration Losartan Potassium 100 mg 10/09/20 10:00 Losartan 50 Mg Tab PO QDAY ODE[facility] Metoclopramide HCl 10 mg 10/08/20 22:43 Metoclopramide 10 Mg/2 Ml Inj IV Q6H PRN Nausea And Vomiting Ondansetron HCl 4 mg 10/08/20 23:13 Ondansetron 4 Mg/2 Ml Inj IV Q8H PRN Nausea And Vomiting Oxycodone/Acetaminophen 1 tab 10/08/20 22:43 Oxycodone /Acetaminophen 5-325mg Tab PO Q6H PRN Pain, Moderate (4-6) Pantoprazole Sodium 40 mg 10/09/20 07:30 Pantoprazole 40 Mg Tab PO QDAC ODELL Sodium Chloride 10 ml 10/08/20 23:00 10/08/20 23:12 Sodium Chloride 0.9% 10 Ml Flush Syringe IV 10 ml BID ODELL Administration Sodium Chloride 10 ml 10/08/20 22:43 Sodium Chloride 0.9% 10 Ml Flush Syringe IV PRN PRN LINE FLUSH Venlafaxine HCl 75 mg 10/09/20 08:00 Venlafaxine 75 Mg Tab PO TID ODELL
[2020-10-09] MEDS: VENLAFAXINE 75 MG TAB PO SCH ×3 (13:00→22:05)
[2020-10-09] MEDS: PANTOPRAZOLE 40 MG TAB PO SCH (13:00)
[2020-10-09] MEDS: ASPIRIN 325 MG TAB PO SCH (13:00)
--- NOTE | 2020-10-09 13:27 | Magnetic Resonance Report ---
MR brain wo con INDICATION / CLINICAL INFORMATION: 75 years Male; stroke, WEAKNESS AND SLURRED SPEECH. TECHNIQUE: Multiplanar, multisequence MR images of the brain were obtained. COMPARISON: CT-10/08/2020 FINDINGS: BRAIN / INTRACRANIAL CONTENTS: Small focus of acute/early subacute ischemia suggested peripherally in the white matter of the left precentral gyrus, somewhat more inferiorly. No other signs of ischemia seen. Old, moderately sized branch PICA infarct is seen in the left cerebellar hemisphere. Very small, bila teral branch PICA infarcts are noted bilaterally-left greater than right. A few small lacunar infarct s are suggested in the gangliocapsular regions, including the thalami. Similar findings seen on prior . Mild, diffuse cerebral and cerebellar atrophy. There are [id number] areas of increased signal intensity on FLAIR imaging in the white matter o f the cerebral hemispheres. These are nonspecific findings and may be related to microangiopathy (hyp ertension, diabetes, atherosclerosis), given the patient's age. Pontine disease noted. Otherwise, no acute ischemia, acute hemorrhage, or hydrocephalus. CRANIOCERVICAL JUNCTION: No significant abnormality. VASCULAR FLOW-VOIDS: Hyperintense T2 signal seen in the left vertebral artery, suggesting slow or abs ent flow. ORBITS: No significant abnormality of visualized orbits. SINUSES / MASTOIDS: Mild mucosal thickening is noted in the ethmoids. ADDITIONAL FINDINGS: None. IMPRESSION: 1. Small focus of ischemia in the white matter of the left precentral gyrus (motor cortex). 2. Otherwise, no focal mass, hemorrhage, hydrocephalus, or ischemia seen. 3. Slow or absent flow suggested in the left vertebral artery. Signer Name: Toby Servin MD, III Signed: 10/09/2020 1:23 PM Workstation Name: [id number]
--- NOTE | 2020-10-09 13:31 | Magnetic Resonance Report ---
. MR MRA/MRV head wo con INDICATION / CLINICAL INFORMATION: 75 years Male; cva, WEAKNESS, SLURRED SPEECH. TECHNIQUE: 3-D time of flight. NASCET type criteria used to evaluate stenoses. COMPARISON: None available. FINDINGS: INTERNAL CAROTID ARTERIES: Focal area of narrowing is seen distally in the communicating portion of t he left internal carotid artery which may be hemodynamically significant. Right internal carotid delta ry appears to be widely patent. VERTEBROBASILAR SYSTEM: The dominant left vertebral artery appears to be occluded. The distal, nondom inant right vertebral artery is widely patent. Mild narrowing is seen in the proximal to mid basilar artery-not felt to be hemodynamically significa nt. DISTAL BRANCHES: Distal branches of the anterior, middle, and posterior cerebral arteries are fairly symmetric in appearance and number. Focal area of narrowing is seen in the proximal P1 segment on the left. Focal areas of [id number] narrowing are seen in more distal portions of the posterior ce rebral arteries. There are not mild to moderate areas of focal narrowing in the MCA trifurcation region on the right. There is a mild to moderate narrowing are seen in the anterior cerebral arteries. ANEURYSM: None identified. IMPRESSION: 1. Slow or absent flow suggested in the dominant left vertebral artery. 2. Multiple areas of narrowing identified, as described above. Signer Name: Toby Servin MD, III Signed: 10/09/2020 1:27 PM Workstation Name: [id number]
[2020-10-09] MEDS: carvediloL 25 MG TAB PO SCH ×2 (13:50→22:04)
[2020-10-09] MEDS: LOSARTAN 50 MG TAB PO SCH (13:50)
--- NOTE | 2020-10-09 15:04 | Consultation ---
History of Present Illness Consult date: 10/09/20 Requesting physician: KOBE RIVERO Consult reason: elevated troponin History of present illness: Patient is a 75 y/o male a with a pmhx of CAD s/p CABGx4 with left atrial appendage clip at [facility] with a CVA post op day 4 who presented to the ED with a complaint of falls. Patient states that after stepping on liquid he stat down to dry his feet but slipped off the bed. He states that he did no hit his head or loss consciousness. He reports that he has fallen before but its usually that he trips on something. Per documentation the patients daughter found the patient at 05:00am on the floor with slurred speech and right sided drooping of his face. These symptoms were reported to resolve after about 30min. She called EMS and the patient had a blood glucose level of 63. Patient denies chest pain, lightheadedness, dizziness, or SOB. Cardiology was consulted because patient had elevated troponins. Echo 07/07/2020-EF 40 to 45%, mild to moderate left ventricular hypertrophy, right ventricular systolic function normal ascending aorta mildly dilated LHC-07/17/2020- Diffuse severe and diffuse triple-vessel disease with 99% subtotal occlusion of left circumflex, 90% proximal left anterior descending and 100% occlusion of proximal right coronary. EF 50 to 55% Past History Past Medical History: CAD, diabetes, hypertension, hyperlipidemia, other (TIA,) Past Surgical History: CABG (09/13/2020) Social history: Family history: no significant family history Medications and Allergies Allergies Allergy/AdvReac Type Severity Reaction Status Date / Time No Known Allergies Allergy Verified 05/01/17 11:07 Home Medications Medication Instructions Recorded Confirmed Last Taken Type Esomeprazole Magnesium [NexIUM] 40 mg PO DAILY 07/05/13 07/08/20 05/04/17 History Metformin HCl [Metformin] 1,000 mg PO DAILY 07/05/13 07/08/20 2 Days Ago History ~05/03/17 Isosorbide Mononitrate 10 mg PO BID 05/01/17 07/08/20 05/04/17 History Venlafaxine [Effexor] 75 mg PO TID 05/01/17 07/08/20 05/04/17 History Aspirin [Aspirin BABY CHEW TAB] 81 mg PO QDAY #30 tab.chew 07/11/20 Unknown Rx AtorvaSTATin [Lipitor] 80 mg PO QHS #60 tablet 07/11/20 Unknown Rx Clopidogrel [Plavix] 75 mg PO DAILY #30 tablet 07/11/20 Unknown Rx Glimepiride [Amaryl] 2 mg PO QDDIAB #60 tablet 07/19/20 Unknown Rx Losartan [Cozaar] 100 mg PO QDAY #30 tablet 07/19/20 Unknown Rx Pantoprazole [Protonix TAB] 40 mg PO QDAC #60 tablet 07/19/20 Unknown Rx carvediloL [Coreg] 25 mg PO Q12HR #60 tablet 07/19/20 Unknown Rx Active Meds: Active Medications Acetaminophen (Acetaminophen 325 Mg Tab) 650 mg PO Q4H PRN PRN Reason: Pain MILD(1-3)/Fever >100.5/MAURER Aspirin (Aspirin 325 Mg Tab) 325 mg PO QDAY [facility] Last Admin: 10/09/20 13:00 Dose: 325 mg Documented by: Atorvastatin Calcium (Atorvastatin 40 Mg Tab) 80 mg PO QHS [facility] Carvedilol (Carvedilol 25 Mg Tab) 25 mg PO Q12HR [facility] Last Admin: 10/09/20 13:50 Dose: Not Given Documented by: Dextrose (Dextrose 50% In Water (25gm) 50 Ml Syringe) 50 ml IV Q30MIN PRN; Protocol PRN Reason: Hypoglycemia Heparin Sodium (Porcine) (Heparin 5,000 Unit/1 Ml Vial) 5,000 unit SUB-Q Q12HR [facility] Last Admin: 10/09/20 13:49 Dose: 5,000 unit Documented by: Hydromorphone HCl (Hydromorphone 1 Mg/1 Ml Inj) 0.5 mg IV Q3H PRN PRN Reason: Pain , Severe (7-10) Sodium Chloride (Nacl 0.9% 1000 Ml) 1,000 mls @ 75 mls/hr IV DIRECT [facility] Insulin Human Lispro (Insulin Lispro 100 Unit/Ml) 0 unit SUB-Q [facility]; Protocol Isosorbide Mononitrate (Isosorbide Mononitrate 20 Mg Tab) 10 mg PO BID@1000,1700 [facility] Last Admin: 10/09/20 12:18 Dose: 10 mg Documented by: Losartan Potassium (Losartan 50 Mg Tab) 100 mg PO QDAY [facility] Last Admin: 10/09/20 13:50 Dose: Not Given Documented by: Metoclopramide HCl (Metoclopramide 10 Mg/2 Ml Inj) 10 mg IV Q6H PRN PRN Reason: Nausea And Vomiting Ondansetron HCl (Ondansetron 4 Mg/2 Ml Inj) 4 mg IV Q8H PRN PRN Reason: Nausea And Vomiting Oxycodone/Acetaminophen (Oxycodone /Acetaminophen 5-325mg Tab) 1 tab PO Q6H PRN PRN Reason: Pain, Moderate (4-6) Pantoprazole Sodium (Pantoprazole 40 Mg Tab) 40 mg PO QDAC [facility] Last Admin: 10/09/20 13:00 Dose: 40 mg Documented by: Sodium Chloride (Sodium Chloride 0.9% 10 Ml Flush Syringe) 10 ml IV BID [facility] Last Admin: 10/08/20 23:12 Dose: 10 ml Documented by: Sodium Chloride (Sodium Chloride 0.9% 10 Ml Flush Syringe) 10 ml IV PRN PRN PRN Reason: LINE FLUSH Venlafaxine HCl (Venlafaxine 75 Mg Tab) 75 mg PO TID [facility] Last Admin: 10/09/20 13:00 Dose: 75 mg Documented by: Review of Systems All systems: negative Constitutional: no weight loss, no weight gain, no fever, no chills Ears, nose, mouth and throat: no ear pain, no ear discharge, no tinnitis, no decreased hearing, no nasal congestion Cardiovascular: no chest pain, no orthopnea, no palpitations, no rapid/irregular heart beat, no edema, no syncope, no shortness of breath Respiratory: no cough, no cough with sputum, no excessive sputum, no hemoptysis, no shortness of breath, no dyspnea on exertion Gastrointestinal: no abdominal pain, no nausea, no vomiting, no diarrhea Musculoskeletal: no neck stiffness, no neck pain, no shooting arm pain, no arm numbness/tingling, no low back pain Integumentary: no rash, no pruritis, no redness, no sores Neurological: no head injury, no transient paralysis, no paralysis, no weakness, no parathesias Psychiatric: no anxiety, no memory loss Endocrine: no cold intolerance, no heat intolerance Hematologic/Lymphatic: no easy bruising, no easy bleeding Physical Examination Last Vital Signs Temp 98.2 F 10/09/20 14:35 Pulse 98 H 10/09/20 14:35 Resp 16 10/09/20 14:35 BP 104/64 10/09/20 14:35 Pulse Ox 95 10/09/20 14:35 General appearance: no acute distress HEENT: Positive: PERRL Neck: Positive: trachea midline Cardiac: Positive: Reg Rate and Rhythm, S1/S2 Lungs: Positive: clear to auscultation, Normal Breath Sounds Neuro: Positive: Grossly Intact Abdomen: Positive: Soft, Active Bowel Sounds Skin: Positive: Suspicious Lesions. Negative: Rash Extremities: Present: upper extr. pulses, lower extr. pulses, +1 Edema Results 10/09/20 04:32 10/09/20 04:32 Cardiac Enzymes 10/09/20 Range/Units 04:32 AST 19 (5-40) units/L CBC 10/09/20 Range/Units 04:32 WBC 6.6 (4.5-11.0) K/mm3 RBC 4.41 (3.65-5.03) M/mm3 Hgb 12.4 (11.8-15.2) gm/dl Hct 37.8 (35.5-45.6) % Plt Count 257 (140-440) K/mm3 Lymph # (Auto) 1.4 (1.2-5.4) K/mm3 [place] # (Auto) 0.8 (0.0-0.8) K/mm3 Eos # (Auto) 0.5 H (0.0-0.4) K/mm3 Baso # (Auto) 0.1 (0.0-0.1) K/mm3 Comprehensive Metabolic Panel 10/09/20 Range/Units 04:32 Sodium 140 (137-145) mmol/L Potassium 4.7 (3.6-5.0) mmol/L Chloride 100.6 (98-107) mmol/L Carbon Dioxide 27 (22-30) mmol/L BUN 28 H (9-20) mg/dL Creatinine 1.5 H (0.8-1.3) mg/dL Glucose 101 H (75-100) mg/dL Calcium 9.0 (8.4-10.2) mg/dL AST 19 (5-40) units/L ALT 25 (7-56) units/L Alkaline Phosphatase 147 H (35-129) units/L Total Protein 7.4 (6.3-8.2) g/dL Albumin 3.6 L (3.9-5) g/dL - Imaging and Cardiology Echo: report reviewed Cardiac cath: report reviewed EKG: report reviewed, image reviewed EKG interpretations - Telemetry EKG Rhythm: Sinus Rhythm - EKG Sinus rhythms and dysrhythmias: sinus rhythm Assessment and Plan NSTEMI suspect Type II CAD s/p CABG * Troponins noted to be elevated upon admission. Troponins are down trending 0.12-0.1. Continue to trend CE * EKG showed normal sinus rhythm with no acute ischemic changes. * Continue Coreg 25mg PO BID, Imdur 10mg PO BID, atorvastatin 80mg PO QHS, aspirin 325 mg PO, Losartan 100mg QD. * Echo 07/07/2020-EF 40 to 45%, mild to moderate left ventricular hypertrophy, right ventricular systolic function normal ascending aorta mildly dilated * LHC-07/17/2020- Diffuse severe and diffuse triple-vessel disease with 99% subtotal occlusion of left circumflex, 90% proximal left anterior descending and 100% occlusion of proximal right coronary. EF 50 to 55% * Echo pending Syncope * Patient was found to be hypoglycemic 63, per EMS * Carotid Doppler- Right carotid shows less than 50% stenosis, left carotid shows 50-69% diameter stenosis * Neurology consulted. Patient was diagnosed with acute CVA 09/2020of left frontal lobe and right cerebellum AFIB * Patient has history of AFIB and is anticoagulated on Eliquis * Resume Eliquis * Monitor on Tele Patient seen in conjunction with Dr. Ellison who agrees with this plan of care. Will continue to follow - Patient Problems (1) Coronary artery disease Current Visit: Yes Status: Chronic Qualifiers: Coronary Disease-Associated Artery/Lesion type: bypass graft [place] vs. transplanted heart: [place] heart (2) Hyperlipidemia Current Visit: Yes Status: Chronic Qualifiers: Hyperlipidemia type: unspecified Qualified Code(s): E78.5 - Hyperlipidemia, unspecified (3) NSTEMI (non-ST elevated myocardial infarction) Current Visit: Yes Status: Acute (4) RIO (acute kidney injury) Current Visit: Yes Status: Acute
[2020-10-09] MEDS: INSULIN LISPRO 100 UNIT/ML SUB-Q SCH ×2 (16:55→22:05)
[2020-10-09 18:44] LABS: Hematocrit 34.2 % (35.5-45.6); Mean Corpuscular HGB Conc 32 % (32-34); Mean Corpuscular Volume 86 fl (84-94); Platelet Count 229 K/mm3 (140-440); Red Blood Count 3.99 M/mm3 (3.65-5.03); Red Cell Distribution Width 17.4 % (13.2-15.2)
[2020-10-09 18:53] LABS: Partial Thromboplastin Time 27.7 Sec. (24.2-36.6)
[2020-10-09] MEDS: APIXABAN 5 MG TAB PO SCH (22:05)
[2020-10-09] MEDS: SODIUM CHLORIDE 0.9% 1000 ML 1,000 ML IV SCH (22:06)
[2020-10-10 05:54] LABS: Hematocrit 33.9 % (35.5-45.6); Mean Corpuscular HGB Conc 32 % (32-34); Mean Corpuscular Volume 86 fl (84-94); Platelet Count 214 K/mm3 (140-440); Red Blood Count 3.95 M/mm3 (3.65-5.03); Red Cell Distribution Width 17.6 % (13.2-15.2)
[2020-10-10 06:18] LABS: Calcium 8.9 mg/dL (8.4-10.2)
[2020-10-10] MEDS: PANTOPRAZOLE 40 MG TAB PO SCH (08:25)
[2020-10-10] MEDS: INSULIN LISPRO 100 UNIT/ML SUB-Q SCH ×4 (09:11→22:33)
[2020-10-10] MEDS: ASPIRIN 325 MG TAB PO SCH (10:29)
[2020-10-10] MEDS: VENLAFAXINE 75 MG TAB PO SCH ×3 (10:30→22:32)
[2020-10-10] MEDS: carvediloL 25 MG TAB PO SCH ×2 (10:30→22:32)
[2020-10-10] MEDS: LOSARTAN 50 MG TAB PO SCH (10:30)
[2020-10-10] MEDS: APIXABAN 5 MG TAB PO SCH ×2 (10:30→22:33)
--- NOTE | 2020-10-10 12:33 | Progress Note ---
Assessment and Plan Assessment and Plan Advance Directives: Yes (Full code) VTE prophylaxis?: Chemical Plan of care discussed with patient/family: Yes #CVA MRI brain showed left precentral gyrus acute CVA -Echocardiogram is remarkable for LVH with EF#40-45% - carotid duplex scan showed left ICA-50-69% stenosis -ASA 325 mg daily -Lipitor 80 mg -LDL#79 -PT/ST evaluate -Cardiac monitoring -Vascular surgery to see # Left carotid stenosis -see US carotid report->50-69% stenosis left ICA , Right ICA <50% -Suggest maintain ASA and Plavix -Vascualr surgery to see # RIO (acute kidney injury) -Secondary to vasomotor nephropathy -Gentle IV hydration for 12 hours -Crear#1.5 today # Essential tremor bilateral -- Mild # Hyperkalemia -Treated with Kayexalate and calcium gluconate -Repeat potassium level in a.m. # Coronary artery disease -Continue Plavix he was not taking at home !!! - and isosorbide mononitrate -elevated cardiac enzymes -CAD s/p CABGx4 with left atrial appendage clip at [place] with a CVA post op day 4 # T2DM (type 2 diabetes mellitus) CT brain is unremarkable -Patient on glimepiride and Metformin -A1C#6.7 # Hypertension -Continue antihypertensives # Hyperlipidemia -Continue statins -LDL#79 # DVT prophylaxis On heparin and GI prophylaxis PLAN 1-mantain med ASA 85 , plus Plavix 75 mg 2- Lipitor 80 mg 3-vascuar surgery to see 4- Cardiology follow up 5- PT therapy/Rehab. 6- Consider MCOT on d/c ? multiple event so far left pontine, left cerebellar and now left precentral gyrus ?? R/O AF will sign off Subjective Date of service: 10/10/20 Principal diagnosis: new onset right side weakness Interval history: doing well right side weakness unchanged NSR , echo is noted Objective - Vital Sign Vital Signs - 12hr 10/10/20 10/10/20 10/10/20 03:33 06:00 08:30 Temperature 97.9 F Pulse Rate 76 Pulse Rate [ 78 79 Apical] Pulse Rate [ 75 79 From Monitor] Respiratory 16 20 16 Rate Blood Pressure 128/75 Blood Pressure [Left] O2 Sat by Pulse 96 97 97 Oximetry 10/10/20 10/10/20 10/10/20 08:51 09:00 10:30 Temperature 98.3 F Pulse Rate 84 67 77 Pulse Rate [ Apical] Pulse Rate [ From Monitor] Respiratory 18 17 Rate Blood Pressure 175/95 145/60 Blood Pressure 155/75 [Left] O2 Sat by Pulse 97 97 Oximetry - General Apperance Constitutional: comfortable - EENT EENT: PERRL, mucous membranes moist - Respiratory Respiratory: chest non-tender, lungs clear, rhonchi - Cardiovascular Cardiovascular: regular rate, normal S1, normal S2 Extremities: no peripheral edema bilat, no clubbing, cyanosis - Gastrointestinal Gastrointestinal: normoactive bowel sounds - Integumentary Integumentary: normal - Neurologic Cranial nerve examination: PERRL, EOMI, VFF, other (slight right facial droop ) Detailed motor examination: other (right upper and to lesser extent weakness 4-/ 5 , gait slightly unsteady ) - Laboratory Findings CBC and BMP: 10/10/20 04:37 10/10/20 04:37 Abnormal Lab Findings: Abnormal Labs 10/08/20 10/08/20 10/08/20 08:20 08:37 08:37 Hgb Hct MCH 27 L RDW 17.7 H Williamson % (Auto) 10.9 H Eos % (Auto) 4.9 H Williamson # (Auto) 0.9 H Eos # (Auto) PT INR Potassium 5.8 H BUN 30 H Creatinine 1.5 H Glucose 56 L POC Glucose 44 L Hemoglobin A1c Alkaline Phosphatase 134 H Troponin T Albumin 3.7 L Lipase 126 H 10/08/20 10/08/20 10/08/20 09:25 11:21 13:07 Hgb Hct MCH RDW Williamson % (Auto) Eos % (Auto) Williamson # (Auto) Eos # (Auto) PT 15.1 H INR 1.14 H Potassium BUN Creatinine Glucose POC Glucose Hemoglobin A1c Alkaline Phosphatase Troponin T 0.129 H* 0.119 H* Albumin Lipase 10/09/20 10/09/20 10/09/20 04:32 04:32 04:32 Hgb Hct MCH RDW 17.7 H Williamson % (Auto) 12.4 H Eos % (Auto) 7.7 H Williamson # (Auto) Eos # (Auto) 0.5 H PT INR Potassium BUN 28 H Creatinine 1.5 H Glucose 101 H POC Glucose Hemoglobin A1c 6.7 H Alkaline Phosphatase 147 H Troponin T Albumin 3.6 L Lipase 10/09/20 10/09/20 10/09/20 09:34 14:02 16:48 Hgb Hct MCH RDW Williamson % (Auto) Eos % (Auto) Williamson # (Auto) Eos # (Auto) PT INR Potassium BUN Creatinine Glucose POC Glucose 135 H 233 H Hemoglobin A1c Alkaline Phosphatase Troponin T 0.100 H Albumin Lipase 10/09/20 10/09/20 10/09/20 17:58 17:58 20:59 Hgb 11.0 L Hct 34.2 L MCH RDW 17.4 H Williamson % (Auto) Eos % (Auto) Williamson # (Auto) Eos # (Auto) PT INR Potassium BUN Creatinine 1.7 H Glucose POC Glucose 134 H Hemoglobin A1c Alkaline Phosphatase Troponin T Albumin Lipase 10/10/20 10/10/20 10/10/20 04:37 04:37 04:37 Hgb 11.0 L Hct 33.9 L MCH RDW 17.6 H Williamson % (Auto) Eos % (Auto) Williamson # (Auto) Eos # (Auto) PT INR Potassium BUN 36 H Creatinine 1.5 H Glucose 130 H POC Glucose Hemoglobin A1c Alkaline Phosphatase Troponin T 0.091 H Albumin Lipase 10/10/20 11:45 Hgb Hct MCH RDW Williamson % (Auto) Eos % (Auto) Williamson # (Auto) Eos # (Auto) PT INR Potassium BUN Creatinine Glucose POC Glucose 202 H Hemoglobin A1c Alkaline Phosphatase Troponin T Albumin Lipase
--- NOTE | 2020-10-10 13:54 | Progress Note ---
Assessment and Plan NSTEMI suspect Type II CAD s/p CABG * Troponins noted to be elevated upon admission. Troponins are down trending 0.12-0.1. * EKG showed normal sinus rhythm with no acute ischemic changes. * Continue Coreg 25mg PO BID, Imdur 10mg PO BID, atorvastatin 80mg PO QHS, aspirin 325 mg PO, Losartan 100mg QD. * Echo 07/07/2020-EF 40 to 45%, mild to moderate left ventricular hypertrophy, right ventricular systolic function normal ascending aorta mildly dilated * LHC-07/17/2020- Diffuse severe and diffuse triple-vessel disease with 99% subtotal occlusion of left circumflex, 90% proximal left anterior descending and 100% occlusion of proximal right coronary. EF 50 to 55% * Echo 10/09/2020-EF 40 to 45%, moderate left ventricular hypertrophy, mild diastolic dysfunction is present, right ventricular systolic function is normal, left and right atrium is normal CVA Non Syncopal Fall * Patient was found to be hypoglycemic 63, per EMS * Carotid Doppler- Right carotid shows less than 50% stenosis, left carotid shows 50-69% diameter stenosis * Neurology consulted. Patient was diagnosed with acute CVA 09/2020of left frontal lobe and right cerebellum * MRI brain showed left precentral gyrus acute CVA AFIB * Patient has history of AFIB and is anticoagulated on Eliquis * Continue Eliquis * Monitor on Tele Patient seen in conjunction with Dr. Ellison who agrees with this plan of care. Will continue to follow - Patient Problems (1) Coronary artery disease Current Visit: Yes Status: Chronic Qualifiers: Coronary Disease-Associated Artery/Lesion type: bypass graft [place] vs. transplanted heart: [place] heart (2) Hyperlipidemia Current Visit: Yes Status: Chronic Qualifiers: Hyperlipidemia type: unspecified Qualified Code(s): E78.5 - Hyperlipidemia, unspecified (3) NSTEMI (non-ST elevated myocardial infarction) Current Visit: Yes Status: Acute (4) RIO (acute kidney injury) Current Visit: Yes Status: Acute Subjective Date of service: 10/10/20 Principal diagnosis: new onset right side weakness Interval history: Patient laying in bed with no cardiac complaints Sinus 80s with no events on monitor Objective Last Vital Signs Temp 98.3 F 10/10/20 08:51 Pulse 77 10/10/20 10:30 Resp 17 10/10/20 09:00 BP 145/60 10/10/20 10:30 Pulse Ox 97 10/10/20 09:00 - Physical Examination General: No Apparent Distress HEENT: Positive: PERRL Neck: Positive: trachea midline Neuro: Positive: Grossly Intact Abdomen: Positive: Soft, Active Bowel Sounds Skin: Positive: Suspicious Lesions. Negative: Rash Extremities: Present: upper extr. pulses, lower extr. pulses, +1 Edema - Labs and Meds Coagulation 10/09/20 Range/Units 17:58 PT 13.7 (12.2-14.9) Sec. INR 1.00 (0.87-1.13) APTT 27.7 (24.2-36.6) Sec. CBC 10/09/20 10/10/20 Range/Units 17:58 04:37 WBC 6.7 5.2 (4.5-11.0) K/mm3 RBC 3.99 3.95 (3.65-5.03) M/mm3 Hgb 11.0 L 11.0 L (11.8-15.2) gm/dl Hct 34.2 L 33.9 L (35.5-45.6) % Plt Count 229 214 (140-440) K/mm3 Comprehensive Metabolic Panel 10/09/20 10/10/20 Range/Units 17:58 04:37 Sodium 142 (137-145) mmol/L Potassium 4.3 (3.6-5.0) mmol/L Chloride 102.0 (98-107) mmol/L Carbon Dioxide 29 (22-30) mmol/L BUN 36 H (9-20) mg/dL Creatinine 1.7 H 1.5 H (0.8-1.3) mg/dL Glucose 130 H (75-100) mg/dL Calcium 8.9 (8.4-10.2) mg/dL - Imaging and Cardiology EKG: report reviewed, image reviewed Echo: report reviewed Cardiac cath: report reviewed - Telemetry EKG Rhythm: Sinus Rhythm - EKG Sinus rhythms and dysrhythmias: sinus rhythm
--- NOTE | 2020-10-10 14:19 | Progress Note ---
Assessment and Plan 75-year-old male history of CABG and CVA who presented to the hospital after sleep from his bed and was found lying on the floor. EMS was called and patient blood glucose level was 63. Patient was admitted to the hospital for further evaluation and management. Assessment and plan. --Acute CVA MRI brain showed left precentral gyrus acute CVA -Echocardiogram is remarkable for LVH with EF#40-45% - carotid duplex scan showed left ICA-50-69% stenosis -Neurology following, continue aspirin Plavix and statin -Pending PT OT eval --Status post fall, likely due to hypoglycemia Wait for PT OT eval --Left ICA 50 to 79% stenosis Vascular consulted to evaluate the patient --RIO, secondary to vasomotor nephropathy Status post gentle hydration, creatinine 1.5 --Hyperkalemia, treated with Kayexalate and calcium gluconate Follow BMP --Coronary artery disease s/p CABGx4 with left atrial appendage clip at [place] with a CVA post op day 4 Cardiology consulted, follow recommendation --Diabetes mellitus type 2, A1c 6.7 Consistent carb diet, sliding scale of insulin --Hypertension, continue antihypertensives --Hyperlipidemia, continue statin --Atrial fibrillation, chronic Patient anticoagulated with Eliquis --Ischemic cardiomyopathy with EF 40 to 45%, continue Coreg, Imdur, statin, ACEI, aspirin and Plavix --Elevated troponin, patient already anticoagulated with Eliquis Per cardiology medical management --DVT prophylaxis, Eliquis Daily clinical course: 10/09/20 Patient presented with altered mental status, slurred speech. Currently awake,alert,not confused. MRI done report pending patient has elevated Troponin, but had CABG last week at [place]. Will consult cardiology RIO with Creatinine 1.5. Repeat in am. IVF at 75 ml/hr 10/10/20: MRI suggestive of left precentral gyrus infarct. Pending PT OT eval, patient is tolerating diet. Follow clinically. Discharge planning once cleared by PT. Subjective Date of service: 10/10/20 Principal diagnosis: new onset right side weakness Interval history: Patient seen and examined. Medical records and medication list reviewed. No acute event overnight noted by the RN. Patient denies any chest pain or difficulty breathing. Patient is tolerating diet. Discussed plan of care at bedside with patient. Objective - Exam Narrative Exam: GENERAL: well-developed and well-nourished white elderly male lying on bed appeared to be in no discomfort. HEENT: Normocephalic. Atraumatic. No conjunctival congestion or icterus. Patient has moist mucous membranes. NECK: Supple. Trachea midline. CHEST/LUNGS: Clear to auscultated bilaterally, breathing nonlabored. No wheezes crackles or rhonchi. HEART/CARDIOVASCULAR: Regular in rate and rhythm. S1 and S2 positive. ABDOMEN: Abdomen is soft, nontender. Patient has normal bowel sounds. SKIN: There is no rash. Warm and dry. NEURO: No focal motor deficit. Follows command. MUSCULOSKELETAL: No joint effusion or tenderness. EXTRIMITY: No edema, no cyanosis or clubbing. PSYCH: Cooperative. - Constitutional Vitals: Vital Signs - 12hr 10/10/20 10/10/20 10/10/20 03:33 06:00 08:30 Temperature 97.9 F Pulse Rate 76 Pulse Rate [ 78 79 Apical] Pulse Rate [ 75 79 From Monitor] Respiratory 16 20 16 Rate Blood Pressure 128/75 Blood Pressure [Left] O2 Sat by Pulse 96 97 97 Oximetry 10/10/20 10/10/20 10/10/20 08:51 09:00 10:30 Temperature 98.3 F Pulse Rate 84 67 77 Pulse Rate [ Apical] Pulse Rate [ From Monitor] Respiratory 18 17 Rate Blood Pressure 175/95 145/60 Blood Pressure 155/75 [Left] O2 Sat by Pulse 97 97 Oximetry - Labs CBC & Chem 7: 10/11/20 04:46 10/10/20 04:37 Labs: Abnormal lab results 10/09/20 10/09/20 10/09/20 Range/Units 16:48 17:58 17:58 Hgb 11.0 L (11.8-15.2) gm/dl Hct 34.2 L (35.5-45.6) % RDW 17.4 H (13.2-15.2) % BUN (9-20) mg/dL Creatinine 1.7 H (0.8-1.3) mg/dL Glucose (75-100) mg/dL POC Glucose 233 H (70-105) mg/dL Troponin T (0.00-0.029) ng/mL 10/09/20 10/10/20 10/10/20 Range/Units 20:59 04:37 04:37 Hgb 11.0 L (11.8-15.2) gm/dl Hct 33.9 L (35.5-45.6) % RDW 17.6 H (13.2-15.2) % BUN (9-20) mg/dL Creatinine (0.8-1.3) mg/dL Glucose (75-100) mg/dL POC Glucose 134 H (70-105) mg/dL Troponin T 0.091 H (0.00-0.029) ng/mL 10/10/20 10/10/20 Range/Units 04:37 11:45 Hgb (11.8-15.2) gm/dl Hct (35.5-45.6) % RDW (13.2-15.2) % BUN 36 H (9-20) mg/dL Creatinine 1.5 H (0.8-1.3) mg/dL Glucose 130 H (75-100) mg/dL POC Glucose 202 H (70-105) mg/dL Troponin T (0.00-0.029) ng/mL HEART Score - HEART Score Age: > 65 Risk factors: > 3 risk factors or hx of atherosclerotic disease Troponin: Troponin T 0.091 ng/mL (0.00-0.029) H 10/10/20 04:37 Troponin: < normal limit - Critical Actions Critical Actions: 0-3 pts:0.9-1.7%risk of adverse cardiac event.Candidate for discharge
--- NOTE | 2020-10-10 18:05 | Electrocardiograph Report ---
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
[2020-10-10] MEDS: SODIUM CHLORIDE 0.9% 1000 ML 1,000 ML IV SCH (22:33)
[2020-10-11 05:42] LABS: Hematocrit 31.1 % (35.5-45.6); Hemoglobin 10.1 gm/dl (11.8-15.2); Mean Corpuscular HGB Conc 32 % (32-34); Mean Corpuscular Volume 85 fl (84-94); Platelet Count 184 K/mm3 (140-440); Red Blood Count 3.68 M/mm3 (3.65-5.03); Red Cell Distribution Width 17.4 % (13.2-15.2)
[2020-10-11] MEDS: INSULIN LISPRO 100 UNIT/ML SUB-Q SCH ×4 (08:35→17:13)
[2020-10-11] MEDS: PANTOPRAZOLE 40 MG TAB PO SCH (09:35)
[2020-10-11] MEDS: ASPIRIN 325 MG TAB PO SCH (09:35)
[2020-10-11] MEDS: carvediloL 25 MG TAB PO SCH (09:36)
[2020-10-11] MEDS: LOSARTAN 50 MG TAB PO SCH (09:36)
[2020-10-11] MEDS: APIXABAN 5 MG TAB PO SCH (09:37)
[2020-10-11] MEDS: VENLAFAXINE 75 MG TAB PO SCH ×2 (09:37→13:51)
[2020-10-11 09:50] VITALS: BP 149/83
--- NOTE | 2020-10-11 11:55 | Progress Note ---
Assessment and Plan NSTEMI suspect Type II CAD s/p CABG * Troponins noted to be elevated upon admission. Troponins are down trended. * EKG showed normal sinus rhythm with no acute ischemic changes. * Continue Coreg 25mg PO BID, Imdur 10mg PO BID, atorvastatin 80mg PO QHS, aspirin 325 mg PO, Losartan 100mg QD. * Echo 07/07/2020-EF 40 to 45%, mild to moderate left ventricular hypertrophy, right ventricular systolic function normal ascending aorta mildly dilated * C-07/17/2020- Diffuse severe and diffuse triple-vessel disease with 99% subtotal occlusion of left circumflex, 90% proximal left anterior descending and 100% occlusion of proximal right coronary. EF 50 to 55% * Echo 10/09/2020-EF 40 to 45%, moderate left ventricular hypertrophy, mild diastolic dysfunction is present, right ventricular systolic function is normal, left and right atrium is normal CVA Non Syncopal Fall * Patient was found to be hypoglycemic 63, per EMS * Carotid Doppler- Right carotid shows less than 50% stenosis, left carotid shows 50-69% diameter stenosis * Neurology consulted. 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 Patient seen in conjunction with Dr. Ellison who agrees with this plan of care. Will see as needed - Patient Problems (1) Coronary artery disease Current Visit: Yes Status: Chronic Qualifiers: Coronary Disease-Associated Artery/Lesion type: bypass graft [place] vs. transplanted heart: [place] heart (2) Hyperlipidemia Current Visit: Yes Status: Chronic Qualifiers: Hyperlipidemia type: unspecified Qualified Code(s): E78.5 - Hyperlipidemia, unspecified (3) NSTEMI (non-ST elevated myocardial infarction) Current Visit: Yes Status: Acute (4) RIO (acute kidney injury) Current Visit: Yes Status: Acute Subjective Date of service: 10/11/20 Principal diagnosis: new onset right side weakness Interval history: Patient resting in bed. Reports feeling good and has no cardiac complaints Sinus 80s with no events on monitor Objective Last Vital Signs Temp 98.2 F 10/11/20 08:03 Pulse 82 10/11/20 09:36 Resp 18 10/11/20 08:03 BP 149/83 10/11/20 09:36 Pulse Ox 97 10/11/20 08:03 - Physical Examination General: No Apparent Distress HEENT: Positive: PERRL Neck: Positive: trachea midline Cardiac: Positive: Reg Rate and Rhythm Lungs: Positive: clear to auscultation, Normal Breath Sounds Neuro: Positive: Grossly Intact Abdomen: Positive: Soft, Active Bowel Sounds Skin: Positive: Suspicious Lesions. Negative: Rash Extremities: Present: upper extr. pulses, lower extr. pulses. Absent: edema - Labs and Meds CBC 10/11/20 Range/Units 04:46 WBC 4.9 (4.5-11.0) K/mm3 RBC 3.68 (3.65-5.03) M/mm3 Hgb 10.1 L (11.8-15.2) gm/dl Hct 31.1 L (35.5-45.6) % Plt Count 184 (140-440) K/mm3 - Imaging and Cardiology EKG: report reviewed, image reviewed Echo: report reviewed Cardiac cath: report reviewed - Telemetry EKG Rhythm: Sinus Rhythm - EKG Sinus rhythms and dysrhythmias: sinus rhythm
--- NOTE | 2020-10-11 14:31 | Consultation ---
History of Present Illness - Reason for Consult Consult date: 10/11/20 Left Carotid Artery Stenosis With Possible Syncopal Episode Requesting physician: STAN COREA - History of Present Illness The patient is a 75-year-old male who recently underwent a three-vessel CABG at [place] approximately 1 week ago. He states he was using the bathroom and when he went to get get back in the bed the floor was wet and he slipped landing on his buttocks. He states that he called for his daughter to assist him with getting up however she was asleep so he decided to remain on the floor since he was unable to get himself up. He states that he grabbed the blanket from his bed since it was cold and he laid on the floor and to his daughter was able to come assist him with getting up. He denies any loss of consciousness. He states that when his daughter arrived him she thought that he had a facial droop so she brought him to the hospital. Upon arrival the patient has had an extensive work-up that has included an MRI of his brain that demonstrated no acute finding s. He had a carotid duplex that suggested 50 to 69% stenosis of his left internal carotid artery however there are no significant elevations in velocity. Review of the chart does reveal that he had a CTA of his neck in June 2020 that demonstrated no significant stenosis of bilateral carotid arteries. The patient states that he did have a left carotid endarterectomy performed by Dr. Magdaleno Trinidad MD approximately 10 years ago. He denies having any slurred speech at this time or any numbness or weakness of his upper or lower extremities. He has no additional complaints at this time. Past History Past Medical History: CAD, diabetes, hypertension, hyperlipidemia, stroke Past Surgical History: CABG, Other (Left carotid endarterectomy) Social history: Family history: no significant family history Medications and Allergies Allergies Allergy/AdvReac Type Severity Reaction Status Date / Time No Known Allergies Allergy Verified 05/01/17 11:07 Home Medications Medication Instructions Recorded Confirmed Last Taken Type Esomeprazole Magnesium [NexIUM] 40 mg PO DAILY 07/05/13 10/10/20 05/04/17 History Metformin HCl [Metformin] 1,000 mg PO DAILY 07/05/13 10/10/20 2 Days Ago History ~05/03/17 Venlafaxine [Effexor] 75 mg PO TID 05/01/17 10/10/20 05/04/17 History Aspirin [Aspirin BABY CHEW TAB] 81 mg PO QDAY #30 tab.chew 07/11/20 10/10/20 Unknown Rx AtorvaSTATin [Lipitor] 80 mg PO QHS #60 tablet 07/11/20 10/10/20 Unknown Rx Clopidogrel [Plavix] 75 mg PO DAILY #30 tablet 07/11/20 10/10/20 Unknown Rx Glimepiride [Amaryl] 2 mg PO QDDIAB #60 tablet 07/19/20 10/10/20 Unknown Rx Pantoprazole [Protonix TAB] 40 mg PO QDAC #60 tablet 07/19/20 10/10/20 Unknown Rx carvediloL [Coreg] 25 mg PO Q12HR #60 tablet 07/19/20 10/10/20 Unknown Rx Amiodarone [Cordarone 200 MG TAB] 200 mg PO DAILY 10/10/20 10/10/20 Unknown History Apixaban [Eliquis] 5 mg PO DAILY 10/10/20 10/10/20 Unknown History Tamsulosin [Flomax] 0.4 mg PO DAILY 10/10/20 10/10/20 Unknown History Active Meds: Active Medications Acetaminophen (Acetaminophen 325 Mg Tab) 650 mg PO Q4H PRN PRN Reason: Pain MILD(1-3)/Fever >100.5/MAURER Apixaban (Apixaban 5 Mg Tab) 5 mg PO Q12HR [facility]; Protocol Last Admin: 10/11/20 09:37 Dose: 5 mg Documented by: Aspirin (Aspirin 325 Mg Tab) 325 mg PO QDAY [facility] Last Admin: 10/11/20 09:35 Dose: 325 mg Documented by: Atorvastatin Calcium (Atorvastatin 40 Mg Tab) 80 mg PO QHS [facility] Last Admin: 10/10/20 22:32 Dose: 80 mg Documented by: Carvedilol (Carvedilol 25 Mg Tab) 25 mg PO Q12HR [facility] Last Admin: 10/11/20 09:36 Dose: 25 mg Documented by: Dextrose (Dextrose 50% In Water (25gm) 50 Ml Syringe) 50 ml IV Q30MIN PRN; Protocol PRN Reason: Hypoglycemia Hydromorphone HCl (Hydromorphone 1 Mg/1 Ml Inj) 0.5 mg IV Q3H PRN PRN Reason: Pain , Severe (7-10) Sodium Chloride (Nacl 0.9% 1000 Ml) 1,000 mls @ 75 mls/hr IV DIRECT [facility] Last Admin: 10/10/20 22:33 Dose: 75 mls/hr Documented by: Insulin Human Lispro (Insulin Lispro 100 Unit/Ml) 0 unit SUB-Q ACHS [facility]; Protocol Last Admin: 10/11/20 12:39 Dose: 3 unit Documented by: Isosorbide Mononitrate (Isosorbide Mononitrate 20 Mg Tab) 10 mg PO BID@1000,1700 [facility] Last Admin: 10/11/20 09:37 Dose: 10 mg Documented by: Losartan Potassium (Losartan 50 Mg Tab) 100 mg PO QDAY [facility] Last Admin: 10/11/20 09:36 Dose: 100 mg Documented by: Metoclopramide HCl (Metoclopramide 10 Mg/2 Ml Inj) 10 mg IV Q6H PRN PRN Reason: Nausea And Vomiting Ondansetron HCl (Ondansetron 4 Mg/2 Ml Inj) 4 mg IV Q8H PRN PRN Reason: Nausea And Vomiting Oxycodone/Acetaminophen (Oxycodone /Acetaminophen 5-325mg Tab) 1 tab PO Q6H PRN PRN Reason: Pain, Moderate (4-6) Pantoprazole Sodium (Pantoprazole 40 Mg Tab) 40 mg PO QDAC [facility] Last Admin: 10/11/20 09:35 Dose: 40 mg Documented by: Sodium Chloride (Sodium Chloride 0.9% 10 Ml Flush Syringe) 10 ml IV BID [facility] Last Admin: 10/11/20 09:37 Dose: 10 ml Documented by: Sodium Chloride (Sodium Chloride 0.9% 10 Ml Flush Syringe) 10 ml IV PRN PRN PRN Reason: LINE FLUSH Venlafaxine HCl (Venlafaxine 75 Mg Tab) 75 mg PO TID [facility] Last Admin: 10/11/20 13:51 Dose: 75 mg Documented by: Review of Systems All systems: negative Exam - Constitutional Vitals: Temp Pulse Resp BP Pulse Ox 98.2 F 82 18 149/83 97 10/11/20 08:03 10/11/20 09:36 10/11/20 08:03 10/11/20 09:36 10/11/20 08:03 General appearance: Present: no acute distress - Neck Neck: Present: supple, other (Healed left carotid endarterectomy incision) - Respiratory Respiratory effort: normal - Cardiovascular Rhythm: regular - Extremities Extremities: no ischemia, pulses intact (Palpable right dorsalis pedis artery, palpable left dorsalis pedis and posterior tibial arteries) Extremity abnormal: other (Midline sternotomy incision is healing without evidence of infection, chest tube incision sites are healing without evidence of infection) - Abdominal General gastrointestinal: Present: soft, non-tender, non-distended Male genitourinary: Present: deferred - Rectal Rectal Exam: deferred - Musculoskeletal Musculoskeletal: strength equal bilaterally Results - Labs CBC & Chem 7: 10/11/20 04:46 10/10/20 04:37 Labs: Abnormal lab results 10/10/20 10/11/20 10/11/20 Range/Units 17:43 04:46 08:01 Hgb 10.1 L (11.8-15.2) gm/dl Hct 31.1 L (35.5-45.6) % MCH 27 L (28-32) pg RDW 17.4 H (13.2-15.2) % POC Glucose 208 H 120 H (70-105) mg/dL 10/11/20 Range/Units 11:27 Hgb (11.8-15.2) gm/dl Hct (35.5-45.6) % MCH (28-32) pg RDW (13.2-15.2) % POC Glucose 165 H (70-105) mg/dL Assessment and Plan The patient is a 75-year-old male with a history of coronary artery disease who is approximately 1-1/2 weeks status post CABG. He also has a history of carotid artery stenosis with a previous left carotid endarterectomy. The patient does not have any lateralizing deficits and no significant lesions found on his previous CT of the neck. Additionally he has no significant peak systolic velocities or bulky plaques noted on his carotid duplex. At this time I do not believe there is any need for vascular surgical intervention. The patient can be followed on an outpatient basis from a vascular surgery standpoint. We will continue antiplatelet therapy as well as a statin as well as following his carotid disease with annual carotid duplex. I discussed this with the patient who has expressed understanding and agrees with the plan.
--- NOTE | 2020-10-11 15:32 | Discharge Summary ---
Providers - Providers Date of Admission: 10/10/20 12:57 Date of discharge: 10/11/20 Attending physician: STAN COREA 10/08/20 22:43 Consult to Physician [CONS] Routine Comment: Consulting Provider: MANNIE TENA Physician Instructions: Reason For Exam: TIA 10/08/20 23:03 Occupational Therapy Evaluate and Treat [CONS] Routine Comment: Reason For Exam: Neuro deficits Physical Therapy Evaluation and Treat [CONS] Routine Comment: Reason For Exam: Neuro deficits 10/09/20 07:34 Consult to Physician [CONS] Routine Comment: Consulting Provider: YVETTE LARRY Physician Instructions: Reason For Exam: Elevated Troponin,CABG at [place] last week 10/11/20 09:50 Consult to Physician [CONS] Routine Comment: Consulting Provider: LINO ROMERO Physician Instructions: Reason For Exam: left ICA stenosis 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 EMS was called and patient blood glucose level was 63. Patient was admitted to the hospital for further evaluation and management. Daily clinical course: 10/09/20 Patient presented with altered mental status, slurred speech. Currently awake,alert,not confused. MRI done report pending patient has elevated Troponin, but had CABG last week at [place]. Will consult cardiology RIO with Creatinine 1.5. Repeat in am. IVF at 75 ml/hr 10/10/20: MRI suggestive of left precentral gyrus infarct. Pending PT OT eval, patient is tolerating diet. Follow clinically. Discharge planning once cleared by PT. No additional intervention planned by cardiology, 2D echo showed EF 40 to 45% 10/11/20: Patient oriented x3. PT recommended home health. Vascular surgeon was consulted for left ICA stenosis and recommended and will carotid Doppler and outpatient follow-up. Patient will be discharged home today with home health and roller walker. Discharge plan and management was thoroughly discussed with the patient and he verbalized understanding. Assessment and plan. --Acute CVA MRI brain showed left precentral gyrus acute CVA -Echocardiogram is remarkable for LVH with EF#40-45% - carotid duplex scan showed left ICA-50-69% stenosis -Neurology consulted, continue aspirin and statin -Patient was initially also placed on Plavix as Eliquis was on hold -Neurology recommended to continue aspirin and Eliquis on discharge -PT recommended home health with roller walker --Status post fall, likely due to hypoglycemia PT recommended home health with roller walker --Left ICA 50 to 79% stenosis Vascular consulted and recommended annual carotid Doppler monitoring and outpatient follow-up --RIO, secondary to vasomotor nephropathy Status post gentle hydration, creatinine 1.5 --Hyperkalemia, treated with Kayexalate and calcium gluconate Resolved --Coronary artery disease s/p CABGx4 with left atrial appendage clip at [place] with a CVA post op day 4 Cardiology consulted, outpatient follow-up --Diabetes mellitus type 2, A1c 6.7 Consistent carb diet, sliding scale of insulin --Hypertension, continue antihypertensives --Hyperlipidemia, continue statin --Atrial fibrillation, chronic Patient anticoagulated with Eliquis --Ischemic cardiomyopathy with EF 40 to 45%, continue Coreg, Imdur, statin, ACEI, aspirin and Eliquis --Elevated troponin, patient already anticoagulated with Eliquis Per cardiology medical management --hypoglycemia, resolved --Acute metabolic encephalopathy, due to hypoglycemia and acute infarct, resolved- POA --DVT prophylaxis, Eliquis . Disposition: [id number] HOME UNDER HOME [facility] Final Discharge Diagnosis (Prints w/discharge instructions): --Acute CVA. --Status post fall, likely due to hypoglycemia. --Left ICA 50 to 79% stenosis. --RIO, secondary to vasomotor nephropathy. --Hyperkalemia, resolved. --Coronary artery disease, status post CABG. --Diabetes mellitus type 2, A1c 6.7. --Hypertension,. --Hyperlipidemia. --Atrial fibrillation, chronic. --Ischemic cardiomyopathy with EF 40 to 45%,. --Elevated troponin, medical management per cardiology. --History of BPH. --hypoglycemia, resolved. --Acute metabolic encephalopathy, due to hypoglycemia and acute infarct, resolved- POA Time spent for discharge: 34 minutes Core Measure Documentation - Palliative Care Palliative Care/ Comfort Measures: Not Applicable - Core Measures Any of the following diagnoses?: stroke - Stroke Discharge Requirements Statin for LDL = or >70 mg/dl on DC: Yes Anticoag for atrial fib/atrial flutter: Yes Antithrombotic for ischemic stroke: Yes Exam - Physical Exam Narrative exam: GENERAL: well-developed and well-nourished white elderly male lying on bed appeared to be in no discomfort. HEENT: Normocephalic. Atraumatic. No conjunctival congestion or icterus. P atient has moist mucous membranes. NECK: Supple. Trachea midline. CHEST/LUNGS: Clear to auscultated bilaterally, breathing nonlabored. No wheezes crackles or rhonchi. HEART/CARDIOVASCULAR: Regular in rate and rhythm. S1 and S2 positive. ABDOMEN: Abdomen is soft, nontender. Patient has normal bowel sounds. SKIN: There is no rash. Warm and dry. NEURO: No focal motor deficit. Follows command. MUSCULOSKELETAL: No joint effusion or tenderness. EXTRIMITY: No edema, no cyanosis or clubbing. PSYCH: Cooperative. - Constitutional Vitals: Temp Pulse Resp BP Pulse Ox 98.2 F 82 18 149/83 97 10/11/20 08:03 10/11/20 09:36 10/11/20 08:03 10/11/20 09:36 10/11/20 08:03 Plan Activity: advance as tolerated Weight Bearing Status: Weight Bear as Tolerated Diet: low fat, low salt Additional Instructions: Recommend annual carotid Doppler for left carotid artery stenosis. Follow-up with cardiology in 1 week. Repeat BMP in 1 week Follow up with: PRIMARY CAREMD [Primary Care Provider] - 3-5 Days LINO ROMERO MD [Staff Physician] - 7 Days YVETTE LARRY MD [Staff Physician] - 7 Days
== END 2020-10-11 17:12 | disposition home health service (06) | DRG 64 ==
LOC: ED 05:47 → 4A 23:27 → OBSVTOIN 10-10 12:57
PROVIDERS: ADMIT Hospitalist; ATTEND Internal Medicine
DX: I63.9 Cerebral infarction, unspecified (principal); N17.0 Acute kidney failure with tubular necrosis; I21.A1 Myocardial infarction type 2; I25.810 Atherosclerosis of coronary artery bypass graft(s) without angina pectoris; I48.20 Chronic atrial fibrillation, unspecified; I42.8 Other cardiomyopathies; E11.649 Type 2 diabetes mellitus with hypoglycemia without coma; K21.9 Gastro-esophageal reflux disease without esophagitis; T38.3X5A Adverse effect of insulin and oral hypoglycemic [antidiabetic] drugs, initial encounter; E87.5 Hyperkalemia; N40.0 Benign prostatic hyperplasia without lower urinary tract symptoms; E78.5 Hyperlipidemia, unspecified; R79.89 Other specified abnormal findings of blood chemistry; W18.39XA Other fall on same level, initial encounter; Z95.1 Presence of aortocoronary bypass graft; Z79.899 Other long term (current) drug therapy; Z79.891 Long term (current) use of opiate analgesic; Z79.01 Long term (current) use of anticoagulants; Y93.89 Activity, other specified; Y92.89 Other specified places as the place of occurrence of the external cause; Y99.8 Other external cause status; Z79.82 Long term (current) use of aspirin; Z79.84 Long term (current) use of oral hypoglycemic drugs; Z95.5 Presence of coronary angioplasty implant and graft
CPT/HCPCS: 36415; 70450; 70544; 70551; 80048; 80053; 80061; 81001; 82565; 82962; 83036; 83690; 84484; 85025; 85027; 85610; 85730; 87116; 87641; 93005; 93306; 93880; G0378; A9270-GY; J1644; J1815; J7030

== ENCOUNTER 2021-03-13 11:05 | Outpatient (CLI) | payer MEDICARE ==
--- NOTE | 2021-03-13 12:31 | XRay Report ---
CHEST 2 VIEWS INDICATION / CLINICAL INFORMATION: DYSPNEA. COMPARISON: 07/10/2020 FINDINGS: SUPPORT DEVICES: None. HEART / MEDIASTINUM: Heart size is stable. Post-CABG changes. Left atrial appendage clip. LUNGS / PLEURA: No significant pulmonary or pleural abnormality. No pneumothorax. ADDITIONAL FINDINGS: No significant additional findings. IMPRESSION: 1. No acute findings. Signer Name: Sebastian Tillman MD Signed: 03/13/2021 12:27 PM Workstation Name: [employer]
[2021-03-13 13:46] LABS: Calcium 9.5 mg/dL (8.4-10.2)
== END 2021-03-13 11:06 | disposition home or self-care (01) ==
LOC: XRAY 11:05
PROVIDERS: ATTEND Internal Medicine
DX: E78.5 Hyperlipidemia, unspecified (principal); R06.00 Dyspnea, unspecified
CPT/HCPCS: 36415; 71046; 80048

== ENCOUNTER 2021-03-14 17:06 | Observation (INO) | payer MEDICARE ==
[2021-03-14] MEDS ORDERED: ALBUTEROL 2.5 MG/3 ML NEBU IH ONE (18:46)
[2021-03-14 19:03] LABS: Basophils % (Auto) 0.3 % (0.0-1.8); Eosinophils # (Auto) 0.2 K/mm3 (0.0-0.4); Eosinophils % (Auto) 3.8 % (0.0-4.3); Hematocrit 34.1 % (35.5-45.6); Hemoglobin 10.6 gm/dl (11.8-15.2); Lymphocytes % (Auto) 17.6 % (13.4-35.0); Mean Corpuscular HGB Conc 31 % (32-34); Mean Corpuscular Volume 85 fl (84-94); Monocytes # (Auto) 0.7 K/mm3 (0.0-0.8); Monocytes % (Auto) 12.2 % (0.0-7.3); Platelet Count 232 K/mm3 (140-440); Red Cell Distribution Width 17.2 % (13.2-15.2)
[2021-03-14 19:20] LABS: Calcium 9.4 mg/dL (8.4-10.2)
[2021-03-14] MEDS ORDERED: SODIUM CHLORIDE 0.9% 1000 ML 1,000 ML IV ONE (19:48)
[2021-03-14] MEDS ORDERED: FUROSEMIDE 40 MG/4 ML INJ IV ONE (19:48)
[2021-03-14] MEDS ORDERED: CALCIUM GLUCONATE 1,000 MG in SODIUM CHLORIDE 0.9% 100 ML IV ONE (19:48)
[2021-03-14] MEDS ORDERED: SODIUM BICARB 8.4% 50 MEQ/50 ML SYRINGE IV ONE (19:49)
[2021-03-14] MEDS ORDERED: INSULIN REGULAR, HUMAN 100 UNITS/1 ML IV ONE (19:49)
[2021-03-14] MEDS ORDERED: SODIUM POLYSTYRENE 15 GM/60 ML ORAL LIQD PO ONE (19:49)
[2021-03-14] MEDS ORDERED: DEXTROSE 50% IN WATER (25GM) 50 ML SYRINGE IV ONE (20:00)
--- NOTE | 2021-03-14 20:33 | Emergency Department Report ---
ED General Adult HPI - General Chief complaint: Medical Clearance Stated complaint: ABNORMAL LABS Time Seen by Provider: 03/14/21 19:23 Source: patient Mode of arrival: Ambulatory Limitations: No Limitations - History of Present Illness Initial comments: 75-year male with a past medical history of diabetes, CVA, GERD, hypertension, CABG currently on Eliquis presents to the hospital due to hyperkalemia on outpatient labs. Patient had outpatient labs performed by Dr. Nowak which resulted in [employer]. Potassium was 6.2 yesterday with a BUN/creatinine of 30/1.9. Patient denies any symptoms currently. He denies no history of renal insufficiency. As per medical record review patient does have history of mild renal insufficiency based on previous lab work. Patient reports that he also had a chest x-ray yesterday due to cough and shortness of breath. Chest x-ray results were negative as per report - Related Data Home Medications Medication Instructions Recorded Confirmed Last Taken Metformin HCl [Metformin] 1,000 mg PO DAILY 07/05/13 10/10/20 2 Days Ago ~05/03/17 Venlafaxine [Effexor] 75 mg PO TID 05/01/17 10/10/20 05/04/17 Apixaban [Eliquis] 5 mg PO DAILY 10/10/20 10/10/20 Unknown Tamsulosin [Flomax] 0.4 mg PO DAILY 10/10/20 10/10/20 Unknown Previous Rx's Medication Instructions Recorded Last Taken Type Aspirin [Aspirin BABY CHEW TAB] 81 mg PO QDAY #30 tab.chew 07/11/20 Unknown Rx AtorvaSTATin [Lipitor] 80 mg PO QHS #60 tablet 07/11/20 Unknown Rx Glimepiride [Amaryl] 2 mg PO QDDIAB #60 tablet 07/19/20 Unknown Rx Pantoprazole [Protonix TAB] 40 mg PO QDAC #60 tablet 07/19/20 Unknown Rx carvediloL [Coreg] 25 mg PO Q12HR #60 tablet 07/19/20 Unknown Rx Allergies Allergy/AdvReac Type Severity Reaction Status Date / Time No Known Allergies Allergy Verified 05/01/17 11:07 ED Review of Systems ROS: Stated complaint: ABNORMAL LABS Other details as noted in HPI Comment: All other systems reviewed and negative ED Past Medical Hx - Past Medical History Hx Hypertension: Yes Hx CVA: Yes (No residual deficits) Hx Diabetes: Yes Hx GERD: Yes - Surgical History Hx Coronary Stent: Yes (On DAPT) Additional Surgical History: neck sx - Social History Smoking Status: Never Smoker - Medications Home Medications: Home Medications Medication Instructions Recorded Confirmed Last Taken Type Metformin HCl [Metformin] 1,000 mg PO DAILY 07/05/13 10/10/20 2 Days Ago History ~05/03/17 Venlafaxine [Effexor] 75 mg PO TID 05/01/17 10/10/20 05/04/17 History Aspirin [Aspirin BABY CHEW TAB] 81 mg PO QDAY #30 tab.chew 07/11/20 10/10/20 Unknown Rx AtorvaSTATin [Lipitor] 80 mg PO QHS #60 tablet 07/11/20 10/10/20 Unknown Rx Glimepiride [Amaryl] 2 mg PO QDDIAB #60 tablet 07/19/20 10/10/20 Unknown Rx Pantoprazole [Protonix TAB] 40 mg PO QDAC #60 tablet 07/19/20 10/10/20 Unknown Rx carvediloL [Coreg] 25 mg PO Q12HR #60 tablet 07/19/20 10/10/20 Unknown Rx Apixaban [Eliquis] 5 mg PO DAILY 10/10/20 10/10/20 Unknown History Tamsulosin [Flomax] 0.4 mg PO DAILY 10/10/20 10/10/20 Unknown History ED Physical Exam - General Limitations: No Limitations - Other Other exam information: General: No acute distress Head: Atraumatic Eyes: normal appearance ENT: Moist mucous membranes Neck: Normal appearance, no midline tenderness Chest: Clear to auscultation bilaterally CV: Regular rate and rhythm Abdomen: Soft, normal bowel sounds, nontender, nondistended, no rebound or guarding Back: Normal inspection Extremity: Normal inspection, full range of motion Neuro: Alert O x 3, no facial asymmetry, speech clear, no gross motor sensory deficit Psych: Appropriate behavior Skin: No rash ED Course Vital Signs 03/14/21 03/14/21 18:30 19:55 Temperature 97.6 F Pulse Rate 76 Pulse Rate [ 80 Bilateral Throughout] Respiratory 17 Rate Respiratory 18 Rate [Bilateral Throughout] Blood Pressure 146/70 O2 Sat by Pulse 97 Oximetry - Consultations Consultation #1: 03/14/21 19: [address] Curiel-call manager hvac who recommends admission to the hospital for hyperkalemia treatment ED Medical Decision Making - Lab Data Result diagrams: 03/14/21 18:51 03/14/21 18:51 Lab Results 03/14/21 03/14/21 Range/Units 18:51 18:51 WBC 5.6 (4.5-11.0) K/mm3 RBC 4.00 (3.65-5.03) M/mm3 Hgb 10.6 L (11.8-15.2) gm/dl Hct 34.1 L (35.5-45.6) % MCV 85 (84-94) fl MCH 26 L (28-32) pg MCHC 31 L (32-34) % RDW 17.2 H (13.2-15.2) % Plt Count 232 (140-440) K/mm3 Lymph % (Auto) 17.6 (13.4-35.0) % [place] % (Auto) 12.2 H (0.0-7.3) % Eos % (Auto) 3.8 (0.0-4.3) % Baso % (Auto) 0.3 (0.0-1.8) % Lymph # (Auto) 1.0 L (1.2-5.4) K/mm3 [place] # (Auto) 0.7 (0.0-0.8) K/mm3 Eos # (Auto) 0.2 (0.0-0.4) K/mm3 Baso # (Auto) 0.0 (0.0-0.1) K/mm3 Seg Neutrophils % 66.1 (40.0-70.0) % Seg Neutrophils # 3.7 (1.8-7.7) K/mm3 Sodium 136 L (137-145) mmol/L Potassium 6.1 H* (3.6-5.0) mmol/L Chloride 101.2 (98-107) mmol/L Carbon Dioxide 22 (22-30) mmol/L Anion Gap 19 mmol/L BUN 31 H (9-20) mg/dL Creatinine 1.7 H (0.8-1.3) mg/dL Estimated GFR 39 ml/min BUN/Creatinine Ratio 18 % Glucose 150 H (75-100) mg/dL Calcium 9.4 (8.4-10.2) mg/dL - EKG Data -: EKG Interpreted by Ar EKG shows normal: sinus rhythm, ST-T waves (peak t waves, no stemi) Rate: normal - Medical Decision Making 75-year-old male with moderate insufficiency now presents to the hospital with hyperkalemia confirmed on 2 separate blood draws. Medications were hyperkalemia ordered. Nephrology consulted. Patient will be admitted for treatment. Critical Care Time: No Critical care attestation.: If time is entered above; I have spent that time in minutes in the direct care of this critically ill patient, excluding procedure time. ED Disposition Clinical Impression: Renal insufficiency, Hyperkalemia Disposition: ADMITTED INPATIENT Is pt being admited?: Yes Condition: Stable Time of Disposition: 20:36
[2021-03-14] MEDS ORDERED: FUROSEMIDE 40 MG/4 ML INJ ONE (21:52)
[2021-03-14] MEDS ORDERED: MORPHINE 4 MG/1 ML INJ IV PRN (23:44)
[2021-03-14] MEDS ORDERED: MORPHINE 2 MG/1 ML INJ IV PRN (23:44)
[2021-03-14] MEDS ORDERED: ACETAMINOPHEN 325 MG TAB PO PRN (23:44)
[2021-03-14] MEDS ORDERED: DEXTROSE 50% IN WATER (25GM) 50 ML SYRINGE IV PRN (23:44)
[2021-03-14] MEDS ORDERED: ONDANSETRON 4 MG/2 ML INJ IV PRN (23:44)
[2021-03-14] MEDS ORDERED: MAGNESIUM HYDROXIDE (MOM) ORAL LIQD UDC PO PRN (23:44)
[2021-03-14] MEDS ORDERED: SODIUM CHLORIDE 0.9% 1000 ML 1,000 ML IV SCH (23:45)
--- NOTE | 2021-03-14 23:53 | History and Physical Report ---
History of Present Illness Date of examination: 03/14/21 Date of admission: 03/14/21 20:36 Chief complaint: Abnormal labs History of present illness: 75-year-old male with significant past medical history of hypertension, CVA, diabetes mellitus, CABG and currently on Eliquis sent to the emergency room for evaluation of elevated potassium levels. Patient had outpatient labs done by his physician Dr. Nowak. Potassium was said to be 6.2 yesterday and elevated BUN/creatinine of 30 and 1.9 respectively. Patient denies any history of kidney disease. However review of patient's record indicates that he has had some mild renal insufficiency. Patient indicates that he had a chest x-ray sometime yesterday because of a cough. Chest x-ray was said to be negative. Work-up in the emergency room today repeat labs shows potassium level of 6.1. BUN of 31 and creatinine 1.7. Patient received calcium gluconate, albuterol treatment, sodium bicarbonate, Kayexalate, insulin and glucose in the emergency room. Consult is being placed to the event specialist product demonstrator for evaluation. Past History Past Medical History: CAD, diabetes, GERD, hypertension, hyperlipidemia, renal failure, stroke (No residual deficit) Past Surgical History: PTCA Social history: no significant social history Family history: no significant family history Medications and Allergies Allergies Allergy/AdvReac Type Severity Reaction Status Date / Time No Known Allergies Allergy Verified 05/01/17 11:07 Home Medications Medication Instructions Recorded Confirmed Last Taken Type Metformin HCl [Metformin] 1,000 mg PO BID 07/05/13 10/10/20 2 Days Ago History ~05/03/17 Venlafaxine [Effexor] 75 mg PO TID 05/01/17 10/10/20 05/04/17 History Aspirin [Aspirin BABY CHEW TAB] 81 mg PO QDAY #30 tab.chew 07/11/20 10/10/20 Unknown Rx Pantoprazole [Protonix TAB] 40 mg PO QDAC #60 tablet 07/19/20 10/10/20 Unknown Rx carvediloL [Coreg] 25 mg PO Q12HR #60 tablet 07/19/20 10/10/20 Unknown Rx Apixaban [Eliquis] 5 mg PO DAILY 10/10/20 10/10/20 Unknown History Tamsulosin [Flomax] 0.4 mg PO DAILY 10/10/20 10/10/20 Unknown History Amiodarone [Cordarone 200 MG TAB] 200 mg PO QDAY 03/15/21 03/15/21 Unknown History AtorvaSTATin [Lipitor] 40 mg PO QHS 03/15/21 Unknown History Clopidogrel [Plavix] 75 mg PO QDAY 03/15/21 03/15/21 Unknown History Esomeprazole Magnesium [NexIUM] 40 mg PO QDAY 03/15/21 03/15/21 Unknown History Glimepiride [Amaryl] 2 mg PO QDAY 03/15/21 Unknown History Krill/[place]-3/Dha/Epa/Lipids 1 each PO 03/15/21 Unknown History [Krill Oil 350 mg Softgel] Lisinopril/Hydrochlorothiazide 1 tab PO QDAY 03/15/21 03/15/21 Unknown History [Zestoretic 20-12.5 mg] carvediloL [Coreg] 3.125 mg PO BID 03/15/21 03/15/21 Unknown History Review of Systems Constitutional: no fever, no chills Ears, nose, mouth and throat: no nasal congestion, no sore throat Cardiovascular: no chest pain, no palpitations Respiratory: no cough, no shortness of breath Gastrointestinal: no abdominal pain, no nausea, no vomiting, no diarrhea Genitourinary Male: no dysuria, no hematuria, no flank pain, no nocturia Musculoskeletal: no neck pain, no low back pain Integumentary: no rash, no pruritis Neurological: no headaches, no confusion Psychiatric: no anxiety, no depression Endocrine: no polyphagia, no polydipsia, no polyuria Exam - Constitutional Vitals: Temp Pulse Resp BP Pulse Ox 97.6 F 73 20 147/81 94 03/14/21 18:30 03/14/21 22:38 03/14/21 22:41 03/14/21 22:38 03/14/21 22:41 General appearance: Present: no acute distress, well-nourished - EENT Eyes: Present: PERRL, EOM intact. Absent: scleral icterus ENT: hearing intact, clear oral mucosa, dentition normal - Neck Neck: Present: supple, normal ROM - Respiratory Respiratory effort: normal Respiratory: bilateral: CTA - Cardiovascular Rhythm: regular Heart Sounds: Present: S1 & S2. Absent: gallop, systolic murmur, diastolic murmur, rub, click - Extremities Extremities: no ischemia, pulses intact, pulses symmetrical, No edema, normal temperature, normal color, Full ROM Peripheral Pulses: within normal limits - Abdominal General gastrointestinal: Present: soft, non-tender, non-distended, normal bowel sounds - Integumentary Integumentary: Present: clear, warm, dry. Absent: rash - Musculoskeletal Musculoskeletal: strength equal bilaterally - Psychiatric Psychiatric: appropriate mood/affect, intact judgment & insight, memory intact, cooperative - Neurologic Neurologic: CNII-XII intact, no focal deficits, moves all extremities Results - Labs CBC & Chem 7: 03/14/21 18:51 03/14/21 18:51 Labs: Abnormal lab results 03/14/21 03/14/21 03/14/21 Range/Units 18:51 18:51 20:56 Hgb 10.6 L (11.8-15.2) gm/dl Hct 34.1 L (35.5-45.6) % MCH 26 L (28-32) pg MCHC 31 L (32-34) % RDW 17.2 H (13.2-15.2) % [place] % (Auto) 12.2 H (0.0-7.3) % Lymph # (Auto) 1.0 L (1.2-5.4) K/mm3 Sodium 136 L (137-145) mmol/L Potassium 6.1 H* (3.6-5.0) mmol/L BUN 31 H (9-20) mg/dL Creatinine 1.7 H (0.8-1.3) mg/dL Glucose 150 H (75-100) mg/dL POC Glucose 109 H (70-105) mg/dL 03/14/21 Range/Units 22:47 Hgb (11.8-15.2) gm/dl Hct (35.5-45.6) % MCH (28-32) pg MCHC (32-34) % RDW (13.2-15.2) % [place] % (Auto) (0.0-7.3) % Lymph # (Auto) (1.2-5.4) K/mm3 Sodium (137-145) mmol/L Potassium (3.6-5.0) mmol/L BUN (9-20) mg/dL Creatinine (0.8-1.3) mg/dL Glucose (75-100) mg/dL POC Glucose 189 H (70-105) mg/dL Assessment and Plan - Patient Problems (1) Hyperkalemia Current Visit: Yes Status: Acute Plan to address problem: Patient has received insulin and glucose, sodium bicarb, Kayexalate and 6 calcium chloride. Will monitor potassium level. Await further evaluation by nephrology. (2) Renal insufficiency Current Visit: Yes Status: Acute Plan to address problem: Await further evaluation by nephrology. Will monitor BUN and creatinine. (3) HTN (hypertension) Current Visit: No Status: Chronic Qualifiers: Hypertension type: essential hypertension Plan to address problem: We will resume routine home medications and monitor vital signs closely. (4) Type II diabetes mellitus Current Visit: No Status: Chronic Plan to address problem: We will monitor Accu-Cheks. Patient placed on sliding scale insulin (5) Coronary atherosclerosis of [place] coronary artery Current Visit: No Status: Chronic Qualifiers: Associated angina: without angina Plan to address problem: Stable Continue routine home medications. (6) DVT prophylaxis Current Visit: No Status: Acute Plan to address problem: Patient currently on anticoagulation with Eliquis. (7) Full code status Current Visit: Yes Status: Acute Plan to address problem: Patient is full code.
[2021-03-15 06:09] LABS: Basophils % (Auto) 0.3 % (0.0-1.8); Eosinophils # (Auto) 0.2 K/mm3 (0.0-0.4); Eosinophils % (Auto) 2.9 % (0.0-4.3); Hematocrit 31.1 % (35.5-45.6); Hemoglobin 9.8 gm/dl (11.8-15.2); Lymphocytes % (Auto) 16.2 % (13.4-35.0); Mean Corpuscular HGB Conc 32 % (32-34); Mean Corpuscular Volume 84 fl (84-94); Monocytes # (Auto) 0.7 K/mm3 (0.0-0.8); Monocytes % (Auto) 11.5 % (0.0-7.3); Platelet Count 203 K/mm3 (140-440); Red Blood Count 3.73 M/mm3 (3.65-5.03); Red Cell Distribution Width 16.7 % (13.2-15.2)
[2021-03-15 06:23] LABS: Albumin 3.6 g/dL (3.9-5); Calcium 9.4 mg/dL (8.4-10.2)
[2021-03-15] MEDS: INSULIN LISPRO 100 UNIT/ML SUB-Q SCH ×2 (08:29→12:45)
--- NOTE | 2021-03-15 08:54 | Consultation ---
History of Present Illness - Reason for Consult Consult date: 03/15/21 chronic renal failure, hyperkalemia Past History Past Medical History: CAD, diabetes, GERD, hypertension, hyperlipidemia, renal failure, stroke (No residual deficit) Past Surgical History: PTCA Social history: no significant social history Family history: no significant family history Medications and Allergies Allergies Allergy/AdvReac Type Severity Reaction Status Date / Time No Known Allergies Allergy Verified 05/01/17 11:07 Home Medications Medication Instructions Recorded Confirmed Last Taken Type Metformin HCl [Metformin] 1,000 mg PO BID 07/05/13 10/10/20 2 Days Ago History ~05/03/17 Venlafaxine [Effexor] 75 mg PO TID 05/01/17 10/10/20 05/04/17 History Aspirin [Aspirin BABY CHEW TAB] 81 mg PO QDAY #30 tab.chew 07/11/20 10/10/20 Unknown Rx Pantoprazole [Protonix TAB] 40 mg PO QDAC #60 tablet 07/19/20 10/10/20 Unknown Rx carvediloL [Coreg] 25 mg PO Q12HR #60 tablet 07/19/20 10/10/20 Unknown Rx Apixaban [Eliquis] 5 mg PO DAILY 10/10/20 10/10/20 Unknown History Tamsulosin [Flomax] 0.4 mg PO DAILY 10/10/20 10/10/20 Unknown History Amiodarone [Cordarone 200 MG TAB] 200 mg PO QDAY 03/15/21 03/15/21 Unknown Histo ry AtorvaSTATin [Lipitor] 40 mg PO QHS 03/15/21 Unknown History Clopidogrel [Plavix] 75 mg PO QDAY 03/15/21 03/15/21 Unknown History Esomeprazole Magnesium [NexIUM] 40 mg PO QDAY 03/15/21 03/15/21 Unknown History Glimepiride [Amaryl] 2 mg PO QDAY 03/15/21 Unknown History Krill/[place]-3/Dha/Epa/Lipids 1 each PO 03/15/21 Unknown History [Krill Oil 350 mg Softgel] Lisinopril/Hydrochlorothiazide 1 tab PO QDAY 03/15/21 03/15/21 Unknown History [Zestoretic 20-12.5 mg] carvediloL [Coreg] 3.125 mg PO BID 03/15/21 03/15/21 Unknown History Active Meds: Active Medications Acetaminophen (Acetaminophen 325 Mg Tab) 650 mg PO Q4H PRN PRN Reason: Pain MILD(1-3)/Fever >100.5/MAURER Amiodarone HCl (Amiodarone 200 Mg Tab) 200 mg PO QDAY [facility] Apixaban (Apixaban 5 Mg Tab) 5 mg PO Q12HR [facility] Aspirin (Aspirin 81 Mg Tab Chew) 81 mg PO QDAY [facility] Atorvastatin Calcium (Atorvastatin 40 Mg Tab) 40 mg PO QHS [facility] Carvedilol (Carvedilol 3.125 Mg Tab) 3.125 mg PO BID [facility] Clopidogrel Bisulfate (Clopidogrel 75 Mg Tab) 75 mg PO QDAY [facility] Dextrose (Dextrose 50% In Water (25gm) 50 Ml Syringe) 50 ml IV Q30MIN PRN; Protocol PRN Reason: Hypoglycemia Sodium Chloride (Nacl 0.9% 1000 Ml) 1,000 mls @ 75 mls/hr IV DIRECT [facility] Insulin Human Lispro (Insulin Lispro 100 Unit/Ml) 0 unit SUB-Q ACHS [facility]; Protocol Last Admin: 03/15/21 08:29 Dose: Not Given Magnesium Hydroxide (Magnesium Hydroxide (Mom) Oral Liqd Udc) 30 ml PO Q4H PRN PRN Reason: Constipation Morphine Sulfate (Morphine 2 Mg/1 Ml Inj) 2 mg IV Q4H PRN PRN Reason: Pain, Moderate (4-6) Morphine Sulfate (Morphine 4 Mg/1 Ml Inj) 4 mg IV Q4H PRN PRN Reason: Pain , Severe (7-10) Ondansetron HCl (Ondansetron 4 Mg/2 Ml Inj) 4 mg IV Q8H PRN PRN Reason: Nausea And Vomiting Sodium Chloride (Sodium Chloride 0.9% 10 Ml Flush Syringe) 10 ml IV BID [facility] Sodium Chloride (Sodium Chloride 0.9% 10 Ml Flush Syringe) 10 ml IV PRN PRN PRN Reason: LINE FLUSH Exam - Vital Signs Vital signs: Vital Signs Temp Pulse Resp BP Pulse Ox 97.6 F 76 17 146/70 97 03/14/21 18:30 03/14/21 18:30 03/14/21 18:30 03/14/21 18:30 03/14/21 18:30 Results - Lab Results 03/15/21 05:40 01/06/22 05:40 Most recent lab results Calcium 9.4 mg/dL (8.4-10.2) 03/15/21 05:40
[2021-03-15] MEDS ORDERED: SODIUM POLYSTYRENE 15 GM/60 ML ORAL LIQD PO SCH (09:30)
--- NOTE | 2021-03-15 09:54 | Discharge Summary ---
Providers - Providers Date of Admission: 03/14/21 20:36 Date of discharge: 03/15/21 Attending physician: DARIANA ADHIKARI 03/14/21 19:58 Consult to Physician [CONS] Urgent Comment: Dr. Santos spoke with Dr. Fish @ 195 Consulting Provider: ASHLEY FISH Physician Instructions: Reason For Exam: renal insuf, hyperkalemia 03/14/21 23:44 Consult to Dietitian/Nutrition [CONS] Routine Physician Instructions: Reason For Exam: Reason for Consult: Diet education Primary care physician: MERCY FLOREZ Hospitalization Reason for admission: Acute kidney injury Condition: Stable Hospital course: 75-year-old male with significant past medical history of hypertension, CVA, diabetes mellitus, CABG and currently on Eliquis sent to the emergency room for evaluation of elevated potassium levels. Patient had outpatient labs done by his physician Dr. Florez. Potassium was said to be 6.2 yesterday and elevated BUN/creatinine of 30 and 1.9 respectively. However review of patient's record indicates that he has had some mild renal insufficiency. Patient indicates that he had a chest x-ray sometime yesterday because of a cough. Chest x-ray was said to be negative. Work-up in the emergency room revealed potassium level of 6.1. BUN of 31 and creatinine 1.7. Patient received calcium gluconate, albuterol treatment, sodium bicarbonate, Kayexalate, insulin and glucose in the emergency room. The patient's potassium improved to 5.1. The patient was seen by nephrology in consultation who believes that the renal insufficiency is likely secondary to chronic kidney disease and ANTOINE inhibitors. Nephrology recommended that the patient discontinue lisinopril and discharged home with Lasix 20 mg daily. Patient is to follow-up with nephrology as an outpatient. Dedicated discharge time 32 minutes Disposition: HOME / SELF CARE / HOMELESS Final Discharge Diagnosis (Prints w/discharge instructions): Acute kidney injury on chronic kidney disease secondary to ANTOINE inhibitor, hyperkalemia, CAD, diabetes mellitus type 2, GERD, hypertension, hyperlipidemia, history CVA Core Measure Documentation - Palliative Care Palliative Care/ Comfort Measures: Not Applicable - Core Measures Any of the following diagnoses?: none Exam - Constitutional Vitals: Temp Pulse Resp BP Pulse Ox 97.7 F 81 18 133/66 96 03/15/21 08:21 03/15/21 08:21 03/15/21 08:21 03/15/21 08:21 03/15/21 08:21 General appearance: Present: no acute distress, well-nourished - EENT Eyes: Present: PERRL ENT: hearing intact, clear oral mucosa - Neck Neck: Present: supple, normal ROM - Respiratory Respiratory effort: normal Respiratory: bilateral: CTA - Cardiovascular Heart Sounds: Present: S1 & S2. Absent: rub, click - Extremities Extremities: pulses symmetrical, No edema Peripheral Pulses: within normal limits - Abdominal General gastrointestinal: Present: soft, non-tender, non-distended, normal bowel sounds Male genitourinary: Present: normal - Integumentary Integumentary: Present: clear, warm, dry - Musculoskeletal Musculoskeletal: gait normal, strength equal bilaterally - Psychiatric Psychiatric: appropriate mood/affect, intact judgment & insight - Neurologic Neurologic: CNII-XII intact, moves all extremities Plan Activity: advance as tolerated Weight Bearing Status: Weight Bear as Tolerated Diet: low fat, low cholesterol, low salt, diabetic, renal Follow up with: MERCY FLOREZ MD [Primary Care Provider] - 7 Days ASHLEY FISH MD [Staff Physician] - 7 Days Prescriptions: carvediloL [Coreg] 6.25 mg PO BID #60 tablet Furosemide [Lasix TAB] 20 mg PO QDAY #30 tablet
[2021-03-15] MEDS ORDERED: CLOPIDOGREL 75 MG TAB PO SCH (10:00)
[2021-03-15] MEDS ORDERED: APIXABAN 5 MG TAB PO SCH (10:00)
[2021-03-15] MEDS ORDERED: ASPIRIN 81 MG TAB CHEW PO SCH (10:00)
[2021-03-15] MEDS ORDERED: NON-FORMULARY EACH (Apixaban 5 MG Tablet) PO SCH (10:00)
[2021-03-15] MEDS ORDERED: AMIODARONE 200 MG TAB PO SCH (10:00)
[2021-03-15] MEDS ORDERED: carvediloL 3.125 MG TAB PO SCH ×2 (10:00)
[2021-03-15] MEDS ORDERED: carvediloL 6.25 MG TAB PO SCH (10:00)
[2021-03-15] MEDS ORDERED: FUROSEMIDE 20 MG TAB PO SCH (10:00)
--- NOTE | 2021-03-15 12:37 | Ultrasound Report ---
Renal ultrasound INDICATION: Acute renal failure FINDINGS: Both kidneys measure 12 cm in length. Both kidneys appear mildly echogenic along the cortic es. Urinary bladder is partially fluid distended. No hydronephrosis. There is a echogenic lesion nicolas uring about 10 x 6 mm within the lower portion of the right kidney, nonspecific IMPRESSION: Findings concerning for medical renal disease. Echogenic structure within the mid to lowe r portion of the right kidney may represent nephrolithiasis but is somewhat nonspecific. Signer Name: Janes Shields MD Signed: 03/15/2021 12:33 PM Workstation Name: [id number]
[2021-03-15 12:58] VITALS: BP 137/64
--- NOTE | 2021-03-16 12:58 | Electrocardiograph Report ---
[facility] Test Date: 2021-03-14 Test Time: 20:43:30 Pat Name: АНДРЕЙ MACK Department: Room: A489 1 Gender: M Account Development Representative: CARRILLO : 1945 Requested By: DANG CHI Order Number: [id number] Reading MD: Annita Nathan Measurements Intervals [place] Rate: 74 P: 9 ID: [id number] QRS: -67 QRSD: 115 T: 95 QT: 406 QTc: 449 Interpretive Statements Sinus rhythm Left anterior fascicular block Nonspecific T abnormalities, lateral leads Compared to ECG 10/08/2020 11:57:59 No significant change Electronically Signed On 03-16-2021 12:58:42 EST by Annita Nathan
== END 2021-03-15 13:11 | disposition home or self-care (01) ==
LOC: ED 17:06 → 4A 20:36
PROVIDERS: ADMIT Internal Medicine Geriatric Medicine; ATTEND Hospitalist
DX: N17.9 Acute kidney failure, unspecified (principal); E87.5 Hyperkalemia; N28.9 Disorder of kidney and ureter, unspecified; I10 Essential (primary) hypertension; I25.10 Atherosclerotic heart disease of native coronary artery without angina pectoris; E11.9 Type 2 diabetes mellitus without complications; K21.9 Gastro-esophageal reflux disease without esophagitis; E78.5 Hyperlipidemia, unspecified; Z86.73 Personal history of transient ischemic attack (TIA), and cerebral infarction without residual deficits; Z79.82 Long term (current) use of aspirin; Z79.899 Other long term (current) drug therapy; Z98.890 Other specified postprocedural states; Z79.84 Long term (current) use of oral hypoglycemic drugs; Z79.4 Long term (current) use of insulin
CPT/HCPCS: 36415; 76770; 80048; 80053; 82962; 85025; 93005; 94644; 96361; 96365; 96366; 96375; 99284; G0378; J0610; J1940; J3490; Q9967; J1815